=== PATIENT | female | born 1955 | race Caucasian/White ===

== ENCOUNTER 2020-05-21 13:50 | Emergency (ER) | payer MEDICAID, SELFPAY ==
--- NOTE | 2020-05-21 13:58 | ED.URI ---
HPI - URI/Sore Throat General Chief Complaint: Upper Respiratory Infection Stated Complaint: chest congestion/cough/sinus drainage Time Seen by Provider: 05/21/20 14:08 Source: patient and RN notes reviewed Mode of arrival: ambulatory Limitations: no limitations History of Present Illness HPI Narrative: 64-year-old female with history of COPD and right lower lobectomy presents with concern for cough, chest congestion, sinus drainage. She denies fever, chills, body aches. Reports having 2 negative Covid test in the past, none within the last week. Denies any known exposure to Covid. MD elicited complaint: cough Related Data Home Medications Medication Instructions Recorded Confirmed acyclovir 05/21/20 albuterol sulfate 05/21/20 albuterol sulfate INHALATION 05/21/20 amlodipine 05/21/20 citalopram mg 05/21/20 fluticasone propion-salmeterol INHALATION 05/21/20 [Wixela Inhub] metoprolol tartrate 05/21/20 montelukast mg 05/21/20 montelukast mg 05/21/20 pravastatin 05/21/20 Allergies Allergy/AdvReac Type Severity Reaction Status Date / Time codeine Allergy Unknown Other Verified 05/21/20 14:16 Penicillins Allergy Unknown Rash Verified 05/21/20 14:16 Review of Systems Review of Systems: Narrative: CONSTITUTIONAL: Denies malaise, chills, sweats, or fever. EYES: Denies visual changes, redness, or discharge. ENT: Reports rhinorrhea. Denies congestion, sinus pain, otalgia and sore throat. CARDIOVASCULAR: Denies chest pain, palpitations, or edema. RESPIRATORY: Reports cough, chest congestion. Denies dyspnea. GASTROINTESTINAL: Denies abdominal pain, nausea, vomiting, diarrhea SKIN: Denies rash or itching. MUSCULOSKELETAL: Denies myalgia. NEUROLOGIC: Denies headache. All systems reviewed & are unremarkable except as noted in HPI and below PMFSH Comments At time of signature, agree with nursing past medical, surgical, social and family history. There is no relevant family history pertinent to the presenting complaint Exam Narrative: Exam Narrative: GENERAL: Well-appearing, well-nourished, and in no acute distress. HEAD: Normocephalic EYES: PERRLA, conjunctivae clear ENT: Nares clear, turbinates and erythematous, clear discharge. Mucous membranes moist. TM pearly xie with sharp light reflex bilaterally; no tragal tenderness. Oropharynx not erythematous without lesions. Tonsils not enlarged and without exudate, no drooling, no hoarseness, no trismus, uvula midline. NECK: Supple. No lymphadenopathy CHEST: Inspiratory and expiratory wheeze throughout, breath sounds equal, right lower lobectomy. No rhonchi, rales, or stridor. No respiratory distress, speaks in full sentences. HEART: Regular rate and rhythm. No murmur heard. SKIN: Warm, dry, no rash. NEURO: Alert and oriented x3. PSYCH: Normal mood and affect Course Course Emergency Course: Patient is aware of diagnosis, understands and agrees to treatment plan. Anticipatory guidance given. Patient agrees to follow-up as directed and is aware of reasons to seek care at the emergency department. Portions of this record may have been created with voice recognition software Vital Signs Vital signs: Vital Signs Temperature 98.8 F 05/21/20 14:00 Pulse Rate 80 05/21/20 14:00 Respiratory Rate 18 05/21/20 14:00 Blood Pressure 126/80 05/21/20 14:00 Pulse Oximetry 98 05/21/20 14:00 Temperature 98.8 F 05/21/20 14:00 Pulse Rate 80 05/21/20 14:00 Respiratory Rate 18 05/21/20 14:00 Blood Pressure 126/80 05/21/20 14:00 Pulse Oximetry 98 05/21/20 14:00 Reviewed. MDM - URI/Sore Throat MDM Narrative Medical decision making narrative: Differential diagnosis considered: COPD exacerbation, <del>C</del>emile virus, strep pharyngitis, allergic rhinitis, upper respiratory tract infection, sinusitis, rhinosinusitis, nasopharyngitis. viral pharyngitis, otitis media, otitis externa, pneumonia, bronchitis, viral cough syndrome, viral syndrome, a
[2020-05-21 14:00] VITALS: BP 126/80; PULSE 80; RESP 18; TEMP 37.1; O2SAT 98
== END 2020-05-21 14:15 | disposition home or self-care (01) ==
PROVIDERS: Emergency Provider Nurse Practitioner; PCP Internal Medicine
DX: J44.1 Chronic obstructive pulmonary disease with (acute) exacerbation (principal); J34.89 Other specified disorders of nose and nasal sinuses; Z90.2 Acquired absence of lung [part of]; E78.00 Pure hypercholesterolemia, unspecified; I10 Essential (primary) hypertension; K21.9 Gastro-esophageal reflux disease without esophagitis; F32.9 Major depressive disorder, single episode, unspecified; Z85.118 Personal history of other malignant neoplasm of bronchus and lung; Z92.21 Personal history of antineoplastic chemotherapy
CPT/HCPCS: 99213; G0463

== ENCOUNTER 2020-08-17 16:49 | Emergency (ER) | payer MEDICAID, SELFPAY ==
--- NOTE | ~2020-08-17 | XR_ITS ---
EXAMINATION: XR chest 2V 08/17/2020 17:40 INDICATION: Wheezing and tachycardia PROCEDURE: 2 view chest COMPARISON: No prior studies for comparison. FINDINGS: No focal pneumonia or edema. There is right basilar atelectasis/scarring. The cardiomediast inal silhouette is within normal limits. There are no pleural effusions. There is no pneumothorax s uspected. IMPRESSION: 1: Right basilar atelectasis/scarring. Reviewed, dictated and finalized at location A. MANAGER
[2020-08-17 17:10] VITALS: BP 143/87; PULSE 108; RESP 20; TEMP 36.7; O2SAT 96
[2020-08-17 17:25] VITALS: BP 143/87; PULSE 108; RESP 20; TEMP 36.7; O2SAT 96
--- NOTE | 2020-08-17 17:51 | ED.GENADULT ---
HPI - General Adult General Chief complaint: Upper Respiratory Infection Stated complaint: poss respiratory infection Source: patient Mode of arrival: ambulatory Limitations: no limitations History of Present Illness HPI narrative: Patient presents for evaluation of respiratory symptoms. She indicates she has had shortness of breath for awhile . When asked to elaborate on this, she states she has been short of breath for about a month. She has had some phone conversations with Dr Collier indicates she has never been seen in person. She saw her ENT at [facility] a few weeks ago for sinus congestion was instructed to continue with Flonase and nasal rinses. She reports sinus congestion, productive cough of clear white sputum, shortness of breath, worse with exertion. She is also experienced some chest pain but none in the last 3 days. She denies any fever, chills, leg swelling. No recent known exposures to Covid. States that she has been tested several times for COVID and tests have been negative, although she has not been tested recently. She has a history of lung cancer and had a lobectomy several years ago. She continues to smoke about four cigarettes per day. She has taken prednisone in past but none in the last few months. Patient states she had a CAT scan of her chest approximately 1 month ago but her symptoms have worsened since the time of her imaging. She states it is difficult to get in to see her primary care provider and her labor specialist is Dr Vazquez at [facility]. Related Data Home Medications Medication Instructions Recorded Confirmed albuterol sulfate 2 puff INHALATION Q4H PRN 05/21/20 08/17/20 albuterol sulfate 2.5 mg INHALATION TID PRN 05/21/20 08/17/20 amlodipine 10 mg PO DAILY 05/21/20 08/17/20 citalopram 10 mg PO DAILY 05/21/20 08/17/20 famotidine 40 mg PO DAILY 05/21/20 08/17/20 metoprolol tartrate 12.5 mg PO BID 05/21/20 08/17/20 montelukast 10 mg PO DAILY 05/21/20 08/17/20 pravastatin 20 mg PO DAILY 05/21/20 08/17/20 Flonase 2 spray EACH NARE DAILY 08/17/20 08/17/20 ipratropium bromide [Atrovent HFA] 2 puff INHALATION Q6H 08/17/20 08/17/20 Allergies Allergy/AdvReac Type Severity Reaction Status Date / Time codeine Allergy Unknown Other Verified 08/17/20 17:22 Penicillins Allergy Unknown Rash Verified 08/17/20 17:22 Review of Systems Review of Systems: Narrative: CONSTITUTIONAL: Denies fever, chills, or sweats. EYES: Denies visual changes, redness, or discharge. ENT: Reports sinus congestion drainage.. CARDIOVASCULAR: Reports chest pain recently, although none in the last few days. Denies any leg swelling. RESPIRATORY: Reports shortness of breath and productive cough of white sputum. GASTROINTESTINAL: Denies abdominal pain, nausea, vomiting, or diarrhea. GENITOURINARY: Denies dysuria or hematuria. SKIN: Denies rash or itching. MUSCULOSKELETAL: Denies back pain, joint pain, or myalgia. NEUROLOGIC: Denies headache, numbness, dizziness, or weakness. PSYCHIATRIC: Denies anxiety or depression. PMFSH Past Medical History Medical History COPD (chronic obstructive pulmonary disease) Hyperlipidemia Hypertension Lung cancer Tobacco use Surgical History Surgical History S/P lobectomy of lung Family History Family History Mother Bladder cancer Father Gastric cancer Social History Social History (Updated 08/17/20 @ 17:57 by Fracisco Adler [facility], ) Smoking status: Current every day smoker Tobacco type: cigarettes Substance use: never Living arrangements: with family Spiritual care concerns: No Exam Narrative: Exam Narrative: GENERAL: Well-appearing, well-nourished, and in no acute distress. HEAD: Normocephalic, atraumatic. EYES: PERRLA and EOMI. ENT: Nares clear, no rhinorrhea or epistaxis. Mucous membranes moist. Oropharynx without ton
--- NOTE | 2020-08-17 17:53 | ECG_ITS ---
Measurements Intervals [place] Rate: 96 P: 66 [place]: 145 QRS: 74 QRSD: 90 T: 62 QT: 375 QTc: 474 Interpretive Statements SINUS RHYTHM BASELINE ARTIFACT- I, II, AVR, AVL, AVF BORDERLINE ECG Electronically Signed On 08-18-2020 7:08:02 CRANE CHASER by Reza Glasgow D.O.
[2020-08-17] MEDS: methylPREDNISolone SOD SUCC 125 MG VIAL IM (17:57)
[2020-08-17 18:23] VITALS: PULSE 95; RESP 18; O2SAT 96
== END 2020-08-17 18:56 | disposition short-term general hospital (02) ==
PROVIDERS: Emergency Provider Nurse Practitioner; PCP Internal Medicine
DX: J44.1 Chronic obstructive pulmonary disease with (acute) exacerbation (principal); Z20.822 Contact with and (suspected) exposure to COVID-19; F17.210 Nicotine dependence, cigarettes, uncomplicated; E78.5 Hyperlipidemia, unspecified; I10 Essential (primary) hypertension; Z85.118 Personal history of other malignant neoplasm of bronchus and lung; Z90.2 Acquired absence of lung [part of]
CPT/HCPCS: 71046; 87426; 93005; 96372; 99213; C9803; G0463; J2930

== ENCOUNTER 2020-11-19 14:10 | Emergency (ER) | payer MEDICAID, SELFPAY | END 2020-11-19 18:27 | disposition home or self-care (01) | LOC: EXPBETH 18:27 | PROVIDERS: Emergency Provider Nurse Practitioner Family; PCP Internal Medicine | DX: J30.9 Allergic rhinitis, unspecified (principal); R09.82 Postnasal drip; J44.9 Chronic obstructive pulmonary disease, unspecified | CPT/HCPCS: 99211; G0463 ==

== ENCOUNTER 2021-01-09 10:35 | Outpatient (RCR) | payer MEDICAID, SELFPAY | END 2021-04-09 23:59 | disposition home or self-care (01) | LOC: ANHBWCAUD 10:35 | PROVIDERS: PCP Internal Medicine; Visit Provider Internal Medicine | DX: Z46.1 Encounter for fitting and adjustment of hearing aid (principal) | CPT/HCPCS: 99199 ==

== ENCOUNTER 2021-03-09 13:56 | Emergency (ER) | payer MEDICAID, SELFPAY ==
--- NOTE | 2021-03-09 14:03 | ED.SOB ---
HPI - SOB/Dyspnea General Chief Complaint: Upper Respiratory Infection Stated Complaint: copd - issues breathing Time Seen by Provider: 03/09/21 14:42 Source: patient and RN notes reviewed Mode of arrival: ambulatory Limitations: no limitations History of Present Illness HPI Narrative: 65-year-old female with history of lung cancer, COPD, currently undergoing treatment for lung cancer presents with concern for worsening shortness of breath. Reports over the last several days she has been using her nebulizer frequently and continues to have wheezing and shortness of breath. She denies new fevers, body aches, sick contacts. Reports she has been having serial chest CTs and has had a lung infection that is difficult to treat that she has been being treated for by her oncologist. She denies rhinorrhea, nasal congestion, sore throat, ear pain. MD elicited complaint: shortness of breath Related Data Home Medications Medication Instructions Recorded Confirmed albuterol sulfate 2 puff INHALATION Q4H PRN 05/21/20 03/09/21 albuterol sulfate 2.5 mg INHALATION TID PRN 05/21/20 03/09/21 amlodipine 10 mg PO DAILY 05/21/20 03/09/21 citalopram 10 mg PO DAILY 05/21/20 03/09/21 famotidine 40 mg PO DAILY 05/21/20 03/09/21 metoprolol tartrate 12.5 mg PO BID 05/21/20 03/09/21 montelukast 10 mg PO DAILY 05/21/20 03/09/21 pravastatin 20 mg PO DAILY 05/21/20 03/09/21 ipratropium bromide [Atrovent HFA] 2 puff INHALATION Q6H 08/17/20 03/09/21 cholecalciferol (vitamin D3) 100 mcg PO DAILY 03/09/21 03/09/21 [Vitamin D3] fluticasone propion-salmeterol 1 inh INHALATION Q12H 03/09/21 03/09/21 [Wixela Inhub] Allergies Allergy/AdvReac Type Severity Reaction Status Date / Time codeine Allergy Unknown Other Verified 03/09/21 14:33 Penicillins Allergy Unknown Rash Verified 03/09/21 14:33 Review of Systems Review of Systems: CONSTITUTIONAL: Denies malaise, chills, sweats, or fever. EYES: Denies visual changes, redness, or discharge. ENT: Denies rhinorrhea, congestion, sinus pain, otalgia and sore throat. CARDIOVASCULAR: Denies chest pain, palpitations, or edema. RESPIRATORY: Reports cough, wheezing, dyspnea. GASTROINTESTINAL: Denies abdominal pain, nausea, vomiting, diarrhea SKIN: Denies rash or itching. MUSCULOSKELETAL: Denies myalgia. NEUROLOGIC: Denies headache. All systems reviewed & are unremarkable except as noted in HPI and below PMFSH Past Medical History Medical History COPD (chronic obstructive pulmonary disease) Hyperlipidemia Hypertension Lung cancer Tobacco use Surgical History Surgical History S/P lobectomy of lung Family History Family History Mother Bladder cancer Father Gastric cancer Social History Social History (Updated 08/17/20 @ 17:57 by Fracisco Adler [facility], ) Smoking status: Current every day smoker Tobacco type: cigarettes Substance use: never Spiritual care concerns: No Comments At time of signature, agree with nursing past medical, surgical, social and family history. There is no relevant family history pertinent to the presenting complaint Exam Narrative: GENERAL: Well-appearing, well-nourished, and in no acute distress. HEAD: Normocephalic EYES: PERRLA, conjunctivae clear ENT: Nares clear. Mucous membranes moist. NECK: Supple. No lymphadenopathy CHEST: Diffuse inspiratory and expiratory wheeze, breath sounds equal. No rhonchi, rales, or stridor. No respiratory distress, speaks in full sentences. HEART: Regular rate and rhythm. No murmur heard. SKIN: Warm, dry, no rash. NEURO: Alert and oriented x3. PSYCH: Normal mood and affect Course Course Emergency Course: Discussed with patient the importance of continuity of care with her oncologist and her primary care provider. Discussed following up with them tomorrow for further evaluation, will do a steroid course no
[2021-03-09 14:12] VITALS: BP 125/97; PULSE 106; RESP 14; TEMP 36.8; O2SAT 97
[2021-03-09 14:34] VITALS: BP 125/97; PULSE 106; RESP 14; TEMP 36.8; O2SAT 97
== END 2021-03-09 14:57 | disposition home or self-care (01) ==
PROVIDERS: Emergency Provider Nurse Practitioner; PCP Internal Medicine
DX: R06.2 Wheezing (principal); R06.02 Shortness of breath; J44.9 Chronic obstructive pulmonary disease, unspecified; E78.5 Hyperlipidemia, unspecified; I10 Essential (primary) hypertension; Z85.118 Personal history of other malignant neoplasm of bronchus and lung; F17.210 Nicotine dependence, cigarettes, uncomplicated; Z90.2 Acquired absence of lung [part of]
CPT/HCPCS: 99213; G0463

== ENCOUNTER 2021-03-11 08:59 | Outpatient (CLI) | payer MEDICAID, SELFPAY | END 2021-03-11 09:00 | disposition home or self-care (01) | LOC: ANHBWCAUD 09:00 | PROVIDERS: PCP Internal Medicine; Visit Provider Internal Medicine | DX: H90.3 Sensorineural hearing loss, bilateral (principal) | CPT/HCPCS: 92557; 92567 ==

== ENCOUNTER 2021-03-25 14:02 | Outpatient (CLI) | payer MEDICAID, SELFPAY ==
[2021-03-25 19:56] LABS: Hematocrit 44.5 % (37.0-47.0); Hemoglobin 14.4 g/dL (12.0-15.0); Mean Corpuscular HGB Conc 32.4 g/dl (32-36); Mean Corpuscular Hemoglobin 31.8 pg (26-34); Mean Corpuscular Volume 98.2 fl (80-100); Mean Platelet Volume 10.2 fl (7.4-10.4); Platelet Count Result 421 k/mm3 (150-375); Red Blood Count 4.53 M/mm3 (4.2-5.4); Red Cell Distribution Width 13.2 % (11.5-14.5); White Blood Count 14.2 K/mm3 (4.5-10.0)
[2021-03-25 20:20] LABS: Alanine Aminotransferase 19 U/L (4-35); Albumin Level 4.3 g/dL (3.5-5.1); Alkaline Phosphatase 121 U/L (38-126); Anion Gap 13 mmol/L (8-16); Aspartate Amino Transferase 22 U/L (14-36); Bilirubin,Total 0.3 mg/dL (0.2-1.3); Blood Urea Nitrogen 6 mg/dL (7-17); Calcium 9.8 mg/dL (8.4-10.2); Carbon Dioxide 25 mmol/L (22-30); Chloride 105 mmol/L (98-107); Cholesterol 216 mg/dL (0-200); Estimated Glomerular Filt Rate > 60; Glucose 106 mg/dL (65-110); HDL Direct 41 mg/dL; Potassium 3.9 mmol/L (3.4-5.0); Sodium 143 mmol/L (137-145); Triglycerides 134 mg/dL (<150)
[2021-03-25 20:30] LABS: LDL Cholesterol Direct 127 mg/dL
== END 2021-03-25 14:03 | disposition home or self-care (01) ==
PROVIDERS: PCP Family Medicine; Visit Provider Family Medicine
DX: E78.5 Hyperlipidemia, unspecified (principal); I10 Essential (primary) hypertension; C34.90 Malignant neoplasm of unspecified part of unspecified bronchus or lung; J44.9 Chronic obstructive pulmonary disease, unspecified; Z00.00 Encounter for general adult medical examination without abnormal findings
CPT/HCPCS: 36415; 80053; 80061; 85027

== ENCOUNTER 2021-04-15 12:30 | Outpatient (RCR) | payer MEDICAID, SELFPAY | END 2021-06-30 23:59 | disposition home or self-care (01) | LOC: ANHBWCAUD 12:30 | PROVIDERS: PCP Family Medicine; Visit Provider Internal Medicine | DX: Z46.1 Encounter for fitting and adjustment of hearing aid (principal) | CPT/HCPCS: 99199; V5160; V5261 ==

== ENCOUNTER 2021-06-18 10:05 | Emergency (ER) | payer MEDICAID, SELFPAY ==
--- NOTE | ~2021-06-18 | XR_ITS ---
EXAMINATION: XR chest 2V DATE: 06/18/2021 10:32 INDICATION: Coarse wheezing, history of COPD and pneumonia TECHNIQUE: PA and lateral views of the chest are obtained. COMPARISON: 08/17/2020 FINDINGS: The lungs are free of acute opacities. Surgical clips are present in the right perihilar an d right upper lung zone as well as left perihilar region. Changes may reflect prior right upper lobec darian. There is no pleural effusion or pneumothorax. The cardiomediastinal silhouette is normal. There is moderate thoracic spondylosis. IMPRESSION: 1. No acute cardiopulmonary abnormality. Reviewed, dictated and finalized at location A. WORKER
--- NOTE | 2021-06-18 10:11 | ED.URI ---
HPI - URI/Sore Throat General Chief Complaint: Upper Respiratory Infection Stated Complaint: Chest Congestion Time Seen by Provider: 06/18/21 10:11 Source: patient and RN notes reviewed History of Present Illness HPI Narrative: Patient is 65-year-old female who presents the urgent care with complaints of chest congestion and cough. 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 Patient states that just does not seem to get better. States that she had increased fatigue as of yesterday and missed work. Patient denies of any fevers, nausea, vomiting or chest pain. States that she does not have any changes in her shortness of breath. Patient states she is been using her inhaler and nebulizers. No other acute complaints. No acute distress noted. Patient aware of the plan of care. Some parts of this dictation were generated by voice recognition software and may contain typographical and/or grammatical inaccuracies. Related Data Home Medications Medication Instructions Recorded Confirmed albuterol sulfate 2 puff INHALATION Q4H PRN 05/21/20 06/18/21 albuterol sulfate 2.5 mg INHALATION TID PRN 05/21/20 06/18/21 famotidine 40 mg PO DAILY 05/21/20 06/18/21 metoprolol tartrate 12.5 mg PO BID 05/21/20 06/18/21 ipratropium bromide [Atrovent HFA] 2 puff INHALATION Q6H 08/17/20 06/18/21 cholecalciferol (vitamin D3) 100 mcg PO DAILY 03/09/21 06/18/21 [Vitamin D3] fluticasone propion-salmeterol 1 inh INHALATION Q12H 03/09/21 06/18/21 [Wixela Inhub] Allergies Allergy/AdvReac Type Severity Reaction Status Date / Time codeine Allergy Unknown Other Verified 06/18/21 10:29 Penicillins Allergy Unknown Rash Verified 06/18/21 10:29 Review of Systems Review of Systems: CONSTITUTIONAL: Denies fever, chills, or sweats. Reports of fatigue EYES: Denies visual changes, redness, or discharge. ENT: Denies rhinorrhea, congestion, sore throat, or otalgia. CARDIOVASCULAR: Denies chest pain, palpitations, or edema. RESPIRATORY: Reports of chronic cough with intermittent increase in dyspnea GASTROINTESTINAL: Denies abdominal pain, nausea, vomiting, or diarrhea. GENITOURINARY: Denies dysuria or hematuria. SKIN: Denies rash or itching. MUSCULOSKELETAL: Denies back pain, joint pain, or myalgia. NEUROLOGIC: Denies headache, numbness, or weakness. All other systems reviewed are negative, except as documented in HPI. [facility] Past Medical History Medical History Allergies Arthritis Asthma Cancer COPD (chronic obstructive pulmonary disease) Hyperlipidemia Hypertension Lung cancer Tobacco use Surgical History Surgical History S/P lobectomy of lung Family History Family History Mother Bladder cancer Diabetes mellitus Father Gastric cancer Hypertension Heart problem Sibling Diabetes mellitus Other Alcohol abuse Social History Social History Smoking packs per day: 0.5 Smoking cigarettes per day: 10.0 Smoking status: Current every day smoker Tobacco type: cigarettes Substance use: never Spiritual care concerns: No Comments At the time of my signature, I reviewed and agree with the nursing past medical, surgical, social, and family history. There is no relevant family history pertinent to the patient complaint. Exam Narrative: GENERAL: This is a well-nourished, well-developed patient, in no apparent distress. HEAD: normocephalic, atraumatic. EYES: PERRL. Sclera clear/white. Vision is grossly intact. EARS: External ears normal, auditory canals clear and without drainage, TMs normal without perforation. Hearing grossly intact. NOSE: External nose normal with no obvious nasal discharge, nares without redness, no rhinorrhea.
[2021-06-18 10:15] VITALS: BP 125/81; PULSE 86; RESP 18; TEMP 37; O2SAT 98
== END 2021-06-18 11:00 | disposition home or self-care (01) ==
PROVIDERS: Emergency Provider Nurse Practitioner Family; PCP Family Medicine
DX: J42 Unspecified chronic bronchitis (principal); F17.210 Nicotine dependence, cigarettes, uncomplicated; M19.90 Unspecified osteoarthritis, unspecified site; J44.9 Chronic obstructive pulmonary disease, unspecified; E78.5 Hyperlipidemia, unspecified; I10 Essential (primary) hypertension; Z85.118 Personal history of other malignant neoplasm of bronchus and lung; Z90.2 Acquired absence of lung [part of]
CPT/HCPCS: 71046; 99213; G0463

== ENCOUNTER 2021-08-07 15:56 | Emergency (ER) | payer MEDICAID, SELFPAY ==
--- NOTE | 2021-08-07 15:58 | ED.URI ---
HPI - URI/Sore Throat General Chief Complaint: Wound/Laceration Stated Complaint: upper respiratory /wound on right thumb Time Seen by Provider: 08/07/21 15:58 Source: patient and RN notes reviewed History of Present Illness HPI Narrative: Patient is 65-year-old female presents the urgent care with complaints of a wound to the right thumb. Patient states that it started out as a pimple and she popped it 2 days ago. Patient states that she is now getting green drainage from the area. States that the redness is increased and is slightly painful. Patient is right-hand dominant. Denies of any known injuries. Denies any fever, chills, nausea or vomiting. Patient states she has been putting Neosporin on the area. No other acute complaints. No acute distress noted. Patient aware of plan of care. Some parts of this dictation were generated by voice recognition software and may contain typographical and/or grammatical inaccuracies. Related Data Home Medications Medication Instructions Recorded Confirmed albuterol sulfate 2 puff INHALATION Q4H PRN 05/21/20 08/07/21 albuterol sulfate 2.5 mg INHALATION TID PRN 05/21/20 08/07/21 famotidine 40 mg PO DAILY 05/21/20 08/07/21 metoprolol tartrate 12.5 mg PO BID 05/21/20 08/07/21 ipratropium bromide [Atrovent HFA] 2 puff INHALATION Q6H 08/17/20 08/07/21 fluticasone propion-salmeterol 1 inh INHALATION Q12H 03/09/21 08/07/21 [Wixela Inhub] cholecalciferol (vitamin D3) 25 mcg PO DAILY 08/07/21 08/07/21 Allergies Allergy/AdvReac Type Severity Reaction Status Date / Time codeine Allergy Unknown Other Verified 08/07/21 16:14 Penicillins Allergy Unknown Rash Verified 08/07/21 16:14 Review of Systems Review of Systems: CONSTITUTIONAL: Denies fever, chills, or sweats. EYES: Denies visual changes, redness, or discharge. ENT: Denies rhinorrhea, congestion, sore throat, or otalgia. CARDIOVASCULAR: Denies chest pain, palpitations, or edema. RESPIRATORY: Denies cough or dyspnea. GASTROINTESTINAL: Denies abdominal pain, nausea, vomiting, or diarrhea. GENITOURINARY: Denies dysuria or hematuria. SKIN: Reports of a wound to the right thumb MUSCULOSKELETAL: Denies back pain, joint pain, or myalgia. NEUROLOGIC: Denies headache, numbness, or weakness. All other systems reviewed are negative, except as documented in HPI. COUNT INCLUDES THE [facility] Past Medical History Medical History Allergies Arthritis Asthma Cancer COPD (chronic obstructive pulmonary disease) Hyperlipidemia Hypertension Lung cancer Tobacco use Surgical History Surgical History S/P lobectomy of lung Family History Family History Mother Bladder cancer Diabetes mellitus Father Gastric cancer Hypertension Heart problem Sibling Diabetes mellitus Other Alcohol abuse Social History Social History (System 08/07/21 @ 08:44 by Felicia Coronel) Smoking packs per day: 0.5 Smoking cigarettes per day: 10.0 Smoking status: Current every day smoker Tobacco type: cigarettes Substance use: never Spiritual care concerns: No Comments At the time of my signature, I reviewed and agree with the nursing past medical, surgical, social, and family history. There is no relevant family history pertinent to the patient complaint. Exam Narrative: GENERAL: This is a well-nourished, well-developed patient, in no apparent distress. HEAD: normocephalic, atraumatic. EYES: PERRL. Sclera clear/white. Vision is grossly intact. EARS: External ears normal NOSE: External nose normal with no obvious nasal discharge, nares without redness, no rhinorrhea. THROAT: Mucous membranes moist, posterior pharynx clear. NECK: Neck supple CARDIOVASCULAR: Regular rate and rhythm without murmurs, gallops, or rubs. RESPIRATORY: Coarse wheezes throughout. SKIN: Draining 1 cm circular raised folliculitis, erythemic, to the dorsal aspect of the right thumb with
[2021-08-07 16:02] VITALS: BP 122/79; PULSE 91; RESP 20; TEMP 37.1; O2SAT 94
== END 2021-08-07 16:30 | disposition home or self-care (01) ==
PROVIDERS: Emergency Provider Nurse Practitioner Family; PCP Family Medicine
DX: L03.011 Cellulitis of right finger (principal); F17.210 Nicotine dependence, cigarettes, uncomplicated; M19.90 Unspecified osteoarthritis, unspecified site; J44.9 Chronic obstructive pulmonary disease, unspecified; E78.5 Hyperlipidemia, unspecified; I10 Essential (primary) hypertension; Z85.118 Personal history of other malignant neoplasm of bronchus and lung; Z90.2 Acquired absence of lung [part of]
CPT/HCPCS: 99213; G0463

== ENCOUNTER 2021-10-06 10:45 | Emergency (ER) | payer MEDICAID, SELFPAY ==
[2021-10-06 11:00] VITALS: BP 113/73; PULSE 92; RESP 20; TEMP 36.9; O2SAT 98
--- NOTE | 2021-10-06 12:14 | ED.URI ---
HPI - URI/Sore Throat General Chief Complaint: Upper Respiratory Infection Stated Complaint: sinus congestion Time Seen by Provider: 10/06/21 12:04 Source: patient and RN notes reviewed Mode of arrival: ambulatory Limitations: no limitations History of Present Illness HPI Narrative: Patient presents today complaining of a 2-week history of cough, congestion, rhinorrhea, sore throat, sneezing, postnasal drip. Symptoms have been worse over the past 2 days. She has been taking Zyrtec, Flonase, using her COPD inhalers. Patient was seen on 09/27/2021 in the ER at [facility] and given a prescription for prednisone which she finished yesterday. States it did help with her wheezing and cough, but not for her other sinus symptoms. MD elicited complaint: sore throat, rhinorrhea, nasal congestion and sinus pain Related Data Home Medications Medication Instructions Recorded Confirmed albuterol sulfate 2 puff INHALATION Q4H PRN 05/21/20 10/06/21 albuterol sulfate 2.5 mg INHALATION TID PRN 05/21/20 10/06/21 famotidine 40 mg PO DAILY 05/21/20 10/06/21 metoprolol tartrate 12.5 mg PO BID 05/21/20 10/06/21 ipratropium bromide [Atrovent HFA] 2 puff INHALATION Q6H 08/17/20 10/06/21 fluticasone propion-salmeterol 1 inh INHALATION Q12H 03/09/21 10/06/21 [Wixela Inhub] cholecalciferol (vitamin D3) 25 mcg PO DAILY 08/07/21 10/06/21 Allergies Allergy/AdvReac Type Severity Reaction Status Date / Time codeine Allergy Unknown Other Verified 10/06/21 11:24 Penicillins Allergy Unknown Rash Verified 10/06/21 11:24 Review of Systems Review of Systems: CONSTITUTIONAL: Denies body aches, fever, chills, or sweats. EYES: Denies visual changes, redness, or discharge. ENT: Denies otalgia.+ Postnasal drip, congestion, rhinorrhea, sore throat, sneezing CARDIOVASCULAR: Denies chest pain, palpitations, or edema. RESPIRATORY: Denies dyspnea.+ Cough GASTROINTESTINAL: Denies abdominal pain, nausea, vomiting, or diarrhea. GENITOURINARY: Denies dysuria or hematuria. SKIN: Denies rash, itching, or wounds. MUSCULOSKELETAL: Denies back pain, joint pain, or myalgia. NEUROLOGIC: Denies headache, numbness, tingling, or weakness. PSYCH: Denies depression or anxiety. [facility] Past Medical History Medical History Allergies Arthritis Asthma Cancer COPD (chronic obstructive pulmonary disease) Hyperlipidemia Hypertension Lung cancer Tobacco use Surgical History Surgical History S/P lobectomy of lung Family History Family History Mother Bladder cancer Diabetes mellitus Father Gastric cancer Hypertension Heart problem Sibling Diabetes mellitus Other Alcohol abuse Social History Social History Smoking packs per day: 0.5 Smoking cigarettes per day: 10.0 Smoking status: Former smoker Tobacco type: cigarettes Smoking end date: 07/12/21 Substance use: never Spiritual care concerns: No Comments At time of signature, I have reviewed and agree with nursing past medical, surgical, social and family history unless otherwise noted. Please see nursing chart for further information. There is no relevant family history pertinent to the presenting complaint Exam Narrative: GENERAL: Well-appearing, well-nourished, and in no acute distress. HEAD: Normocephalic, atraumatic. EYES: EOMI. No redness or drainage. Conjunctivae normal. ENT: Mucous membranes pink and moist. Nares congested. Bilateral frontal maxillary sinus tenderness. No rhinorrhea. TMs normal bilaterally. Throat normal. Uvula midline. NECK: Normal AROM. Supple. No lymphadenopathy. CHEST: No respiratory distress. Expiratory wheezing throughout. Inspiratory wheezing in the bilateral lower lobes.. HEART: Regular rate and rhythm. No murmur appreciated. Normal peripheral pulses. EXTREMITIES: No
== END 2021-10-06 12:20 | disposition home or self-care (01) ==
PROVIDERS: Emergency Provider Nurse Practitioner; PCP Family Medicine
DX: J01.90 Acute sinusitis, unspecified (principal); Z87.891 Personal history of nicotine dependence; M19.90 Unspecified osteoarthritis, unspecified site; J44.9 Chronic obstructive pulmonary disease, unspecified; E78.5 Hyperlipidemia, unspecified; I10 Essential (primary) hypertension; Z85.118 Personal history of other malignant neoplasm of bronchus and lung
CPT/HCPCS: 99213; G0463

== ENCOUNTER 2021-10-15 09:54 | Outpatient (CLI) | payer MEDICAID, SELFPAY ==
--- NOTE | ~2021-10-15 | XR_ITS ---
EXAMINATION: XR chest 2V DATE: 10/15/2021 10:03 INDICATION: COPD . Follow-up COVID. TECHNIQUE: PA and lateral views of the chest were obtained. COMPARISON: Chest radiograph dated 06/18/2021 FINDINGS: The lungs remain clear with no focal airspace opacities, pulmonary edema, pleural effusion or pneumot horax. The cardiomediastinal silhouette is normal. Surgical clips projecting over the right upper poncho g zone and at the bilateral kvng. Moderate thoracic spondylosis. IMPRESSION: 1. No acute cardiopulmonary disease. Reviewed, dictated and finalized at location B.
== END 2021-10-15 09:55 | disposition home or self-care (01) ==
LOC: ANHBWCIMG 09:57
PROVIDERS: PCP Family Medicine; Visit Provider Family Medicine
DX: J44.9 Chronic obstructive pulmonary disease, unspecified (principal); M47.814 Spondylosis without myelopathy or radiculopathy, thoracic region
CPT/HCPCS: 71046

== ENCOUNTER 2021-11-03 08:33 | Emergency (ER) | payer MEDICAID, SELFPAY ==
--- NOTE | ~2021-11-03 | XR_ITS ---
EXAMINATION: XR chest 2V DATE: 11/03/2021 09:09 INDICATION: Cough. COVID-19 positive. TECHNIQUE: Frontal and lateral views of the chest were obtained. COMPARISON: Chest 2 views 10/15/2021 FINDINGS: There are mild airspace opacities in right lower lung zone. There is mild atelectasis in le ft lower lung zone. No pleural effusion or pneumothorax. The heart size is normal. There are surgical clips in the chest bilaterally. IMPRESSION: 1. Mild airspace opacities in right lower lung zone, consistent with atelectasis versus pneumonia. Reviewed, dictated and finalized at location A. IMPRESSION: 1. Mild airspace opacities in right lower lung zone, consistent with atelectasi s versus pneumonia.
--- NOTE | 2021-11-03 08:35 | ED.URI ---
HPI - URI/Sore Throat General Chief Complaint: Upper Respiratory Infection Stated Complaint: respiratory issues Time Seen by Provider: 11/03/21 08:36 Source: patient and RN notes reviewed History of Present Illness HPI Narrative: Patient is 65-year-old female who presents the urgent care with complaints of increased shortness of breath, cough, sore throat and wheezing. Patient states that she was hospitalized for a few days with COVID on October 07. Patient states that since she has gotten out of the hospital she has been in contact with positive influenza and positive COVID in her household. Patient states she was unable to follow-up with her primary care doctor last considering her granddaughter was positive for COVID. Patient denies any recent fevers. States that she has been using her nebulizers and taking daily Zyrtec. Patient denies of any chest pain. Patient chest x-ray on October 15 was negative for pneumonia or abnormality. No other acute complaints. No acute distress noted. Patient aware of the plan of care. Some parts of this dictation were generated by voice recognition software and may contain typographical and/or grammatical inaccuracies. Related Data Home Medications Medication Instructions Recorded Confirmed albuterol sulfate 2 puff INHALATION Q4H PRN 05/21/20 11/03/21 albuterol sulfate 2.5 mg INHALATION TID PRN 05/21/20 11/03/21 famotidine 40 mg PO DAILY 05/21/20 11/03/21 metoprolol tartrate 12.5 mg PO BID 05/21/20 11/03/21 cholecalciferol (vitamin D3) 25 mcg PO DAILY 08/07/21 11/03/21 Allergies Allergy/AdvReac Type Severity Reaction Status Date / Time codeine Allergy Unknown Other Verified 11/03/21 08:50 Penicillins Allergy Unknown Rash Verified 11/03/21 08:50 Review of Systems Review of Systems: CONSTITUTIONAL: Denies fever, chills, or sweats. EYES: Denies visual changes, redness, or discharge. ENT: Denies rhinorrhea, congestion, or otalgia. Reports of postnasal drainage and sore throat CARDIOVASCULAR: Denies chest pain, palpitations, or edema. RESPIRATORY: Reports a productive cough with wheezing and dyspnea GASTROINTESTINAL: Denies abdominal pain, nausea, vomiting, or diarrhea. GENITOURINARY: Denies dysuria or hematuria. SKIN: Denies rash or itching. MUSCULOSKELETAL: Denies back pain, joint pain, or myalgia. NEUROLOGIC: Denies headache, numbness, or weakness. All other systems reviewed are negative, except as documented in HPI. [facility] Past Medical History Medical History Allergies Arthritis Asthma Cancer COPD (chronic obstructive pulmonary disease) Hyperlipidemia Hypertension Lung cancer Tobacco use Surgical History Surgical History S/P lobectomy of lung Family History Family History Mother Bladder cancer Diabetes mellitus Father Gastric cancer Hypertension Heart problem Sibling Diabetes mellitus Other Alcohol abuse Social History Social History Smoking packs per day: 0.5 Smoking cigarettes per day: 10.0 Smoking status: Former smoker Tobacco type: cigarettes Smoking end date: 07/12/21 Substance use: never Spiritual care concerns: No Comments At the time of my signature, I reviewed and agree with the nursing past medical, surgical, social, and family history. There is no relevant family history pertinent to the patient complaint. Exam Narrative: GENERAL: This is a well-nourished, well-developed patient, in no apparent distress. HEAD: normocephalic, atraumatic. EYES: PERRL. Sclera clear/white. Vision is grossly intact. EARS: External ears normal, auditory canals clear and without drainage, TMs normal without perforation. Hearing grossly intact. NOSE: External nose normal with no obvious nasal discharge, nares without redness, no rhinorrhea. THROAT: Mucous membranes m
[2021-11-03 08:38] VITALS: BP 115/81; PULSE 110; RESP 14; TEMP 36.5; O2SAT 98
== END 2021-11-03 09:40 | disposition home or self-care (01) ==
PROVIDERS: Emergency Provider Nurse Practitioner Family; PCP Family Medicine
DX: J18.1 Lobar pneumonia, unspecified organism (principal); Z20.822 Contact with and (suspected) exposure to COVID-19; Z87.891 Personal history of nicotine dependence; M19.90 Unspecified osteoarthritis, unspecified site; J44.9 Chronic obstructive pulmonary disease, unspecified; E78.5 Hyperlipidemia, unspecified; I10 Essential (primary) hypertension; Z85.118 Personal history of other malignant neoplasm of bronchus and lung; Z90.2 Acquired absence of lung [part of]; Z86.16 Personal history of COVID-19
CPT/HCPCS: 71046; 87081; 87426; 87804; 87880; 99213; C9803; G0463

== ENCOUNTER 2021-11-23 12:49 | Emergency (ER) | payer MEDICAID, SELFPAY ==
--- NOTE | ~2021-11-23 | XR_ITS ---
XR chest 2V DATE: 11/23/2021 13:16 INDICATION: Cough, congestion. TECHNIQUE: 2 views COMPARISON: 11/03/2021 2 view chest FINDINGS: Bilateral surgical clips are noted in the chest. Normal heart size. There is mild aortic ca lcification and tortuosity. No hilar or mediastinal enlargement. Bilateral hyperinflation with relative flattening the diaphragm and increased retrosternal airspace c onsistent with COPD. There is discoid atelectasis in the left lower lobe. No pulmonary infiltrate or consolidation, pleural effusion or pulmonary vascular congestion or pneumothorax is detected. IMPRESSION: Left lower lobe discoid atelectasis Bilateral hyperinflation suggesting COPD Reviewed, dictated and finalized at location A.
--- NOTE | 2021-11-23 12:52 | ED.URI ---
HPI - URI/Sore Throat General Chief Complaint: Upper Respiratory Infection Stated Complaint: Cough/Congestion Time Seen by Provider: 11/23/21 12:52 Source: patient and RN notes reviewed History of Present Illness HPI Narrative: Patient is a 65-year-old female who presents the urgent care with complaints of persistent cough and congestion after having COVID. Patient was seen at our facility on November 03 for post COVID-pneumonia and treated with antibiotics and steroids. Patient has been on steroids for several weeks since her COVID diagnosis from both the hospital admission, PCP, and our urgent care. Patient is also been placed on several antibiotics throughout her course. Patient states that as soon as she finishes the steroid regimen, her symptoms returned. Patient has been using her nebulizers and inhalers at home. Denies any recent fevers. Denies of chest pain. No other acute complaints. No acute distress noted. Patient aware of the plan of care. Some parts of this dictation were generated by voice recognition software and may contain typographical and/or grammatical inaccuracies. Related Data Home Medications Medication Instructions Recorded Confirmed albuterol sulfate 2.5 mg INHALATION TID PRN 05/21/20 11/23/21 famotidine 40 mg PO DAILY 05/21/20 11/23/21 metoprolol tartrate 12.5 mg PO BID 05/21/20 11/23/21 cholecalciferol (vitamin D3) 25 mcg PO DAILY 08/07/21 11/23/21 Allergies Allergy/AdvReac Type Severity Reaction Status Date / Time codeine Allergy Unknown Other Verified 11/23/21 13:09 Penicillins Allergy Unknown Rash Verified 11/23/21 13:09 Review of Systems Review of Systems: CONSTITUTIONAL: Denies fever, chills, or sweats. EYES: Denies visual changes, redness, or discharge. ENT: Denies rhinorrhea, sore throat, or otalgia. Reports of postnasal drainage CARDIOVASCULAR: Denies chest pain, palpitations, or edema. RESPIRATORY: Reports a productive clear cough with intermittent dyspnea and wheezes GASTROINTESTINAL: Denies abdominal pain, nausea, vomiting, or diarrhea. GENITOURINARY: Denies dysuria or hematuria. SKIN: Denies rash or itching. MUSCULOSKELETAL: Denies back pain, joint pain, or myalgia. NEUROLOGIC: Denies headache, numbness, or weakness. All other systems reviewed are negative, except as documented in HPI. [facility] Past Medical History Medical History Allergies Arthritis Asthma Cancer COPD (chronic obstructive pulmonary disease) Hyperlipidemia Hypertension Lung cancer Tobacco use Surgical History Surgical History S/P lobectomy of lung Family History Family History Mother Bladder cancer Diabetes mellitus Father Gastric cancer Hypertension Heart problem Sibling Diabetes mellitus Other Alcohol abuse Social History Social History Smoking packs per day: 0.5 Smoking cigarettes per day: 10.0 Smoking status: Former smoker Tobacco type: cigarettes Smoking end date: 07/12/21 Substance use: never Spiritual care concerns: No Comments At the time of my signature, I reviewed and agree with the nursing past medical, surgical, social, and family history. There is no relevant family history pertinent to the patient complaint. Exam Narrative: GENERAL: This is a well-nourished, well-developed patient, in no apparent distress. HEAD: normocephalic, atraumatic. EYES: PERRL. Sclera clear/white. Vision is grossly intact. EARS: External ears normal, auditory canals clear and without drainage, TMs normal without perforation. Hearing grossly intact. NOSE: External nose normal with no obvious nasal discharge, nares without redness, no rhinorrhea. THROAT: Mucous membranes moist, posterior pharynx clear. Moderate postnasal drainage NECK: Neck supple CARDIOVASCULAR: Regular rate and rhythm without murmurs
[2021-11-23 12:54] VITALS: BP 117/86; PULSE 92; RESP 16; TEMP 36.8; O2SAT 98
== END 2021-11-23 13:35 | disposition home or self-care (01) ==
PROVIDERS: Emergency Provider Nurse Practitioner Family; PCP Family Medicine
DX: R05.9 Cough, unspecified (principal); R09.89 Other specified symptoms and signs involving the circulatory and respiratory systems; U09.9 Post COVID-19 condition, unspecified; M19.90 Unspecified osteoarthritis, unspecified site; J44.9 Chronic obstructive pulmonary disease, unspecified; E78.5 Hyperlipidemia, unspecified; I10 Essential (primary) hypertension; Z85.118 Personal history of other malignant neoplasm of bronchus and lung; Z90.2 Acquired absence of lung [part of]; Z87.891 Personal history of nicotine dependence
CPT/HCPCS: 71046; 99213; G0463

== ENCOUNTER 2022-01-23 16:16 | Emergency (ER) | payer MEDICARE, MEDICAID, SELFPAY ==
--- NOTE | ~2022-01-23 | XR_ITS ---
EXAMINATION: XR chest 2V DATE: 01/23/2022 16:47 INDICATION: Wheezing. COPD. TECHNIQUE: frontal and lateral views of the chest were obtained. COMPARISON: Chest radiograph date FINDINGS: Minimal streaky atelectasis/scarring at the bilateral lung bases. No new airspace opacities, pulmonar y edema, pleural effusion or pneumothorax. The cardiomediastinal silhouette is normal. Surgical clips in the chest bilaterally. IMPRESSION: 1. Unchanged mild streaky bibasilar atelectasis/scarring. Reviewed, dictated and finalized at location B.
[2022-01-23 16:23] VITALS: BP 135/89; PULSE 86; RESP 16; TEMP 36.7; O2SAT 98
--- NOTE | 2022-01-23 16:48 | ED.SOB ---
HPI - SOB/Dyspnea General Chief Complaint: Shortness of Breath/Dyspnea Stated Complaint: COPD/respitory issues Time Seen by Provider: 01/23/22 16:54 Source: patient and RN notes reviewed Mode of arrival: ambulatory Limitations: no limitations History of Present Illness HPI Narrative: 66-year-old female with history of COPD, lobectomy presents with concern for shortness of breath. She reports she has a recent COVID exposure. She reports 2 to 3-day history of increasing shortness of breath, she has been using her nebulizer or her albuterol inhaler every 3 hours. Reports she used it just prior to arrival. She reports body aches, fatigue, nausea, nasal congestion. Reports she took an antinausea pill before arrival. MD elicited complaint: shortness of breath Related Data Home Medications Medication Instructions Recorded Confirmed albuterol sulfate 2.5 mg/3 mL 2.5 mg inhalation TID PRN 05/21/20 11/23/21 (0.083 %) solution for nebulization Shortness Of Breath famotidine 20 mg tablet 40 mg PO DAILY 05/21/20 11/23/21 cholecalciferol (vitamin D3) 25 25 mcg PO DAILY 08/07/21 11/23/21 mcg (1,000 unit) tablet Allergies Allergy/AdvReac Type Severity Reaction Status Date / Time codeine Allergy Unknown Other Verified 12/09/21 11:10 Penicillins Allergy Unknown Rash Verified 12/09/21 11:10 Review of Systems Review of Systems: CONSTITUTIONAL: Reports malaise, fatigue. Denies chills, sweats, or fever. EYES: Denies visual changes, redness, or discharge. ENT: Reports rhinorrhea, congestion. Denies sinus pain, otalgia and sore throat. CARDIOVASCULAR: Denies chest pain, palpitations, or edema. RESPIRATORY: Reports cough, dyspnea. GASTROINTESTINAL: Denies abdominal pain, vomiting, diarrhea. Reports nausea SKIN: Denies rash or itching. MUSCULOSKELETAL: Reports myalgia. NEUROLOGIC: Denies headache. All systems reviewed & are unremarkable except as noted in HPI and below PMFSH Past Medical History Medical History Allergies Arthritis Asthma Cancer COPD (chronic obstructive pulmonary disease) Hyperlipidemia Hypertension Lung cancer Tobacco use Surgical History Surgical History S/P lobectomy of lung Family History Family History Mother Bladder cancer Diabetes mellitus Father Gastric cancer Hypertension Heart problem Sibling Diabetes mellitus Other Alcohol abuse Social History Social History Smoking packs per day: 0.5 Smoking cigarettes per day: 10.0 Smoking status: Former smoker Tobacco type: cigarettes Smoking end date: 07/12/21 Substance use: never Spiritual care concerns: No Comments At time of signature, agree with nursing past medical, surgical, social and family history. There is no relevant family history pertinent to the presenting complaint Exam Narrative: GENERAL: Nontoxic appearing and in no acute distress. HEAD: Normocephalic EYES: PERRLA, conjunctivae clear ENT: Nares clear. Mucous membranes moist. TM pearly xie with dull light reflex bilaterally; no tragal tenderness. Oropharynx not erythematous without lesions. Tonsils not enlarged and without exudate, no drooling, no hoarseness, no trismus, uvula midline. NECK: Supple. No lymphadenopathy CHEST: Inspiratory and expiratory wheeze throughout with scattered rhonchi. Audible wheezing. No acute respiratory distress, speaks in full sentences. HEART: Regular rate and rhythm. No murmur heard. SKIN: Warm, dry, no rash. NEURO: Alert and oriented x3. PSYCH: Normal mood and affect Course Course Emergency Course: Patient is aware of diagnosis, understands and agrees to treatment plan. Anticipatory guidance given. Patient agrees to follow-up as directed and is aware of reasons to seek care at the emergency department. Portions of this record may hav
[2022-01-23] MEDS: methylPREDNISolone SOD SUCC 125 MG VIAL IM (17:12)
[2022-01-23] MEDS: ALBUTEROL SULFATE NEB 2.5 MG/3 ML INH INHALATION (17:16)
[2022-01-23] MEDS: IPRATROPIUM BR 0.02% INH SOLN 0.5 MG/2.5 ML VIAL INHALATION (17:17)
== END 2022-01-23 17:42 | disposition home or self-care (01) ==
PROVIDERS: Emergency Provider Nurse Practitioner; PCP Family Medicine
DX: J44.1 Chronic obstructive pulmonary disease with (acute) exacerbation (principal); Z20.822 Contact with and (suspected) exposure to COVID-19; Z87.891 Personal history of nicotine dependence; M19.90 Unspecified osteoarthritis, unspecified site; E78.5 Hyperlipidemia, unspecified; I10 Essential (primary) hypertension; Z85.118 Personal history of other malignant neoplasm of bronchus and lung; Z90.2 Acquired absence of lung [part of]
CPT/HCPCS: 71046; 87426; 96372; 99213; C9803; G0463; J2930

== ENCOUNTER 2022-04-15 11:59 | Emergency (ER) | payer MEDICARE, SELFPAY ==
[2022-04-15 12:09] VITALS: BP 111/72; PULSE 86; RESP 14; TEMP 36.6; O2SAT 98
--- NOTE | 2022-04-15 12:31 | ED.URI ---
HPI - URI/Sore Throat General Chief Complaint: Upper Respiratory Infection Stated Complaint: head and chest congestion Time Seen by Provider: 04/15/22 12:05 Source: patient Mode of arrival: ambulatory Limitations: no limitations History of Present Illness HPI Narrative: Ms. Heart is a 66-year-old female patient presenting to the clinic today with complaints of head and chest congestion x4 to 5 days. She denies any fever or chills. She reports that she does have a history of COPD. She is having a productive cough with white or greenish phlegm at times. She denies any chest pain or shortness of breath. She denies any known exposure to anyone with COVID, flu, or strep. MD elicited complaint: cough and other (Chest congestion, head congestion) Related Data Home Medications Medication Instructions Recorded Confirmed albuterol sulfate 2.5 mg/3 mL 2.5 mg inhalation TID PRN 05/21/20 04/15/22 (0.083 %) solution for nebulization Shortness Of Breath famotidine 20 mg tablet 40 mg PO DAILY 05/21/20 04/15/22 Allergies Allergy/AdvReac Type Severity Reaction Status Date / Time codeine Allergy Unknown Other Verified 04/15/22 12:20 Penicillins Allergy Unknown Rash Verified 04/15/22 12:20 Review of Systems Review of Systems: Pertinent positives per HPI. Patient denies any fever, chills, rash, headache, visual changes, dizziness, cough, shortness of breath, chest pain, palpitations, nausea, vomiting, diarrhea, constipation, abdominal pain, or any urinary issues. PMFSH Past Medical History Medical History Allergies Arthritis Asthma Cancer COPD (chronic obstructive pulmonary disease) Hyperlipidemia Hypertension Lung cancer Tobacco use Surgical History Surgical History S/P lobectomy of lung Family History Family History Mother Bladder cancer Diabetes mellitus Father Gastric cancer Hypertension Heart problem Sibling Diabetes mellitus Other Alcohol abuse Social History Social History Smoking packs per day: 0.5 Smoking cigarettes per day: 10.0 Smoking status: Former smoker Tobacco type: cigarettes Smoking end date: 07/12/21 Substance use: never Spiritual care concerns: No Comments At the time of my signature, I reviewed and agree with the nursing past medical, surgical, social, and family history. There is no relevant family history pertinent to the patient complaint. Exam Narrative: General: Well-developed, well nourished, in no apparent distress Head: Normocephalic, atraumatic Eyes: Pupils equally round and reactive to light bilaterally, EOM intact, sclera and conjunctive clear, no discharge, lids normal Ears: TMs intact and clear, ear canals clear, no drainage, grossly hearing normal. Nose: Nares patent, no discharge, no inflammation, no sinus tenderness. Mouth: Oral pharynx without lesions or masses, good dentition, MMM. Neck: Supple, trachea midline, no enlargement of anterior or posterior cervical nodes, no thyroid masses or goiter palpable. Cardio: Regular rate and rhythm, s1 and s2 normal, no murmur appreciated. Resp: Inspiratory and expiratory wheezing with mild rhonchi, no rales or rubs Course Course Emergency Course: Portions of this record may have been created with voice recognition software. Level of Care: Express Care Visit Vital Signs Vital signs: Vital Signs Temperature 36.6 C 04/15/22 12:09 Pulse Rate 86 04/15/22 12:09 Respiratory Rate 14 04/15/22 12:09 Blood Pressure 111/72 04/15/22 12:09 Pulse Oximetry 98 04/15/22 12:09 Oxygen Delivery Room Air 04/15/22 12:09 Temperature 36.6 C 04/15/22 12:09 Pulse Rate 86 04/15/22 12:09 Respiratory Rate 14 04/15/22 12:09 Blood Pressure 111/72 04/15/22 12:09 Pulse Oximetry 98 04/15/22 12:09 Oxy
== END 2022-04-15 12:40 | disposition home or self-care (01) ==
PROVIDERS: Emergency Provider Nurse Practitioner Family
DX: J40 Bronchitis, not specified as acute or chronic (principal); M19.90 Unspecified osteoarthritis, unspecified site; J44.9 Chronic obstructive pulmonary disease, unspecified; E78.5 Hyperlipidemia, unspecified; I10 Essential (primary) hypertension; Z85.118 Personal history of other malignant neoplasm of bronchus and lung; Z90.2 Acquired absence of lung [part of]; Z87.891 Personal history of nicotine dependence
CPT/HCPCS: 99213; G0463

== ENCOUNTER 2022-08-27 12:44 | Emergency (ER) | payer MEDICARE, SELFPAY ==
[2022-08-27 12:50] VITALS: BP 108/68; PULSE 95; RESP 20; TEMP 36.4; O2SAT 96
--- NOTE | 2022-08-27 12:54 | ED.URI ---
HPI - URI/Sore Throat General Chief Complaint: Upper Respiratory Infection Stated Complaint: head cold Source: patient and RN notes reviewed History of Present Illness HPI Narrative: 66 yo F presents to urgent care with complaints of coughing, sore throat with coughing, runny nose, and congestion. Pt states this started last night. Pt reports she has been using her inhaler and/or nebulizer machine at home with moderate relief. Pt denies any fevers, chills, ear pain, painful swallowing, N/V/D, chest pain, or SOB. Related Data Home Medications Medication Instructions Recorded Confirmed albuterol sulfate 2.5 mg/3 mL 2.5 mg inhalation TID PRN 05/21/20 08/27/22 (0.083 %) solution for nebulization Shortness Of Breath famotidine 20 mg tablet 40 mg PO DAILY 05/21/20 08/27/22 acyclovir 400 mg tablet 400 mg PO DIRECTED 08/27/22 08/27/22 lovastatin 40 mg tablet 40 mg PO DIRECTED 08/27/22 08/27/22 montelukast 10 mg tablet 10 mg PO DIRECTED 08/27/22 08/27/22 Allergies Allergy/AdvReac Type Severity Reaction Status Date / Time codeine Allergy Unknown Other Verified 08/27/22 12:59 Penicillins Allergy Unknown Rash Verified 08/27/22 12:59 Review of Systems Review of Systems: CONSTITUTIONAL: Denies fever, chills, or sweats. EYES: Denies visual changes, redness, or discharge. ENT: Reports sore throat and congestion CARDIOVASCULAR: Denies chest pain, palpitations, or edema. RESPIRATORY: Reports cough. Denies dyspnea. GASTROINTESTINAL: Denies abdominal pain, nausea, vomiting, or diarrhea. GENITOURINARY: Denies dysuria or hematuria. SKIN: Denies rash or itching. MUSCULOSKELETAL: Denies back pain, joint pain, or myalgia. NEUROLOGIC: Denies headache, numbness, or weakness. [facility] Past Medical History Medical History Allergies Arthritis Asthma Cancer COPD (chronic obstructive pulmonary disease) Hyperlipidemia Hypertension Lung cancer Tobacco use Surgical History Surgical History S/P lobectomy of lung Family History Family History Mother Bladder cancer Diabetes mellitus Father Gastric cancer Hypertension Heart problem Sibling Diabetes mellitus Other Alcohol abuse Social History Social History Smoking packs per day: 0.5 Smoking cigarettes per day: 10.0 Smoking status: Former smoker Tobacco type: cigarettes Smoking end date: 07/12/21 Substance use: never Living arrangements: with family Spiritual care concerns: No Comments At the time of my signature, I reviewed and agree with the nursing past medical, surgical, social, and family history. There is no relevant family history pertinent to the patient complaint. Exam Narrative: GENERAL: This is a well-nourished, well-developed patient, in no apparent distress. HEAD: normocephalic, atraumatic. EYES: PERRL. Sclera clear/white. Vision is grossly intact. EARS: External ears normal, auditory canals clear and without drainage, TMs normal without perforation. Hearing grossly intact. NOSE: External nose normal, nares without redness. Rhinorrhea noted. THROAT: Mucous membranes moist, posterior pharynx clear. NECK: Neck supple, non-tender without lymphadenopathy, masses or thyromegaly. CARDIOVASCULAR: Regular rate and rhythm without murmurs, gallops, or rubs. RESPIRATORY: Mild wheezing bilaterally on auscultation. GASTROINTESTINAL: Abdomen soft, non-tender, nondistended. Bowel sounds are active. No hepato-splenomegaly, or palpable masses. No guarding. SKIN: warm, intact with no suspicious lesions or rash, good texture and turgor. NEURO: awake, alert, and oriented to person, place and time. There were no obvious focal neurologic abnormalities. Course Course Level of Care: Express Care Visit Vital Signs Vital signs: Vital Signs Temperature 97.5 F L 0
[2022-08-27] MEDS: predniSONE 20 MG TABLET 60 MG PO (13:12)
== END 2022-08-27 13:15 | disposition home or self-care (01) ==
PROVIDERS: Emergency Provider Nurse Practitioner Family
DX: J40 Bronchitis, not specified as acute or chronic (principal); J06.9 Acute upper respiratory infection, unspecified; Z87.891 Personal history of nicotine dependence; M19.90 Unspecified osteoarthritis, unspecified site; J44.9 Chronic obstructive pulmonary disease, unspecified; E78.5 Hyperlipidemia, unspecified; I10 Essential (primary) hypertension; Z85.118 Personal history of other malignant neoplasm of bronchus and lung; Z90.2 Acquired absence of lung [part of]
CPT/HCPCS: 99213; G0463; J7512

== ENCOUNTER 2024-02-07 15:50 | Emergency (ER) | payer MEDICARE, SELFPAY ==
[2024-02-07 15:58] VITALS: BP 100/58; PULSE 80; RESP 20; TEMP 37.2; O2SAT 98
--- NOTE | 2024-02-07 16:31 | ED.GENADULT ---
HPI - General Adult General Chief complaint: Upper Respiratory Infection Stated complaint: Sore Throat/Ear Pain/Chills Time Seen by Provider: 02/07/24 16:31 Source: patient, RN notes reviewed and old records reviewed Mode of arrival: ambulatory Limitations: no limitations History of Present Illness HPI narrative: 68-year-old female to Express Care for complaint sore throat, bilateral ear pain (worse on right), chills, postnasal drainage, fatigue, nasal congestion dry cough for 3 days. Patient history COPD. patient denies fever, nausea, vomiting, diarrhea, shortness of breath, chest pain. Patient able to tolerate fluids by mouth. Respirations even and nonlabored. Patient able to speak in complete sentences without difficulty. Patient appears fatigued and acutely ill. No signs of acute distress. Related Data Home Medications Medication Instructions Recorded Confirmed albuterol sulfate 2.5 mg/3 mL 2.5 mg inhalation TID PRN 05/21/20 02/07/24 (0.083 %) solution for nebulization Shortness Of Breath famotidine 20 mg tablet 40 mg PO DAILY 05/21/20 02/07/24 lovastatin 40 mg tablet 40 mg PO DIRECTED 08/27/22 02/07/24 montelukast 10 mg tablet 10 mg PO DIRECTED 08/27/22 02/07/24 acyclovir 400 mg tablet 400 mg PO BID 02/07/24 02/07/24 aspirin 81 mg capsule 81 mg PO DAILY 02/07/24 02/07/24 cetirizine 10 mg tablet 10 mg PO DAILY 02/07/24 02/07/24 ipratropium 0.5 mg-albuterol 3 mg See Rx Instructions .Route 02/07/24 02/07/24 (2.5 mg base)/3 mL nebulization .COMPLEX PRN sob soln ondansetron 4 mg disintegrating See Rx Instructions .Route .COMPLEX 02/07/24 02/07/24 tablet triamcinolone acetonide 0.1 % topical 02/07/24 topical ointment Allergies Allergy/AdvReac Type Severity Reaction Status Date / Time codeine Allergy Unknown Other Verified 02/07/24 16:03 Penicillins Allergy Unknown Rash Verified 02/07/24 16:03 Review of Systems Review of Systems: All systems reviewed & are unremarkable except as noted in HPI and below Constitutional: Constitutional: Reports as per HPI, Reports chills and Reports fatigue Eyes: Eyes: Reports no additional eye complaints ENT: Reports as per HPI, Reports otalgia ( Bilateral; worse on right), Reports nasal congestion, Reports post nasal drip and Reports sore throat Cardiovascular: Cardiovascular: Reports no additional cardiovascular complaints, Denies chest pain and Denies dyspnea Respiratory: Respiratory: Reports no additional respiratory complaints, Reports cough and Denies dyspnea Musculoskeletal: Musculoskeletal: Reports no additional musculoskeletal complaints Neurologic: Reports system reviewed and no additional complaints, except as documented Psychiatric: Psychiatric: Reports no additional psychiatric complaints PMF Past Medical History Medical History Allergies Arthritis Asthma Cancer COPD (chronic obstructive pulmonary disease) Hyperlipidemia Hypertension Lung cancer Tobacco use Surgical History Surgical History S/P lobectomy of lung Family History Family History Mother Bladder cancer Diabetes mellitus Father Gastric cancer Hypertension Heart problem Sibling Diabetes mellitus Other Alcohol abuse Social History Social History Smoking packs per day: 0.5 Smoking cigarettes per day: 10.0 Smoking status: Former smoker Tobacco type: cigarettes Smoking end date: 07/12/21 Substance use: never Living arrangements: with family Spiritual care concerns: No Comments At the time of my signature, I reviewed and agree with the nursing past medical, surgical, social, and family history. There is no relevant family history pertinent to the patient complaint. Exam Const: General: cooperative, no acute distress, alert, ill appearing acutely, tired ap
== END 2024-02-07 16:50 | disposition home or self-care (01) ==
PROVIDERS: Emergency Provider Nurse Practitioner Family
DX: U07.1 COVID-19 (principal); H66.91 Otitis media, unspecified, right ear; Z87.891 Personal history of nicotine dependence; M19.90 Unspecified osteoarthritis, unspecified site; J44.9 Chronic obstructive pulmonary disease, unspecified; E78.5 Hyperlipidemia, unspecified; I10 Essential (primary) hypertension; Z85.118 Personal history of other malignant neoplasm of bronchus and lung; Z90.2 Acquired absence of lung [part of]; Z79.82 Long term (current) use of aspirin
CPT/HCPCS: 87426; 99213; G0463

== ENCOUNTER 2024-03-29 13:09 | Emergency (ER) | payer MEDICARE, SELFPAY ==
--- NOTE | ~2024-03-29 | XR_ITS ---
EXAMINATION: XR toe 2nd LT min 2V DATE: 03/29/2024 13:37 INDICATION: Stabbing injury with pain to the left second distal interphalangeal joint TECHNIQUE: Dorsal plantar, lateral and 2 oblique views of the left second were obtained. COMPARISON: None FINDINGS: Bone alignment is normal. No fracture. Minimal to mild osteoarthritis at the first metatarsophalangea l and multiple interphalangeal joints. Soft tissue swelling about the second toe. IMPRESSION: No acute osseous abnormality. Reviewed, dictated and finalized at location B.
[2024-03-29 13:16] VITALS: BP 134/80; PULSE 83; RESP 16; TEMP 36.2; O2SAT 98
[2024-03-29 13:40] LABS: EDCOVIDSCREEN Negative (Negative); EDSTREPNEGPOS1 Positive (Negative)
--- NOTE | 2024-03-29 20:51 | ED.URI ---
HPI - URI/Sore Throat General Chief Complaint: Upper Respiratory Infection Stated Complaint: throat/ears/toe on left foot Time Seen by Provider: 03/29/24 13:20 Source: patient, RN notes reviewed and old records reviewed Mode of arrival: ambulatory Limitations: no limitations History of Present Illness HPI Narrative: 68-year-old female to Express Care for complaint of sore throat for 2 days. Patient requesting COVID, influenza, strep test. Patient denies shortness of breath, difficulty swallowing, fever. Patient also requesting x-ray of 2nd toe on left foot. Patient states that she hit it on a chair on March 19 and wants to confirm whether not it is broken. Patient ambulates with steady gait. Patient denies numbness, tingling, pain radiating into foot. Patient does not disclose attempting to treat at home for either complaint. Patient able to tolerate fluids by mouth. Patient is sitting comfortably in exam room in no acute distress. Respirations even and nonlabored. Related Data Home Medications Medication Instructions Recorded Confirmed albuterol sulfate 2.5 mg/3 mL 2.5 mg inhalation TID PRN 05/21/20 02/07/24 (0.083 %) solution for nebulization Shortness Of Breath famotidine 20 mg tablet 40 mg PO DAILY 05/21/20 02/07/24 lovastatin 40 mg tablet 40 mg PO DIRECTED 08/27/22 02/07/24 montelukast 10 mg tablet 10 mg PO DIRECTED 08/27/22 02/07/24 acyclovir 400 mg tablet 400 mg PO BID 02/07/24 02/07/24 aspirin 81 mg capsule 81 mg PO DAILY 02/07/24 02/07/24 cetirizine 10 mg tablet 10 mg PO DAILY 02/07/24 02/07/24 ipratropium 0.5 mg-albuterol 3 mg See Rx Instructions .Route 02/07/24 02/07/24 (2.5 mg base)/3 mL nebulization .COMPLEX PRN sob soln ondansetron 4 mg disintegrating See Rx Instructions .Route .COMPLEX 02/07/24 02/07/24 tablet triamcinolone acetonide 0.1 % topical 02/07/24 topical ointment Allergies Allergy/AdvReac Type Severity Reaction Status Date / Time codeine Allergy Unknown Other Verified 02/07/24 16:03 Penicillins Allergy Unknown Rash Verified 02/07/24 16:03 Review of Systems Review of Systems: All systems reviewed & are unremarkable except as noted in HPI and below Constitutional: Constitutional: Reports no additional constitutional complaints Eyes: Eyes: Reports no additional eye complaints ENT: Reports as per HPI and Reports sore throat Cardiovascular: Cardiovascular: Reports no additional cardiovascular complaints, Denies chest pain and Denies dyspnea Respiratory: Respiratory: Reports no additional respiratory complaints, Denies cough and Denies dyspnea Musculoskeletal: Musculoskeletal: Reports as per HPI, Denies abnormal gait, Reports arthralgias, Reports joint swelling, Reports limited range of motion and Reports other ( Second toe left foot) Neurologic: Reports system reviewed and no additional complaints, except as documented Psychiatric: Psychiatric: Reports no additional psychiatric complaints [facility] Past Medical History Medical History Allergies Arthritis Asthma Cancer COPD (chronic obstructive pulmonary disease) Hyperlipidemia Hypertension Lung cancer Tobacco use Surgical History Surgical History S/P lobectomy of lung Family History Family History Mother Bladder cancer Diabetes mellitus Father Gastric cancer Hypertension Heart problem Sibling Diabetes mellitus Other Alcohol abuse Social History Social History Smoking packs per day: 0.5 Smoking cigarettes per day: 10.0 Smoking status: Former smoker Tobacco type: cigarettes Smoking end date: 07/12/21 Substance use: never Living arrangements: with family Spiritual care concerns: No Comments At the time of my signature, I reviewed and agree with the nursing past medical, surgical, social, and
== END 2024-03-29 14:11 | disposition home or self-care (01) ==
PROVIDERS: Emergency Provider Nurse Practitioner Family
DX: J02.0 Streptococcal pharyngitis (principal); S90.122A Contusion of left lesser toe(s) without damage to nail, initial encounter; W22.03XA Walked into furniture, initial encounter; Z20.822 Contact with and (suspected) exposure to COVID-19; Z87.891 Personal history of nicotine dependence; J44.9 Chronic obstructive pulmonary disease, unspecified; E78.5 Hyperlipidemia, unspecified; I10 Essential (primary) hypertension; M19.90 Unspecified osteoarthritis, unspecified site; Z85.118 Personal history of other malignant neoplasm of bronchus and lung; Z90.2 Acquired absence of lung [part of]
CPT/HCPCS: 73660; 87635; 87880; 99213; G0463

== ENCOUNTER 2024-05-15 09:08 | Emergency (ER) | payer MEDICARE, MEDICAID, SELFPAY ==
[2024-05-15 09:18] VITALS: BP 131/71; PULSE 92; RESP 20; TEMP 36.9; O2SAT 98
--- NOTE | 2024-05-15 09:38 | ED_ITS ---
HPI - URI/Sore Throat General Chief Complaint: Upper Respiratory Infection Stated Complaint: head cold/throat Time Seen by Provider: 05/15/24 09:39 Source: patient and RN notes reviewed Mode of arrival: ambulatory Limitations: no limitations History of Present Illness HPI Narrative: 68-year-old female with history of COPD presents with concern for sinus congestion, drainage, cough, sore throat. She reports she has not been taking her typical allergy medication. She denies fever body aches chills or sweats MD elicited complaint: cough Related Data Home Medications Medication Instructions Recorded Confirmed famotidine 20 mg tablet 40 mg PO DAILY 05/21/20 05/15/24 lovastatin 40 mg tablet 40 mg PO DIRECTED 08/27/22 05/15/24 montelukast 10 mg tablet 10 mg PO DIRECTED 08/27/22 05/15/24 aspirin 81 mg capsule 81 mg PO DAILY 02/07/24 05/15/24 cetirizine 10 mg tablet 10 mg PO DAILY 02/07/24 05/15/24 ipratropium 0.5 mg-albuterol 3 mg See Rx Instructions .Route 02/07/24 05/15/24 (2.5 mg base)/3 mL nebulization .COMPLEX PRN sob soln ipratropium bromide 17 2 puff inhalation QID 05/15/24 05/15/24 mcg/actuation HFA aerosol inhaler (Atrovent HFA) Allergies Allergy/AdvReac Type Severity Reaction Status Date / Time codeine Allergy Unknown Other Verified 02/07/24 16:03 Penicillins Allergy Unknown Rash Verified 02/07/24 16:03 Review of Systems Review of Systems: CONSTITUTIONAL: Denies malaise, chills, sweats, or fever. EYES: Denies visual changes, redness, or discharge. ENT: Reports rhinorrhea, congestion, and sore throat. CARDIOVASCULAR: Denies chest pain, palpitations, or edema. RESPIRATORY: Reports cough. Denies dyspnea. GASTROINTESTINAL: Denies abdominal pain, nausea, vomiting, diarrhea SKIN: Denies rash or itching. MUSCULOSKELETAL: Denies myalgia. NEUROLOGIC: Denies headache. All systems reviewed & are unremarkable except as noted in HPI and below PMFSH Past Medical History Medical History Allergies Arthritis Asthma Cancer COPD (chronic obstructive pulmonary disease) Hyperlipidemia Hypertension Lung cancer Tobacco use Surgical History Surgical History S/P lobectomy of lung Family History Family History Mother Bladder cancer Diabetes mellitus Father Gastric cancer Hypertension Heart problem Sibling Diabetes mellitus Other Alcohol abuse Social History Social History Smoking packs per day: 0.5 Smoking cigarettes per day: 10.0 Smoking status: Former smoker Tobacco type: cigarettes Smoking end date: 07/12/21 Substance use: never Living arrangements: with family Spiritual care concerns: No Comments At time of signature, agree with nursing past medical, surgical, social and family history. There is no relevant family history pertinent to the presenting complaint Exam Narrative: GENERAL: Well-appearing, well-nourished, and in no acute distress. HEAD: Normocephalic EYES: PERRLA, conjunctivae clear ENT: Nares clear, turbinates edematous and erythematous. Mucous membranes moist. TM pearly xie with dull light reflex bilaterally; no tragal tenderness. Orop harynx not erythematous without lesions. Tonsils not enlarged and without exudate, no drooling, no hoarseness, no trismus, uvula midline. NECK: Supple. No lymphadenopathy CHEST: Scattered inspiratory wheeze, otherwise Clear to auscultation, breath sounds equal. No rhonchi, rales, or stridor. No respiratory distress, speaks in full sentences. HEART: Regular rate and rhythm. No murmur heard. SKIN: Warm, dry, no rash. NEURO: Alert and oriented x3. PSYCH: Normal mood and affect Course Course Emergency Course: Patient is aware of diagnosis, understands and agrees to treatment plan. Anticipatory guidance given. Patient agrees to follow-up as directed and is aware of reasons to seek care at the emergency department. Portions of this record may have been created with voice recognition software Level of Care: Express Care Visit Vital Signs Vital signs: Vital Signs Temperature 98.5 F 05/15/24 09:18 Pulse Rate 92 05/15/24 09:18 Respiratory Rate 20 05/15/24 09:18 Blood Pressure 131/71 05/15/24 09:18 Pulse Oximetry 98 05/15/24 09:18 Oxygen Delivery Room Air 05/15/24 09:18 Temperature 98.5 F 05/15/24 09:18 Pulse Rate 92 05/15/24 09:18 Respiratory Rate 20 05/15/24 09:18 Blood Pressure 131/71 05/15/24 09:18 Pulse Oximetry 98 05/15/24 09:18 Oxygen Delivery Room Air 05/15/24 09:18 Reviewed. MDM - URI/Sore Throat MDM Narrative Medical decision making narrative: Differential diagnosis considered: Diaz virus, strep pharyngitis, allergic rhinitis, upper respiratory tract infection, sinusitis, rhinosinusitis, nasopharyngitis. viral pharyngitis, otitis media, otitis externa, pneumonia, bronchitis, viral cough syndrome, viral syndrome, and influenza. Exam findings show no acute concerns or changes; patient is non-toxic appearing and is in no distress. Patient is appropriate for outpatient treatment and follow-up. Lab Data Attestation: I reviewed the patient's lab results. Critical Care Time Critical Care Time Critical Care Time: No Discharge Plan Discharge Clinical Impression: Acute exacerbation of chronic obstructive pulmonary disease Patient Disposition: Home, Self-Care Condition: Stable Instructions: Antibiotic Form, COPD (Chronic Obstructive Pulmonary Disease) (ED) Additional Instructions: 1) Please follow-up with your primary care doctor in the next 1-2 days. 2) If you have any worsening of symptoms or any other urgent concerns please go to the ER. 3) Please take medications as prescribed and continue taking your home medications as usual. 4) Please read and follow information included in discharge instructions. Prescriptions: New prednisone 20 mg tablet 40 mg PO DAILY 5 Days Qty: 10 0RF doxycycline monohydrate 100 mg tablet 100 mg PO BID 7 Days Qty: 14 0RF No Action famotidine 20 mg tablet 40 mg PO DAILY lovastatin 40 mg tablet 40 mg PO DIRECTED montelukast 10 mg tablet 10 mg PO DIRECTED cetirizine 10 mg Tablet 10 mg PO DAILY aspirin 81 mg Capsule 81 mg PO DAILY ipratropium-albuterol 0.5 mg-3 mg(2.5 mg base)/3 mL solution for nebulization See Rx Instructions .ROUTE .COMPLEX PRN (Reason: sob) Rx Instructions: as prescribed Atrovent HFA 17 mcg/actuation HFA aerosol inhaler 2 puff INHALATION QID amlodipine 10 mg tablet 10 mg PO DAILY Qty: 90 1RF bupropion HCl [Wellbutrin XL] 150 mg tablet extended release 24 hr 150 mg PO QAM Qty: 90 1RF citalopram 10 mg tablet 10 mg PO DAILY Qty: 90 1RF albuterol sulfate 90 mcg/actuation HFA aerosol inhaler 2 puff INHALATION Q4H PRN (Reason: Shortness Of Breath) Qty: 8.5 3RF metoprolol tartrate 25 mg tablet 12.5 mg PO BID Qty: 180 1RF fluticasone propion-salmeterol [Wixela Inhub] 500-50 mcg/dose blister with device 1 inh inhalation Q12H Qty: 60 3RF Follow-up/Referrals: Arnaud Martini MD [Primary Care Provider] - Time of Disposition: 09:48
== END 2024-05-15 09:53 | disposition home or self-care (01) ==
PROVIDERS: Emergency Provider Nurse Practitioner; PCP Family Medicine
DX: J44.1 Chronic obstructive pulmonary disease with (acute) exacerbation (principal); Z87.891 Personal history of nicotine dependence; I10 Essential (primary) hypertension; E78.5 Hyperlipidemia, unspecified; M19.90 Unspecified osteoarthritis, unspecified site; Z85.118 Personal history of other malignant neoplasm of bronchus and lung; Z90.2 Acquired absence of lung [part of]; Z79.82 Long term (current) use of aspirin
CPT/HCPCS: 99213; G0463

== ENCOUNTER 2024-08-08 13:06 | Outpatient (CLI) | payer MEDICARE, MEDICAID, SELFPAY ==
--- OUTSIDE RECORDS SUMMARY | 2024-08-08 13:42 | XMS_ITS | Patient Health Summary ---
Author Organization [facility] Address [address] [place] [address] Care Team Providers Care Deputy Clerk Of [address] Name Role Phone Do Cristina MD Primary Care Provider [phone] Note from [facility],non-owned Affiliates and Associated Physician Practices is amultiple site organization consisting of ambulatory clinics and hospital sitesin [place], [place], [place] and [place]. This disclosure is being madepursuant to the Care Everywhere program and may not contain all information available regarding this patient. Last updated 18.[facility] Allergies * Codeine(Itching) -Low Criticality * Penicillins(Rash) -Medium Criticality Medications * Be aware that medications may not be up to date on this document. Alwaysverify current medications with the patient. * guaiFENesin ER 12hr (EQ MUCUS ER) 600 MG tablet(Started 07/16/2017) * amLODIPine (NORVASC) 10 MG tablet(Started 07/11/2017) * fluticasone propionate (FLONASE) 50 MCG/ACT nasal spray(Started 06/06/2017) * tiotropium (SPIRIVA HANDIHALER) 18 MCG inhalation capsule(Started 05/03/2017) * albuterol-ipratropium (DUO-NEB) 0.5-2.5 (3) MG/3ML nebulizer solution(Started 06/17/2017) * raNITIdine (ZANTAC) 150 MG tablet(Started 07/22/2017) * pravastatin (PRAVACHOL) 20 MG tablet(Started 07/22/2017) * levoFLOXacin (LEVAQUIN) 750 MG tablet(Started 06/17/2017) * metoprolol tartrate (LOPRESSOR) 25 MG tablet(Started 07/22/2017) * citalopram (CELEXA) 10 MG tablet(Started 07/22/2017) * nystatin (MYCOSTATIN) 927678 UNIT/ML suspension(Started 07/16/2017) * montelukast (SINGULAIR) 10 MG tablet(Started 06/11/2017) * albuterol HFA (PROAIR HFA) 108 (90 BASE) MCG/ACT inhaler(Started 06/06/2017) * mometasone-formoterol (DULERA) 100-5 MCG/ACT inhaler(Started 06/06/2017) Active Problems Problem Noted Date Diagnosed Date Other seborrheic keratosis 08/06/2017 Other skin changes 08/06/2017 Melanocytic nevi of lower extremity or hip 08/06 Melanocytic nevi of trunk 08/06/2017 Melanocytic nevi of unspecif ied upper limb, including shoulder 08/06/2017 Other melanin hyperpigmentation 08/06/2017 Social History Tobacco Use Types Packs/Day Years Used Date Smoking Tobacco: Every Day Smokeless Tobacco: Never Alcohol Use Standard Drinks/Week Comments Yes 0 (1 standard drink = 0.6 oz pur e alcohol) Sex and Gender Information Value Date Recorded Sex Assigned at Not on file Gender Identity Not on file Sexual Orientation Not on file Care Teams Deputy Clerk Of [address] Court Relationship Specialty Start Date End Date Do Cristina MD [address] [place] [address] PCP - General 05/15/19
--- OUTSIDE RECORDS SUMMARY | 2024-08-08 13:42 | XMS_ITS | Encounter Summary ---
Author Organization [facility] Address [address] [place] [address] Phone Care Team Providers Care Bread Slicer Machine Name Role Phone Logan Vazquez MD Unavailable Ave Collier MD Primary Care Provider [phone] Arnaud Martini MD Primary Care Provider Logan Vazquez MD Unavailable Ana Aguilar APRN, VEGA Unavailable Encounter Details Date Type Department Care Team (Late st Contact Info) Description 07/29/2020 [facility] Central Scheduling 1 [place] [id number] Mikal Espinosa MD [address] [place] [address] Social History Tobacco Use Types Packs/Day Years Used Date Smoking Tobacco: Every Day Cigarettes 0.5 45 Smokeless Tobacco: Never Comments:3-4 cigs a day Alcohol Use Standard Drinks/Week Comments Yes 4 (1 standard drink = 0.6 oz pur e alcohol) social Comments No Sex and Gender Information Value Date Recorded Sex Assigned at Female 07/26/2024 9:52 PM MAGNET VALVE ASSEMBLER Legal Sex Female 9:37 PM CDT Gender Identity Female 07/26/2024 9:52 PM MAGNET VALVE ASSEMBLER Sexual Orientation Straight 07/26/2024 9: 52 PM MAGNET VALVE ASSEMBLER Occupation Industry Job Start Date Job End Date [employer] Not on file Not on file Not on file COVID-19 Exposure Response Date Recorded In the last month, have you been in contact with someone who was confirmed or suspected to have Coronavirus / COVID-19? No / Unsure 07/22/2020 9:27 AM MAGNET VALVE ASSEMBLER documented as of this encounter Plan of Treatment Upcoming Encounters Date Type Department Care Team (Late st Contact Info) Description 09/05/2024 10:30 AM MAGNET VALVE ASSEMBLER Office Visit [facility] - Internal Medicine [facility] [address] [place] [address] Breezy Barros MD [address] [facility] [place] [address] documented as of this encounter Visit Diagnoses Not on filedocumented in this encounter Additional Health Concerns Infection Onset Date Last Indicated Resolved Time COVID - 19 04/19/2021 04/19/2021 04/21/2021 8:16 AM CDT Respiratory Rule Out - RPA 04/19/2021 04/19/2021 1 3:30 PM CDT COVID - 19 07/07/2021 07/07/2021 07/07/2021 6:29 PM MAGNET VALVE ASSEMBLER COVID - 19 Confirmed 07/07/2021 07/07/20212 022 12:16 AM MAGNET VALVE ASSEMBLER Respiratory Rule Out - RPA 10/07/2021 10/08/2021 0 10/08/2021 3:24 PM CDT COVID - 19 06/16/2024 06/16/2024 06/16/2024 10:2 3 PM MAGNET VALVE ASSEMBLER documented as of this encounter Care Teams Bread Slicer Machine Relationship Specialty Start Date End Date Ave Collier MD [address] [place] [address] [address] [place] [address] PCP - General Internal Medicine 03/23/20 04/18/21 Arnaud Martini MD [address] [place] [address] PCP - General Family Medicine 04/19/21 Logan Vazquez MD Consulting Physician Pulmonary Disease 02/10/17 Logan Vazquez MD [address] [place] [id number] Consulting Physician Pulmonary Disease 10/01/21 Ana Aguilar APRN, PRESSROOM FOREMAN [address] [place] [address] Nurse Practitioner Advanced Practice Nurse 06/23/24 documented as of this encounter
--- OUTSIDE RECORDS SUMMARY | 2024-08-08 13:42 | XMS_ITS | Encounter Summary ---
Author Organization [facility] Address [address] [place] [address] Phone Care Team Providers Care Planning Specialist Name Role Phone Logan Vazquez MD Unavailable Ave Collier MD Primary Care Provider [phone] Arnaud Martini MD Primary Care Provider [phone] Logan Vazquez MD Unavailable Ana Aguilar APRN, [employer]ER [employer] Unavailable Encounter Details Date Type Department Care Team (Late st Contact Info) Description 07/29/2020 [facility] 1 [place] [phone] Tomeka Blunt, ROBOTIC MAINTENANCE TECHNICIAN, [employer] [address] [place] [address] Social History Tobacco Use Types Packs/Day Years Used Date Smoking Tobacco: Every Day Cigarettes 0.5 45 Smokeless Tobacco: Never Comments:3-4 cigs a day Alcohol Use Standard Drinks/Week Comments Yes 4 (1 standard drink = 0.6 oz pur e alcohol) social Comments No Sex and Gender Information Value Date Recorded Sex Assigned at Female 07/26/2024 9:52 PM BARTENDER HELPER Legal Sex Female 9:37 PM CDT Gender Identity Female 07/26/2024 9:52 PM BARTENDER HELPER Sexual Orientation Straight 07/26/2024 9: 52 PM BARTENDER HELPER Occupation Industry Job Start Date Job End Date [employer] Not on file Not on file Not on file COVID-19 Exposure Response Date Recorded In the last month, have you been in contact with someone who was confirmed or suspected to have Coronavirus / COVID-19? No / Unsure 07/22/2020 9:27 AM BARTENDER HELPER documented as of this encounter Plan of Treatment Upcoming Encounters Date Type Department Care Team (Late st Contact Info) Description 09/05/2024 10:30 AM BARTENDER HELPER [facility] [address] [place] [address] Breezy Barros MD [address] [facility] [place] [address] documented as of this encounter Visit Diagnoses Not on filedocumented in this encounter Additional Health Concerns Infection Onset Date Last Indicated Resolved Time COVID - 19 04/19/2021 04/19/2021 04/21/2021 8:16 AM CDT Respiratory Rule Out - RPA 04/19/2021 04/19/2021 1 3:30 PM CDT COVID - 19 07/07/2021 07/07/2021 07/07/2021 6:29 PM BARTENDER HELPER COVID - 19 Confirmed 07/07/2021 07/07/20212 022 12:16 AM BARTENDER HELPER Respiratory Rule Out - RPA 10/07/2021 10/08/2021 0 10/08/2021 3:24 PM CDT COVID - 19 06/16/2024 06/16/2024 06/16/2024 10:2 3 PM BARTENDER HELPER documented as of this encounter Care Teams Planning Specialist Relationship Specialty Start Date End Date Ave Collier MD [address] [place] [address] [address] [place] [address] PCP - General Internal Medicine 03/23/20 04/18/21 Arnaud Martini MD [address] [place] [address] PCP - General Family Medicine 04/19/21 Logan Vazquez MD Consulting Physician Pulmonary Disease 02/10/17 Logan Vazquez MD [address] [place] [phone] Consulting Physician Pulmonary Disease 10/01/21 Ana Aguilar APRN, [employer] [address] [place] [address] Nurse Practitioner Advanced Practice Nurse 06/23/24 documented as of this encounter
--- OUTSIDE RECORDS SUMMARY | 2024-08-08 13:42 | XMS_ITS | Referral Summary ---
Author Organization [facility] Address [address] [place] [address] Care Team Providers Care Back Office Medical Assistant Name Role Phone Do Cristina MD Primary Care Provider [phone] Source Comments [facility],non-owned Affiliates and Associated Physician Practices is amultiple site organization consisting of ambulatory clinics and hospital sitesin [place], [place], [place] and [place]. This disclosure is being madepursuant to the Care Everywhere program and may not contain all information available regarding this patient. Last updated 18.[facility] Allergies Active Allergy Reactions Criticality Noted Date Comments Codeine Itching Low 08/13/2016 Penicillins Rash Medium 08/13/2016 Medications * Be aware that medications may not be up to date on this document. Alwaysverify current medications with the patient. Medication Sig Dispensed Refills Start Date End Date Status guaiFENesin ER 12hr (EQ MUCUS ER) 600 MG tablet 07/16/2017 Active amLODIPine (NORVASC) 10 MG tablet 07/11/2017 Active fluticasone propionate (FLONASE) 50 MCG/ACT nasal spray 06/06/2017 Activ e tiotropium (SPIRIVA HANDIHALER) 18 MCG inhalation capsule 05/03/2017 Ac tive albuterol-ipratropium (DUO-NEB) 0.5-2.5 (3) MG/3ML nebulizer solution 06/17/2017 Active raNITIdine (ZANTAC) 150 MG tablet 07/22/2017 Active pravastatin (PRAVACHOL) 20 MG tablet 07/22/2017 Active levoFLOXacin (LEVAQUIN) 750 MG tablet 06/17/2017 Active metoprolol tartrate (LOPRESSOR) 25 MG tablet 07/22/2017 Active citalopram (CELEXA) 10 MG tablet 07/22/2017 Active nystatin (MYCOSTATIN) 947822 UNIT/ML suspension 07/16/2017 Active montelukast (SINGULAIR) 10 MG tablet 06/11/2017 Active albuterol HFA (PROAIR HFA) 108 (90 BASE) MCG/ACT inhaler 06/06/2017 Act roland mometasone-formoterol (DULERA) 100-5 MCG/ACT inhaler 06/06/2017 Active Active Problems Problem Noted Date Diagnosed Date [...] on file Sexual Orientation Not on file Plan of Treatment Not on file Care Teams Back Office Medical Assistant Relationship Specialty Start Date End Date Do Cristina MD [address] [place] [address] PCP - General 05/15/19
--- OUTSIDE RECORDS SUMMARY | 2024-08-08 13:42 | XMS_ITS | Clinical Summary ---
Author Organization [facility] Address [address] [place] [address] Care Team Providers Care Appraiser Oil And Water Name Role Phone Arnaud Martini MD Primary Care Provider [phone] Allergies Active Allergy Reactions Criticality Noted Date Comments Codeine Hallucinations Medium 08/09/2017 Penicillins Rash Medium 08/09/2017 Medications albuterol HFA (PROVENTIL HFA,VENTOLIN HFA) 90 mcg/actuation inhaler 2 puffs every 4 (four) hours as needed for shortness of breath. Active amLODIPine (NORVASC) 10 mg tablet Take 10 mg by mouth daily. 7 Active aspirin-calcium carbonate 81 mg-300 mg calcium(777 mg) tablet Take 81 mg by mouth. Active citalopram (CeleXA) 10 mg tablet 8 Active metoprolol (LOPRESSOR) 25 mg tablet 8 Active montelukast (SINGULAIR) 10 mg tablet 7 Active albuterol (PROVENTIL,VENT MARCELLA) 1.25 mg/3 mL nebulizer solution Take 1.25 mg by nebulization every 6 (six) hours as needed for wheezing. Active loratadine (CLARITIN) 10 mg tablet Take 10 mg by mouth daily. Active fluticasone propionate (FLONASE) 50 mcg/actuation nasal sprayIndication s:Allergic rhinitis, unspecified seasonality, unspecified trigger Administer 2 sprays into each nostril daily 16 g 11 1 Active Wixela Inhub 250-50 mcg/dose diskus inhaler Inhale 1 puff 2 (two) times a day 1 Active Atrovent HFA 17 mcg/actuation inhaler INHALE 2 PUFFS BY MOUTH EVERY 6 [address] (PROTONIX) 40 mg EC tablet Take 1 tablet (40 mg total) by mouth daily 90 tablet 1 Active cholecalciferol (VITAMIN D-3) 25 mcg (1,000 unit) tablet Take 1,000 Units by mouth daily 2 Active lovastatin (MEVACOR) 40 mg tablet TAKE 1 TABLET BY MOUTH ONCE DAILY WITH SUPPER 1 Active nicotine (NICODERM CQ) [address] 1 patch on the skin daily as needed 1 Active traMADoL (ULTRAM) 50 mg tablet TAKE 1 TABLET BY MOUTH EVERY 6 HOURS NEEDED FOR MODERATE OR MORE SEVERE PAIN 2 Active Active Problems Problem Noted Date Diagnosed Date Pre-procedure lab exam 10/01/2021 Overview (10/01/2021): Added automatically from request for surgery [id number] Gastro-esophageal reflux disease without esophag itis 04/28/2021 History of duodenal ulcer 04/28/2021 History of Helicobacter pylori infection 021 Former smoker 04/28/2021 BMI 28.0-28.9,adult 04/28/2021 Tubular adenoma of colon 04/28/2021 Laryngeal spasm 08/05/2020 Assessment & Plan (08/05/2020 9:42 PM INDUSTRIAL SECURITY ANALYST): Nasal saline spray (Simply saline, Little Remedies, [place], [place]) 2 second sprays or 2 squeezes into each nostril while looking down over the sink, do not need to sniff in 2-3 times daily Pepcid (famotidine) 40 mg at bedtime Humidifier in bedroom Allergic rhinitis 08/05/2020 Assessment & Plan (08/05/2020 9:41 PM INDUSTRIAL SECURITY ANALYST): Nasal saline spray (Simply saline, Little Remedies, [place], [place]) 2 second sprays or 2 squeezes into each nostril while looking down over the sink, do not need to sniff in 2-3 times daily Flonase (fluticasone) 2 sprays into each nostril while looking down over the sink, do not sniff in or blow nose after use for at least 30 minutes daily Humidifier in bedroom Epistaxis 08/05/2020 Assessment & Plan (08/05/2020 9:41 PM INDUSTRIAL SECURITY ANALYST): Nasal saline spray (Simply saline, Little Remedies, [place], [place]) 2 second sprays or 2 squeezes into each nostril while looking down over the sink, do not need to sniff in 2-3 times daily Pepcid (famotidine) 40 mg at bedtime Flonase (fluticasone) 2 sprays into each nostril while looking down over the sink, do not sniff in or blow nose after use for at least 30 minutes daily Humidifier in bedroom Adrenal adenoma, left 07/30/2020 Assessment & Plan (08/28/2021 12:15 PM INDUSTRIAL SECURITY ANALYST): Left adrenal adenoma 1.[address] scan in 2017 Stable in size and looks benign based on repeat CT scan in 2018 No clinical sign of adrenal dysfunction Work up in 2020 was negative with normal Dexamethasone suppression test Normal Aldosterone/PRA She had normal electrolytes in July/2021 Plan: The diagnosis and abnormality on the Adrenal gland explained to patient. We will monitor adrenal functions Check test next year. Assessment & Plan (07/30/2020 9:52 AM INDUSTRIAL SECURITY ANALYST): Left adrenal adenoma 1.[address] scan in 2017 Stable in size and looks benign based on repeat CT scan in 2018 No clinical sign of adrenal dysfunction She has normal electrolytes and controlled hypertension Labs on 06/10/20 Na 141- K 3.5 and creatinine 0.8 Plan: The diagnosis and abnormality on the Adrenal gland explained to patient. We will do work up to exclude adrenal dysfunction like Aldosterone/ renin and will rule out Alma's with 1 mg dexamethasone suppression test Obtain copy of most recent CT scan If work up is negative , then will repeat evaluation in one year. Patient understands and agrees with above plan. Left upper lobe pneumonia 01/12/2018 Assessment & Plan (01/12/2018 5:50 AM CDT): Patient was started on azithromycin and Rocephin for community-acquired pneumonia. Continue with home inhalers. Duo nebs and albuterol per respiratory protocol Mucinex to induced sputum Supplemental oxygen as needed Trend CBC Patient had some issues with insurance company. Will get social work consult for further assessment of situation Lung cancer 01/12/2018 Assessment & Plan (01/12/2018 5:47 AM CDT): Patient with a history of non-small cell lung cancer status post lobectomy, completed course of chemotherapy. Patient states that did not have any follow-up PET scans because she is claustrophobic and was unable to complete the test. Discussed with the patient importance of the follow-up for surveillance. Suggested to get procedural sedation. Advised to discuss with personnel worker and primary care physician Smoker 01/12/2018 Assessment & Plan (01/12/2018 5:47 AM CDT): Patient states that quit smoking 5 days ago. Will start on Nicoderm patch Encouraged not to return back to the smoking Essential hypertension 01/12/2018 Assessment & Plan (08/28/2021 12:16 PM INDUSTRIAL SECURITY ANALYST): Controlled with medication Amlodipine and Metoprolol - low salt diet - continue medication per PCP Assessment & Plan (07/30/2020 9:54 AM INDUSTRIAL SECURITY ANALYST): Controlled with medication Amlodipine and Metoprolol - low salt diet - continue medication per PCP Assessment & Plan (01/12/2018 5:44 AM CDT): Blood pressures are stable will continue with home cardiac pertinent medications with metoprolol and amlodipine GERD (gastroesophageal reflux disease) 8 Assessment & Plan (01/12/2018 5:48 AM CDT): Patient with history of of GERD and PUD. Will continue with sucralfate and Pepcid for GI prophylaxis Surgical History Surgery Date Site/Laterality Comments COLONOSCOPY 02/09/2017 - 03/11/2017 LUNG REMOVAL, PARTIAL 07/12/2014 - 07/11/2015 Right TONSILLECTOMY Medical History Medical History Date Comments Hiatal hernia GERD (gastroesophageal reflux disease) Chronic constipation Lung cancer (HCC) COPD (chronic obstructive pulmonary disease) (HC C) Duodenal ulcer Hypercholesteremia Hypertension Family History Medical History Relation Name Comments Stomach cancer Father Bladder Cancer Mother Relation Name Status Comments Father Mother Social History Tobacco Use Types Packs/Day Years Used Date Smoking Tobacco: Former Cigarettes Smokeless Tobacco: Never Tobacco Cessation:Ready to Q uit: Yes Comments:Quit 5 days ago Alcohol Use Standard Drinks/Week Comments No 0 (1 standard drink = 0.6 oz pur e alcohol) Comments No Sex and Gender Information Value Date Recorded Sex Assigned at Not on file Legal Sex Female 2:19 PM INDUSTRIAL SECURITY ANALYST Gender Identity Female 07/21/2021 12:54 PM INDUSTRIAL SECURITY ANALYST Sexual Orientation Not on file Obstetrics History Last Filed Vital Signs Vital Sign Reading Time Taken Comments Blood Pressure 120/72 08/28/2021 12:01 PM INDUSTRIAL SECURITY ANALYST Pulse 88 04/28/2021 10:23 AM CDT Temperature 36.1 ??C (96.9 ??F) 04/28/2021 10:23 AM C DT Respiratory Rate 18 01/13/2018 7:51 AM CDT Oxygen Saturation 99% 04/28/2021 10:23 AM CDT Inhaled Oxygen Concentration - - Weight 62.4 kg (137 lb 9.6 oz) 08/28/2021 12:01 PM INDUSTRIAL SECURITY ANALYST Height 149.9 cm (4' 11 ) 08/28/2021 12:01 PM INDUSTRIAL SECURITY ANALYST Body Mass Index 27.79 08/28/2021 12:01 PM INDUSTRIAL SECURITY ANALYST Plan of Treatment Health Maintenance Due Date Last Done Comments Depression Screening 1955 Fall Risk Assessment 1955 Hepatitis C Screening 1955 Osteoporosis Screening-Bone Density Scan 1955 Hepatitis B Screening 1974 Zoster Vaccine (1 of 2) 2006 Pneumococcal vaccine 65+ (2 of 2 - PCV) 05/09/2020 05/09/2019 Breast Cancer Screening-Mammogram 07/20/2021 07/20/2020, 06/21/2018, 02/05/2017 Well Visit 65+ 2021 Influenza Vaccine (#1) 2024 03/29/2019, 2016 DTaP/Tdap/Td Vaccine (2 - Td or Tdap) 03/12/2027 03/12/2017 Colon Cancer Screening-Colonoscopy 03/23/20272016 Colon Cancer Screening-CT Colonography Discontinued 03/23/2017 Colon Cancer Screening-DNA Stool Discontinued 03/23/20 17 Colon Cancer Screening-FIT Discontinued 03/23/2017 Colon Cancer Screening-Sigmoidoscopy Discontinued 03/12 Procedures Procedure Name Priority Date/Time Associated Diagnosis Comments COLONOSCOPY REPORT 03/23/2017 MAMMOGRAPHY, TOMOGRAPHY, BILATERAL Routine 02/05/2017 4:56 PM CDT from Last 3 Months or Most Recently Relevant to Health Maintenance Results * COLONOSCOPY REPORT (03/23/2017) Anatomical Region Laterality Modality Other us Provider Scanning GI PROCEDURE ORDERABLES Final Result * MAMMOGRAPHY, TOMOGRAPHY, BILATERAL (02/05/2017 4:56 PM CDT) Anatomical Region Laterality Modality Breast Bilateral Mammography 02/05/2017 4:56 PM CDT Narrative 02/05/2017 4:56 PM CDT SCREENING MAMM W LAVERN BI ??Acc#: ??[id number] DATE OF EXAM: ??Feb 05 2017 ?? ADDENDUM #1 Comparison is now made to an outside study dated 02/08/2012 from [facility]. ??No interval suspicious mass or calcification has developed to suggest mammographic evidence of malignancy. ??Annual follow-up is recommended. ??BI-RADS 1. Electronically signed by: Hakeem Griffith M.D. ORIGINAL REPORT - ADDENDUM ABOVE SCREENING MAMM W LAVERN BI HISTORY: Screen TECHNIQUE: 2 views of each breast were obtained with bilateral breast tomosynthesis. COMPARISON: ??prior study approximately 4 years ago at an outside institution. ??Request form has been submitted to acquire prior exams for comparison . FINDINGS: The breasts are heterogeneously dense. No suspicious mass or calcification is seen to suggest mammographic evidence of malignancy. Digital technology was employed plus computer aided detection software (R2) was utilized in interpretation of these images. ??This facility utilizes a reminder system to notify patient's of yearly mammograms. IMPRESSION: 1. NO DEFINITIVE MAMMOGRAPHIC EVIDENCE OF MALIGNANCY 2. ??ANNUAL FOLLOW-UP RECOMMENDED BI-RADS 1 Electronically signed by: Hakeem Griffith M.D. Interpreting Physician: ??HAKEEM GRIFFITH M.D. ??Read on: ??Feb 05 2017 12:24P Transcribed by: ??PSC ??On: Feb 22 2017 10:22A Approved Electronically by: ??HAKEEM GRIFFITH M.D. ??on: ??Feb 22 2017 10:22A Ordering DR: DR COLLEEN OLSEN Attending DR: DR COLLEEN OLSEN Attending: ??DR COLLEEN OLSEN Requesting: ??DR COLLEEN OLSEN Requesting Fax: ??[phone] Attending Fax: ??[phone] Attending ID: ??[id number] Requesting ID: ??[id number] Report To 1 ID: ??[id number] Report To 1 Name: ??DR COLLEEN OLSEN Report To 1 FAX: ??[phone] NextGen Order #: ?? Procedure Note Miscellaneous, Not In File / Provider, MD Kassandra - 02/23/2017 SCREENING MAMM W LAVERN BI Acc#: [id number] DATE OF EXAM: Feb 05 2017 ADDENDUM #1 Comparison is now made to an outside study dated 02/08/2012 from [facility]. No interval suspicious mass or calcification has developed to suggest mammographic evidence of malignancy. Annual follow-up is recommended. BI-RADS 1. Electronically signed by: Hakeem Griffith M.D. ORIGINAL REPORT - ADDENDUM ABOVE SCREENING MAMM W LAVERN BI HISTORY: Screen TECHNIQUE: 2 views of each breast were obtained with bilateral breast tomosynthesis. COMPARISON: prior study approximately 4 years ago at an outside institution. Request form has been submitted to acquire prior exams for comparison . FINDINGS: The breasts are heterogeneously dense. No suspicious mass or calcification is seen to suggest mammographic evidence of malignancy. Digital technology was employed plus computer aided detection software (R2) was utilized in interpretation of these images. This facility utilizes a reminder system to notify patient's of yearly mammograms. IMPRESSION: 1. NO DEFINITIVE MAMMOGRAPHIC EVIDENCE OF MALIGNANCY 2. ANNUAL FOLLOW-UP RECOMMENDED BI-RADS 1 Electronically signed by: Hakeem Griffith M.D. Interpreting Physician: HAKEEM GRIFFITH M.D. Read on: Feb 05 2017 12:24P Transcribed by: PSC On: Feb 22 2017 10:22A Approved Electronically by: HAKEEM GRIFFITH M.D. on: Feb 22 2017 10:22A Ordering DR: DR COLLEEN OLSEN Attending DR: DR COLLEEN OLSEN Attending: DR COLLEEN OLSEN Requesting: DR COLLEEN OLSEN Requesting Attending Attending ID: [id number] Requesting ID: [id number] Report To 1 ID: [id number] Report To 1 Name: DR COLLEEN OLSEN Report To 1 FAX: [phone] NextGen Order #: Colleen Olsen MD IMG MAMMO PROCEDURES Fin al Result from Last 3 Months or Most Recently Relevant to Health Maintenance Insurance [facility] HMO REF [facility] MEDICARE [employer] [facility] [employer] HMO REF Advance Directives For more information, please contact: [phone] * Full Code (Latest Code Status on File) Date Activated Date Inactivated Comments 01/11/2018 9:46 AM 01/13/2018 2:07 PM * Full Code Date Activated Date Inactivated Comments 08/11/2017 10:49 AM 08/11/2017 2:56 PM Care Teams Appraiser [employer] Relationship Specialty Start Date End Date Arnaud Martini MD PCP - General Family Practice 08/28/21
--- OUTSIDE RECORDS SUMMARY | 2024-08-08 13:42 | XMS_ITS | Clinical Summary ---
Author Organization [facility] Address [address] [place] [address] Care Team Providers Care Animal Feeder Name Role Phone Do Cristina MD Primary Care Provider [phone] Source Comments [facility],non-owned Affiliates and Associated Physician Practices is amultiple site organization consisting of ambulatory clinics and hospital sitesin [place], [place], [place] and [place]. This disclosure is being madepursuant to the Care Everywhere program and may not contain all information available regarding this patient. Last updated 18.[facility] Allergies Active Allergy Reactions Criticality Noted Date [...] 10 MG tablet 07/22/2017 Active nystatin (MYCOSTATIN) 642447 UNIT/ML suspension 07/16/2017 Active montelukast (SINGULAIR) 10 [...] including shoulder 08/06/2017 Other melanin hyperpigmentation 08/06/2017 Family History Medical History Relation Name Comments CVA Neg Hx Cancer - Breast Neg Hx Cancer - Other Neg Hx Cancer - Skin, Melanoma Neg Hx Cancer - Skin, Non Melanoma Neg Hx Eczema Neg Hx Hemophilia Neg Hx Psoriasis Neg Hx Social History Tobacco Use Types Packs/Day Years Used Date Smoking Tobacco: Every Day Smokeless Tobacco: Never Alcohol Use Standard Drinks/Week Comments Yes 0 (1 standard drink = 0.6 oz pur e alcohol) Sex and Gender Information Value Date Recorded Sex Assigned at Not on file Gender Identity Not on file Sexual Orientation Not on file Plan of Treatment Health Maintenance Due Date Last Done Comments BONE DENSITY TESTING 1955 COLOGUARD (AGES 45-75) - COL ON CA SCREENING 1956 COLON MONITORING 1956 COLONOSCOPY - COLON CA SCREENING 1956 CT COLONOGRAPHY - COLON CA SCREENING 1956 Colorectal Cancer Screening 1956 FIT - COLON CA SCREENING 1956 FLEX SIG - COLON CA SCREENING 1956 MAMMOGRAM 1956 HEPATITIS C SCREENING 12/18/1974 DTAP/TDAP/TD VACCINES (1 - Tdap) 12/23/1975 PNEUMOCOCCAL VACCINE 50+ (1 of 2 - PCV) 12/23/1975 ZOSTER VACCINE (1 of 2) 2006 COVID-19 VACCINE ( - 2023-2 5 season) 2024 INFLUENZA VACCINE (#1) 2024 DEPRESSION SCREENING 07/12/2024 Respiratory Syncytial Virus (RSV) Vaccine Pt: or over 60 yrs (1 - 1-dose 75+ series) 12/23/2031 HEPATITIS B VACCINE Aged Out No longe r eligible based on patient's age to complete this topic HIB VACCINE Aged Out No longer eligi ble based on patient's age to complete this topic HPV VACCINE Aged Out No longer eligi ble based on patient's age to complete this topic MENINGOCOCCAL (Group B) VACCINE Aged Out No longer eligible based on patient's age to complete this topic MENINGOCOCCAL VACCINE Aged Out No alexandro el eligible based on patient's age to complete this topic Care Teams Animal Feeder Relationship Specialty Start Date End Date Do Cristina MD [address] [place] [address] [id number] PCP - General 05/15/19
--- OUTSIDE RECORDS SUMMARY | 2024-08-08 13:42 | XMS_ITS | Clinical Summary ---
Author Organization [facility] Address [address] [place] [address] Phone Care Team Providers Care Manager Revenue Name Role Phone Logan Vazquez MD Unavailable Arnaud Martini MD Primary Care Provider [phone] Logan Vazquez MD Unavailable Ana Aguilar APRN, [facility] Unavailable Allergies Active Allergy Reactions Criticality Noted Date Comments Codeine Itching 08/13/2016 Penicillins Rash 08/13/2016 Medications metoprolol tartrate (LOPRESSOR) 25 MG Tablet Take 12.5 mg by mouth 2 times daily. Active Aspirin 81 MG Tablet Take 81 mg by mouth every morning. Active albuterol 108 (90 Base) MCG/ACT Aerosol Solution take 2 Puffs by inhalation every 4 hours as needed for Wheezing. Active amLODIPine (NORVASC) 10 MG Tablet Take 10 mg by mouth every morning. Active montelukast (SINGULAIR) 2.5 MG Chewable Tablet Take 5 mg by mouth every evening. Active pravastatin (PRAVACHOL) 20 MG Tablet Take 20 mg by mouth every morning. Active citalopram (CELEXA) 10 MG Tablet Take 10 mg by mouth every morning. Active fluticasone (FLONASE) 50 MCG/ACT Suspension 2 Sprays by Nasal route daily. Use in each nostril as directed. 1 Bottle 2 9 Active Wixela Inhub 250-50 MCG/DOSE AEROSOL POWDER, BREATH ACTIVATED INHALE 1 PUFF BY MOUTH TWICE DAILY (REPLACES BREO) 1 Each 5 1 Active Respiratory Therapy Supplies (Nebulizer) DeviceIndicatio ns:Centrilobula r emphysema (HCC),Small cell carcinoma of right lung (HCC) Use as directed 1 Each 1 Active Cholecalciferol (VITAMIN D-3) 400 UNIT TabletIndicatio ns:Vitamin D Deficiency Take 10 mcg by mouth daily. Indications: Vitamin D Deficiency Active nicotine (NICODERM CQ) 21 MG/24HR PATCH 24 HR 1 Patch by Transdermal route daily as needed for Other (Nicotine dependency). 30 Patch 1 Active traMADol (ULTRAM) 50 MG TabletIndicatio ns:Hip strain, right, initial encounter Take 1 Tablet by mouth every 6 hours as needed for Moderate or more severe pain. 20 Tablet 2 Active albuterol 108 (90 Base) MCG/ACT Aerosol Solution take 2 Puffs by inhalation every 6 hours as needed for Wheezing. 8.5 g 2 Active Additional Information Patient not taking.Reported on 07/19/2024 albuterol (PROVENTIL, VENTOLIN) (2.5 MG/3ML) 0.083% Nebulizer Soln 3 mL by Nebulization route 4 times daily. 360 mL 1 2 Active ipratropium-alb uterol (DUO-NEB) 0.5-2.5 (3) MG/3ML SolutionIndicat ions:Centrilobu lar emphysema (HCC) USE 1 AMPULE IN NEBULIZER 4 TIMES DAILY 90 mL 2 Active Atrovent HFA 17 MCG/ACT Aerosol Solution INHALE 2 PUFFS BY MOUTH EVERY 6 HOURS 13 g 2 Active naproxen (NAPROSYN) 500 MG Tablet Take 1 Tablet by mouth 2 times daily as needed for Mild or more severe pain. 20 Tablet 4 Active famotidine (PEPCID) 20 MG Tablet Take 20 mg by mouth 2 times daily. Active buPROPion SR (WELLBUTRIN SR) 150 MG TABLET SR 12 HR daily. 4 Active lovastatin (MEVACOR) 40 MG Tablet take 1 tablet by mouth every day as directed Active loratadine (Claritin) 10 MG Tablet Take 10 mg by mouth daily. Active [place]-3 Fatty Acids (FISH OIL PO) Take by mouth daily. Active VITAMIN D PO Take by mouth daily. Active Ascorbic Acid (VITAMIN C PO) Take by mouth daily. Active Multiple Vitamins-Minera ls (ZINC PO) Take by mouth daily. Active Active Problems Problem Noted Date Diagnosed Date Leukocytosis 10/07/2021 Depression 04/19/2021 GERD (gastroesophageal reflux disease) HLD (hyperlipidemia) 04/19/2021 Multifocal pneumonia 04/19/2021 Septicemia 04/19/2021 Neck pain 04/04/2021 History of lung cancer 04/04/2021 Sensorineural hearing loss of both ears 03/08/20 18 Tinnitus, bilateral 03/08/2018 Chemotherapy adverse reaction, sequela 8 BERNARDA (obstructive sleep apnea) 03/31/2017 Centrilobular emphysema 03/31/2017 SOB (shortness of breath) 03/31/2017 Small cell carcinoma of right lung 03/31/2017 Tobacco dependence syndrome 03/31/2017 Essential (primary) hypertension 03/31/2017 Resolved Problems Problem Noted Date Diagnosed Date Resolved Date Chest pain 10/07/2021 10/09/2021 Tachycardia 10/07/2021 10/09/2021 Elevated lactic acid level 10/07/2021 0 10/09/2021 COPD exacerbation 04/19/2021 10/09/2021 Encounters Date Type Department Care Team Description 08/02/2024 Telephone [facility] - [place] [address] [place] [address] Hunter Lei MD Results; Procedure 07/25/2024 8:15 AM REFRIGERATION UNIT REPAIRER Anesthesia [facility] Periop [address] [place] [id number] Jessica Cuello, [employer], AFTER SCHOOL DRIVER 07/25/2024 8:00 AM REFRIGERATION UNIT REPAIRER - 07/25/2024 9:00 AM REFRIGERATION UNIT REPAIRER Surgery [facility] [address] [facility] [place] [address] Hunter Lei MD EGD - 3CM HIATAL HERNIA, GE JUNCTION BIOPSY (BIOPSY FORCEPS) 07/25/2024 7:10 AM REFRIGERATION UNIT REPAIRER Ancillary Procedure [facility] Main [address] [facility] [place] [address] Hunter Lei MD 07/25/2024 7:05 AM REFRIGERATION UNIT REPAIRER Ancillary Procedure [facility] Main [address] [facility] [place] [address] Hunter Lei MD 07/25/2024 6:49 AM REFRIGERATION UNIT REPAIRER - 07/25/2024 9:50 AM REFRIGERATION UNIT REPAIRER Hospital Encounter [facility] Preop/Pacu II [address] [place] [address] Hunter Lei MD Discharge Disposition: Discharged to home or Selfcare 07/25/2024 Travel 07/19/2024 Travel 06/23/2024 9:30 AM REFRIGERATION UNIT REPAIRER Office [facility] - Gastroenterology [facility] [address] [place] [address] Ana Aguilar APRN, MEDICAL AFFAIRS SPECIALIST Gastroesophageal reflux disease, unspecified whether esophagitis present (Primary Dx); History of duodenal ulcer; Esophageal dysphagia; Blood in stool; History of colon polyps Discharge Disposition: Discharged to home or Selfcare 06/22/2024 2:10 PM REFRIGERATION UNIT REPAIRER - 06/22/2024 11:59 PM REFRIGERATION UNIT REPAIRER Hospital [facility] [address] [place] [address] Anne Lei APRN, MEDICAL AFFAIRS SPECIALIST Amol Vazquez APRN, MEDICAL AFFAIRS SPECIALIST Magalys Barros MD Discharge Disposition: Discharged to home or Selfcare 06/22/2024 Travel 06/16/2024 9:13 PM REFRIGERATION UNIT REPAIRER - 06/16/2024 11:57 PM REFRIGERATION UNIT REPAIRER Emergency [facility] [address] [place] [address] Arvin Andino MD Strep throat Discharge Disposition: Discharged to home or Selfcare 06/16/2024 Travel 06/07/2024 Transcribe Orders [facility] Central Scheduling [address] [place] [address] Anne Lei, URIEL, MEDICAL AFFAIRS SPECIALIST Personal history of malignant neoplasm of bronchus and lung (Primary Dx) from Last 3 Months Family History Medical History Relation Name Comments Cancer Brother 1 one brother has throat cancer Depression Brother 1 Hypertension Brother 1 Cancer Brother 2 one brother has lung cancer Cancer Father stomach ca High Cholesterol Father Hypertension Father Diabetes Maternal Uncle Cancer Mother bladder ca Hypertension Mother Diabetes Paternal Uncle Asthma Sister 1 Diabetes Sister 1 Hypertension Sister 1 Liver Disease Sister 1 Alzheimer's Disease Sister 2 Relation Name Status Comments Brother 1 Brother 2 Father Maternal Uncle Mother Paternal Uncle Sister 1 Sister 2 Social History Tobacco Use Types Packs/Day Years Used Date Smoking Tobacco: Former Cigarettes 0.5 45 0 09/10/1975 - 09/09/2020 Smokeless Tobacco: Never Tobacco Cessation:Counseling Given: Not Answered Alcohol Use Standard Drinks/Week Comments Not Currently 4 (1 standard drink = 0.6 oz pur e alcohol) social Sexually Active Control Partners Comments Not Currently Comments No Sex and Gender Information Value Date Recorded Sex Assigned at Female 07/26/2024 9:52 PM REFRIGERATION UNIT REPAIRER Legal Sex Female 9:37 PM CDT Gender Identity Female 07/26/2024 9:52 PM REFRIGERATION UNIT REPAIRER Sexual Orientation Straight 07/26/2024 9: 52 PM REFRIGERATION UNIT REPAIRER Occupation Industry Job Start Date Job End Date [employer] Not on file Not on file Not on file Last Filed Vital Signs Vital Sign Reading Time Taken Comments Blood Pressure 101/60 07/25/2024 9:25 AM REFRIGERATION UNIT REPAIRER Pulse 81 07/25/2024 9:25 AM REFRIGERATION UNIT REPAIRER Temperature 36 ??C (96.8 ??F) 07/25/2024 9:25 AM REFRIGERATION UNIT REPAIRER Respiratory Rate 20 07/25/2024 9:25 AM REFRIGERATION UNIT REPAIRER Oxygen Saturation 98% 07/25/2024 9:25 AM REFRIGERATION UNIT REPAIRER Inhaled Oxygen Concentration - - Weight 69.9 kg (154 lb) 07/19/2024 10:59 AM REFRIGERATION UNIT REPAIRER Height 152.4 cm (5') 07/19/2024 10:59 AM REFRIGERATION UNIT REPAIRER Body Mass Index 30.08 07/19/2024 10:59 AM REFRIGERATION UNIT REPAIRER Plan of Treatment Upcoming Encounters Date Type Department Care Team (Late st Contact Info) Description 09/05/2024 10:30 AM REFRIGERATION UNIT REPAIRER Office Visit [facility] - [place] [address] [place] [phone] Breezy Barros MD [address] [place] [address] Health Maintenance Due Date Last Done Comments DEXA Bone Density 1955 Hepatitis C Virus (HCV) Screening 1955 Cologuard 2006 Immunochemical Fecal Occult Blood 05/15/2020 05/15/2019 Mammogram 08/27/2023 08/27/2021, 0103/2021, 06/21/2018 SARS-COV-2 Immunization ( season) 2024 02/06/2022, 06/09/2021, 11/28/2020 Colonoscopy 07/25/2029 07/25/2024, 03/0 11/2020, 03/23/2017 Colorectal Cancer Screening 07/25/2029 07/25/2024, 03/0 11/2020, 03/23/2017 DTaP/Tdap/Td Immunization Discontinued 03/12/2017 TdaP Immunization Completed 03/12/2017 Pneumococcal Immunization (50+ years) Completed 01/07/2023, 05/09/2019 Pneumococcal Immunization Combined Discontinued 01/07/2023, 05/09/2019 Influenza Immunization Completed , 04/11/2022, 03/29/2019, Additional history exists Respiratory Syncytial Virus (RSV) Immunization (Adult) Completed 04/12/2024 Zoster Immunization Completed 04/12/2024, Hepatitis B Immunization Aged Out No longer eligible based on patient's age to complete this topic Meningococcal Immunization (ACWY) Aged Out No longer eligible based on patient's age to complete this topic Rotavirus Immunization Aged Out No lo nger eligible based on patient's age to complete this topic Procedures Procedure Name Priority Date/Time Associated Diagnosis Comments PATHOLOGY SURGICAL Routine 07/25/2024 8: 25 AM REFRIGERATION UNIT REPAIRER COLONOSCOPY 07/25/2024 8:13 AM REFRIGERATION UNIT REPAIRER EGD - 3CM HIATAL HERNIA, GE JUNCTION BIOPSY (BIOPSY FORCEPS)COLONOSCOP Y - NORMAL COLONOSCOPY Special Needs Dx GERD/BIS EGD 07/25/2024 8:13 AM REFRIGERATION UNIT REPAIRER EGD - 3CM HIATAL HERNIA, GE JUNCTION BIOPSY (BIOPSY FORCEPS)COLONOSCOP Y - NORMAL COLONOSCOPY Special Needs Dx GERD/BIS GI LAB IMAGING - EGD Routine 07/25/2024 7:04 AM REFRIGERATION UNIT REPAIRER GI IMAGING - COLONOSCOPY Routine 07/25/2024 7:04 AM REFRIGERATION UNIT REPAIRER CT CHEST W CONTRAST Routine 06/22/2024 2 :56 PM REFRIGERATION UNIT REPAIRER Personal history of malignant neoplasm of bronchus and lung GROUP A STREP BY PCR STAT 06/16/2024 9:17 PM REFRIGERATION UNIT REPAIRER RSV,SARS-COV-2,INFL UENZA A&B BY PCR STAT 06/16/2024 9:17 PM REFRIGERATION UNIT REPAIRER CBC WITH AUTO DIFFERENTIAL STAT 06/16/2024 9:16 PM REFRIGERATION UNIT REPAIRER CMP (COMPREHENSIVE METABOLIC PANEL) STAT 06/16/2024 9:16 PM REFRIGERATION UNIT REPAIRER COMPLETE BLOOD COUNT (CBC) WITH DIFF STAT 06/16/2024 9:16 PM REFRIGERATION UNIT REPAIRER STEPHANIE SCREENING BILATERAL DIGITAL W CAD W LAVERN Routine 08/27/2021 10:15 AM REFRIGERATION UNIT REPAIRER Encounter for screening mammogram for malignant neoplasm of breast [facility] COLONOSCOPY Routine 03/23/2017 from Last 3 Months or Most Recently Relevant to Health Maintenance Results * Pathology Surgical (07/25/2024 8:25 AM REFRIGERATION UNIT REPAIRER) Case Report Surgical Pathology Report ? Case: [id number] ? Authorizing Provider: ??Hunter Lei MD ?? Collected: ? 07/25/2024 08:25 AM ? Ordering Location: ? [facility] ? Received: ?07/25/2024 09:37 AM ? [facility] ? Lab Main ? Pathologist: ? Boy Estrella MD PhD ? Specimen: ?Esophagus, GE JUNCTION BIOPSY ? 07/26/2024 9:56 AM REFRIGERATION UNIT REPAIRER [facility] FINAL DIAGNOSIS GE Junction Biopsy: - Gastroesophageal junctional mucosa with chronic inflammation and intestinal metaplasia, suggesting Valdivia esophagus - Negative for dysplasia or malignancy 07/26/2024 9:56 AM REFRIGERATION UNIT REPAIRER [facility] at 0956 REFRIGERATION UNIT REPAIRER Pre-Operative Diagnosis GERD, BLOOD IN STOOL 07/26/2024 9:56 AM REFRIGERATION UNIT REPAIRER [facility] Gross Description A. GE JUNCTION BIOPSY The specimen presents in a single formalin container for gross and microscopic exam. The container is labeled with the patient's name, Maeve Smith, and designated GE junction biopsy . The specimen consists of two pieces of light sánchez tissue measuring 0.1 cm in greatest dimension each. All submitted in cassette A1. KS/dv Total Time of Fixation: 13 hours, 21 minutes. 07/26/2024 9:56 AM REFRIGERATION UNIT REPAIRER [facility] Microscopic Description Microscopic examination was performed which supports the final diagnosis. All control tissues stained appropriately. 07/26/2024 9:56 AM REFRIGERATION UNIT REPAIRER [facility] Tissue ESOPHAGEAL STRUCTURE / Unknown 07/25/2024 8:25 AM REFRIGERATION UNIT REPAIRER 07/25/2024 9:37 AM REFRIGERATION UNIT REPAIRER Hunter Lei MD PATHOLOGY/CYTOLOGY ORDERA BLES Final Result [facility] [address] [place] [address] * GI LAB IMAGING - EGD (07/25/2024 7:04 AM REFRIGERATION UNIT REPAIRER) Hunter Lei MD IMG DIAGNOSTIC ORDERABLES Final Result * GI IMAGING - COLONOSCOPY (07/25/2024 7:04 AM REFRIGERATION UNIT REPAIRER) Hunter LEVY DIAGNOSTIC ORDERABLES Final Result * CT CHEST W CONTRAST (06/22/2024 2:56 PM REFRIGERATION UNIT REPAIRER) Anatomical Region Laterality Modality Chest N/A Computed Tomogra phy 06/29/2024 1:04 AM REFRIGERATION UNIT REPAIRER Impressions 06/29/2024 1:06 AM REFRIGERATION UNIT REPAIRER IMPRESSION: No evidence of recurrent or metastatic disease. Stable left lower lobe pulmonary nodule. Stable left adrenal nodule previously suspected to represent adenoma. Small left thyroid nodule. Based on size criteria alone, no specific follow-up imaging is indicated. If there is specific concerning laboratory or patient history, dedicated thyroid ultrasound could be considered for further evaluation. Chronic lung changes as described. Narrative 06/29/2024 1:06 AM REFRIGERATION UNIT REPAIRER EXAM DESCRIPTION: CT CHEST W CONTRAST REASON FOR STUDY: F/U RUL lung cancer with right upper lobectomy x 9 years ago. Hx of chemotherapy. Former smoker. Hx of HTN, COPD, and asthma. ?? TECHNIQUE: CT scan of the chest performed with intravenous contrast using helical scanning technique with dynamic intravenous contrast injection. ??Reconstructed coronal and sagittal MPR images reviewed. All images stored on PACS. ??Automated exposure control was used as a dose optimization technique for this examination. CONTRAST TYPE/DOSE: 100mL of IOPAMIDOL 76 % IV SOLN ??injected via ?? Intravenous COMPARISON: 10/08/2021 FINDINGS: LUNGS: ??Small peripheral nodule in the left lower lobe appears similar to previous. ??Minor chronic lung changes are seen. ?? Evidence of prior right upper lobectomy is noted. ??All of this is similar to previous. ??No new nodules are seen. PLEURA: ??No effusion. No pneumothorax. MEDIASTINUM/SHAYAN: ?? No identified masses or abnormal nodes. HEART: ??Heart size is normal with no pericardial effusion. VASCULATURE: ??No thoracic aortic aneurysm. AXILLA: ??No adenopathy. CHEST WALL: ??No masses. ??No subcutaneous air. HARDWARE/LINES/TUBES: ?? None. UPPER ABDOMEN: ??Left adrenal nodule appears similar to previous. ?? This was previously suspected as adenoma on the prior noncontrast CT. MUSCULOSKELETAL: ??No significant abnormality. OTHER: ??7 mm left thyroid nodule is noted. THIS IS AN ELECTRONICALLY VERIFIED FINAL REPORT 06/29/2024 1:04 AM - Electronically signed by ??Hipolito Chávez M.D. KH: ERICK D: ??06/29/2024 1:04 AM T: ??06/29/2024 1:04 AM Report ID: [id number] Reading Location: ??[id number] Procedure Note Hipolito Chávez MD - 06/29/2024 EXAM DESCRIPTION: CT CHEST W CONTRAST REASON FOR STUDY: F/U RUL lung cancer with right upper lobectomy x 9 years ago. Hx of chemotherapy. Former smoker. Hx of HTN, COPD, and asthma. TECHNIQUE: CT scan of the chest performed with intravenous contrast using helical scanning technique with dynamic intravenous contrast injection. Reconstructed coronal and sagittal MPR images reviewed. All images stored on PACS. Automated exposure control was used as a dose optimization technique for this examination. CONTRAST TYPE/DOSE: 100mL of IOPAMIDOL 76 % IV SOLN injected via Intravenous COMPARISON: 10/08/2021 FINDINGS: LUNGS: Small peripheral nodule in the left lower lobe appears similar to previous. Minor chronic lung changes are seen. Evidence of prior right upper lobectomy is noted. All of this is similar to previous. No new nodules are seen. PLEURA: No effusion. No pneumothorax. MEDIASTINUM/SHAYAN: No identified masses or abnormal nodes. HEART: Heart size is normal with no pericardial effusion. VASCULATURE: No thoracic aortic aneurysm. AXILLA: No adenopathy. CHEST WALL: No masses. No subcutaneous air. HARDWARE/LINES/TUBES: None. UPPER ABDOMEN: Left adrenal nodule appears similar to previous. This was previously suspected as adenoma on the prior noncontrast CT. MUSCULOSKELETAL: No significant abnormality. OTHER: 7 mm left thyroid nodule is noted. THIS IS AN ELECTRONICALLY VERIFIED FINAL REPORT 06/29/2024 1:04 AM - Electronically signed by Hipolito Chávez M.D. KH: ERICK Report ID: [id number] Reading Location: [place] [address] IMPRESSION: No evidence of recurrent or metastatic disease. Stable left lower lobe pulmonary nodule. Stable left adrenal nodule previously suspected to represent adenoma. Small left thyroid nodule. Based on size criteria alone, no specific follow-up imaging is indicated. If there is specific concerning laboratory or patient history, dedicated thyroid ultrasound could be considered for further evaluation. Chronic lung changes as described. Anne Lei APRN, [facility] IMG CT ORDERABLES Final Result * (ABNORMAL) GROUP A STREP BY PCR (06/16/2024 9:17 PM REFRIGERATION UNIT REPAIRER) Pathologist [facility] GROUP A STREP BY PCR DETECTED( A) NOT DETECTED 06/16/2024 10:12 PM REFRIGERATION UNIT REPAIRER [facility] Swab SPECIMEN FROM THROAT / Unknown Non-Phlebotomy Collection / Unknown 06/16/2024 9:17 PM REFRIGERATION UNIT REPAIRER 06/16/2024 9:43 PM REFRIGERATION UNIT REPAIRER Arvin Andino MD MICROBIOLOGY - GENERAL ORD ERABLES Final Result [facility] [address] [place] [address] * RSV,SARS-COV-2,INFLUENZA A&B BY PCR (06/16/2024 9:17 PM REFRIGERATION UNIT REPAIRER) [facility] FLU A Negative Negative, Error 06/16/2024 10:23 PM REFRIGERATION UNIT REPAIRER [facility] FLU B Negative Negative 06/16/2024 10:23 PM REFRIGERATION UNIT REPAIRER [facility] RESP SYNC VIRUS Negative Negative 10:23 PM REFRIGERATION UNIT REPAIRER [facility] SARSCOV2 NOT DETECTED (Reference Range for this test is Not Detected) 06/16/2024 10:23 PM REFRIGERATION UNIT REPAIRER [facility] Comment:This test was perfor med by a Reverse Radio Operator Ground PCR Method. Swab NASOPHARYNGEAL WASHINGS / Unknown Non-Phlebotomy Collection / Unknown 06/16/2024 9:17 PM REFRIGERATION UNIT REPAIRER 06/16/2024 9:43 PM REFRIGERATION UNIT REPAIRER Narrative [facility] - 06/16/2024 10:23 PM REFRIGERATION UNIT REPAIRER This test has not been FDA cleared or approved; the test has been authorized by FDA under an Emergency Use Authorization (EUA) for use by laboratories certified under the CLIA that meet the requirements to perform moderate, high or waived complexity tests. Authorized Fact Sheets about this test for providers and patients are available at: https://www.fda.gov/medical-devices/labfossmx-duxnsiialz-uakxfkd-devices/emergen -us e-authorizations Result [facility] Arvin Andino MD MICROBIOLOGY - GENERAL ORD ERABLES Final Result [facility] [address] [place] [address] * (ABNORMAL) CBC with Auto Differential (06/16/2024 9:16 PM REFRIGERATION UNIT REPAIRER) WBC 17.94(H) 4.00 - 12.00 10(3)/mcL 06/16/2024 9:45 PM REFRIGERATION UNIT REPAIRER [facility] RBC 4.11 3.80 - 5.30 10(6)/mcL 06/16/2024 9:45 PM REFRIGERATION UNIT REPAIRER [facility] HEMOGLOBIN (HGB) 13.1 12.0 - 15.8 g/dL 06/16/2024 9:45 PM REFRIGERATION UNIT REPAIRER [facility] HEMATOCRIT (HCT) 40.1 36.0 - 47.0 % 06/16/2024 9:45 PM REFRIGERATION UNIT REPAIRER [facility] MCV 97.6(H) 82.0 - 96.0 fL 06/16/2024 9:45 PM REFRIGERATION UNIT REPAIRER [facility] MCH 31.9 26.0 - 34.0 pg 06/16/2024 9:45 PM REFRIGERATION UNIT REPAIRER [facility] MCHC 32.7 31.0 - 36.0 g/dL 06/16/2024 9:45 PM REFRIGERATION UNIT REPAIRER [facility] PLATELET COUNT 389 140 - 440 10(3)/mcL 06/16/2024 9:45 PM REFRIGERATION UNIT REPAIRER [facility] RDW 13.2 11.8 - 15.5 % 06/16/2024 9:45 PM REFRIGERATION UNIT REPAIRER [facility] MPV 9.9 9.7 - 12.4 fL 06/16/2024 9:45 PM REFRIGERATION UNIT REPAIRER [facility] NEUTROPHILS 61.4 47.0 - 73.0 % 06/16/2024 9:45 PM REFRIGERATION UNIT REPAIRER [facility] LYMPHOCYTES 26.4 18.0 - 42.0 % 06/16/2024 9:45 PM REFRIGERATION UNIT REPAIRER [facility] MONOCYTES 9.4 4.0 - 12.0 % 06/16/2024 9:45 PM REFRIGERATION UNIT REPAIRER [facility] EOSINOPHILS 2.0 0.0 - 5.0 % 06/16/2024 9:45 PM REFRIGERATION UNIT REPAIRER [facility] BASOPHILS 0.8 0.0 - 1.0 % 06/16/2024 9:45 PM REFRIGERATION UNIT REPAIRER [facility] ABSOLUTE NEUTROPHILS 11.03(H) 1.60 - 7.70 10(3)/[facility] 06/16/2024 9:45 PM REFRIGERATION UNIT REPAIRER [facility] ABSOLUTE LYMPHOCYTES 4.74(H) 1.30 - 3.20 10(3)/[facility] 06/16/2024 9:45 PM REFRIGERATION UNIT REPAIRER [facility] ABSOLUTE MONOCYTES 1.68(H) 0.20 - 1.00 10(3)/[facility] 06/16/2024 9:45 PM REFRIGERATION UNIT REPAIRER [facility] ABSOLUTE EOSINOPHIL 0.35 0.00 - 0.40 10(3)/[facility] 06/16/2024 9:[address] [facility] ABSOLUTE BASOPHILS 0.14(H) 0.00 - 0.10 10(3)/[facility] 06/16/2024 9:[address] [facility] NRBC PER 100 WBC 0 06/16/20 24 9:[address] [facility] Blood Venipuncture / Unknown 06/16/2024 9:16 PM REFRIGERATION UNIT REPAIRER 06/16/2024 9:43 PM REFRIGERATION UNIT REPAIRER us Arvin Andino MD HEMATOLOGY ORDERABLES Aide l Result [facility] [address] [place] [address] * (ABNORMAL) Comprehensive Metabolic Panel (Cmp) [id number] (06/16/2024 9:16 PM REFRIGERATION UNIT REPAIRER) SODIUM 141 136 - 145 mmol/L 06/16/2024 10:06 PM REFRIGERATION UNIT REPAIRER [facility] POTASSIUM 3.4(L) 3.5 - 5.1 mmol/L 06/16/2024 10:[address] [facility] CHLORIDE 105 98 - 107 mmol/L 06/16/2024 10:[address] [facility] CO2, VENOUS 23 22 - 30 mmol/L 06/16/2024 10:[address] [facility] ANION GAP 16.4 <18.0 mmol/L 06/16/2024 10:[address] [facility] GLUCOSE 106(H) 70 - 99 mg/dL 06/16/2024 10:[address] [facility] BUN 13 10 - 20 mg/dL 06/16/2024 10:[address] [facility] CREATININE, BLOOD 0.91 0.60 - 1.00 mg/dL 06/16/2024 10:[address] [facility] BUN/CREATININE RATIO 14 12 - 20 ratio 06/16/2024 10:06 PM [facility] TOTAL PROTEIN 6.7 6.3 - 8.2 g/dL 06/16/2024 10:[address] [facility] ALBUMIN 3.9 3.5 - 5.0 g/dL 06/16/2024 10:[address] [facility] A/G RATIO 1.4 1.0 - 2.2 06/16/2024 10:[address] [facility] CALCIUM 9.2 8.7 - 10.5 mg/dL 06/16/2024 10:[address] [facility] T BILI 0.2 0.2 - 1.2 mg/dL 06/16/2024 10:[address] [facility] SGOT (AST) 15 5 - 34 U/L 06/16/2024 10:[address] [facility] SGPT (ALT) 18 0 - 55 U/L 06/16/2024 10:[address] [facility] ALKALINE PHOSPHATASE 86 40 - 150 U/L 06/16/2024 10:[address] [facility] GFR, ESTIMATED >60 >=60 06/16/2024 10:[address] [facility] Comment: Creatinine Clearance is the preferred criteria for selecting drug dose adjustments in renally impaired patients. ??The GFR is provided as additional pertinent clinical information. GFR is reported in mL/min/1.73 sq m. Calculation based on the Chronic Kidney Disease Epidemiology Collaboration (CKD- EPI) equation refit without adjustment for race. GFR, EST. >60 >=60 024 10:06 PM REFRIGERATION UNIT REPAIRER [facility] GFR, EST. NONAFRICAN >60 >=60 06/16/2024 10:06 PM REFRIGERATION UNIT REPAIRER [facility] Blood Venipuncture / Unknown 06/16/2024 9:16 PM REFRIGERATION UNIT REPAIRER 06/16/2024 9:43 PM REFRIGERATION UNIT REPAIRER Arvin Andino MD CHEMISTRY ORDERABLES Final Result [facility] [address] [place] [address] * STEPHANIE SCREENING BILATERAL DIGITAL W CAD W LAVERN (08/27/2021 10:15 AM REFRIGERATION UNIT REPAIRER) Anatomical Region Laterality Modality breast Bilateral Mammography 08/27/2021 9:55 AM REFRIGERATION UNIT REPAIRER Narrative 08/29/2021 8:26 AM REFRIGERATION UNIT REPAIRER - STEPHANIE SCREENING BILATERAL DIGITAL W CAD W LAVERN BILATERAL DIGITAL SCREENING MAMMOGRAM 3D/2D WITH CAD WITH MEDIOLATERAL OBLIQUE CRANIOCAUDAL: 08/27/2021 The study was acquired using digital technology and interpreted from soft copy. Current study was also evaluated with ICAD version 7.2. 2D digital mammographic views, as well as 3D digital tomosynthesis were performed in the CC and MLO projections. ?? CLINICAL: Routine screening. Patient has no complaints. Personal history of right lung cancer. No family history of breast cancer. ?? COMPARISONS: Comparison is made to exams dated: ??07/20/2020, 06/21/2018 [facility], and 02/05/2017 [facility]. ?? BREAST TISSUE:There are scattered fibroglandular densities in both breasts. ?? FINDINGS: No significant masses, calcifications, or other findings are seen in either breast. ?? There has been no significant interval change. IMPRESSION: BI-RAD 1 NEGATIVE There is no mammographic evidence of malignancy. A 1 year screening mammogram is recommended. ?? A letter will be sent to the patient with these results. The patient will be entered into a reminder system with a target due date of 1 year for her next screening exam. Electronically signed by: Dee Echevarria M.D. ? ll/penrad:08/28/2021 15:34:03 ?? Hydrography Teacher(s): Alexia ?? LAURENCE Martinez)(Raheem), [facility] letter sent: Normal Exam ?? Reading location: [facility] BI-RADS: 1 Negative Procedure Note Dee Echevarria MD - 08/29/2021 - STEPHANIE SCREENING BILATERAL DIGITAL W CAD W LAVERN BILATERAL DIGITAL SCREENING MAMMOGRAM 3D/2D WITH CAD WITH MEDIOLATERAL OBLIQUE CRANIOCAUDAL: 08/27/2021 The study was acquired using digital technology and interpreted from soft copy. Current study was also evaluated with ICAD version 7.2. 2D digital mammographic views, as well as 3D digital tomosynthesis were performed in the CC and MLO projections. CLINICAL: Routine screening. Patient has no complaints. Personal history of right lung cancer. No family history of breast cancer. COMPARISONS: Comparison is made to exams dated: 07/20/2020, 06/21/2018 [facility], and 02/05/2017 [facility]. BREAST TISSUE:There are scattered fibroglandular densities in both breasts. FINDINGS: No significant masses, calcifications, or other findings are seen in either breast. There has been no significant interval change. IMPRESSION: BI-RAD 1 NEGATIVE There is no mammographic evidence of malignancy. A 1 year screening mammogram is recommended. A letter will be sent to the patient with these results. The patient will be entered into a reminder system with a target due date of 1 year for her next screening exam. Electronically signed by: Dee Echevarria M.D. ll/penrad:08/28/2021 15:34:03 Hydrography Teacher(s): LAURENCE Wu)(Raheem), [facility] letter sent: Normal Exam Reading location: [facility] BI-RADS: 1 Negative us Aniya Pang COOK [employer]IP, MEDICAL AFFAIRS SPECIALIST IMG MAMMO ORDERABLES Fin al Result * COLONOSCOPY (03/23/2017) us Ajay Cortez MD PROCEDURE/MINOR SURGICAL OR DERABLES Final Result from Last 3 Months or Most Recently Relevant to Health Maintenance Insurance MEDICAID [place] MEDICARE C DEVOTED [id number] GENERIC Advance Directives * Full Code (Latest Code Status on File) Date Activated Date Inactivated Comments 10/07/2021 2:52 PM 10/09/2021 3:53 PM CPR-Full Douglas atment: FULL ARREST: Attempt Resuscitation/CPR wit intubation and mechanical ventilation. PRE-ARREST: Use entire range of life support measures to stabilize the patient. * Full Code Date Activated Date Inactivated Comments 04/20/2021 12:25 AM 04/22/2021 8:41 PM CPR-Full Treatment: FULL ARREST: Attempt Resuscitation/CPR wit intubation and mechanical ventilation. PRE-ARREST: Use entire range of life support measures to stabilize the patient. Care Teams Manager Revenue Relationship Specialty Start Date End Date Arnaud Martini MD [address] [place] [address] PCP - General Family Medicine 04/19/21 Logan Vazquez MD Consulting Physician Pulmonary Disease 02/10/17 Logan Vazquez MD [address] [place] [address] Consulting Physician Pulmonary Disease 10/01/21 Ana Aguilar APRN, MEDICAL AFFAIRS SPECIALIST [address] [place] [address] Nurse Practitioner Advanced Practice Nurse 06/23/24
--- OUTSIDE RECORDS SUMMARY | 2024-08-08 13:42 | XMS_ITS ---
Author Organization [facility]oe[facility] MD [facility] Address [address] [place] [address] Care Team Providers Care Informatics Developer Name Role Phone Vikash GALVAN, JR Hopkins Primary Care Provider Michel Steel Unavailable [phone] REASON FOR VISIT 6 MO FU LL CR *WEB* Encounters Encounter Location Date Provider Diagnosis Brian Koehler MD PA [address] [place] [address] 07/21/2024 Michel Covington Plan Of Treatment No Information Progress Notes * YOLANDA BURNETTEDOB: (68 yo F)Acc No.[id number]:07/21/2024 Progress Notes Patient:?VASILE YOLANDA Segun Provider:Jeffry Covington MD :1955???Age:68 Y???Sex:Female D ate:07/21/2024 Address:[address], [place] [place] Pcp:JR Sandeep Suh MD Subjective: * Chief Complaints: * ???1. 6 MO FU LL CR *WEB*. * Medical History:? Objective: * Vitals:? Assessment: Plan: * Treatment: * Billing Information: * Visit Code:? * Procedure Codes:? * Electronic signature of Lala Covington MD on 08/08/2024 at 02:42 PM EST Sign off status: Pending * Provider:?Michel Covington MD Date:?2024 Generated for Printi ng/Darline/Corin on:?08/08/2024 02:42 PM EST
--- OUTSIDE RECORDS SUMMARY | 2024-08-08 13:42 | XMS_ITS | Encounter Summary ---
Author Organization [facility] Address [address] [place] [address] Phone Care Team Providers Care Vault Person Name Role Phone Logan Vazquez MD Unavailable Arnaud Martini MD Primary Care Provider [phone] Logan Vazquez MD Unavailable Ana Aguilar APRN, [facility] Unavailable Reason for Visit * Reason Comments Medication Refill Encounter Details Date Type Department Care Team (Late st Contact Info) Description 02/03/2022 Refill [facility] - Pulmonology & Sleep Medicine [facility] [address] [place] [address] Logan Vazquez MD [address] [place] [address] Medication Refill Social History Tobacco Use Types Packs/Day Years Used Date Smoking Tobacco: Every Day Cigarettes 0.5 45 Started: 09/10/1975; Last attempted to quit: 09/09/2020 Smokeless Tobacco: Never Alcohol Use Standard Drinks/Week Comments Not Currently 4 (1 standard drink = 0.6 oz pur e alcohol) social Sexually Active Control Partners Comments Not Currently Comments No Sex and Gender Information Value Date Recorded Sex Assigned at Female 07/26/2024 9:52 PM LOG FEEDER Legal Sex Female 9:37 PM CDT Gender Identity Female 07/26/2024 9:52 PM LOG FEEDER Sexual Orientation Straight 07/26/2024 9: 52 PM LOG FEEDER Occupation Industry Job Start Date Job End Date [employer] Not on file Not on file Not on file documented as of this encounter Miscellaneous Notes * Telephone Encounter - Lea Castellanos RN - 02/03/2022 1:30 PM CDT Medication failed the protocol, provider to review and approve the medication order if appropriate. Requested Prescriptions Pending Prescriptions Disp Refills ipratropium-albuterol (DUO-NEB) 0.5-2.5 (3) MG/3ML Solution [Pharmacy Med Name: Ipratropium-Albuterol 0.5-2.5 (3) MG/3ML Inhalation Solution] 90 mL 0 Sig: USE 1 AMPULE IN NEBULIZER 4 TIMES DAILY Inhaled Combinations Protocol Failed - 02/03/2022 1:09 PM Failed - Active on medication list Passed - Visit with relevant provider in past 12 months or upcoming 90 days Recent Visits Date Type Provider Dept 10/01/21 Office Visit Logan Vazquez MD [facility] 05/28/21 Office Visit Logan Vazquez MD [facility] 03/13/21 Office Visit Logan Vazquez MD [facility] Showing recent visits within past 365 days and meeting all other requirements Future Appointments Date Type Provider Dept 04/01/22 Appointment Logan Vazquez MD [facility] Showing future appointments within next 90 days and meeting all other requirements Passed - Active short-acting beta agonist prescription documented in this encounter Plan of Treatment Upcoming Encounters Date Type Department Care Team (Late st Contact Info) Description 09/05/2024 10:30 AM LOG FEEDER Office Visit [facility] - Internal Medicine - [place] [address] [place] [address] Breezy Barros MD [address] [facility] [address] documented as of this encounter Visit Diagnoses Diagnosis Centrilobular emphysema (HCC) Other emphysema documented in this encounter Additional Health Concerns Infection Onset Date Last Indicated Resolved Time COVID - 19 06/16/2024 06/16/2024 06/16/2024 10:2 3 PM LOG FEEDER documented as of this encounter Care Teams Vault Person Relationship Specialty Start Date End Date Arnaud Martini MD [address] [place] [address] PCP - General Family Medicine 04/19/21 Logan Vazquez MD Consulting Physician Pulmonary Disease 02/10/17 Logan Vazquez MD [address] [place] [address] Consulting Physician Pulmonary Disease 10/01/21 Ana Aguilar APRN, BUNDLES HANGER [address] [place] [address] Nurse Practitioner Advanced Practice Nurse 06/23/24 documented as of this encounter
--- OUTSIDE RECORDS SUMMARY | 2024-08-08 13:42 | XMS_ITS | Referral Summary ---
Author Organization [facility] Address [address] [place] [address] Care Team Providers Care Utilization Management Manager Name Role Phone Arnaud Martini MD Primary Care Provider [phone] Allergies Active Allergy Reactions Criticality Noted Date [...] (10/01/2021): Added automatically from request for surgery [id number] Gastro-esophageal reflux disease without esophag itis 04/28/2021 History of duodenal ulcer 04/28/2021 History of Helicobacter pylori infection 021 Former smoker 04/28/2021 BMI 28.0-28.9,adult 04/28/2021 Tubular adenoma of colon 04/28/2021 Laryngeal spasm 08/05/2020 Assessment & Plan (08/05/2020 9:42 PM WASTEWATER MANAGER): Nasal saline spray (Simply saline, Little Remedies, [place], [place]) 2 second sprays or 2 squeezes into each nostril while looking down over the sink, do not need to sniff in 2-3 times daily Pepcid (famotidine) 40 mg at bedtime Humidifier in bedroom Allergic rhinitis 08/05/2020 Assessment & Plan (08/05/2020 9:41 PM WASTEWATER MANAGER): Nasal saline spray (Simply saline, Little Remedies, [place], [place]) 2 second sprays or 2 squeezes into each nostril while looking down over the sink, do not need to sniff in 2-3 times daily Flonase (fluticasone) 2 sprays into each nostril while looking down over the sink, do not sniff in or blow nose after use for at least 30 minutes daily Humidifier in bedroom Epistaxis 08/05/2020 Assessment & Plan (08/05/2020 9:41 PM WASTEWATER MANAGER): Nasal saline spray (Simply saline, Little Remedies, [place], [place]) 2 second sprays or 2 squeezes into [...] 07/30/2020 Assessment & Plan (08/28/2021 12:15 PM WASTEWATER MANAGER): Left adrenal adenoma 1.9 cm detected on [...] year. Assessment & Plan (07/30/2020 9:52 AM WASTEWATER MANAGER): Left adrenal adenoma 1.9 cm detected on [...] like Aldosterone/ renin and will rule out Hickman's with 1 mg dexamethasone suppression test Obtain [...] get procedural sedation. Advised to discuss with temper mill operator and primary care physician Smoker 01/12/2018 Assessment & Plan (01/12/2018 5:47 AM CDT): Patient states that quit smoking 5 days ago. Will start on Nicoderm patch Encouraged not to return back to the smoking Essential hypertension 01/12/2018 Assessment & Plan (08/28/2021 12:16 PM WASTEWATER MANAGER): Controlled with medication Amlodipine and Metoprolol - low salt diet - continue medication per PCP Assessment & Plan (07/30/2020 9:54 AM WASTEWATER MANAGER): Controlled with medication Amlodipine and Metoprolol - [...] with sucralfate and Pepcid for GI prophylaxis Social History Tobacco Use Types Packs/Day Years Used Date Smoking Tobacco: Former Cigarettes Smokeless Tobacco: Never Tobacco Cessation:Ready to Q uit: Yes Comments:Quit 5 days ago Alcohol Use Standard Drinks/Week Comments No 0 (1 standard drink = 0.6 oz pur e alcohol) Comments No Sex and Gender Information Value Date Recorded Sex Assigned at Not on file Legal Sex Female 2:19 PM WASTEWATER MANAGER Gender Identity Female 07/21/2021 12:54 PM WASTEWATER MANAGER Sexual Orientation Not on file Last Filed Vital Signs Vital Sign Reading Time Taken Comments Blood Pressure 120/72 08/28/2021 12:01 PM WASTEWATER MANAGER Pulse 88 04/28/2021 10:23 AM CDT Temperature 36.1 ??C (96.9 ??F) 04/28/2021 10:23 AM C DT Respiratory Rate 18 01/13/2018 7:51 AM CDT Oxygen Saturation 99% 04/28/2021 10:23 AM CDT Inhaled Oxygen Concentration - - Weight 62.4 kg (137 lb 9.6 oz) 08/28/2021 12:01 PM WASTEWATER MANAGER Height 149.9 cm (4' 11 ) 08/28/2021 12:01 PM WASTEWATER MANAGER Body Mass Index 27.79 08/28/2021 12:01 PM WASTEWATER MANAGER Plan of Treatment Not on file Procedures Procedure Name Priority Date/Time Associated Diagnosis Comments COLONOSCOPY REPORT 03/23/2017 MAMMOGRAPHY, TOMOGRAPHY, BILATERAL Routine 02/05/2017 4:56 PM CDT from Last 3 Months or Most Recently Relevant to Health Maintenance Results * COLONOSCOPY REPORT (03/23/2017) Anatomical Region Laterality Modality Other Provider Scanning GI PROCEDURE ORDERABLES Final Result * MAMMOGRAPHY, TOMOGRAPHY, BILATERAL (02/05/2017 4:56 PM CDT) Anatomical Region Laterality Modality Breast Bilateral Mammography 02/05/2017 4:56 PM CDT Narrative 02/05/2017 4:56 PM CDT SCREENING MAMM W LAVERN BI ??Acc#: ??[id number] DATE OF EXAM: ??Feb 05 2017 ?? ADDENDUM #1 Comparison is now made to an outside study dated 02/08/2012 from [facility] in [place]. ??No interval suspicious mass or calcification has [...] OLSEN Requesting: ??DR COLLEEN OLSEN Requesting Fax: ??[phone] Attending Fax: ??[phone] Attending ID: ??[id number] Requesting ID: ??[id number] Report To 1 ID: ??[id number] Report To 1 Name: ??DR COLLEEN OLSEN Report To 1 FAX: ??[phone] NextGen Order #: ?? Procedure Note Miscellaneous, Not In File / Provider, MD Kassandra - 02/23/2017 SCREENING MAMM W LAVERN BI Acc#: [id number] DATE OF EXAM: Feb 05 2017 ADDENDUM #1 Comparison is now made to an outside study dated 02/08/2012 from [facility] in [facility]. No interval suspicious mass or calcification has [...] DR COLLEEN OLSEN Requesting Attending Attending ID: [id number] Requesting ID: [id number] Report To 1 ID: [id number] Report To 1 Name: DR COLLEEN OLSEN Report To 1 FAX: [phone] NextGen Order #: Colleen Olsen MD IMG MAMMO PROCEDURES Fin al Result from Last 3 Months or Most Recently Relevant to Health Maintenance Insurance IDPA [facility] MDCR HMO REF [facility] Address: [address] [address] [place] [address] [facility] IDPA MEDICARE [facility] Address: [address] [address] [place] [address] IDPA [facility] MDCR HMO REF Advance Directives For more information, please contact: [phone] * Full Code (Latest Code Status on File) Date Activated Date Inactivated Comments 01/11/2018 9:46 AM 01/13/2018 2:07 PM * Full Code Date Activated Date Inactivated Comments 08/11/2017 10:49 AM 08/11/2017 2:56 PM Care Teams Utilization Management Manager Relationship Specialty Start Date End Date Arnaud Martini MD PCP - General Family Practice 08/28/21
--- OUTSIDE RECORDS SUMMARY | 2024-08-08 13:42 | XMS_ITS | Encounter Summary ---
Author Organization [facility] Address [address] [place] [address] Phone Care Team Providers Care Outside Rigger Name Role Phone Logan Vazquez MD Unavailable Ave Collier MD Primary Care Provider [phone] Arnaud Martini MD Primary Care Provider [phone] Logan Vazquez MD Unavailable Ana Aguilar APRN, [employer] TOP TRIMMER Unavailable Reason for Visit * Reason Comments Medication Refill Encounter Details Date Type Department Care Team (Late st Contact Info) Description 08/18/2020 Refill [facility] [address] [facility] [place] [address] Logan Vazquez MD [address] [place] [address] Medication Refill Social History Tobacco Use Types Packs/Day Years Used Date Smoking Tobacco: Every Day Cigarettes 0.5 45 Smokeless Tobacco: Never Comments:3-4 cigs a day Alcohol Use Standard Drinks/Week Comments Yes 4 (1 standard drink = 0.6 oz pur e alcohol) social Comments No Sex and Gender Information Value Date Recorded Sex Assigned at Female 07/26/2024 9:52 PM EARTH BORING MACHINE OPERATOR Legal Sex Female 9:37 PM CDT Gender Identity Female 07/26/2024 9:52 PM EARTH BORING MACHINE OPERATOR Sexual Orientation Straight 07/26/2024 9: 52 PM EARTH BORING MACHINE OPERATOR Occupation Industry Job Start Date Job End Date [employer] Not on file Not on file Not on file COVID-19 Exposure Response Date Recorded In the last month, have you been in contact with someone who was confirmed or suspected to have Coronavirus / COVID-19? No / Unsure 08/13/2020 12:49 PM EARTH BORING MACHINE OPERATOR documented as of this encounter Plan of Treatment Upcoming Encounters Date Type Department Care Team (Late st Contact Info) Description 09/05/2024 10:30 AM EARTH BORING MACHINE OPERATOR [facility] [address] [place] [address] Breezy Barros MD [address] [place] [address] documented as of this encounter Visit Diagnoses Not on filedocumented in this encounter Additional Health Concerns Infection Onset Date Last Indicated Resolved Time COVID - 19 04/19/2021 04/19/2021 04/21/2021 8:16 AM CDT Respiratory Rule Out - RPA 04/19/2021 04/19/2021 1 3:30 PM CDT COVID - 19 07/07/2021 07/07/2021 07/07/2021 6:29 PM EARTH BORING MACHINE OPERATOR COVID - 19 Confirmed 07/07/2021 07/07/202107/27/2 022 12:16 AM EARTH BORING MACHINE OPERATOR Respiratory Rule Out - RPA 10/07/2021 10/08/2021 0 10/08/2021 3:24 PM CDT COVID - 19 06/16/2024 06/16/2024 06/16/2024 10:2 3 PM EARTH BORING MACHINE OPERATOR documented as of this encounter Care Teams Outside Rigger Relationship Specialty Start Date End Date Ave Collier MD [address] [place] [address] PCP - General Internal Medicine 03/23/20 04/18/21 Arnaud Martini MD [address] [place] [address] PCP - General Family Medicine 04/19/21 Logan Vazquez MD Consulting Physician Pulmonary Disease 02/10/17 Logan Vazquez MD [address] [place] [id number] Consulting Physician Pulmonary Disease 10/01/21 Ana Aguilar APRN, SKI TOP TRIMMER [address] [place] [address] Nurse Practitioner Advanced Practice Nurse 06/23/24 documented as of this encounter
--- OUTSIDE RECORDS SUMMARY | 2024-08-08 13:42 | XMS_ITS | Patient Health Record ---
Author Organization Brian Koehler MD [facility] Address [address] [place] [address] Care Team Providers Care Horticulture Superintendent Name Role Phone JR Sandeep Suh MD Primary Care Provider Michel Steel Unavailable [phone] Allergies Allergen (clinical drug ingredient) Drug/Non Drug Allergy documented on EMR Reaction Allergy Type Onset Date Status codeine Codeine Unknown Drug Allergy Active Penicillin Unknown Drug Allergy Active Reason For Referral Reason PLEASE SET PATIENT U P WITH NEW CPAP, ALL SUPPLIES, AND MASK OF CHOICE. [facility] Diagnosis 1 OBSTRUCTIVE SLEEP AP ISABEL (G47.33) Referral Organization Brian LEONG Referring Provider First Name [facility] Referring Provider Last Name [facility] Referring Provider Speciality Pulmonolog y Referred Organization Brian LEONG Referred Address [address] [place],[address], Referred Provider Specialty DME Referral Priority Routine Reason 01/21/2024 OV AUTH R EQUEST W/ NOTE 59803 X 3, 00751 X 1, 22519 X 1, 46012 X 1, 63657 X 1, 66782 X 1, 60435 X 1, 89330 X 1, 59588 X 1, 33182 X 1, G0447 X 1 Diagnosis 1 LUNG CA (C34.81) Diagnosis 2 ASTHMA (J45.909) Diagnosis 3 Dyspnea, unspecified (R06.00) Referral Organization Brian LEONG Referring Provider First Name [facility] Referring Provider Last Name [facility] Referring Provider Speciality Pulmonolog y Referred Provider Sandeep Suh Referred Provider Specialty Family Medic ine Referral Priority Routine Medications Medication SIG (Take, Route, Frequency, Duration) Notes Start Date End Date Status Montelukast Sodium 10 MG 1 tablet Orally Once a day Active Metoprolol Tartrate 25 MG 1 tablet with food Orally Twice a day Active Pravastatin Sodium 20 MG 1 tablet Orally Once a day Active Ondansetron HCl 4 MG 1 tablet Orally Onc e a day Active Aspirin Adult Low Dose 81 MG 1 tablet Orally Once a day Active amLODIPine Besylate 10 MG 1 tablet Orall y Once a day Active Fluticasone Propionate 50 MCG/ACT 1 spray in each nostril Nasally Once a day Active Citalopram Hydrobromide 10 MG 1 tablet Orally Once a day Active Albuterol Sulfate (2.5 MG/3ML) 0.083% 3 mL as needed Inhalation every 6 hrs Active Atrovent HFA 17 MCG/ACT TAKE 2 PUFFS 4 T IMES A DAY for 90 Active predniSONE 20 MG 1 tablet Orally Once a day Not-Taking Zithromax Z-Rod 250 MG two tablets first day and one tablet for 4 days Orally as directed for 5 days 07/13/2023 Active Immunizations Vaccine Route Administration Date Status Comme nts Influenza, quadrivalent, spl it virus Unknown 04/11/2022 Administered Influenza, quadrivalent, spl it virus Unknown 04/11/2022 Administered Social History Tobacco Use: Social History Observation Description Date Details (start date - stop date) Former Smoker NA - NA Tobacco Use/Smoking Question Answer Notes Tobacco use: unknown if ever smoked Tobacco Control (Standard) Question Answer Notes Tobacco use: Former smoker AUDIT-C (Standard) Question Answer Notes Did you have a drink contain ing alcohol in the past year? Yes How often did you have six o r more drinks on one occasion in the past year? Less than monthly (1 point) How many drinks did you have on a typical day when you were drinking in the past year? 1 or 2 drinks (0 point) How often did you have a dri nk containing alcohol in the past year? Monthly or less (1 point) Points 2 Interpretation Negative Section Notes: . She has 3 children, all in their 40s. She smoked 1 pack of cigarettes for 50 years. She quit smoking in 02/2022. Social drinker. 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 . She has 3 children, all in their 40s. She smoked 1 pack of cigarettes for 50 years. She quit smoking in 02/2022. Social drinker. 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 . She has 3 children, all in their 40s. She smoked 1 pack of cigarettes for 50 years. She quit smoking in 02/2022. Social drinker. 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 . She has 3 children, all in their 40s. She smoked 1 pack of cigarettes for 50 years. She quit smoking in 02/2022. Social drinker. 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 . She has 3 children, all in their 40s. She smoked 1 pack of cigarettes for 50 years. She quit smoking in 02/2022. Social drinker. 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 . She has 3 children, all in their 40s. She smoked 1 pack of cigarettes for 50 years. She quit smoking in 02/2022. Social drinker. 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 . She has 3 children, all in their 40s. She smoked 1 pack of cigarettes for 50 years. She quit smoking in 02/2022. Social drinker. 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 . She has 3 children, all in their 40s. She smoked 1 pack of cigarettes for 50 years. She quit smoking in 02/2022. Social drinker. 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 . She has 3 children, all in their 40s. She smoked 1 pack of cigarettes for 50 years. She quit smoking in 02/2022. Social drinker. 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 . She has 3 children, all in their 40s. She smoked 1 pack of cigarettes for 50 years. She quit smoking in 02/2022. Social drinker. 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 Problems Problem Type SNOMED Code ICD Code Onset Dates Problem Status W/U Status Risk Notes Problem Arthritis (6940634) ARTHRITIS (M06.9) Active confirmed Problem LUNG CA (C34.81) Active confirmed Problem Obstructive sleep apnea (92080801) OBSTRUCTIVE SLEEP APNEA (G47.33) Active confirmed Problem Renal failure (74805610) RENAL FAILURE (N19) Active confirmed Problem Hyperlipidaemia (80595030) HYPERLIPEMIA (E78.5) Active confirmed Problem Asthma (705455864) ASTHMA (J45.909) Active confirmed Problem 11866769 Chronic obstructive pulmonary disease, unspecified COPD type (J44.9) Active confirmed Problem Essential hypertension (42983361) HTN (hypertension), benign (I10) Active confirmed Problem Chronic obstructive pulmonary disease (63368789) Advanced COPD (J44.9) Active confirmed Vital Signs Heart Rate 102 /min 01/21/2024 Blood pressure diastolic 72 mm Hg 01/21/2024 Oximetry 94 % 01/21/2024 Weight-kg 73.48 kg 01/21/2024 Height 59 in 01/21/2024 Blood pressure systolic 136 mm Hg 01/21/2024 Weight 162 lbs 01/21/2024 BMI 32.72 kg/m2 01/21/2024 Encounters Encounter Location Date Provider Diagnosis Brian LEONG [address] [place] [address] 09/08/2023 Michel LEONG [address] [place] [address] 09/20/2023 Formerly [facility], [facility] Obstructive sleep apnea (adult) (pediatric) G47.33 Brian LEONG [address] [place] [address] 10/22/2023 [facility]ly [facility], [facility] HTN (hypertension), benign I10 ; OBSTRUCTIVE SLEEP APNEA G47.33 ; HYPERLIPEMIA E78.5 ; ASTHMA J45.909 ; LUNG CA C34.81 ; ARTHRITIS M06.9 ; Chronic obstructive pulmonary disease, unspecified COPD type J44.9 ; RENAL FAILURE N19 ; Advanced COPD J44.9 and Obstructive sleep apnea (adult) (pediatric) G47.33 Brian LEONG [address] [place] [address] 01/21/2024 Formerly [facility], [facility] Advanced COPD J44.9 ; HTN (hypertension), benign I10 ; HYPERLIPEMIA E78.5 ; ASTHMA J45.909 ; LUNG CA C34.81 ; ARTHRITIS M06.9 ; Chronic obstructive pulmonary disease, unspecified COPD type J44.9 ; RENAL FAILURE N19 and OBSTRUCTIVE SLEEP APNEA G47.33 Brian LEONG [address] [place] [address] 09/17/2023 Formerly [facility], [facility] Brian LEONG [address] [place] [address] 10/20/2023 [facility]ly [facility], [facility] Brian LEONG [address] [place] [address] 02/22/2024 Formerly [facility], [facility] Assessments Encounter Date Diagnosis (ICD Code) Assessment Notes Treatment Notes Treatment Clinical Notes Section Notes 09/20/2023 Obstructive sleep apnea (adult) (pediatric) (ICD-10 - G47.33) 10/22/2023 OBSTRUCTIVE SLEEP APNEA (ICD-10 - G47.33) DIAGNOSTIC POLYSOMNOGRAM STUDY A overnight polysomnography was performed recording the standard physiologic parameters including EEG, EOG, EMG, EKG, . Respiratory parameters of chest and abdominal movements are recorded with inductive plethysmography effort belts. Oxygen saturation was recorded by pulse oximetry. SLEEP ARCHITECTURE: Total recording time was 396.5 minutes. Total sleep time was 337.5 minutes.Prolonged sleep onset latency of 42 minutes Prolonged REM onset latency of 177 minutes. Excellent sleep efficiency of 85 %.Total wake time after sleep onset was 17 minutes. The patient spent 3 % of total sleep time in Stage N1, 83 % in Stage N2, 0 % in Stages N3, and 15 % in REM sleep. Disturbed sleep architecture with absent deep sleep stage and reduced amount of REM sleep stage. RESPIRATORY EVENTS: The polysomnogram revealed a presence of 5 obstructive, 0 central, 0 mixed apneas and 162 hypopneas during the total sleep time. AHI was 29.7 during the total sleep time and 44.1 in REM sleep and 29.5 in supine position. Oxygen saturation was 79 % at the armani. CARDIAC SUMMARY: Sinus rhythm, no wide complex tachycardia noted. LIMB ACTIVITY: There were no significant PLMs with arousals noted. Recommendation 1. Recommend a CPAP titration study since the patient has moderate sleep apnea syndrome with severe reduction in oxygen saturation.2. Weight reduction with diet and exercise is recommended. BMI was 32.31.3. Advise the patient not to drive if tired and sleepy.4. Avoid alcohol and sedative drugs towards bed time. 5. Proper sleep hygeine is recommended. 10/22/2023 HTN (hypertension), benign (ICD-10 - I10) 01/21/2024 Advanced COPD (ICD-10 - J44.9) 01/21/2024 HTN (hypertension), benign (ICD-10 - I10) 10/22/2023 HYPERLIPEMIA (ICD-10 - E78.5) 10/22/2023 ASTHMA (ICD-10 - J45.909) 01/21/2024 HYPERLIPEMIA (ICD-10 - E78.5) 01/21/2024 ASTHMA (ICD-10 - J45.909) 10/22/2023 LUNG CA (ICD-10 - C34.81) 10/22/2023 ARTHRITIS (ICD-10 - M06.9) 01/21/2024 LUNG CA (ICD-10 - C34.81) 01/21/2024 ARTHRITIS (ICD-10 - M06.9) 10/22/2023 Chronic obstructive pulmonary disease, unspecified COPD type (ICD-10 - J44.9) 10/22/2023 RENAL FAILURE (ICD-10 - N19) 01/21/2024 Chronic obstructive pulmonary disease, unspecified COPD type (ICD-10 - J44.9) 10/22/2023 Advanced COPD (ICD-10 - J44.9) 01/21/2024 RENAL FAILURE (ICD-10 - N19) 01/21/2024 OBSTRUCTIVE SLEEP APNEA (ICD-10 - G47.33) 10/22/2023 Obstructive sleep apnea (adult) (pediatric) (ICD-10 - G47.33) 09/20/2023 Other DIAGNOSTIC POLYSOMNOGRAM STUDY A overnight polysomnography was performed recording the standard physiologic parameters including EEG, EOG, EMG, EKG, . Respiratory parameters of chest and abdominal movements are recorded with inductive plethysmography effort belts. Oxygen saturation was recorded by pulse oximetry. SLEEP ARCHITECTURE: Total recording time was 396.5 minutes. Total sleep time was 337.5 minutes.Prolonged sleep onset latency of 42 minutes Prolonged REM onset latency of 177 minutes. Excellent sleep efficiency of 85 %.Total wake time after sleep onset was 17 minutes. The patient spent 3 % of total sleep time in Stage N1, 83 % in Stage N2, 0 % in Stages N3, and 15 % in REM sleep. Disturbed sleep architecture with absent deep sleep stage and reduced amount of REM sleep stage. RESPIRATORY EVENTS: The polysomnogram revealed a presence of 5 obstructive, 0 central, 0 mixed apneas and 162 hypopneas during the total sleep time. AHI was 29.7 during the total sleep time and 44.1 in REM sleep and 29.5 in supine position. Oxygen saturation was 79 % at the armani. CARDIAC SUMMARY: Sinus rhythm, no wide complex tachycardia noted. LIMB ACTIVITY: There were no significant PLMs with arousals noted. Recommendation 1. Recommend a CPAP titration study since the patient has moderate sleep apnea syndrome with severe reduction in oxygen saturation.2. Weight reduction with diet and exercise is recommended. BMI was 32.31.3. Advise the patient not to drive if tired and sleepy.4. Avoid alcohol and sedative drugs towards bed time. 5. Proper sleep hygeine is recommended. cc: Ghazala Akhtar, JAYJAY Covington M.D, FCCP, FACP, FAASM, DABSM, RPSGTDiplomate of [place] board of Sleep Medicine.Diplomate -ABIM- Sleep Medicine.Fellow of [place] [employer].Diplomate , Behavioral Sleep Medicine.Otilio askew Polysomnogram Technologist. 10/22/2023 Other I explained to the patient the importance of losing weight with a diet and exercise. Advised the patient not to drive if tired and sleepy. I explained that to the patient the pathophysiology of sleep apnea and the consequences of untreated sleep apnea. Even mentioned to patient that untreated BERNARDA can cause sudden cardiac . Explained how the CPAP therapy works. I gave patient articles to read on BERNARDA. I also explained to the patient the different modalities of treatment for sleep apnea. She will continue her treatment as recommended.She is not eligible for handicap parking.I encouraged her to be active and walk as much as she can.We will see her back in 4 months. ATTESTATION:This note has been created using LinkCloud and was completed in the EHR by Mariaelena Jacobs 01/21/2024 Other I explained to the patient the importance of losing weight with a diet and exercise. Advised the patient not to drive if tired and sleepy. I explained that to the patient the pathophysiology of sleep apnea and the consequences of untreated sleep apnea. Even mentioned to patient that untreated BERNARDA can cause sudden cardiac . Explained how the CPAP therapy works. I gave patient articles to read on BERNARDA. I also explained to the patient the different modalities of treatment for sleep apnea. She will continue with cefuroxime 250 mg and methylprednisolone .She will continue with her current treatment plan as she is having now.She will follow up in 6 months. ATTESTATION:This note has been created using LinkCloud and was completed in the EHR by Mariaelena Jacobs Plan Of Treatment Pending Test Test Name Order Date BUN, Creatinine 06/19/2022 CT Scan : Chest with contrast 06/19/2022 CT Scan : Chest without contrast 024 Split Night Sleep Study 07/30/2023 PULMONARY FUNCTION TEST 07/30/2023 PULMONARY FUNCTION TEST 07/13/2023 Insurance Providers Payer Name Payer Address Payer Phone Subscriber Number Group Number Insured Name Patient Relationship to Insured Coverage Start Date Coverage End Date [employer] [address] [address] [place] [address] [id number] YOLANDA BURNETTE Self - patient is the insured 3 MEDICAID [facility] [address] [place] [address] [phone] [id number] YOLANDA BURNETTE Self - patient is the insured Medical (General) History Medical History History ICD Code HTN (hypertension), benign I10 HYPERLIPEMIA E78.5 ASTHMA J45.909 LUNG CA C34.81 ARTHRITIS M06.9 borderline diabetes sleep apnea restless legs syndrome stomach ulcers acid reflux COPD, COVID-19 infection with pneumonia and sepsis choldhood asthma bronchitis Surgical History Surgery Date(Month/Year) Right upper lobectomy tonsillectomy hysterectomy
--- OUTSIDE RECORDS SUMMARY | 2024-08-08 13:42 | XMS_ITS | Patient Health Record ---
Author Organization [facility] Address [address] [facility] [address] [place] [address] Care Team Providers Care Legal Practice Manager Name Role Phone -Do Not use, PCP Primary Care Provider Unavailab le Allergies Allergen (clinical drug ingredient) Drug/Non Drug Allergy documented on EMR Reaction Allergy Type Onset Date Status codeine Codeine Unknown Drug Allergy Active Penicillin Unknown Drug Allergy Active Reason For Referral No Information Medications Medication SIG (Take, Route, Frequency, Duration) Notes Start Date End Date Status Metoprolol Tartrate 25 MG 1 tablet with food Orally Twice a day Active Albuterol Sulfate HFA 108 (90 Base) MCG/ACT Inhalation for 17 Days Active Ipratropium-Albuterol 0.5-2.5 (3) MG/3ML USE 1 AMPULE IN NEBULIZER 4 TIMES DAILY Inhalation for 7 Days Active buPROPion HCl ER (XL) 150 MG 1 tablet in the morning Orally Once a day Active amLODIPine Besylate 10 MG 1 tablet Orally Once a day Active Acyclovir 400 MG Oral for 30 Days Active predniSONE 20 MG 2 tablet Orally Once a day for 5 days Active Advair Diskus 500-50 MCG/ACT Inhalation for 30 Days Activ e Problems Problem Type SNOMED Code ICD Code Onset Dates Problem Status W/U Status Risk Notes Problem Chronic obstructive pulmonary disease with acute lower respiratory infection (137886545) COPD (chronic obstructive pulmonary disease) with acute bronchitis (J44.0) Active confirmed Plan Of Treatment No Information Insurance Providers Payer Name Payer Address Payer Phone Subscriber Number Group Number Insured Name Patient Relationship to Insured Coverage Start Date Coverage End Date Medicare of [place] [employer] [address] [place] [phone] [id number] Maeve Smith Self - patient is the insured 2 [employer] [address] [place] [address] [id number] Maeve Smith Self - patient is the insured 7 Medications Administered Medication Instructions Date of Administration Dosage Notes Solumedrol (125 mg =1 unit) 02/23/2022 125 mg Medical (General) History Medical History History ICD Code COPD (chronic obstructive pulmonary dise ase) J44.9 Hypertension I10 Depression F32.9 Anxiety F41.9 History of lung cancer Z85.118 Surgical History Surgery Date(Month/Year) Lobectomy--right upper lung lobe removed due to cancer 2014
--- OUTSIDE RECORDS SUMMARY | 2024-08-08 13:42 | XMS_ITS | Encounter Summary ---
Author Organization [facility] Address [address] [place] [address] Phone Care Team Providers Care Technical Fellow Name Role Phone Do Cristina MD Primary Care Provider [phone] Ave Collier MD Primary Care Provider [phone] Arnaud Martini MD Primary Care Provider [phone] Encounter Details Date Type Department Care Team (Late st Contact Info) Description 08/17/2017 Orders Only [facility] ProviderKassandra MD [address] [place] [address] Social History Tobacco Use Types Packs/Day Years Used Date Smoking Tobacco: Some Days Cigarettes Smokeless Tobacco: Never Alcohol Use Standard Drinks/Week Comments Yes 0 (1 standard drink = 0.6 oz pur e alcohol) Comments Unknown Sex and Gender Information Value Date Recorded Sex Assigned at Not on file Legal Sex Female 2:19 PM HOME HEALTH CLINICAL SUPERVISOR Gender Identity Female 07/21/2021 12:54 PM HOME HEALTH CLINICAL SUPERVISOR Sexual Orientation Not on file documented as of this encounter Plan of Treatment Not on file documented as of this encounter Procedures Procedure Name Priority Date/Time Associated Diagnosis Comments DISCHARGE LABORATORY CUMULATIVE REPORT 08/17/2017 12:00 AM HOME HEALTH CLINICAL SUPERVISOR documented in this encounter Results * DISCHARGE LABORATORY CUMULATIVE REPORT (08/17/2017 12:00 AM HOME HEALTH CLINICAL SUPERVISOR) Narrative 08/17/2017 12:00 AM HOME HEALTH CLINICAL SUPERVISOR Ordered by an unspecified provider. Historical Provider MD LAB BLOOD ORDERABLES Aide l Result documented in this encounter Visit Diagnoses Not on filedocumented in this encounter Care Teams Technical Fellow Relationship Specialty Start Date End Date Do Cristina MD [address] [facility] [address] BRET Pack [facility] [address] [place] [address] PCP - General 08/11/17 07/18/20 Ave Collier MD [address] [facility] [address] BRET Pack [address] [address] PCP - General Internal Medicine 07/19/20 08/27/21 Arnaud Martini MD [address] [facility] [address] BRET Pack [address] [address] PCP - General Family Practice 08/28/21 documented as of this encounter
--- OUTSIDE RECORDS SUMMARY | 2024-08-08 13:43 | XMS_ITS | Encounter Summary ---
Author Organization [facility] Address [address] [place] [address] Phone Care Team Providers Care Economics Teacher Name Role Phone Logan Vazquez MD Unavailable Ave Collier MD Primary Care Provider [phone] Arnaud Martini MD Primary Care Provider [phone] Logan Vazquez MD Unavailable Ana Aguilar APRN, NURSING SERVICE ADMINISTRATOR Unavailable Reason for Visit * Reason Comments Medication Refill Encounter Details Date Type Department Care Team (Late st Contact Info) Description 01/25/2021 [facility] - [place] [address] [place] [id number] Susan Green APRN, NURSING SERVICE ADMINISTRATOR [address] [address] Medication Refill Social History Tobacco Use Types Packs/Day Years Used Date Smoking Tobacco: Every Day Cigarettes 0.5 45 Started: 09/10/1975; Last attempted to quit: 09/09/2020 Smokeless Tobacco: Never Alcohol Use Standard Drinks/Week Comments Yes 4 (1 standard drink = 0.6 oz pur e alcohol) social Comments No Sex and Gender Information Value Date Recorded Sex Assigned at Female 07/26/2024 9:52 PM MEDICAL ASSISTANT DERMATOLOGY Legal Sex Female 9:37 PM CDT Gender Identity Female 07/26/2024 9:52 PM MEDICAL ASSISTANT DERMATOLOGY Sexual Orientation Straight 07/26/2024 9: 52 PM MEDICAL ASSISTANT DERMATOLOGY Occupation Industry Job Start Date Job End Date [employer] Not on file Not on file Not on file COVID-19 Exposure Response Date Recorded In the last month, have you been in contact with someone who was confirmed or suspected to have Coronavirus / COVID-19? No / Unsure 01/14/2021 4:24 PM CDT documented as of this encounter Plan of Treatment Upcoming Encounters Date Type Department Care Team (Late st Contact Info) Description 09/05/2024 10:30 AM MEDICAL ASSISTANT DERMATOLOGY Office Visit [facility] - Internal Medicine - [place] [address] [place] [address] Breezy Barros MD [address] [place] [address] documented as of this encounter Visit Diagnoses Not on filedocumented in this encounter Additional Health Concerns Infection Onset Date Last Indicated Resolved Time COVID - 19 04/19/2021 04/19/2021 04/21/2021 8:16 AM CDT Respiratory Rule Out - RPA 04/19/2021 04/19/2021 1 3:30 PM CDT COVID - 19 07/07/2021 07/07/2021 07/07/2021 6:29 PM MEDICAL ASSISTANT DERMATOLOGY COVID - 19 Confirmed 07/07/2021 07/07/2021 022 12:16 AM MEDICAL ASSISTANT DERMATOLOGY Respiratory Rule Out - RPA 10/07/2021 10/08/2021 0 10/08/2021 3:24 PM CDT COVID - 19 06/16/2024 06/16/2024 06/16/2024 10:2 3 PM MEDICAL ASSISTANT DERMATOLOGY documented as of this encounter Care Teams Economics Teacher Relationship Specialty Start Date End Date Ave Collier MD [address] [place] [address] [address] PCP - General Internal Medicine 03/23/20 04/18/21 Arnaud Martini MD [address] [place] [address] PCP - General Family Medicine 04/19/21 Logan Vazquez MD Consulting Physician Pulmonary Disease 02/10/17 Logan Vazquez MD [address] [place] [address] Consulting Physician Pulmonary Disease 10/01/21 Ana Aguilar APRN, NURSING SERVICE ADMINISTRATOR [address] [place] [address] Nurse Practitioner Advanced Practice Nurse 06/23/24 documented as of this encounter
--- OUTSIDE RECORDS SUMMARY | 2024-08-08 13:43 | XMS_ITS ---
Author Organization Brian [facility]oe[facility] Address [address] [place] [address] Care Team Providers Care Engineering Professor Name Role Phone Vikash GALVAN, JR BlumSandeep Primary Care Provider Unav ailMichel Blount Unavailable [phone] Encounters Encounter Location Date Provider Diagnosis Brian Koehler MD PA [address] [place] [address] 02/22/2024 Michel Covington Plan Of Treatment No Information Progress Notes * YOLANDA BUNRETTEDOB: 7 (68 yo F)Acc No.[id number]:02/22/2024 Patient:?YOLANDA BURNETTE :1955???Age:68 Y???Sex:Female Address:[address], [address], [place] [address] * true * Date:? Generated for Printi ng/Faglynng/eTransmitting on:?08/08/2024 02:42 PM EST
--- OUTSIDE RECORDS SUMMARY | 2024-08-08 13:43 | XMS_ITS ---
Author Organization Brian Koehler MD PA Address [address] [place] [address] Care Team Providers Care Heel Top Lift Splitter Name Role Phone Vikash GALVAN, [facility] Primary Care Provider Ale austin AbrahMichel schilling Unavailable [phone] Allergies Allergen (clinical drug ingredient) Drug/Non Drug Allergy documented on EMR Reaction Allergy Type Onset Date Status codeine Codeine Unknown Drug Allergy Active Penicillin Unknown Drug Allergy Active REASON FOR VISIT Patient is here for a follow up Medications Medication SIG (Take, Route, Frequency, Duration) Notes Start Date End Date Status Pravastatin Sodium 20 MG 1 tablet Orally Once a day Active Ondansetron HCl 4 MG 1 tablet Orally Onc e a day Active Albuterol Sulfate (2.5 MG/3ML) 0.083% 3 mL as needed Inhalation every 6 hrs Active Atrovent HFA 17 MCG/ACT TAKE 2 PUFFS 4 T IMES A DAY for 90 Active predniSONE 20 MG 1 tablet Orally Once a day Not-Taking Aspirin Adult Low Dose 81 MG 1 tablet Orally Once a day Active amLODIPine Besylate 10 MG 1 tablet Orall y Once a day Active Fluticasone Propionate 50 MCG/ACT 1 spray in each nostril Nasally Once a day Active Citalopram Hydrobromide 10 MG 1 tablet Orally Once a day Active Zithromax Z-Rod 250 MG two tablets first day and one tablet for 4 days Orally as directed for 5 days 07/13/2023 Active Montelukast Sodium 10 MG 1 tablet Orally Once a day Active Metoprolol Tartrate 25 MG 1 tablet with food Orally Twice a day Active Social History Tobacco Use: Social History Observation Description Date Details (start date - stop date) Former Smoker NA - NA Tobacco Control (Standard) Question Answer Notes Tobacco [...] Social drinker. 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 Vital Signs Blood pressure systolic 136 mm Hg 01/21/20 24 Blood pressure diastolic 72 mm Hg 024 Heart Rate 102 /min 01/21/2024 Height 59 in 01/21/2024 Weight 162 lbs 01/21/2024 BMI 32.72 kg/m2 01/21/2024 Oximetry 94 % 01/21/2024 Weight-kg 73.48 kg 01/21/2024 Encounters Encounter Location Date Provider Diagnosis Brian Koehler MD PA [address] [place] [address] 01/21/2024 Michel Covington Advanced COPD J44.9 ; HTN (hypertension), benign I10 ; HYPERLIPEMIA E78.5 ; ASTHMA J45.909 ; LUNG CA C34.81 ; ARTHRITIS M06.9 ; Chronic obstructive pulmonary disease, unspecified COPD type J44.9 ; RENAL FAILURE N19 and OBSTRUCTIVE SLEEP APNEA G47.33 Assessments Encounter Date Diagnosis (ICD Code) Assessment Notes Treatment Notes Treatment Clinical Notes Section Notes 01/21/2024 Advanced COPD (ICD-10 - J44.9) 01/21/2024 HTN (hypertension), benign (ICD-10 - I10) 01/21/2024 HYPERLIPEMIA (ICD-10 - E78.5) 01/21/2024 ASTHMA (ICD-10 - J45.909) 01/21/2024 LUNG CA (ICD-10 - C34.81) 01/21/2024 ARTHRITIS (ICD-10 - M06.9) 01/21/2024 Chronic obstructive pulmonary disease, unspecified COPD type (ICD-10 - J44.9) 01/21/2024 RENAL FAILURE (ICD-10 - N19) 01/21/2024 OBSTRUCTIVE SLEEP APNEA (ICD-10 - G47.33) 01/21/2024 Other I explained to the patient [...] will continue with cefuroxime 250 mg and methylprednisolone. She will continue with her current treatment plan as she is having now.She will follow up in 6 months. ATTESTATION:This note has been created using [employer] and was completed in the EHR by Mariaelena Jacobs Plan Of Treatment Next Appt Details Follow Up: 6 Months, Reason: Procedure Notes * Category Sub-Category Detail Notes Pulmonary Function Test Results PFT done on 08/2023 showed mild obstructive ventilatory defect with FEV1 of 1.58, 82 percent of the predicted and significant bronchodilator response (FEV1 increased to 96 percent) CT Chest results CAT scan done on 09/2023 was normal Progress Notes * YOLANDA BURNETTEDOB: (68 yo F)Acc No.[id number]:01/21/2024 Progress Notes Patient:?LUCINDAYOLANDA SUH Provider:?Michel Covington MD :1955???Age:68 Y???Sex:Female D ate:01/21/2024 Address:[address] [place] [address], [address] Pcp:JR Sandeep Suh MD Subjective: * Chief Complaints: * ???Patient is here for a fol low up * HPI: ???Sleep Study:?Sleep Study?Apnea hypopnea index (AHI)?29.7,?Positive Airway pressure therapy prescribed?No,?Objective measurement of adherence to positive airway pressure therapy documented?No, Other Reason.?Chronic obstructive pulmonary disease:?Last Spirometry?COPD Symptoms:?Cough/sputum,?Date of Last Spirometry:?09/08/2023,?FEV1=?82,?FEV1/FVC=?79.?Pulmonology:? Ms. Yolanda Burnette is a 68-year-old female who is here for a 3-month follow-up visit for COPD and lung nodules. She reports a general sense of well-being. COPD: She experienced chest tightness and a cough yesterday, prompting a COVID-19 test by her primary care physician, Dr. Lesvia Bustos, The results of Covid 19?are currently pending. She is currently on antibiotic cephalexin and prednisone. Sleep apnea: She has not received a CPAP machine yet. She called the office here as insurance informed her that they did not receive the order. She had a PFT done in 08/2023. She had a CAT scan done in 09/2023. Lung nodule: She has a history of right upper lobectomy performed by Dr. Jackson in [place], [place] in 02/04/2015. She also had a port in place at that time. Additional information: She is leaving next weekend to go to [place] for a couple of weeks. * ROS:?General / Constitutional:?Patient denies?no fever, chills, fatigue,?rigors, night sweats, weight changes, or loss of appetite.?Allergy / Immunology:?Patient denies?sneezing , seasonal allergies , watery eyes , recurrent serious infections , rash , itching , hives.?Ophthalmologic:?Patient denies?blurry vision, double vision, glaucoma or catarracts.?ENT:?Patient denies?having any discharge from ear, nose or throat, no swollen glands, sore throat, or hearing issues.?Respiratory:?Patient denies?cough, shortness of breath at rest or on exertion, wheezing, productive phlegm, hemoptysis, pleuritic chest pain.?Cardiovascular:?Patient denies?chest pain at rest, chest pain with exertion, palpitations, syncope or presyncopal episodes.?Gastrointestinal:?Patient denies?nausea, vomiting, diarrhea or abdominal pain , heartburn , blood in stool , rectal bleeding ,?constipation.?Hematology:?Patient denies?easy bruising ,easy bleeding , anemia , prolonged bleeding , recent transfusion.?Genitourinary:?Patient denies?blood in the urine , difficulty urinating , frequent urination , painful urination , poor urine output , loss of urine with cough or laughter.?Musculoskeletal:?Patient denies?having any joint pain, swelling or arthritis or weakness.?Skin:?Patient denies?dry skin, itching, rash.?Neurologic:?Patient denies?confusion , balance difficulty , dizziness , fainting , gait abnormality , headache , irritability , loss of strength , loss of use of extremity , low back pain , memory loss , paralysis ,?seizures.?Psychiatric:?Patient denies?anxiety , auditory / visual hallucinations , delusions , depressed mood , mental or physical abuse.? * Medical History:? * Surgical History:?Right uppe r lobectomy tonsillectomy hysterectomy * Hospitalization/Major Diagno stic Procedure:?No Hospitalization History. * Family History:?Father: dece ased.?Mother: .?3 brother(s) , 3 sister(s) . .? Her father had stomach cancer and throat, . Her mother had urinary cancer, . She has 3 brothers and 3 sisters. Her older sister had liver cancer. One sister of Alzheimer's. The other sister of emphysema, asthma, diabetes, and obesity. Her youngest brother has throat cancer. Her 75-year-old brother had a heart attack in 04/2022. Her older brother of heart attack in 04/2022. * Social History:?Tobacco Use:?Tobacco Control (Standard)?Tobacco use:?Former smoker.?Drugs/Alcohol:?Drugs?Have you used drugs other than those for medical reasons in the past 12 months??No.?Drug/Alcohol:?AUDIT-C (Standard)?Did you have a drink containing alcohol in the past year??Yes,?How often did you have six or more drinks on one occasion in the past year??Less than monthly (1 point),?How many drinks did you have on a typical day when you were drinking in the past year??1 or 2 drinks (0 point),?How often did you have a drink containing alcohol in the past year??Monthly or less (1 point),?Points?2,?Interpretation?Negative.?. She has 3 children, all in their 40s. She smoked 1 pack of cigarettes for 50 years. She quit smoking in 02/2022. Social drinker. 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 * Medications:?TakingAlbuterol Sulfate (2.5 MG/3ML) 0.083% Nebulization Solution 3 mL as needed Inhalation every 6 hrs Pravastatin Sodium 20 MG Tablet 1 tablet Orally Once a day Ondansetron HCl 4 MG Tablet 1 tablet Orally Once a day Montelukast Sodium 10 MG Tablet 1 tablet Orally Once a day Metoprolol Tartrate 25 MG Tablet 1 tablet with food Orally Twice a day Fluticasone Propionate 50 MCG/ACT Suspension 1 spray in each nostril Nasally Once a day Citalopram Hydrobromide 10 MG Tablet 1 tablet Orally Once a day Aspirin Adult Low Dose 81 MG Tablet Delayed Release 1 tablet Orally Once a day amLODIPine Besylate 10 MG Tablet 1 tablet Orally Once a day Zithromax Z-Rod 250 MG Tablet two tablets first day and one tablet for 4 days Orally as directed Atrovent HFA 17 MCG/ACT Aerosol Solution TAKE 2 PUFFS 4 TIMES A DAY Taking Albuterol Sulfate (2.5 MG/3ML) 0.083% Nebulization Solution 3 mL as needed Inhalation every 6 hrs Taking Pravastatin Sodium 20 MG Tablet 1 tablet Orally Once a day Taking Ondansetron HCl 4 MG Tablet 1 tablet Orally Once a day Taking Montelukast Sodium 10 MG Tablet 1 tablet Orally Once a day Taking Metoprolol Tartrate 25 MG Tablet 1 tablet with food Orally Twice a day Taking Fluticasone Propionate 50 MCG/ACT Suspension 1 spray in each nostril Nasally Once a day Taking Citalopram Hydrobromide 10 MG Tablet 1 tablet Orally Once a day Taking Aspirin Adult Low Dose 81 MG Tablet Delayed Release 1 tablet Orally Once a day Taking amLODIPine Besylate 10 MG Tablet 1 tablet Orally Once a day Taking Zithromax Z-Rod 250 MG Tablet two tablets first day and one tablet for 4 days Orally as directed Taking Atrovent HFA 17 MCG/ACT Aerosol Solution TAKE 2 PUFFS 4 TIMES A DAY Not-TakingpredniSONE 20 MG Tablet 1 tablet Orally Once a day Medication List reviewed and reconciled with the patientNot-Taking predniSONE 20 MG Tablet 1 tablet Orally Once a day Medication List reviewed and reconciled with the patient * Allergies:?PenicillinCodeine no[Allergies Verified] Objective: * Vitals:?Ht: 59 in, Wt:162lbs , BMI:32.72Index, Oxygen sat %:94%, BP:136/72mm Hg, HR:102/min, Wt-k.48 kg, Body Surface Area: 1.75. * Examination: ???General Examination: ?General appearance:?alert, oriented, not in acute distress.?Head:?Normocephalic, atraumatic.?Eyes:?pupils equal, round, reactive to light and accommodation, sclera anicteric.?Ears:?normal.?Nose:?sinuses nontender bilaterally.?Oral cavity:?normal , with good dentition , with good gag reflex , gums are normal , mucosa moist , no lesions.?Throat:?clear , no erythema , no exudate , pharynx normal , tonsils normal , uvula midline.?Neck / thyroid:?neck is supple, with full range of motion and no cervical lymphadenopathy , no jugular venous distention , trachea midline , normal thyroid size and shape without nodules, or tenderness.?Lymph nodes:?no cervical lymphadenopathy , no axillary, supraclavicular or inguinal lymphadenopathy.?Skin:?skin is warm and dry, with no rashes, good skin turgor and normal hair distribution , with no suspicious skin lesions.?Heart:?regular rate and rhythm without murmurs, gallops, clicks or rubs.?Lungs:?clear to auscultation bilaterally, with good air movement and no rales, rhonchi or wheezes.?Chest:?chest wall with no costochondral junction tenderness, no rib deformity and normal shape and expansion.?Abdomen:?soft with good bowel sounds, nontender, and no masses, hepatosplenomegaly.?Back:?normal, without kyphoscoliosis or tenderness.?Musculoskeletal:?no swelling, redness, warmth or tenderness of the shoulder(s) with full range of motion.?Extremities:?normal extremity with no clubbing, cyanosis or edema , full range of motion.?Neurologic:?alert and oriented , cognitive exam grossly normal , cooperative with exam, no focal neurological deficits noted.? Assessment: * Assessment: 1.?Advanced COPD - J44.9 (Pr imary)???2.?HTN (hypertension), benign - I10???3.?HYPERLIPEMIA - E78.5???4.?ASTHMA - J45.909???5.?LUNG CA - C34.81???6.?ARTHRITIS - M06.9???7.?Chronic obstructive pulmonary disease, unspecified COPD type - J44.9???8.?RENAL FAILURE - N19???9.?OBSTRUCTIVE SLEEP APNEA - G47.33??? Plan: * Treatment: * Procedures:?Pulmonary Function Test:?Results?PFT done on 08/2023 showed mild obstructive ventilatory defect with FEV1 of 1.58, 82 percent of the predicted and significant bronchodilator response (FEV1 increased to 96 percent).?CT Chest:?results?CAT scan done on 09/2023 was normal.? * ??Immunizations:? ??Immunization record has be en reviewed and updated. * Procedure Codes:? * Preventive Medicine:? ??Your Annual Wellness Plan:?BMI, height, and weight:?The recommended frequency is:?annually.?Alcohol misuse screening:?The recommended frequency is:?as necessary for those with risk factors.?Pneumococcal (Pneumonia) vaccine:?The recommended frequency is:?1-2 doses up to age 64, 1 dose age 65+.?Influenza (Flu) vaccine:?The recommended frequency is:?annually.? ??Counseling:?BP Management:?LIFESTYLE RECOMMENDATION:?Lifestyle education,?REFERRAL TO ALTERNATIVE / PRIMARY CARE PROVIDER:?Referral to general practitioner,?PHYSICAL ACTIVITY RECOMMENDATION:?Giving encouragement to exercise,?WEIGHT REDUCTION RECOMMENDATION:?Target weight discussed,?DIETARY RECOMMENDATIONS:?Diet education,?MODERATION OF ETOH CONSUMPTION RECOMMENDATION:?Counseling about alcohol consumption.?BMI Care goal follow-up plan:?Exercise Counseling Provided-?No,?Nutrition/Dietary Counseling provided?Yes,?BMI management provided?Yes,?BMI counseling provided to patient?Lifestyle education.?Patient Education:?Patient education materials given:?Yes. Smoking:?Patient counselled on the dangers of tobacco use and urged to quit.?12/01/2023.? ??Immunizations:?Influenza?Have you had a flu shot since the most recent March 12??Yes.?Flu Vaccination:?The patient was counselled and advised to stay up to date with vaccinations; including flu, pneumonia and mejia virus vaccination. The patient was advised to continue on precautions given the on going coronavirus pandemic..?Pneumonia?Have you had you pneumonia vaccine??Yes.?Discussed healthy sleep hygeine habits: -No television in bedroom -Avoid daytime sleeping. -Regular exercise, but not near bedtime. -No heavy meals within a few hours of bedtime. -Do not drink alcohol within a few hours of bedtime and limit use. -Avoid caffeine in the evening. -If patient unable to fall asleep within 20 minutes, get out of bed and do something else until sleepy; repeat cycle until sleep occurs. * Follow Up:?6 Months * Billing Information: * Visit Code:? 41515 Office Visit, Est Pt., Level 4. * Procedure Codes:? * Sign off status: Completed true * Provider:?Michel Covington MD Date:?2023 Generated for Zakia cesar/Darline/Corin on:?08/08/2024 02:43 PM EST History and Physical Notes * HPI (History of Present Illness) Category Sub-Category Detail Notes Category Not es Chronic obstructive pulmonary disease Last Spirometry COPD Symptoms:: Cough/sputum Date of Last Spirometry:: 09/08/2023 FEV1=: 82 FEV1/FVC=: 79 Bronchitis Ms. Yolanda Burnette is a 68-year-old female who is here for a 3-month follow-up visit for COPD and lung nodules. She reports a general sense of well-being. COPD: She experienced chest tightness and a cough yesterday, prompting a COVID-19 test by her primary care physician, Dr. Lesvia Bustos, The results of Covid 19 are currently pending. She is currently on antibiotic cephalexin and prednisone. Sleep apnea: She has not received a CPAP machine yet. She called the office here as insurance informed her that they did not receive the order. She had a PFT done in 08/2023. She had a CAT scan done in 09/2023. Lung nodule: She has a history of right upper lobectomy performed by Dr. Jackson in [place], [place] in 02/04/2015. She also had a port in place at that time. Additional information: She is leaving next weekend to go to [place] for a couple of weeks. Sleep Study Sleep Study Apnea hypopnea i ndex (AHI): 29.7 Positive Airway pressure therapy prescri bed: No Objective measurement of adh erence to positive airway pressure therapy documented: No, Other Reason Examination Category Sub-Category Detail Notes Category Not es General Examination General appearance: alert, o riented, not in acute distress Head: Normocephalic, atrau matic Eyes: pupils equal, round, reactive to light and accommodation, sclera anicteric Ears: normal Nose: sinuses nontender bi laterally Throat: clear , no erythema , no exudate , pharynx normal , tonsils normal , uvula midline Neck / thyroid: neck is supple, with full range of motion and no cervical lymphadenopathy , no jugular venous distention , trachea midline , normal thyroid size and shape without nodules, or tenderness Heart: regular rate and rhy thm without murmurs, gallops, clicks or rubs Chest: chest wall with no c ostochondral junction tenderness, no rib deformity and normal shape and expansion Lungs: clear to auscultatio n bilaterally, with good air movement and no rales, rhonchi or wheezes Abdomen: soft with good bowel sounds, nontender, and no masses, hepatosplenomegaly Neurologic: alert and oriented , cognitive exam grossly normal , cooperative with exam, no focal neurological deficits noted Skin: skin is warm and dry , with no rashes, good skin turgor and normal hair distribution , with no suspicious skin lesions Extremities: normal extremity wit h no clubbing, cyanosis or edema , full range of motion Back: normal, without kyph oscoliosis or tenderness Musculoskeletal: no swelling, redness , warmth or tenderness of the shoulder(s) with full range of motion Lymph nodes: no cervical lymphade nopathy , no axillary, supraclavicular or inguinal lymphadenopathy Oral cavity: normal , with good d entition , with good gag reflex , gums are normal , mucosa moist , no lesions Mallampati Neck collar size
--- OUTSIDE RECORDS SUMMARY | 2024-08-08 13:43 | XMS_ITS | Encounter Summary ---
Author Organization [facility] Address [address] [place] [address] Phone Care Team Providers Care Pharmacovigilance Specialist Name Role Phone Logan Vazquez MD Unavailable Ave Collier MD Primary Care Provider [phone] Arnaud Martini MD Primary Care Provider [phone] Logan Vazquez MD Unavailable Ana Aguilar APRN, BRAND ADVISOR Unavailable Reason for Visit * Reason Comments Medication Refill Encounter Details Date Type Department Care Team (Late st Contact Info) Description 02/25/2021 Refill [facility] [address] [place] [phone] Quan Ross MD [address] [place] [address] Medication Refill Social History Tobacco Use Types Packs/Day Years Used Date Smoking Tobacco: Every Day Cigarettes 0.5 45 Started: 09/10/1975; Last attempted to quit: 09/09/2020 Smokeless Tobacco: Never Alcohol Use Standard Drinks/Week Comments Yes 4 (1 standard drink = 0.6 oz pur e alcohol) social Comments No Sex and Gender Information Value Date Recorded Sex Assigned at Female 07/26/2024 9:52 PM WARP STARTER Legal Sex Female 9:37 PM CDT Gender Identity Female 07/26/2024 9:52 PM WARP STARTER Sexual Orientation Straight 07/26/2024 9: 52 PM WARP STARTER Occupation Industry Job Start Date Job End Date [employer] Not on file Not on file Not on file COVID-19 Exposure Response Date Recorded In the last month, have you been in contact with someone who was confirmed or suspected to have Coronavirus / COVID-19? No / Unsure 02/06/2021 3:26 PM CDT documented as of this encounter Miscellaneous Notes * Telephone Encounter - Jacqueline Groves RN - 03/04/2021 12:18 PM CDT Refused refill of Levaquin one time dosing 7 days completed documented in this encounter Plan of Treatment Upcoming Encounters Date Type Department Care Team (Late st Contact Info) Description 09/05/2024 10:30 AM WARP STARTER Office Visit [facility] - [place] [address] [place] [id number] Breezy Barros MD [address] [place] [address] documented as of this encounter Visit Diagnoses Not on filedocumented in this encounter Additional Health Concerns Infection Onset Date Last Indicated Resolved Time COVID - 19 04/19/2021 04/19/2021 04/21/2021 8:16 AM CDT Respiratory Rule Out - RPA 04/19/2021 04/19/2021 1 3:30 PM CDT COVID - 19 07/07/2021 07/07/2021 07/07/2021 6:29 PM WARP STARTER COVID - 19 Confirmed 07/07/2021 07/07/2021 022 12:16 AM WARP STARTER Respiratory Rule Out - RPA 10/07/2021 10/08/2021 0 10/08/2021 3:24 PM CDT COVID - 19 06/16/2024 06/16/2024 06/16/2024 10:2 3 PM WARP STARTER documented as of this encounter Care Teams Pharmacovigilance Specialist Relationship Specialty Start Date End Date Ave Collier MD [address] [place] [address] [facility] [address] [place] [address] PCP - General Internal Medicine 03/23/20 04/18/21 Arnaud Martini MD [address] [place] [id number] PCP - General Family Medicine 04/19/21 Logan Vazquez MD Consulting Physician Pulmonary Disease 02/10/17 Logan Vazquez MD [address] [place] [id number] Consulting Physician Pulmonary Disease 10/01/21 Ana Aguilar APRN, BRAND ADVISOR [address] [place] [address] Nurse Practitioner Advanced Practice Nurse 06/23/24 documented as of this encounter
--- OUTSIDE RECORDS SUMMARY | 2024-08-08 13:43 | XMS_ITS | Encounter Summary ---
Author Organization [facility] Address [address] [place] [address] Phone Care Team Providers Care Ratoprinter Name Role Phone Logan Vazquez MD Unavailable Ave Collier MD Primary Care Provider [phone] Arnaud Martini MD Primary Care Provider [phone] Logan Vazquez MD Unavailable Ana Aguilar APRN, GINNER Unavailable Reason for Visit * Reason Comments Medication Refill Encounter Details Date Type Department Care Team (Late st Contact Info) Description 11/05/2020 Refill [facility] PULMONOLOGY #1 [facility] [place] [address] Logan Vazquez MD #2 [place] [address] Medication Refill Social History Tobacco Use Types Packs/Day Years Used Date Smoking Tobacco: Former Cigarettes 1 45 0 09/10/1975 - 09/09/2020 Smokeless Tobacco: Never Alcohol Use Standard Drinks/Week Comments Yes 4 (1 standard drink = 0.6 oz pur e alcohol) social Comments No Sex and Gender Information Value Date Recorded Sex Assigned at Female 07/26/2024 9:52 PM SUPERVISOR INSPECTION DEPARTMENT Legal Sex Female 9:37 PM CDT Gender Identity Female 07/26/2024 9:52 PM SUPERVISOR INSPECTION DEPARTMENT Sexual Orientation Straight 07/26/2024 9: 52 PM SUPERVISOR INSPECTION DEPARTMENT Occupation Industry Job Start Date Job End Date [employer] Not on file Not on file Not on file COVID-19 Exposure Response Date Recorded In the last month, have you been in contact with someone who was confirmed or suspected to have Coronavirus / COVID-19? No / Unsure 11/04/2020 2:27 PM CDT documented as of this encounter Plan of Treatment Upcoming Encounters Date Type Department Care Team (Late st Contact Info) Description 09/05/2024 10:30 AM SUPERVISOR INSPECTION DEPARTMENT Office Visit [facility] - Internal Medicine - [place] [address] [place] [address] Breezy Barros MD [address] [facility] [place] [address] documented as of this encounter Visit Diagnoses Not on filedocumented in this encounter Additional Health Concerns Infection Onset Date Last Indicated Resolved Time COVID - 19 04/19/2021 04/19/2021 04/21/2021 8:16 AM CDT Respiratory Rule Out - RPA 04/19/2021 04/19/2021 1 3:30 PM CDT COVID - 19 07/07/2021 07/07/2021 07/07/2021 6:29 PM SUPERVISOR INSPECTION DEPARTMENT COVID - 19 Confirmed 07/07/2021 07/07/202107/27/ 022 12:16 AM SUPERVISOR INSPECTION DEPARTMENT Respiratory Rule Out - RPA 10/07/2021 10/08/2021 0 10/08/2021 3:24 PM CDT COVID - 19 06/16/2024 06/16/2024 06/16/2024 10:2 3 PM SUPERVISOR INSPECTION DEPARTMENT documented as of this encounter Care Teams Ratoprinter Relationship Specialty Start Date End Date Ave Collier MD [address] [place] [address] [address] [place] [address] PCP - General Internal Medicine 03/23/20 04/18/21 Arnaud Martini MD [address] [place] [address] PCP - General Family Medicine 04/19/21 Logan Vazquez MD Consulting Physician Pulmonary Disease 02/10/17 Logan Vazquez MD #2 [place] [address] Consulting Physician Pulmonary Disease 10/01/21 Ana Aguilar APRN, GINNER #2 [place] [address] Nurse Practitioner Advanced Practice Nurse 06/23/24 documented as of this encounter
--- OUTSIDE RECORDS SUMMARY | 2024-08-08 13:43 | XMS_ITS | Encounter Summary ---
Author Organization [facility] Address [address] [place] [address] Phone Care Team Providers Care Diagnostics Tech Name Role Phone Logan Vazquez MD Unavailable Ave Collier MD Primary Care Provider [phone] Arnaud Martini MD Primary Care Provider [phone] Logan Vazquez MD Unavailable Ana Aguilar APRN, CONTACT CENTER ASSOCIATE Unavailable Reason for Visit * Reason Comments Medication Refill Encounter Details Date Type Department Care Team (Late st Contact Info) Description 12/13/2020 Refill [facility] PULMONOLOGY #1 [facility] [place] [address] Logan Vazquez MD #2 [place] [address] Medication Refill Social History Tobacco Use Types Packs/Day Years Used Date Smoking Tobacco: Former Cigarettes 1 45 0 09/10/1975 - 09/09/2020 Smokeless Tobacco: Never Alcohol Use Standard Drinks/Week Comments Yes 4 (1 standard drink = 0.6 oz pur e alcohol) social Comments No Sex and Gender Information Value Date Recorded Sex Assigned at Female 07/26/2024 9:52 PM PARTS PICKER Legal Sex Female 9:37 PM CDT Gender Identity Female 07/26/2024 9:52 PM PARTS PICKER Sexual Orientation Straight 07/26/2024 9: 52 PM PARTS PICKER Occupation Industry Job Start Date Job End Date [employer] Not on file Not on file Not on file documented as of this encounter Miscellaneous Notes * Telephone Encounter - Lea Castellanos RN - 12/13/2020 1:21 PM CDT Medication failed the protocol, provider to review and approve the medication order if appropriate. Requested Prescriptions Pending Prescriptions Disp Refills Atrovent HFA 17 MCG/ACT Aerosol Solution [Pharmacy Med Name: Atrovent HFA 17 MCG/ACT Inhalation Aerosol Solution] 13 g 0 Sig: INHALE 2 PUFFS BY MOUTH EVERY 6 HOURS There is no refill protocol information for this order documented in this encounter Plan of Treatment Upcoming Encounters Date Type Department Care Team (Late st Contact Info) Description 09/05/2024 10:30 AM PARTS PICKER Office Visit [facility] - Internal Medicine - [place] [address] [place] [address] Breezy Barros MD [address] [place] [address] documented as of this encounter Visit Diagnoses Not on filedocumented in this encounter Additional Health Concerns Infection Onset Date Last Indicated Resolved Time COVID - 19 04/19/2021 04/19/2021 04/21/2021 8:16 AM CDT Respiratory Rule Out - RPA 04/19/2021 04/19/2021 1 3:30 PM CDT COVID - 19 07/07/2021 07/07/2021 07/07/2021 6:29 PM PARTS PICKER COVID - 19 Confirmed 07/07/2021 07/07/20212 022 12:16 AM PARTS PICKER Respiratory Rule Out - RPA 10/07/2021 10/08/2021 0 10/08/2021 3:24 PM CDT COVID - 19 06/16/2024 06/16/2024 06/16/2024 10:2 3 PM PARTS PICKER documented as of this encounter Care Teams Diagnostics Tech Relationship Specialty Start Date End Date Ave Collier MD [address] [place] [address] [address] PCP - General Internal Medicine 03/23/20 04/18/21 Arnaud Martini MD [address] [place] [address] PCP - General Family Medicine 04/19/21 Logan Vazquez MD Consulting Physician Pulmonary Disease 02/10/17 Logan Vazquez MD #2 [place] [address] Consulting Physician Pulmonary Disease 10/01/21 Ana Aguilar APRN, CONTACT CENTER ASSOCIATE #2 [place] [address] Nurse Practitioner Advanced Practice Nurse 06/23/24 documented as of this encounter
== END 2024-08-08 13:07 | disposition home or self-care (01) ==
LOC: ANHBWCAUD 13:07
PROVIDERS: PCP Family Medicine; Visit Provider Family Medicine
DX: H90.3 Sensorineural hearing loss, bilateral (principal); Z97.4 Presence of external hearing-aid
CPT/HCPCS: 92557; 92567

== ENCOUNTER 2024-10-19 17:30 | Emergency (ER) | payer MEDICARE, MEDICAID, SELFPAY ==
--- OUTSIDE RECORDS SUMMARY | 2024-10-19 17:35 | XMS_ITS | Patient Health Record ---
Author Organization [facility] Address [address] [facility] [address] [place] [address] Care Team Providers Care Nursing Center Tutor Name Role Phone -Do Not use, PCP [...] pulmonary disease with acute lower respiratory infection ([id number]) COPD (chronic obstructive pulmonary disease) with acute bronchitis (J44.0) Active confirmed Plan Of Treatment No Information Insurance Providers Payer Name Payer Address Payer Phone Subscriber Number Group Number Insured Name Patient Relationship to Insured Coverage Start Date Coverage End Date Medicare of [place] [employer] [address] [place] [phone] [id number] Maeve Smith Self - patient is the insured 2 [employer] [address] [place] [address] [id number] Maeve Smith Self - patient is the [...]
--- OUTSIDE RECORDS SUMMARY | 2024-10-19 17:35 | XMS_ITS | Encounter Summary ---
Author Organization [facility] Address [address] [place] [address] Phone Care Team Providers Care Surveyor Geodetic Name Role Phone Do Cristina MD Primary Care Provider [phone] Ave Collier MD Primary Care Provider [phone] Arnaud Martini MD Primary Care Provider [phone] Encounter Details Date Type Department Care Team (Late st Contact Info) Description 08/17/2017 Orders Only [facility] ProviderKassandra MD [address] [place] [address] Social History Tobacco Use Types Packs/Day Years Used Date Smoking Tobacco: Some Days Cigarettes Smokeless Tobacco: Never Alcohol Use Standard Drinks/Week Comments Yes 0 (1 standard drink = 0.6 oz pur e alcohol) Comments Unknown Sex and Gender Information Value Date Recorded Sex Assigned at Not on file Legal Sex Female 2:19 PM CHAPTER RELATIONS ADMINISTRATOR Gender Identity Female 07/21/2021 12:54 PM CHAPTER RELATIONS ADMINISTRATOR Sexual Orientation Not on file documented as of this encounter Plan of Treatment Not on file documented as of this encounter Procedures Procedure Name Priority Date/Time Associated Diagnosis Comments DISCHARGE LABORATORY CUMULATIVE REPORT 08/17/2017 12:00 AM CHAPTER RELATIONS ADMINISTRATOR documented in this encounter Results * DISCHARGE LABORATORY CUMULATIVE REPORT (08/17/2017 12:00 AM CHAPTER RELATIONS ADMINISTRATOR) Narrative 08/17/2017 12:00 AM CHAPTER RELATIONS ADMINISTRATOR Ordered by an unspecified provider. Historical Provider MD LAB BLOOD ORDERABLES Aide l Result documented in this encounter Visit Diagnoses Not on filedocumented in this encounter Care Teams Surveyor Geodetic Relationship Specialty Start Date End Date Do Cristina MD [address] [facility] BRET Pack [facility] [address] [place] [address] PCP - General 08/11/17 07/18/20 Ave Collier MD [address] [facility] [address] [place] [address] [address] PCP - General Internal Medicine 07/19/20 08/27/21 Arnaud Martini MD [address] [facility] [address] [place] [address] [address] PCP - General Family Practice 08/28/21 documented as of this encounter
--- OUTSIDE RECORDS SUMMARY | 2024-10-19 17:35 | XMS_ITS | Clinical Summary ---
Author Organization [facility] [employer] Address [address] [place] [address] Care Team Providers Care Validation Manager Name Role Phone Do Cristina MD Primary Care Provider [phone] Source Comments [facility] [employer],non-owned Affiliates and Associated Physician Practices is amultiple site organization consisting of ambulatory clinics and hospital sitesin [place], [place] and [place]. This disclosure is being madepursuant to the Care Everywhere program and may not contain all information available regarding this patient. Last updated 18.[facility] [employer] Allergies Active Allergy Reactions Criticality Noted Date [...] 10 MG tablet 07/22/2017 Active nystatin (MYCOSTATIN) 936914 UNIT/ML suspension 07/16/2017 Active montelukast (SINGULAIR) 10 [...] - COLON CA SCREENING 1955 MAMMOGRAM 1955 MEDICARE AWV 12 MONTHS 1955 HEPATITIS C SCREENING 12/18/1974 DTAP/TDAP/TD VACCINES (1 - Tdap) 12/23/1975 PNEUMOCOCCAL VACCINE 50+ (1 of 2 - PCV) 12/23/1975 ZOSTER VACCINE (1 of 2) 2006 COVID-19 VACCINE (1 - 2023-2 5 season) 2024 DEPRESSION SCREENING 07/12/2024 INFLUENZA VACCINE (Season Ended) 2025 Respiratory Syncytial Virus (RSV) Vaccine Pt: or [...] to complete this topic MENINGOCOCCAL (Group B) VACC INE SHARED DECISION-MAKING Aged Out No longer eligibl e based on patient's age to complete this topic MENINGOCOCCAL GROUPS A/C/Y/W VACCINE Aged Out No longer eligible b ased on patient's age to complete this topic Care Teams Validation Manager Relationship Specialty Start Date End Date Do Cristina MD [address] [place] [phone] PCP - General 05/15/19
--- OUTSIDE RECORDS SUMMARY | 2024-10-19 17:35 | XMS_ITS | Encounter Summary ---
Author Organization [facility] Address [address] [place] [address] Phone Care Team Providers Care Lubricator Granulator Name Role Phone Logan Vaqzuez MD Unavailable Ave Collier MD Primary Care Provider [phone] Arnaud Martini MD Primary Care Provider [phone] Logan Vazquez MD Unavailable Ana Aguilar APRN, [facility] Unavailable Breezy Barros MD Primary Care Provider [phone] Reason for Visit * Reason Comments Medication Refill Encounter Details Date Type Department Care Team (Late st Contact Info) Description 08/18/2020 Refill [facility] PULMONOLOGY #1 [place] [address] Logan Vazquez MD #2 [place] [address] Medication Refill Social History Tobacco Use Types Packs/Day Years Used Date Smoking Tobacco: Every Day Cigarettes 0.5 45 Smokeless Tobacco: Never Comments:3-4 cigs a day Alcohol Use Standard Drinks/Week Comments Yes 4 (1 standard drink = 0.6 oz pur e alcohol) social Comments No Sex and Gender Information Value Date Recorded Sex Assigned at Female 07/26/2024 9:52 PM CODE ENFORCEMENT OFFICER Legal Sex Female 9:37 PM CDT Gender Identity Female 07/26/2024 9:52 PM CODE ENFORCEMENT OFFICER Sexual Orientation Straight 07/26/2024 9: 52 PM CODE ENFORCEMENT OFFICER Occupation Industry Job Start Date Job End Date [employer] Not on file Not on file Not on file COVID-19 Exposure Response Date Recorded In the last month, have you been in contact with someone who was confirmed or suspected to have Coronavirus / COVID-19? No / Unsure 08/13/2020 12:49 PM CODE ENFORCEMENT OFFICER documented as of this encounter Plan of Treatment Upcoming Encounters Date Type Department Care Team (Late st Contact Info) Description 11/01/2024 8:45 AM CDT Office Visit [facility] Medical [facility] Internal Medicine [facility] [address] [place] [address] Breezy Barros MD [address] [place] [address] 12/05/2024 1:00 PM CDT Office Visit [facility] - Pulmonology & Sleep Medicine [facility] #2 [place] [address] Logan Vazquez MD #2 [place] [address] 12/12/2024 2:15 PM CDT Office Visit [facility] Medical [facility] Internal Medicine [facility] [address] [place] [address] Breezy Barros MD [address] [place] [address] documented as of this encounter Visit Diagnoses Not on filedocumented in this encounter Additional Health Concerns Infection Onset Date Last Indicated Resolved Time COVID - 19 04/19/2021 04/19/2021 04/21/2021 8:16 AM CDT Respiratory Rule Out - RPA 04/19/2021 04/19/2021 1 3:30 PM CDT COVID - 19 07/07/2021 07/07/2021 07/07/2021 6:29 PM CODE ENFORCEMENT OFFICER COVID - 19 Confirmed 07/07/2021 07/07/2021 022 12:16 AM CODE ENFORCEMENT OFFICER Respiratory Rule Out - RPA 10/07/2021 10/08/2021 0 10/08/2021 3:24 PM CDT COVID - 19 06/16/2024 06/16/2024 06/16/2024 10:2 3 PM CODE ENFORCEMENT OFFICER COVID - 19 09/18/2024 09/18/2024 09/18/2024 10:1 3 PM CDT COVID - 19 09/20/2024 09/20/2024 09/20/2024 11:4 5 PM CDT Influenza 09/20/2024 09/20/2024 09/27/2024 12:1 6 AM CDT documented as of this encounter Care Teams Lubricator Granulator Relationship Specialty Start Date End Date Ave Collier MD [address] [place] [address] [address] PCP - General Internal Medicine 03/23/20 04/18/21 Arnaud Martini MD [address] [place] [address] [place] [address] PCP - General Family Medicine 04/19/21 09/04/24 Breezy Barros MD [address] [place] [address] [place] [address] PCP - General Internal Medicine 09/05/24 Logan Vazquez MD Consulting Physician Pulmonary Disease 02/10/17 Logan Vazquez MD #2 [place] [address] Consulting Physician Pulmonary Disease 10/01/21 Ana Aguilar APRN, VEGA #2 [place] [address] Nurse Practitioner Advanced Practice Nurse 06/23/24 documented as of this encounter
--- OUTSIDE RECORDS SUMMARY | 2024-10-19 17:35 | XMS_ITS | Encounter Summary ---
Author Organization [facility] Address [address] [place] [address] Phone Care Team Providers Care Software Tester Name Role Phone Logan Vazquez MD Unavailable vAe Collier MD Primary Care Provider [phone] Arnaud Martini MD Primary Care Provider [phone] Logan Vazquez MD Unavailable Ana Aguilar APRN, BREWING TECHNICIAN Unavailable Breezy Barros MD Primary Care Provider [phone] Encounter Details Date Type Department Care Team (Late st Contact Info) Description 07/29/2020 Transcribe Orders [facility] Central Scheduling 1 [place] [address] Tomeka Blunt, DYE BOX OPERATOR, BREWING TECHNICIAN [address] [place] [address] Social History Tobacco Use Types Packs/Day Years Used Date Smoking Tobacco: Every Day Cigarettes 0.5 45 Smokeless Tobacco: Never Comments:3-4 cigs a day Alcohol Use Standard Drinks/Week Comments Yes 4 (1 standard drink = 0.6 oz pur e alcohol) social Comments No Sex and Gender Information Value Date Recorded Sex Assigned at Female 07/26/2024 9:52 PM RECIPROCATING DRILL OPERATOR Legal Sex Female 9:37 PM CDT Gender Identity Female 07/26/2024 9:52 PM RECIPROCATING DRILL OPERATOR Sexual Orientation Straight 07/26/2024 9: 52 PM RECIPROCATING DRILL OPERATOR Occupation Industry Job Start Date Job End Date [employer] Not on file Not on file Not on file COVID-19 Exposure Response Date Recorded In the last month, have you been in contact with someone who was confirmed or suspected to have Coronavirus / COVID-19? No / Unsure 07/22/2020 9:27 AM RECIPROCATING DRILL OPERATOR documented as of this encounter Plan of Treatment Upcoming Encounters Date Type Department Care Team (Late st Contact Info) Description 11/01/2024 8:45 AM CDT Office Visit [facility] Medical [facility] Internal Medicine [facility] [address] [place] [address] Breezy Barros MD [address] [place] [address] 12/05/2024 1:00 PM CDT [facility] - Pulmonology & Sleep Medicine [facility] #2 [place] [address] Logan Vazquez MD #2 [place] [address] 12/12/2024 2:15 PM CDT Office Visit [facility] Medical [facility] Internal Medicine [facility] [address] [place] [address] Breezy Barros MD [address] [place] [address] documented as of this encounter Visit Diagnoses Not on filedocumented in this encounter Additional Health Concerns Infection Onset Date Last Indicated Resolved Time COVID - 19 04/19/2021 04/19/202104/2104/21/2021 8:16 AM CDT Respiratory Rule Out - RPA 04/19/2021 04/19/2021 1 3:30 PM CDT COVID - 19 07/07/2021 07/07/2021 07/07/2021 6:29 PM RECIPROCATING DRILL OPERATOR COVID - 19 Confirmed 07/07/2021 07/07/2021 022 12:16 AM RECIPROCATING DRILL OPERATOR Respiratory Rule Out - RPA 10/07/2021 10/08/2021 0 10/08/2021 3:24 PM CDT COVID - 19 06/16/2024 06/16/2024 06/16/2024 10:2 3 PM RECIPROCATING DRILL OPERATOR COVID - 19 09/18/2024 09/18/2024 09/18/2024 10:1 3 PM CDT COVID - 19 09/20/2024 09/20/2024 09/20/2024 11:4 5 PM CDT Influenza 09/20/2024 09/20/2024 09/27/2024 12:1 6 AM CDT documented as of this encounter Care Teams Software Tester Relationship Specialty Start Date End Date Ave Collier MD [address] [place] [address] [address] PCP - General Internal Medicine 03/23/20 04/18/21 Arnaud Martini MD [address] [place], [place] [address] [address] PCP - General Family Medicine 04/19/21 09/04/24 Breezy Barros MD [address] [place] [address] [place] [address] PCP - General Internal Medicine 09/05/24 Logan Vazquez MD Consulting Physician Pulmonary Disease 02/10/17 Logan Vazquez MD #2 [place] [address] Consulting Physician Pulmonary Disease 10/01/21 Ana Aguilar APRN, BREWING TECHNICIAN #[address] [place] [address] Nurse Practitioner Advanced Practice Nurse 06/23/24 documented as of this encounter
--- OUTSIDE RECORDS SUMMARY | 2024-10-19 17:35 | XMS_ITS | Encounter Summary ---
Author Organization [facility] Address [address] [place] [address] Phone Care Team Providers Care Scuba Dive Training Instructor Name Role Phone Logan Vazquez MD Unavailable Ave Collier MD Primary Care Provider [phone] Arnaud Martini MD Primary Care Provider [phone] Logan Vazquez MD Unavailable Ana Aguilar APRN, [facility] Unavailable Breezy Barros MD Primary Care Provider [phone] Encounter Details Date Type Department Care Team (Late st Contact Info) Description 07/29/2020 [facility] 1 [place] [address] Mikal Espinosa MD [address] [place] [address] Social History Tobacco Use Types Packs/Day Years Used Date Smoking Tobacco: Every Day Cigarettes 0.5 45 Smokeless Tobacco: Never Comments:3-4 cigs a day Alcohol Use Standard Drinks/Week Comments Yes 4 (1 standard drink = 0.6 oz pur e alcohol) social Comments No Sex and Gender Information Value Date Recorded Sex Assigned at Female 07/26/2024 9:52 PM OCEAN FISHING GUIDE Legal Sex Female 9:37 PM CDT Gender Identity Female 07/26/2024 9:52 PM OCEAN FISHING GUIDE Sexual Orientation Straight 07/26/2024 9: 52 PM OCEAN FISHING GUIDE Occupation Industry Job Start Date Job End Date [employer] Not on file Not on file Not on file COVID-19 Exposure Response Date Recorded In the last month, have you been in contact with someone who was confirmed or suspected to have Coronavirus / COVID-19? No / Unsure 07/22/2020 9:27 AM OCEAN FISHING GUIDE documented as of this encounter Plan of Treatment Upcoming Encounters Date Type Department Care Team (Late st Contact Info) Description 11/01/2024 8:45 AM CDT Office Visit [facility] Internal Medicine [facility] [address] [place] [address] Breezy Barros MD [address] [place] [address] 12/05/2024 1:00 PM CDT Office Visit [facility] - Pulmonology & Sleep Medicine [facility] #2 [place] [address] Logan Vazquez MD #2 [place] [address] 12/12/2024 2:15 PM CDT Office Visit [facility] Internal Medicine [facility] [address] [place] [address] Breezy Barros MD [address] [place] [address] documented as of this encounter Visit Diagnoses Not on filedocumented in this encounter Additional Health Concerns Infection Onset Date Last Indicated Resolved Time COVID - 19 04/19/2021 04/19/2021 04/21/2021 8:16 AM CDT Respiratory Rule Out - RPA 04/19/2021 04/19/2021 1 3:30 PM CDT COVID - 19 07/07/2021 07/07/2021 07/07/2021 6:29 PM OCEAN FISHING GUIDE COVID - 19 Confirmed 07/07/2021 07/07/2021 022 12:16 AM OCEAN FISHING GUIDE Respiratory Rule Out - RPA 10/07/2021 10/08/2021 0 10/08/2021 3:24 PM CDT COVID - 19 06/16/2024 06/16/2024 06/16/2024 10:2 3 PM OCEAN FISHING GUIDE COVID - 19 09/18/2024 09/18/2024 09/18/2024 10:1 3 PM CDT COVID - 19 09/20/2024 09/20/2024 09/20/2024 11:4 5 PM CDT Influenza 09/20/2024 09/20/2024 09/27/2024 12:1 6 AM CDT documented as of this encounter Care Teams Scuba Dive Training Instructor Relationship Specialty Start Date End Date Ave Collier MD [address] [place] [address] [address] PCP - General Internal Medicine 03/23/20 04/18/21 Arnaud Martini MD [address] [place], [place] [address] [address] PCP - General Family Medicine 04/19/21 09/04/24 Breezy Barros MD [address] [place] [address] [place] [address] PCP - General Internal Medicine 09/05/24 Logan Vazquez MD Consulting Physician Pulmonary Disease 02/10/17 Logan Vazquez MD #2 [place] [address] Consulting Physician Pulmonary Disease 10/01/21 Ana Aguilar APRN, TECHNICAL AGRONOMIST #2 [facility] [place] [address] Nurse Practitioner Advanced Practice Nurse 06/23/24 documented as of this encounter
--- OUTSIDE RECORDS SUMMARY | 2024-10-19 17:35 | XMS_ITS | Clinical Summary ---
Author Organization [facility] Address [address] [place] [address] Phone Care Team Providers Care Cloth Finishing Range Tender Name Role Phone Logan Vazquez MD Unavailable Logan Vazquez MD Unavailable Ana Aguilar APRN, [facility] Unavailable Breezy Barros MD Primary Care Provider [phone] Allergies Active Allergy Reactions Criticality Noted Date [...] 5 mg by mouth every evening. Active citalopram (CELEXA) 10 MG Tablet Take 10 mg by mouth every morning. Active fluticasone (FLONASE) 50 MCG/ACT Suspension 2 Sprays by Nasal route daily. Use in each nostril as directed. 1 Bottle 2 9 Active Wixela Inhub 250-50 MCG/DOSE AEROSOL POWDER, BREATH ACTIVATED INHALE 1 PUFF BY MOUTH TWICE DAILY (REPLACES BREO) 1 Each 5 1 Active Respiratory Therapy Supplies (Nebulizer) DeviceIndicati ons:Centrilobu lar emphysema (HCC),Small cell carcinoma of right lung (HCC) Use as directed 1 Each 1 Active albuterol (PROVENTIL, VENTOLIN) (2.5 MG/3ML) 0.083% Nebulizer Soln 3 mL by Nebulization route 4 times daily. 360 mL 1 2 Active Atrovent HFA 17 MCG/ACT Aerosol [...] Take 10 mg by mouth daily. Active methylPREDNISo lone (MEDROL DOSPACK) 4 MG Tablet Therapy Pack See product package insert for dosing schedule 21 Tablet 5 Active azithromycin (Zithromax Z-Rod) 250 MG Tablet 2 tab(s) daily for 1 day, then 1 tab(s) daily for days 2-5. 6 Tablet 5 09/26/19 25 Active Problems Problem Noted Date Diagnosed Date Allergic rhinitis 09/05/2024 Overview (09/05/2024): Continue current medication. Dysthymic disorder 04/19/2021 GERD without esophagitis 04/19/2021 HLD (hyperlipidemia) 04/19/2021 Sensorineural hearing loss of both ears 03/08/20 18 Tinnitus, bilateral 03/08/2018 Chemotherapy adverse reaction, sequela 8 BERNARDA (obstructive sleep apnea) 03/31/2017 Centrilobular emphysema 03/31/2017 SOB (shortness of breath) 03/31/2017 Small cell carcinoma of right lung 03/31/2017 Overview (09/05/2024): H/O Rt Upper Lobectomy- Non small ca lung- 2012 Tobacco dependence syndrome 03/31/2017 Essential (primary) hypertension 03/31/2017 Resolved Problems Problem Noted Date Diagnosed Date Resolved Date Chest pain 10/07/2021 10/09/2021 Tachycardia 10/07/2021 10/09/2021 Elevated lactic acid level 10/07/2021 0 10/09/2021 Leukocytosis 10/07/2021 09/05/2024 COPD exacerbation 04/19/2021 10/09/2021 Multifocal pneumonia 04/19/2021 025 Septicemia 04/19/2021 09/05/2024 Neck pain 04/04/2021 09/05/2024 History of lung cancer 04/04/202109/04 Encounters Date Type Department Care Team Description 10/17/2024 [facility] [place] [address] [place] [phone] Breezy Barros MD 10/13/2024 3:45 PM CDT - 10/13/2024 11:59 PM CDT Hospital Encounter [facility] Mammography [address] [place] [address] Breezy Barros MD Discharge Disposition: Discharged to home or Selfcare 10/13/2024 Travel 10/05/2024 [facility] - [place] [address] [place] [address] Logan Vazquez MD Centrilobular emphysema (HCC) (Primary Dx) 10/03/2024 Telephone [facility] - [place] [address] [place] [address] Logan Vazquez MD Results 09/29/2024 7:30 PM CDT Sleep Lab [facility] Sleep Lab 1 [place] [address] Logan Vazquez MD BERNARDA (obstructive sleep apnea); Obstructive sleep apnea Discharge Disposition: Discharged to home or Selfcare 09/27/2024 3:00 PM CDT - 09/27/2024 11:59 PM CDT [facility] [address] [place] [address] Logan Vazquez MD Discharge Disposition: Discharged to home or Selfcare 09/27/2024 Travel 09/20/2024 11:33 PM CDT - 09/21/2024 2:16 AM CDT Emergency [facility] Emergency 1 [place] [address] Raul Kent MD Influenza A Discharge Disposition: Discharged to home or Selfcare 09/20/2024 Travel 09/18/2024 11:17 PM CDT - 09/19/2024 2:04 AM CDT Emergency [facility] Emergency 1 [place] [address] Raul Kent MD COPD exacerbation (HCC) Discharge Disposition: Discharged to home or Selfcare 09/18/2024 Travel 09/07/2024 Results Follow-Up [facility] Internal Medicine [facility] [address] [place] [address] Breezy Barros MD Abnormal CBC (Primary Dx) 09/06/2024 8:30 AM LEAN MANAGER Lab [facility] [address] [place] [address] [facility] Essential (primary) hypertension; Other hyperlipidemia; Leukocytosis, unspecified type Discharge Disposition: Discharged to home or Selfcare 09/05/2024 10:30 AM LEAN MANAGER [facility] [place] [address] Breezy Barros MD Essential (primary) hypertension (Primary Dx); Breast cancer screening by mammogram; Other hyperlipidemia; Centrilobular emphysema (HCC); Leukocytosis, unspecified type; GERD without esophagitis; Dysthymic disorder; Allergic rhinitis due to other allergic trigger, unspecified seasonality Discharge Disposition: Discharged to home or Selfcare 09/05/2024 Transcribe Orders [facility] Sleep Lab 1 [place] [address] Logan Vazquez MD Obstructive sleep apnea (Primary Dx) 09/04/2024 2:15 PM LEAN MANAGER Office Visit [facility] - Pulmonology & Sleep Medicine [facility] [address] [place] [address] Logan Vazquez MD Centrilobular emphysema (HCC) (Primary Dx); Small cell carcinoma of hilum of right lung (HCC); Essential (primary) hypertension; Tobacco dependence syndrome; BERNARDA (obstructive sleep apnea) Discharge Disposition: Discharged to home or Selfcare 09/04/2024 Travel 08/02/2024 Telephone [facility] - Gastroenterology [facility] [address] [place] [address] Hunter Lei MD Results; Procedure 07/25/2024 8:15 AM LEAN MANAGER Anesthesia Event [facility] Gi Lab Periop 1 [place] [address] Jessica Cuello, TECHNICAL SERVICES LIBRARIAN, ACLS SPECIALIST 07/25/2024 8:00 AM LEAN MANAGER - 07/25/2024 9:00 AM LEAN MANAGER Surgery [facility] Periop 1 [place] [address] Hunter Lei MD EGD - 3CM HIATAL HERNIA, GE JUNCTION BIOPSY (BIOPSY FORCEPS) 07/25/2024 7:10 AM LEAN MANAGER Ancillary Procedure [facility] Gi Lab Main 1 [facility] [place] [address] Hunter Lei MD Discharge Disposition: Discharged to home or Selfcare 07/25/2024 7:05 AM LEAN MANAGER Ancillary [facility] [address] [place] [address] Hunter Lei MD 07/25/2024 6:49 AM LEAN MANAGER - 07/25/2024 9:50 AM LEAN MANAGER [facility]Pacu [facility] [address] [place] [address] Hunter Lei MD Discharge Disposition: Discharged to home or Selfcare 07/25/2024 Travel from Last 3 Months Family History Medical [...] Cigarettes 0.5 45 0 09/10/1975 - 09/09/2020 Passive Smoke Exposure: Past Smokeless Tobacco: Never Tobacco Cessation:Counseling Given: No Alcohol Use Standard Drinks/Week Comments Not Currently 4 (1 standard drink = 0.6 oz pur e alcohol) social [employer] Utilities Answer Date Recorded In the past 12 months has [employer], oil, or water [employer] threatened to shut off services in your home? No 09/04/2024 Social Connection and Isolat ion Panel [NHANES] Answer Date Recorded In a typical week, how many times do you talk on the phone with family, friends, or neighbors? More than three times a week 09/04/2024 How often do you get togethe r with friends or relatives? More than three times a week 09/04/2024 How often do you attend [facility] or judaism services? More than 4 times per year 09/04/2024 Do you belong to any clubs o r organizations such as orthodox groups, unions, fraternal or athletic groups, or school groups? No 09/04/2024 How often do you attend meet ings of the clubs or organizations you belong to? Never 09/04/2024 Are you , , di vorced, , never , or living with a partner? 09/04/2024 AUDIT-C Answer Date Recorded Q1: How often do you have a drink containing alc ohol? Monthly or less 09/04/2024 Q2: How many drinks containi ng alcohol do you have on a typical day when you are drinking? 1 or 2 09/04/2024 Q3: How often do you have si x or more drinks on one occasion? Never 09/04/2024 Overall Financial Resource Strain (CARDIA) Answe r Date Recorded How hard is it for you to pa y for the very basics like food, housing, medical care, and heating? Somewhat hard 09/04/2024 PHQ-2 Answer Date Recorded Total Score - Questions 1-9 0 08/13 [facility] - Occupational Stress Questionnaire Answer Date Recorded Do you feel stress - tense, restless, nervous, or anxious, or unable to sleep at night because your mind is troubled all the time - these days? Only a little 09/04/2024 Exercise Vital Sign Answer Date Recorde d On average, how many days pe r week do you engage in moderate to strenuous exercise (like a brisk walk)? 1 day 09/04/2024 On average, how many minutes do you engage in exercise at this level? 30 min 09/04/2024 Hunger Vital Sign Answer Date Recorded Within the past 12 months, y ou worried that your food would run out before you got the money to buy more. Sometimes true Within the past 12 months, t he food you bought just didn't last and you didn't have money to get more. Sometimes true PRAPARE - Transportation Answer Date Re corded In the past 12 months, has l ack of transportation kept you from medical appointments or from getting medications? No 08/13 In the past 12 months, has l ack of transportation kept you from meetings, work, or from getting things needed for daily living? No 09/04/2024 Housing Stability Vital Sign Answer Ron e Recorded In the last 12 months, was t here a time when you were not able to pay the mortgage or rent on time? No 09/04/2024 In the past 12 months, how m any times have you moved where you were living? 6 09/04/2024 At any time in the past 12 m [facility], were you homeless or living in a prison (including now)? No 09/04/2024 Sexually Active Control Partners Comments Not Currently Comments No Sex and Gender Information Value Date Recorded Sex Assigned at Female 07/26/2024 9:52 PM LEAN MANAGER Legal Sex Female 9:37 PM CDT Gender Identity Female 07/26/2024 9:52 PM LEAN MANAGER Sexual Orientation Straight 07/26/2024 9: 52 PM LEAN MANAGER Occupation Industry Job Start Date Job End Date [employer] Not on file Not on file Not on file Last Filed Vital Signs Vital Sign Reading Time Taken Comments Blood Pressure 138/77 09/21/2024 2:00 AM CDT Pulse 97 09/21/2024 2:00 AM CDT Temperature 38.3 C (101 F) 09/20/2024 10:41 PM CDT Respiratory Rate 18 09/20/2024 11:54 PM CDT Oxygen Saturation 95% 09/21/2024 2:00 AM CDT Inhaled Oxygen Concentration - - Weight 68.9 kg (152 lb) 09/20/2024 10:41 PM CDT Height 152.4 cm (5') 09/20/2024 10:41 PM CDT Body Mass Index 29.69 09/20/2024 10:41 PM CDT Plan of Treatment Upcoming Encounters Date Type Department Care Team (Late st Contact Info) Description 11/01/2024 8:45 AM CDT Office Visit [facility] - Internal Medicine - [place] [address] [place] [phone] Breezy Barros MD [address] [place] [address] 12/05/2024 1:00 PM CDT [facility] [address] [place] [address] Logan Vazquez MD [address] [place] [address] 12/12/2024 2:15 PM CDT Office Visit [facility] - Internal Medicine - [place] [address] [address] Breezy Barros MD [address] [place] [address] Health Maintenance Due Date Last Done Comments DEXA Bone Density 1955 Hepatitis C Virus (HCV) Screening 1955 Cologuard 2006 Immunochemical Fecal Occult Blood 05/15/2020 05/15/2019 SARS-COV-2 Immunization ( season) 2024 02/06/2022, 06/09/2021, 11/28/2020 Mammogram 10/13/2025 10/13/2024, 08/12, 07/20/2020, Additional history exists Colonoscopy 07/25/2029 07/25/2024, 03/0 11/2020, 03/23/2017 Colorectal Cancer Screening 07/25/2029 07/25/2024, 030 11/2020, 03/23/2017 DTaP/Tdap/Td Immunization Discontinued 03/12/2017 TdaP [...] Procedure Name Priority Date/Time Associated Diagnosis Comments STEPHANIE SCREENING BILATERAL DIGITAL W CAD W LAVERN Routine 10/13/2024 4:13 PM CDT Breast cancer screening by mammogram SPLIT NIGHT POLYSOMNOGRAPHY - INCLUDES DIAGNOSTIC AND CPAP TITRATION Routine 09/30/2024 Obstructive sleep apnea COMPLETE PFT W + W/O BRONCHODILATOR Routine 09/27/2024 Centrilobular emphysema (HCC) AEROSOL NEBULIZER-INITIAL STAT 09/20/2024 11:57 PM CDT XR CHEST 2 VIEWS STAT 09/20/2024 11:08 PM CDT GROUP A STREP BY PCR STAT 09/20/2024 10:47 PM CDT RSV,SARS-COV-2,INFLUE NZA A&B BY PCR STAT 09/20/2024 10:47 PM CDT XR CHEST 2 VIEWS STAT 09/18/2024 11:29 PM CDT GOLD TOP TUBE STAT 09/18/2024 9:20 PM CDT BLUE TOP TUBE STAT 09/18/2024 9:20 PM CDT CBC WITH AUTO DIFFERENTIAL STAT 09/18/2024 9:20 PM CDT EXTRA TUBES STAT 09/18/2024 9:20 PM CDT TROPONIN I, HIGH SENSITIVITY (HSTRP) STAT 09/18/2024 9:20 PM CDT CMP (COMPREHENSIVE METABOLIC PANEL) STAT 09/18/2024 9:20 PM CDT COMPLETE BLOOD COUNT (CBC) WITH DIFF STAT 09/18/2024 9:20 PM CDT RSV,SARS-COV-2,INFLUE NZA A&B BY PCR STAT 09/18/2024 9:20 PM CDT EKG 12 LEAD STAT 09/18/2024 9:12 PM CDT EKG SCAN 09/18/2024 12:00 AM CDT CBC WITH AUTO DIFFERENTIAL Routine 09/06/2024 8:29 AM LEAN MANAGER Leukocytosis, unspecified type COMPLETE BLOOD COUNT (CBC) WITH DIFF Routine 09/06/2024 8:29 AM LEAN MANAGER Leukocytosis, unspecified type LIPID PANEL Routine 09/06/2024 8:29 AM LEAN MANAGER Essential (primary) hypertension Other hyperlipidemia CMP (COMPREHENSIVE METABOLIC PANEL) Routine 09/06/2024 8:29 AM LEAN MANAGER Essential (primary) hypertension Other hyperlipidemia PATHOLOGY SURGICAL Routine 07/25/2024 8: 25 AM LEAN MANAGER COLONOSCOPY 07/25/2024 8:13 AM LEAN MANAGER EGD - 3CM HIATAL HERNIA, GE JUNCTION BIOPSY (BIOPSY FORCEPS)COLONOSCOPY - NORMAL COLONOSCOPY Special Needs Dx GERD/BIS EGD 07/25/2024 8:13 AM LEAN MANAGER EGD - 3CM HIATAL HERNIA, GE JUNCTION BIOPSY (BIOPSY FORCEPS)COLONOSCOPY - NORMAL COLONOSCOPY Special Needs Dx GERD/BIS GI LAB IMAGING - EGD Routine 07/25/2024 7:04 AM LEAN MANAGER GI IMAGING - COLONOSCOPY Routine 07/25/2024 7:04 AM LEAN MANAGER HM COLONOSCOPY Routine 03/23/2017 from Last 3 Months or Most Recently Relevant to Health Maintenance Results * STEPHANIE SCREENING BILATERAL DIGITAL W CAD W LAVERN (10/13/2024 4:13 PM CDT) Anatomical Region Laterality Modality breast Bilateral Mammography 10/13/2024 4:08 PM CDT Narrative 10/16/2024 5:12 PM CDT - STEPHANIE SCREENING BILATERAL DIGITAL W CAD W LAVERN BILATERAL DIGITAL SCREENING MAMMOGRAM 3D/2D WITH CAD WITH MEDIOLATERAL OBLIQUE CRANIOCAUDAL: 10/13/2024 The study was acquired using digital technology and interpreted from soft copy. Current study was also evaluated with ICAD version 7.2. 2D digital mammographic views, as well as 3D digital tomosynthesis were performed in the CC and MLO projections. CLINICAL: Routine screening. Patient has no complaints. She reports a 19 pound weight increase. Personal history of right lung cancer. Sister with postmenopausal breast cancer. COMPARISONS: Comparison is made to exams dated: 08/27/2021, 08/13/2020, and 07/20/2020 [facility]. BREAST TISSUE:There are scattered areas of fibroglandular density. FINDINGS: No significant masses, calcifications, or other findings are seen in either breast. There has been no significant interval change. IMPRESSION: NEGATIVE There is no mammographic evidence of malignancy. A 1 year screening mammogram is recommended. A letter will be sent to the patient with these results. The patient will be entered into a reminder system with a target due date of 1 year for her next screening exam. Electronically signed by: Dee andrew/viktoria:10/16/2024 15:21:16 Director Bioinformatics(s): RT Pepito(R)(M), [facility] letter sent: Normal Exam Reading location: [facility] Mammogram BI-RADS: Category 1: Negative Procedure Note Dee Echevarria MD - 10/16/2024 - STEPHANIE SCREENING BILATERAL DIGITAL W CAD W LAVERN BILATERAL DIGITAL SCREENING MAMMOGRAM 3D/2D WITH CAD WITH MEDIOLATERAL OBLIQUE CRANIOCAUDAL: 10/13/2024 The study was acquired using digital technology and interpreted from soft copy. Current study was also evaluated with ICAD version 7.2. 2D digital mammographic views, as well as 3D digital tomosynthesis were performed in the CC and MLO projections. CLINICAL: Routine screening. Patient has no complaints. She reports a 19 pound weight increase. Personal history of right lung cancer. Sister with postmenopausal breast cancer. COMPARISONS: Comparison is made to exams dated: 08/27/2021, 08/13/2020, and 07/20/2020 [facility]. BREAST TISSUE:There are scattered areas of fibroglandular density. FINDINGS: No significant masses, calcifications, or other findings are seen in either breast. There has been no significant interval change. IMPRESSION: NEGATIVE There is no mammographic evidence of malignancy. A 1 year screening mammogram is recommended. A letter will be sent to the patient with these results. The patient will be entered into a reminder system with a target due date of 1 year for her next screening exam. Electronically signed by: Dee andrew/viktoria:10/16/2024 15:21:16 Director Bioinformatics(s): Christi Ramírez, RT(R)(M), [facility] letter sent: Normal Exam Reading location: [facility] Mammogram BI-RADS: Category 1: Negative Breezy Barros MD IMG MAMMO ORDERABLES Final Result * SPLIT NIGHT PSG (09/30/2024) Logan Vazquez MD SLEEP CENTER ORDERABLES Final Re sult * Complete PFT W + W/O Bronchodilator (09/27/2024) FVC 2.62 L FVC %Predicted 112 % FVC Post-Bronchodila tor 2.79 (L) FEV1 1.76 L FEV1 %Predicted 94 % FEV1 Post-Bronchodila tor 1.83 (L) FEV1/FVC 67 % FEF 25-75% 55 L/sec TLC 4.60 L TLC %Predicted 109 (Pleth) (L) RV 1.98 L RV %Predicted 105 (Pleth) (L) Airway Resistance 6.91 cmH2O/L/s DLCO 16.40 ml/min/mmH g DLCO %Predicted 88 (ml/min/mm Hg) Logan Vazquez MD PFT ORDERABLES Final Result * XR CHEST 2 VIEWS (09/20/2024 11:08 PM CDT) Only the most recent of2 resultswithin the time period is included. Anatomical Region Laterality Modality Chest N/A Digital Radiogra phy 09/20/2024 11:3 9 PM CDT Impressions 09/20/2024 11:41 PM CDT IMPRESSION: No acute cardiopulmonary abnormality. Narrative 09/20/2024 11:41 PM CDT EXAM DESCRIPTION: XR CHEST 2 VIEWS REASON FOR STUDY: cough TECHNIQUE: 2 radiographic view(s) of the chest. COMPARISON: 06/22/2024 FINDINGS: LUNGS: Scattered regions of mild bilateral pulmonary parenchymal scarring and mild bibasilar atelectasis. Surgical clips project over the right upper lung. No focal confluence pulmonary parenchymal consolidation, pleural effusion, or pneumothorax. HEART/MEDIASTINUM: Cardiac silhouette normal in size. Mediastinal and hilar contours appear normal. LINES/TUBES: None. BONES: No acute osseous abnormality. THIS IS AN ELECTRONICALLY VERIFIED FINAL REPORT 09/20/2024 11:39 PM - Electronically signed by Jaime Williamson M.D. AT: AT Report ID: [id number] Reading Location: [id number] Procedure Note Jaime Williamson MD - 09/20/2024 EXAM DESCRIPTION: XR CHEST 2 VIEWS REASON FOR STUDY: cough TECHNIQUE: 2 radiographic view(s) of the chest. COMPARISON: 06/22/2024 FINDINGS: LUNGS: Scattered regions of mild bilateral pulmonary parenchymal scarring and mild bibasilar atelectasis. Surgical clips project over the right upper lung. No focal confluence pulmonary parenchymal consolidation, pleural effusion, or pneumothorax. HEART/MEDIASTINUM: Cardiac silhouette normal in size. Mediastinal and hilar contours appear normal. LINES/TUBES: None. BONES: No acute osseous abnormality. THIS IS AN ELECTRONICALLY VERIFIED FINAL REPORT 09/20/2024 11:39 PM - Electronically signed by Jaime Williamson M.D. AT: AT Report ID: [id number] Reading Location: [id number] IMPRESSION: No acute cardiopulmonary abnormality. Raul Kent MD [facility] ORDERABLES Final Result * (ABNORMAL) GROUP A STREP BY PCR (09/20/2024 10:47 PM CDT) GROUP A STREP BY PCR DETECTED( A) NOT DETECTED 09/20/2024 11:31 PM CDT [facility] Swab STRUCTURE OF ANTERIOR PORTION OF NECK / Unknown Non-Phlebotomy Collection / Unknown 09/20/2024 10:47 PM CDT 09/20/2024 11:05 PM CDT Raul Kent MD MICROBIOLOGY - GENERAL OR DERABLES Final Result Performing Organization Address City/[facility]/ZIP Co de Phone Number [facility] [address] [place] [address] * (ABNORMAL) RSV,SARS-COV-2,INFLUENZA A&B BY PCR (09/20/2024 10:47 PM CDT) Only the most recent of2 resultswithin the time period is included. Pathologist [facility] FLU A Positive(A) Negative, Error 09/20/2024 11:45 PM CDT [facility] FLU B Negative Negative 09/20/2024 11:45 PM CDT [facility] RESP SYNC VIRUS Negative Negative 11:45 PM CDT [facility] SARSCOV2 NOT DETECTED (Reference Range for this test is Not Detected) 09/20/2024 11:45 PM CDT [facility] Comment:This test was perfor med by a Reverse Producer PCR Method. Swab NASOPHARYNGEAL STRUCTURE / Unknown Non-Phlebotomy Collection / Unknown 09/20/2024 10:47 PM CDT 09/20/2024 11:05 PM CDT Raul Kent MD MICROBIOLOGY - GENERAL OR DERABLES Final Result [facility] [address] [place] [address] * TROPONIN I, HIGH SENSITIVITY (HSTRP) (09/18/2024 9:20 PM CDT) [facility] TROPONIN I, HIGH SENSITIVITY- DÍAZ <3 <=14 ng/L 09/18/2024 10:14 PM CDT [facility] Comment: High-sensitivity troponin I results are reported in ng/L making the result appear to be 1,000 times higher than the contemporary troponin I value which is reported in ng/ml. Results from [place]. Blood Venipuncture / Unknown 09/18/2024 9:20 PM CDT 09/18/2024 9:34 PM CDT Raul Kent MD CHEMISTRY ORDERABLES Aide l Result Performing Organization Address City/[facility] Co de Phone Number [facility] [address] [place] [address] * Gold Top Tube (09/18/2024 9:20 PM CDT) Blood No Phlebotomy Charged / Unknown 09/18/2024 9:20 PM CDT 09/18/2024 9:32 PM CDT Raul Kent MD CHEMISTRY ORDERABLES Aide l Result Performing Organization Address [facility] Co de Phone Number [facility] [address] [place] [address] * Blue Top Tube (09/18/2024 9:20 PM CDT) Blood No Phlebotomy Charged / Unknown 09/18/2024 9:20 PM CDT 09/18/2024 9:32 PM CDT Raul Kent MD HEMATOLOGY ORDERABLES Fin al Result Performing Organization Address City/[facility] Co de Phone Number [facility] [address] [place] [address] * (ABNORMAL) CBC with Auto Differential (09/18/2024 9:20 PM CDT) Only the most recent of2 resultswithin the time period is included. WBC 16.35(H) 4.00 - 12.00 10(3)/mcL 09/18/2024 9:37 PM CDT [facility] RBC 4.01 3.80 - 5.30 10(6)/mcL 09/18/2024 9:37 PM CDT [facility] HEMOGLOBIN (HGB) 12.9 12.0 - 15.8 g/dL 09/18/2024 9:37 PM CDT [facility] HEMATOCRIT (HCT) 37.8 36.0 - 47.0 % 09/18/2024 9:37 PM CDT [facility] MCV 94.3 82.0 - 96.0 fL 09/18/2024 9:37 PM CDT [facility] MCH 32.2 26.0 - 34.0 pg 09/18/2024 9:37 PM CDT [facility] MCHC 34.1 31.0 - 36.0 g/dL 09/18/2024 9:37 PM CDT [facility] PLATELET COUNT 402 140 - 440 10(3)/mcL 09/18/2024 9:37 PM CDT [facility] RDW 13.6 11.8 - 15.5 % 09/18/2024 9:37 PM CDT [facility] MPV 9.9 9.7 - 12.4 fL 09/18/2024 9:37 PM CDT [facility] NEUTROPHILS 56.8 47.0 - 73.0 % 09/18/2024 9:37 PM CDT [facility] LYMPHOCYTES 29.2 18.0 - 42.0 % 09/18/2024 9:37 PM CDT [facility] MONOCYTES 8.8 4.0 - 12.0 % 09/18/2024 9:37 PM CDT [facility] EOSINOPHILS 4.3 0.0 - 5.0 % 09/18/2024 9:37 PM CDT [facility] BASOPHILS 0.9 0.0 - 1.0 % 09/18/2024 9:37 PM CDT [facility] ABSOLUTE NEUTROPHILS 9.30(H) 1.60 - 7.70 10(3)/mcL 09/18/2024 9:37 PM CDT [facility] ABSOLUTE LYMPHOCYTES 4.77(H) 1.30 - 3.20 10(3)/mcL 09/18/2024 9:37 PM CDT [facility] ABSOLUTE MONOCYTES 1.44(H) 0.20 - 1.00 10(3)/mcL 09/18/2024 9:37 PM CDT [facility] ABSOLUTE EOSINOPHIL 0.70(H) 0.00 - 0.40 10(3)/mcL 09/18/2024 9:37 PM CDT [facility] ABSOLUTE BASOPHILS 0.14(H) 0.00 - 0.10 10(3)/[facility] 09/18/2024 9:37 PM CDT [facility] NRBC PER 100 WBC 0 09/19/19 9:37 PM CDT [facility] Blood Venipuncture / Unknown 09/18/2024 9:20 PM CDT 09/18/2024 9:34 PM CDT us Raul Kent MD HEMATOLOGY ORDERABLES Fin al Result [facility] [address] [place] [address] * (ABNORMAL) CMP (Comprehensive Metabolic Panel) (09/18/2024 9:20 PM CDT) Only the most recent of2 resultswithin the time period is included. SODIUM 142 136 - 145 mmol/L 09/18/2024 10:11 PM CDT [facility] POTASSIUM 3.6 3.5 - 5.1 mmol/L 09/18/2024 10:11 PM CDT [facility] CHLORIDE 109(H) 98 - 107 mmol/L 09/18/2024 10:11 PM CDT [facility] CO2, VENOUS 22 22 - 30 mmol/L 09/18/2024 10:11 PM CDT [facility] ANION GAP 14.6 <18.0 mmol/L 09/18/2024 10:11 PM CDT [facility] GLUCOSE 123(H) 70 - 99 mg/dL 09/18/2024 10:11 PM T [facility] BUN 11 10 - 20 mg/dL 09/18/2024 10:11 PM [facility] CREATININE, BLOOD 0.88 0.60 - 1.00 mg/dL 09/18/2024 10:11 PM T [facility] BUN/CREATININE RATIO 13 12 - 20 ratio 09/18/2024 10:11 PM T [facility] TOTAL PROTEIN 6.9 6.0 - 8.0 g/dL 09/18/2024 10:11 PM [facility] ALBUMIN 3.9 3.5 - 5.0 g/dL 09/18/2024 10:11 PM [facility] A/G RATIO 1.3 1.0 - 2.2 09/18/2024 10:11 PM [facility] CALCIUM 9.1 8.7 - 10.5 mg/dL 09/18/2024 10:11 PM [facility] T BILI 0.1(L) 0.2 - 1.2 mg/dL 09/18/2024 10:11 PM [facility] SGOT (AST) 20 <43 U/L 09/18/2024 10:11 PM [facility] SGPT (ALT) 23 <56 U/L 09/18/2024 10:11 PM [facility] ALKALINE PHOSPHATASE 83 40 - 150 U/L 09/18/2024 10:11 PM [facility] GFR, ESTIMATED >60 >=60 09/18/2024 10:11 PM [facility] Comment: Creatinine Clearance is the preferred criteria for selecting drug dose adjustments in renally impaired patients. The GFR is provided as additional pertinent clinical information. GFR is reported in mL/min/1.73 sq m. Calculation based on the Chronic Kidney Disease Epidemiology Collaboration (CKD- EPI) equation refit without adjustment for race. GFR, EST. >60 >=60 025 10:11 PM CDT [facility] GFR, EST. NONAFRICAN >60 >=60 09/18/2024 10:11 PM CDT [facility] Blood Venipuncture / Unknown 09/18/2024 9:20 PM CDT 09/18/2024 9:34 PM CDT Raul Kent MD CHEMISTRY ORDERABLES Aide l Result [facility] [address] [place] [address] * EKG 12 LEAD (09/18/2024 9:12 PM CDT) Ventricular Rate 90 BPM EXTERNAL EKG Atrial Rate 90 BPM EXTERNAL EKG P-R Interval 156 ms EXTERNAL EKG QRS Duration 74 ms EXTERNAL EKG Q-T Duration 368 ms EXTERNAL EKG QTC CALCULATION 450 ms EXTERNAL EKG P Mcgee 71 degrees EXTERNAL EKG R Mcgee 74 degrees EXTERNAL EKG T Mcgee 79 degrees EXTERNAL EKG 09/18/2024 9:12 PM CDT Impressions EXTERNAL EKG - 09/19/2024 9:36 AM CDT Normal sinus rhythm Nonspecific ST abnormality Abnormal ECG When compared with ECG of 07-OCT-2021 09:51, No significant change was found ~ Confirmed by RACHELLE FORTE ([id number]) on 09/19/2024 9:36:20 AM Narrative Procedure Note Rachelle Forte MD - 09/19/2024 IMPRESSION: Normal sinus rhythm Nonspecific ST abnormality Abnormal ECG When compared with ECG of 07-OCT-2021 09:51, No significant change was found ~ Confirmed by RACHELLE FORTE ([id number]) on 09/19/2024 9:36:20 AM Raul Kent MD IMG ECG ORDERABLES Final Result EXTERNAL EKG * EKG SCAN (09/18/2024 12:00 AM CDT) 09/18/2024 us Provider Scan IMG ECG ORDERABLES Final Result Performing Organization Address City/[facility]/ZIP Co de Phone Number RESULTING AGENCY * (ABNORMAL) LIPID PANEL (09/06/2024 8:29 AM LEAN MANAGER) CHOLESTEROL 157 <200 mg/dL 09/06/2024 9:08 PM LEAN MANAGER [facility] TRIGLYCERIDES 129 <150 mg/dL 09/06/2024 9:08 PM LEAN MANAGER [facility] HDL CHOLESTEROL 35(L) >40 mg/dL 9:08 PM LEAN MANAGER [facility] LDL 96 <130 mg/dL 09/06/2024 9:08 PM LEAN MANAGER [facility] VLDL 26 10 - 50 mg/dL 09/06/2024 9:08 PM LEAN MANAGER [facility] CHOL/HDL RATIO 4.5(H) 0.0 - 4.4 09/06/2024 9:08 PM LEAN MANAGER [facility] NON-HDL CHOLESTEROL 122 <130 mg/dL 09/06/2024 9:08 PM LEAN MANAGER [facility] Blood Venipuncture / Unknown 09/06/2024 8:29 AM LEAN MANAGER 09/06/2024 8:29 AM LEAN MANAGER us Breezy Barros MD CHEMISTRY ORDERABLES Final Result Performing Organization Address City/[facility]/ZIP Co de Phone Number [facility] [address] [place] [address], * Pathology Surgical (07/25/2024 8:25 AM LEAN MANAGER) Case Report Surgical Pathology Report Case: [id number] Authorizing Provider: Hunter Lei MD Collected: 07/25/2024 08:25 AM Ordering Location: [facility] Received: 07/25/2024 09:37 AM [facility] Main Pathologist: Boy Estrella MD PhD Specimen: Esophagus, GE JUNCTION BIOPSY 07/26/2024 9:56 AM LEAN MANAGER [facility] FINAL DIAGNOSIS GE Junction Biopsy: - 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 GE JUNCTION BIOPSY [...] 13 hours, 21 minutes. 07/26/2024 9:56 AM LEAN MANAGER [facility] Microscopic Description Microscopic examination was performed which supports the final diagnosis. All control tissues stained appropriately. 07/26/2024 9:56 AM LEAN MANAGER [facility] Tissue ESOPHAGEAL STRUCTURE / Unknown 07/25/2024 8:25 AM LEAN MANAGER 07/25/2024 9:37 AM LEAN MANAGER Hunter Lei MD PATHOLOGY/CYTOLOGY ORDERA BLES Final Result [facility] [address] [place] [address] * GI LAB IMAGING - EGD (07/25/2024 7:04 AM LEAN MANAGER) Hunter Lei MD IMG DIAGNOSTIC ORDERABLES Final Result * GI IMAGING - COLONOSCOPY (07/25/2024 7:04 AM LEAN MANAGER) Hunter LEVY DIAGNOSTIC ORDERABLES Final Result * HM COLONOSCOPY (03/23/2017) Ajay Cortez MD PROCEDURE/MINOR SURGICAL OR DERABLES Final Result from Last 3 Months or Most Recently Relevant to Health Maintenance Insurance MEDICAID [place] MEDICARE C [facility] Advance Directives * Full Code (Latest [...] measures to stabilize the patient. Care Teams Cloth Finishing Range Tender Relationship Specialty Start Date End Date Breezy Barros MD [address] [place] [address] PCP - General Internal Medicine 09/05/24 Logan Vazquez MD Consulting Physician Pulmonary Disease 02/10/17 Logan Vazquez MD [address] [place] [address] Consulting Physician Pulmonary Disease 10/01/21 Ana Aguilar APRN, [employer] [facility] [address] [place] [address] Nurse Practitioner Advanced Practice Nurse 06/23/24
--- OUTSIDE RECORDS SUMMARY | 2024-10-19 17:35 | XMS_ITS | Patient Health Record ---
Author Organization [facility] Address [address] [place] [address] Care Team Providers Care Tail Worker Name Role Phone JR Sandeep Suh MD Primary Care Provider Michel Steel Unavailable [phone] Allergies Allergen (clinical drug ingredient) Drug/Non Drug Allergy documented on EMR Reaction Allergy Type Onset Date Status codeine Codeine Unknown Drug Allergy Active Penicillin Unknown Drug Allergy Active Reason For Referral Reason PLEASE SET PATIENT U P WITH NEW CPAP, ALL SUPPLIES, AND MASK OF CHOICE. [facility] Diagnosis 1 OBSTRUCTIVE SLEEP AP ISABEL (G47.33) Referral Organization Brian LEONG Referring Provider First Name [facility] Referring Provider Last Name [facility] Referring Provider Speciality Pulmonolog y Referred Organization Brian LEONG Referred Address [address] [address] [place],[address], Referred Provider Specialty DME Referral Priority Routine Reason 01/21/2024 OV AUTH R EQUEST W/ NOTE 93308 X 3, 52641 X 1, 28024 X 1, 27431 X 1, 11385 X 1, 70743 X 1, 50827 X 1, 49374 X 1, 10562 X 1, 65803 X 1, G0447 X 1 Diagnosis 1 LUNG CA (C34.81) Diagnosis 2 ASTHMA (J45.909) Diagnosis 3 Dyspnea, unspecified (R06.00) Referral Organization Brian LEONG Referring Provider First Name [facility] Referring Provider Last Name [facility] Referring Provider Speciality Pulmonolog y Referred Provider [...] Social drinker. 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 . She has 3 children, all in their 40s. She smoked 1 pack of cigarettes for 50 years. She quit smoking in 02/2022. Social drinker. 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 . She has 3 children, all in their 40s. She smoked 1 pack of cigarettes for 50 years. She quit smoking in 02/2022. Social drinker. 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 . She has 3 children, all in their 40s. She smoked 1 pack of cigarettes for 50 years. She quit smoking in 02/2022. Social drinker. 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 . She has 3 children, all in their 40s. She smoked 1 pack of cigarettes for 50 years. She quit smoking in 02/2022. Social drinker. 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 . She has 3 children, all in their 40s. She smoked 1 pack of cigarettes for 50 years. She quit smoking in 02/2022. Social drinker. 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 . She has 3 children, all in their 40s. She smoked 1 pack of cigarettes for 50 years. She quit smoking in 02/2022. Social drinker. 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 . She has 3 children, all in their 40s. She smoked 1 pack of cigarettes for 50 years. She quit smoking in 02/2022. Social drinker. 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 . She has 3 children, all in their 40s. She smoked 1 pack of cigarettes for 50 years. She quit smoking in 02/2022. Social drinker. 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 . She has 3 children, all in their 40s. She smoked 1 pack of cigarettes for 50 years. She quit smoking in 02/2022. Social drinker. 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 Problems Problem Type SNOMED Code ICD Code Onset Dates Problem Status W/U Status Risk Notes Problem Arthritis (3939116) ARTHRITIS (M06.9) Active confirmed Problem LUNG CA (C34.81) Active confirmed Problem Obstructive sleep apnea (69319883) OBSTRUCTIVE SLEEP APNEA (G47.33) Active confirmed Problem Renal failure (61007326) RENAL FAILURE (N19) Active confirmed Problem Hyperlipidaemia (88827567) HYPERLIPEMIA (E78.5) Active confirmed Problem Asthma (119478132) ASTHMA (J45.909) Active confirmed Problem 75821956 Chronic obstructive pulmonary disease, unspecified COPD type (J44.9) Active confirmed Problem Essential hypertension (98053634) HTN (hypertension), benign (I10) Active confirmed Problem Chronic obstructive pulmonary disease (90518630) Advanced COPD (J44.9) Active confirmed Vital Signs Heart Rate 102 /min 01/21/2024 Oximetry 94 % 01/21/2024 Blood pressure diastolic 72 mm Hg 01/21/2024 Weight-kg 73.48 kg 01/21/2024 Height 59 in 01/21/2024 Blood pressure systolic 136 mm Hg 01/21/2024 Weight 162 lbs 01/21/2024 BMI 32.72 kg/m2 01/21/2024 Encounters Encounter Location Date Provider Diagnosis [facility] [address] [place] [address] 10/22/2023 Michel Covington HTN (hypertension), benign I10 ; OBSTRUCTIVE SLEEP APNEA G47.33 ; HYPERLIPEMIA E78.5 ; ASTHMA J45.909 ; LUNG CA C34.81 ; ARTHRITIS M06.9 ; Chronic obstructive pulmonary disease, unspecified COPD type J44.9 ; RENAL FAILURE N19 ; Advanced COPD J44.9 and Obstructive sleep apnea (adult) (pediatric) G47.33 Brian LEONG [address] [place] [address] 01/21/2024 [facility] Advanced COPD J44.9 ; HTN (hypertension), benign I10 ; HYPERLIPEMIA E78.5 ; ASTHMA J45.909 ; LUNG CA C34.81 ; ARTHRITIS M06.9 ; Chronic obstructive pulmonary disease, unspecified COPD type J44.9 ; RENAL FAILURE N19 and OBSTRUCTIVE SLEEP APNEA G47.33 Brian LEONG [address] [place] [address] 10/20/2023 [facility] Brian LEONG [address] [place] [address] 02/22/2024 [facility] Assessments Encounter Date Diagnosis (ICD Code) Assessment Notes Treatment Notes Treatment Clinical Notes Section Notes 10/22/2023 OBSTRUCTIVE SLEEP APNEA (ICD-10 - G47.33) [...] apnea (adult) (pediatric) (ICD-10 - G47.33) 10/22/2023 Other I explained to the patient [...] months. ATTESTATION:This note has been created using Coshared and was completed in the EHR by [...] months. ATTESTATION:This note has been created using Coshared and was completed in the EHR by [...] Date Coverage End Date [employer] [address] [address] [place] [address] [phone] [id number] VASILE YOLANDA Self - patient is the insured 3 MEDICAID [id number] [address] [place] [address] [id number] SHADE BURNETTEA Self - patient is the insured Medical [...]
--- OUTSIDE RECORDS SUMMARY | 2024-10-19 17:36 | XMS_ITS | Clinical Summary ---
Author Organization [facility] Address [address] [place] [address] Care Team Providers Care In Flight Technician Name Role Phone Arnaud Martini MD Primary Care Provider [phone] Allergies Active Allergy Reactions Criticality Noted Date [...] (10/01/2021): Added automatically from request for surgery [id number] Gastro-esophageal reflux disease without esophag itis 04/28/2021 History of duodenal ulcer 04/28/2021 History of Helicobacter pylori infection 021 Former smoker 04/28/2021 BMI 28.0-28.9,adult 04/28/2021 Tubular adenoma of colon 04/28/2021 Laryngeal spasm 08/05/2020 Assessment & Plan (08/05/2020 9:42 PM VP SCIENTIFIC): Nasal saline spray (Simply saline, Little Remedies, [place], [place]) 2 second sprays or 2 squeezes into each nostril while looking down over the sink, do not need to sniff in 2-3 times daily Pepcid (famotidine) 40 mg at bedtime Humidifier in bedroom Allergic rhinitis 08/05/2020 Assessment & Plan (08/05/2020 9:41 PM VP SCIENTIFIC): Nasal saline spray (Simply saline, Little Remedies, [place], [place]) 2 second sprays or 2 squeezes into each nostril while looking down over the sink, do not need to sniff in 2-3 times daily Flonase (fluticasone) 2 sprays into each nostril while looking down over the sink, do not sniff in or blow nose after use for at least 30 minutes daily Humidifier in bedroom Epistaxis 08/05/2020 Assessment & Plan (08/05/2020 9:41 PM VP SCIENTIFIC): Nasal saline spray (Simply saline, Little Remedies, [place], [place]) 2 second sprays or 2 squeezes into [...] 07/30/2020 Assessment & Plan (08/28/2021 12:15 PM VP SCIENTIFIC): Left adrenal adenoma 1.9 cm detected on [...] year. Assessment & Plan (07/30/2020 9:52 AM VP SCIENTIFIC): Left adrenal adenoma 1.9 cm detected on [...] like Aldosterone/ renin and will rule out [place]'s with 1 mg dexamethasone suppression test Obtain [...] get procedural sedation. Advised to discuss with payroll coordinator and primary care physician Smoker 01/12/2018 Assessment & Plan (01/12/2018 5:47 AM CDT): Patient states that quit smoking 5 days ago. Will start on Nicoderm patch Encouraged not to return back to the smoking Essential hypertension 01/12/2018 Assessment & Plan (08/28/2021 12:16 PM VP SCIENTIFIC): Controlled with medication Amlodipine and Metoprolol - low salt diet - continue medication per PCP Assessment & Plan (07/30/2020 9:54 AM VP SCIENTIFIC): Controlled with medication Amlodipine and Metoprolol - [...] on file Legal Sex Female 2:19 PM VP SCIENTIFIC Gender Identity Female 07/21/2021 12:54 PM VP SCIENTIFIC Sexual Orientation Not on file Obstetrics History Last Filed Vital Signs Vital Sign Reading Time Taken Comments Blood Pressure 120/72 08/28/2021 12:01 PM VP SCIENTIFIC Pulse 88 04/28/2021 10:23 AM CDT Temperature 36.1 C (96.9 F) 04/28/2021 10:23 AM CDT Respiratory Rate 18 01/13/2018 7:51 AM CDT Oxygen Saturation 99% 04/28/2021 10:23 AM CDT Inhaled Oxygen Concentration - - Weight 62.4 kg (137 lb 9.6 oz) 08/28/2021 12:01 PM VP SCIENTIFIC Height 149.9 cm (4' 11 ) 08/28/2021 12:01 PM VP SCIENTIFIC Body Mass Index 27.79 08/28/2021 12:01 PM VP SCIENTIFIC Plan of Treatment Not on file Insurance IDPA [facility] MDCR HMO REF [facility] Address: [address] [address] [place] [address] [facility] [address] IDPA MEDICARE IDPA [facility] MDCR HMO REF [facility]IC[facility] Address: [address] [address] [place] [address] Advance Directives For more information, please contact: [phone] * Full Code (Latest Code Status on File) Date Activated Date Inactivated Comments 01/11/2018 9:46 AM 01/13/2018 2:07 PM * Full Code Date Activated Date Inactivated Comments 08/11/2017 10:49 AM 08/11/2017 2:56 PM Care Teams In Flight Technician Relationship Specialty Start Date End Date Arnaud Martini MD PCP - General Family Practice 08/28/21
--- OUTSIDE RECORDS SUMMARY | 2024-10-19 17:36 | XMS_ITS | Encounter Summary ---
Author Organization [facility] Address [address] [place] [address] Phone Care Team Providers Care Legal Recovery Specialist Name Role Phone Logan Vazquez MD Unavailable Ave Collier MD Primary Care Provider Arnaud Martini MD Primary Care Provider [phone] Logan Vazquez MD Unavailable Ana Aguilar APRN, [facility] Unavailable Breezy Barros MD Primary Care Provider [phone] Reason for Visit * Reason Comments Medication Refill Encounter Details Date Type Department Care Team (Late st Contact Info) Description 12/13/2020 Refill [facility] [address] [place] [address] Logan Vazquez MD [address] [place] [address] Medication Refill Social History Tobacco Use Types Packs/Day Years Used Date Smoking Tobacco: Former Cigarettes 1 45 0 09/10/1975 - 09/09/2020 Smokeless Tobacco: Never Alcohol Use Standard Drinks/Week Comments Yes 4 (1 standard drink = 0.6 oz pur e alcohol) social Comments No Sex and Gender Information Value Date Recorded Sex Assigned at Female 07/26/2024 9:52 PM OFFICE RUNNER Legal Sex Female 9:37 PM CDT Gender Identity Female 07/26/2024 9:52 PM OFFICE RUNNER Sexual Orientation Straight 07/26/2024 9: 52 PM OFFICE RUNNER Occupation Industry Job Start Date Job End [...] Description 11/01/2024 8:45 AM CDT Office Visit [facility] - Internal Medicine [facility] [address] [place] [address] Breezy Barros MD [address] [place] [address] 12/05/2024 1:00 PM CDT Office Visit [facility] - Pulmonology & Sleep Medicine [facility] [address] [place] [address] Logan Vazquez MD [address] [place] [address] 12/12/2024 2:15 PM CDT Office Visit [facility] - Internal Medicine [facility] [address] [place] [address] Breezy Barros MD [address] [place] [address] documented as of this encounter Visit Diagnoses Not on filedocumented in this encounter Additional Health Concerns Infection Onset Date Last Indicated Resolved Time COVID - 19 04/19/2021 04/19/2021 04/21/2021 8:16 AM CDT Respiratory Rule Out - RPA 04/19/2021 04/19/2021 1 3:30 PM CDT COVID - 19 07/07/2021 07/07/2021 07/07/2021 6:29 PM OFFICE RUNNER COVID - 19 Confirmed 07/07/2021 07/07/2021 022 12:16 AM OFFICE RUNNER Respiratory Rule Out - RPA 10/07/2021 10/08/2021 0 10/08/2021 3:24 PM CDT COVID - 19 06/16/2024 06/16/2024 06/16/2024 10:2 3 PM OFFICE RUNNER COVID - 19 09/18/2024 09/18/2024 09/18/2024 10:1 3 PM CDT COVID - 19 09/20/2024 09/20/2024 09/20/2024 11:4 5 PM CDT Influenza 09/20/2024 09/20/2024 09/27/2024 12:1 6 AM CDT documented as of this encounter Care Teams Legal Recovery Specialist Relationship Specialty Start Date End Date Ave Collier MD [address] [place] [address] [address] PCP - General Internal Medicine 03/23/20 04/18/21 Arnaud Martini MD [address] [place] [address] PCP - General Family Medicine 04/19/21 09/04/24 Breezy Barros MD [address] [place] [address] PCP - General Internal Medicine 09/05/24 Logan Vazquez MD Consulting Physician Pulmonary Disease 02/10/17 Logan Vazquez MD [address] [place] [address] Consulting Physician Pulmonary Disease 10/01/21 Ana Aguilar APRN, [employer] INVESTIGATOR [address] [place] [address] Nurse Practitioner Advanced Practice Nurse 06/23/24 documented as of this encounter
--- OUTSIDE RECORDS SUMMARY | 2024-10-19 17:36 | XMS_ITS | Encounter Summary ---
Author Organization [facility] Address [address] [facility] [place] [address] Phone Care Team Providers Care Systems Technologist Name Role Phone Logan Vazquez MD Unavailable Ave Collier MD Primary Care Provider [phone] Arnaud Martini MD Primary Care Provider [phone] Logan Vazquez MD Unavailable Ana Agiular APRN, [facility] Unavailable Breezy Barros MD Primary Care Provider [phone] Reason for Visit * Reason Comments Medication Refill Encounter Details Date Type Department Care Team (Late st Contact Info) Description 02/25/2021 [facility] [address] [place] [address] Quan Ross MD [address] [place] [address] Medication Refill Social History Tobacco Use Types Packs/Day Years Used Date Smoking Tobacco: Every Day Cigarettes 0.5 45 Started: 09/10/1975; Last attempted to quit: 09/09/2020 Smokeless Tobacco: Never Alcohol Use Standard Drinks/Week Comments Yes 4 (1 standard drink = 0.6 oz pur e alcohol) social Comments No Sex and Gender Information Value Date Recorded Sex Assigned at Female 07/26/2024 9:52 PM MAINTENANCE TECHNICIAN Legal Sex Female 9:37 PM CDT Gender Identity Female 07/26/2024 9:52 PM MAINTENANCE TECHNICIAN Sexual Orientation Straight 07/26/2024 9: 52 PM MAINTENANCE TECHNICIAN Occupation Industry Job Start Date Job End [...] Description 11/01/2024 8:45 AM CDT Office Visit [facility] Medical Group - Internal Medicine [facility] [address] [place] [address] Breezy Barros MD [address] [place] [address] 12/05/2024 1:00 PM CDT Office Visit [facility] Medical [facility] - Pulmonology & Sleep Medicine [facility] [address] [place] [address] Logan Vazquez MD [address] [place] [address] 12/12/2024 2:15 PM CDT Office Visit [facility] Medical [facility] - Internal Medicine [facility] [address] [place] [id number] Breezy Barros MD [address] [place] [id number] documented as of this encounter Visit Diagnoses Not on filedocumented in this encounter Additional Health Concerns Infection Onset Date Last Indicated Resolved Time COVID - 19 04/19/2021 04/19/2021 04/21/2021 8:16 AM CDT Respiratory Rule Out - RPA 04/19/2021 04/19/2021 1 3:30 PM CDT COVID - 19 07/07/2021 07/07/2021 07/07/2021 6:29 PM MAINTENANCE TECHNICIAN COVID - 19 Confirmed 07/07/2021 07/07/2021 022 12:16 AM MAINTENANCE TECHNICIAN Respiratory Rule Out - RPA 10/07/2021 10/08/2021 0 10/08/2021 3:24 PM CDT COVID - 19 06/16/2024 06/16/2024 06/16/2024 10:2 3 PM MAINTENANCE TECHNICIAN COVID - 19 09/18/2024 09/18/2024 09/18/2024 10:1 3 PM CDT COVID - 19 09/20/2024 09/20/2024 09/20/2024 11:4 5 PM CDT Influenza 09/20/2024 09/20/2024 09/27/2024 12:1 6 AM CDT documented as of this encounter Care Teams Systems Technologist Relationship Specialty Start Date End Date Ave Collier MD [address] [place] [address] [facility] [place] [address] PCP - General Internal Medicine 03/23/20 04/18/21 Arnaud Martini MD [address] [place] [address] [place] [id number] PCP - General Family Medicine 04/19/21 09/04/24 Breezy Barros MD [address] [facility] [address] [place] [address] PCP - General Internal Medicine 09/05/24 Logan Vazquez MD Consulting Physician Pulmonary Disease 02/10/17 Logan Vazquez MD [address] [place] [phone] Consulting Physician Pulmonary Disease 10/01/21 Ana Aguilar APRN, PROTOCOL OFFICER [address] [place] [address] Nurse Practitioner Advanced Practice Nurse 06/23/24 documented as of this encounter
--- OUTSIDE RECORDS SUMMARY | 2024-10-19 17:36 | XMS_ITS ---
Author Organization [facility] Address [address] [place] [address] Care Team Providers Care Personnel Adviser Name Role Phone Vikash GALVAN, JR Hopkins Primary Care Provider Michel Steel Unavailable [phone] REASON FOR VISIT 6 MO FU LL CR *WEB* Encounters Encounter Location Date Provider Diagnosis Brian Koehler MD PA [address] [place] [address] 07/21/2024 Michel Covington Plan Of Treatment No Information Progress Notes * VASILEYOLANDADOB: (68 yo F)Acc No.[id number]:07/21/2024 Progress Notes Patient: YOLANDA ROSE Provider: Jeanie Covington MD :1955 A ge:68 Y S ex:Female Date:07/21/2024 Address:[address] [facility] [address] [facility] Pcp:JR Sandeep Suh MD Subjective: * Chief Complaints: * 1 . 6 MO FU LL CR *WEB*. * Medical History: Objective: * Vitals: Assessment: Plan: * Treatment: * Billing Information: * Visit Code: * Procedure Codes: * Electronic signature of Lala Covington MD on 10/19/2024 at 06:35 PM EDT Sign off status: Pending * Provider: Jeanie Covington MD Date: 0 07/21/2024 Generated for Printi ng/Faxing/eTransmitting on: 0 10/19/2024 06:35 PM EDT
--- OUTSIDE RECORDS SUMMARY | 2024-10-19 17:36 | XMS_ITS | Encounter Summary ---
Author Organization [facility] Address [address] [place] [address] Phone Care Team Providers Care Linseed Oil Refiner Name Role Phone Logan Vazquez MD Unavailable Ave Collier MD Primary Care Provider [phone] Arnaud Martini MD Primary Care Provider [phone] Logan Vazquez MD Unavailable Ana Aguilar APRN, TOOL GRINDER OPERATOR Unavailable Breezy Barros MD Primary Care Provider [phone] Reason for Visit * Reason Comments Medication Refill Encounter Details Date Type Department Care Team (Late st Contact Info) Description [facility] - [place] [address] [place] [phone] Susan Green APRN, TOOL GRINDER OPERATOR [address] [address] Medication Refill Social History Tobacco Use Types Packs/Day Years Used Date Smoking Tobacco: Every Day Cigarettes 0.5 45 Started: 09/10/1975; Last attempted to quit: 09/09/2020 Smokeless Tobacco: Never Alcohol Use Standard Drinks/Week Comments Yes 4 (1 standard drink = 0.6 oz pur e alcohol) social Comments No Sex and Gender Information Value Date Recorded Sex Assigned at Female 07/26/2024 9:52 PM CLAY PREPARATION SUPERVISOR Legal Sex Female 9:37 PM CDT Gender Identity Female 07/26/2024 9:52 PM CLAY PREPARATION SUPERVISOR Sexual Orientation Straight 07/26/2024 9: 52 PM CLAY PREPARATION SUPERVISOR Occupation Industry Job Start Date Job End [...] Description 11/01/2024 8:45 AM CDT Office Visit [facility] Medical [facility] Internal Medicine [facility] [address] [place] [address] Breezy Barros MD [address] [place] [address] 12/05/2024 1:00 PM CDT Office Visit [facility] - Pulmonology & Sleep Medicine [facility] [place] [address] [place] [address] Logan Vazquez MD [address] [place] [address] 12/12/2024 2:15 PM CDT Office Visit [facility] Internal Medicine [facility] [address] [place] [address] Breezy Barros MD [address] [place] [address] documented as of this encounter Visit Diagnoses Not on filedocumented in this encounter Additional Health Concerns Infection Onset Date Last Indicated Resolved Time COVID - 19 04/19/2021 04/19/2021 04/21/2021 8:16 AM CDT Respiratory Rule Out - RPA 04/19/2021 04/19/2021 1 3:30 PM CDT COVID - 19 07/07/2021 07/07/2021 07/07/2021 6:29 PM CLAY PREPARATION SUPERVISOR COVID - 19 Confirmed 07/07/2021 07/07/2021 022 12:16 AM CLAY PREPARATION SUPERVISOR Respiratory Rule Out - RPA 10/07/2021 10/08/2021 0 10/08/2021 3:24 PM CDT COVID - 19 06/16/2024 06/16/2024 06/16/2024 10:2 3 PM CLAY PREPARATION SUPERVISOR COVID - 19 09/18/2024 09/18/2024 09/18/2024 10:1 3 PM CDT COVID - 19 09/20/2024 09/20/2024 09/20/2024 11:4 5 PM CDT Influenza 09/20/2024 09/20/2024 09/27/2024 12:1 6 AM CDT documented as of this encounter Care Teams Linseed Oil Refiner Relationship Specialty Start Date End Date Ave Collier MD [address] [place] [address] [address] PCP - General Internal Medicine 03/23/20 04/18/21 Arnaud Martini MD [address] [place] [address] PCP - General Family Medicine 04/19/21 09/04/24 Breezy Barros MD [address] [place] [address] [place] [address] PCP - General Internal Medicine 09/05/24 Logan Vazquez MD Consulting Physician Pulmonary Disease 02/10/17 Logan Vazquez MD [address] [place] [address] Consulting Physician Pulmonary Disease 10/01/21 Ana Aguilar APRN, TOOL GRINDER OPERATOR [address] [place] [address] Nurse Practitioner Advanced Practice Nurse 06/23/24 documented as of this encounter
--- OUTSIDE RECORDS SUMMARY | 2024-10-19 17:36 | XMS_ITS | Encounter Summary ---
Author Organization [facility] Address [address] [place] [address] Phone Care Team Providers Care Material Engineer Name Role Phone Logan Vazquez MD Unavailable Logan Vazquez MD Unavailable Ana Aguilar APRN, [facility] Unavailable Breezy Barros MD Primary Care Provider [phone] Reason for Referral * Other (Routine) - Authorized Specialty Diagnoses / Procedures Referred By Contac t Referred To Contact Pulmonology Diagnoses Centrilobular emphysema (HCC) Procedures COMPLETE PFT W + W/O BRONCHODILATOR Logan Vazquez MD [address] [place] [address] Phone: tel: fax: Referral ID Status Reason Start Date Expiration Date V isits Requested Visits Authorized [id number] Authorized 10/09/2024 1 1 Encounter Details Date Type Department Care Team (Late st Contact Info) Description 10/05/2024 Results Follow-Up [facility] - Pulmonology & Sleep Medicine [facility] [address] [facility] [place] [address] Logan Vazquez MD [address] [place] [address] Centrilobular emphysema (HCC) (Primary Dx) Social History Tobacco Use Types Packs/Day Years Used Date Smoking Tobacco: Former Cigarettes 0.5 45 0 09/10/1975 - 09/09/2020 Passive Smoke Exposure: Past Smokeless Tobacco: Never Alcohol Use Standard Drinks/Week Comments Not Currently 4 (1 standard drink = 0.6 oz pur e alcohol) social [facility] Utilities Answer Date Recorded In the past 12 months has e CRE[employer], gas, oil, or water [employer] threatened to shut off services in your [...] week 09/04/2024 How often do you attend [facility] or jew services? More than 4 times per year 09/04/2024 Do you belong to any clubs o r organizations such as methodist groups, unions, fraternal or athletic groups, or [...] Total Score - Questions 1-9 0 08/13 [facility] of Occupat ional Health - Occupational Stress Questionnaire Answer Date [...] any time in the past 12 m [facility], were you homeless or living in a alf (including now)? No 09/04/2024 Sexually Active Control Partners Comments Not Currently Comments No Sex and Gender Information Value Date Recorded Sex Assigned at Female 07/26/2024 9:52 PM ENTERPRISE DATA ARCHITECT Legal Sex Female 9:37 PM CDT Gender Identity Female 07/26/2024 9:52 PM ENTERPRISE DATA ARCHITECT Sexual Orientation Straight 07/26/2024 9: 52 PM ENTERPRISE DATA ARCHITECT Occupation Industry Job Start Date Job End Date [employer] Not on file Not on file Not on file documented as of this encounter Plan of Treatment Upcoming Encounters Date Type Department Care Team (Late st Contact Info) Description 11/01/2024 8:45 AM CDT Office Visit [facility] Internal Medicine [facility] [address] [place] [address] Breezy Barros MD [address] [place] [address] 12/05/2024 1:00 PM CDT Office Visit [facility] Pulmonology & Sleep Medicine [facility] [address] [place] [address] Logan Vazquez MD [address] [place] [address] 12/12/2024 2:15 PM CDT Office Visit [facility] Internal Medicine [place] [address] [place] [address] Breezy Barros MD [address] [place] [address] Scheduled Orders Name Type Priority Associated Diagnoses Orde r Schedule COMPLETE PFT W + W/O BRONCHODILATOR PFT Routine Centrilobular emphysema (HCC) Expected: 10/10/2025, Expires: 04/10/2026 documented as of this encounter Visit Diagnoses Diagnosis Centrilobular emphysema (HCC)- Primary Other emphysema documented in this encounter Additional Health Concerns Assessment Noted Time PHQ-9 Depression Total Score: 0 09/05/19 25 10:31 AM ENTERPRISE DATA ARCHITECT documented as of this encounter Care Teams Material Engineer Relationship Specialty Start Date End Date Breezy Barros MD [address] [place] [address] PCP - General Internal Medicine 09/05/24 Logan Vazquez MD Consulting Physician Pulmonary Disease 02/10/17 Logan Vazquez MD [address] [place] [address] Consulting Physician Pulmonary Disease 10/01/21 Ana Aguilar APRN, WEIGHTS AND MEASURES INSPECTOR [address] [place] [address] Nurse Practitioner Advanced Practice Nurse 06/23/24 documented as of this encounter
--- OUTSIDE RECORDS SUMMARY | 2024-10-19 17:36 | XMS_ITS | Encounter Summary ---
Author Organization [facility] Address [address] [place] [place] [address] Phone Care Team Providers Care Jailer Chief Name Role Phone Logan Vazquze MD Unavailable Arnaud Martini MD Primary Care Provider [phone] Logan Vazquez MD Unavailable Ana Aguilar APRN, DIRECTOR OF FIELD SALES Unavailable Breezy Barros MD Primary Care Provider [phone] Reason for Visit * Reason Comments Medication Refill Encounter Details Date Type Department Care Team (Late st Contact Info) Description 02/03/2022 Refill [facility] Group - Pulmonology & Sleep Medicine [facility] [address] [place] [address] Logan Vazquez MD [address] [place] [address] Medication Refill Social History Tobacco [...] Sex Assigned at Female 07/26/2024 9:52 PM CASINO CAGE MANAGER Legal Sex Female 9:37 PM CDT Gender Identity Female 07/26/2024 9:52 PM CASINO CAGE MANAGER Sexual Orientation Straight 07/26/2024 9: 52 PM CASINO CAGE MANAGER Occupation Industry Job Start Date Job [...] MD [facility] 05/28/21 Office Visit Logan Vazquez MD [facility] 03/13/21 Office Visit Logan Vazquez MD [facility] Showing recent visits within past 365 [...] Description 11/01/2024 8:45 AM CDT Office Visit [facility] Internal Medicine [facility] [address] [place] [address] Breezy Barros MD [address] [facility] [place] [address] 12/05/2024 1:00 PM CDT Office Visit [facility] - Pulmonology & Sleep Medicine [facility] [address] [place] [address] Logan Vazquez MD [address] [place] [address] 12/12/2024 2:15 PM CDT Office Visit [facility] Internal Medicine [facility] [address] [place] [address] Breezy Barros MD [address] [facility] [place] [address] documented as of this encounter Visit Diagnoses Diagnosis Centrilobular emphysema (HCC) Other emphysema documented in this encounter Additional Health Concerns Infection Onset Date Last Indicated Resolved Time COVID - 19 06/16/2024 06/16/2024 06/16/2024 10:2 3 PM CASINO CAGE MANAGER COVID - 19 09/18/2024 09/18/2024 09/18/2024 10:1 3 PM CDT COVID - 19 09/20/2024 09/20/2024 09/20/2024 11:4 5 PM CDT Influenza 09/20/2024 09/20/2024 09/27/2024 12:1 6 AM CDT documented as of this encounter Care Teams Jailer Chief Relationship Specialty Start Date End Date Arnaud Martini MD [address] [place] [address] [place] [address] PCP - General Family Medicine 04/19/21 09/04/24 Breezy Barros MD [address] [place] [address] PCP - General Internal Medicine 09/05/24 Logan Vazquez MD Consulting Physician Pulmonary Disease 02/10/17 Logan Vazquez MD [address] [place] [address] Consulting Physician Pulmonary Disease 10/01/21 Ana Aguilar APRN, DIRECTOR OF FIELD SALES [address] [place] [address] Nurse Practitioner Advanced Practice Nurse 06/23/24 documented as of this encounter
--- OUTSIDE RECORDS SUMMARY | 2024-10-19 17:36 | XMS_ITS | Encounter Summary ---
Author Organization [facility] Address [address] [place] [address] Phone Care Team Providers Care Public Health Social Worker Name Role Phone Logan Vazquez MD Unavailable Ave Collier MD Primary Care Provider Arnaud Martini MD Primary Care Provider [phone] Logan Vazquez MD Unavailable Ana Aguilar APRN, [facility] Unavailable Breezy Barros MD Primary Care Provider [phone] Reason for Visit * Reason Comments Medication Refill Encounter Details Date Type Department Care Team (Late st Contact Info) Description 11/05/2020 Refill [facility] #[address] [place] [address] Logan Vazquez MD [address] [place] [address] Medication Refill Social History Tobacco Use Types Packs/Day Years Used Date Smoking Tobacco: Former Cigarettes 1 45 0 09/10/1975 - 09/09/2020 Smokeless Tobacco: Never Alcohol Use Standard Drinks/Week Comments Yes 4 (1 standard drink = 0.6 oz pur e alcohol) social Comments No Sex and Gender Information Value Date Recorded Sex Assigned at Female 07/26/2024 9:52 PM LINE UP EXAMINER Legal Sex Female 9:37 PM CDT Gender Identity Female 07/26/2024 9:52 PM LINE UP EXAMINER Sexual Orientation Straight 07/26/2024 9: 52 PM LINE UP EXAMINER Occupation Industry Job Start Date Job End [...] 11/01/2024 8:45 AM CDT Office Visit [facility] Medical [facility] Internal Medicine [facility] [address] [place] [address] Breezy Barros MD [address] [place] [address] 12/05/2024 1:00 PM CDT Office Visit [facility] Medical [facility] - Pulmonology & Sleep Medicine [facility] [address] [place] [address] Logan Vazquez MD [address] [place] [address] 12/12/2024 2:15 PM CDT Office Visit [facility] Medical [facility] Internal Medicine [facility] [address] [place] [address] Breezy Barros MD [address] [place] [address] documented as of this encounter Visit Diagnoses Not on filedocumented in this encounter Additional Health Concerns Infection Onset Date Last Indicated Resolved Time COVID - 19 04/19/2021 04/19/2021 04/21/2021 8:16 AM CDT Respiratory Rule Out - RPA 04/19/2021 04/19/2021 1 3:30 PM CDT COVID - 19 07/07/2021 07/07/2021 07/07/2021 6:29 PM LINE UP EXAMINER COVID - 19 Confirmed 07/07/2021 07/07/2021 022 12:16 AM LINE UP EXAMINER Respiratory Rule Out - RPA 10/07/2021 10/08/2021 0 10/08/2021 3:24 PM CDT COVID - 19 06/16/2024 06/16/2024 06/16/2024 10:2 3 PM LINE UP EXAMINER COVID - 19 09/18/2024 09/18/2024 09/18/2024 10:1 3 PM CDT COVID - 19 09/20/2024 09/20/2024 09/20/2024 11:4 5 PM CDT Influenza 09/20/2024 09/20/2024 09/27/2024 12:1 6 AM CDT documented as of this encounter Care Teams Public Health Social Worker Relationship Specialty Start Date End Date Ave Collier MD [address] [place] [address] [address] PCP - General Internal Medicine 03/23/20 04/18/21 Arnaud Martini MD [address] [place] [address] [place] [address] PCP - General Family Medicine 04/19/21 09/04/24 Breezy Barros MD [address] [place] [address] [address] [facility] [place] [address] PCP - General Internal Medicine 09/05/24 Logan Vazquez MD Consulting Physician Pulmonary Disease 02/10/17 Logan Vazquez MD [address] [place] [address] Consulting Physician Pulmonary Disease 10/01/21 Ana Aguilar APRN, [facility] [address] [place] [address] Nurse Practitioner Advanced Practice Nurse 06/23/24 documented as of this encounter
--- OUTSIDE RECORDS SUMMARY | 2024-10-19 17:36 | XMS_ITS | Referral Summary ---
Author Organization [facility] Address [address] [place] [address] Care Team Providers Care Bow Repairer Custom Name Role Phone Arnaud Martini MD Primary Care Provider [phone] Allergies Active Allergy Reactions Criticality Noted Date [...] (10/01/2021): Added automatically from request for surgery [id number] Gastro-esophageal reflux disease without esophag itis 04/28/2021 History of duodenal ulcer 04/28/2021 History of Helicobacter pylori infection 021 Former smoker 04/28/2021 BMI 28.0-28.9,adult 04/28/2021 Tubular adenoma of colon 04/28/2021 Laryngeal spasm 08/05/2020 Assessment & Plan (08/05/2020 9:42 PM CLOCK REPAIRER): Nasal saline spray (Simply saline, Little Remedies, [place], [place]) 2 second sprays or 2 squeezes into each nostril while looking down over the sink, do not need to sniff in 2-3 times daily Pepcid (famotidine) 40 mg at bedtime Humidifier in bedroom Allergic rhinitis 08/05/2020 Assessment & Plan (08/05/2020 9:41 PM CLOCK REPAIRER): Nasal saline spray (Simply saline, Little Remedies, [place], [place]) 2 second sprays or 2 squeezes into each nostril while looking down over the sink, do not need to sniff in 2-3 times daily Flonase (fluticasone) 2 sprays into each nostril while looking down over the sink, do not sniff in or blow nose after use for at least 30 minutes daily Humidifier in bedroom Epistaxis 08/05/2020 Assessment & Plan (08/05/2020 9:41 PM CLOCK REPAIRER): Nasal saline spray (Simply saline, Little Remedies, [place], [place]) 2 second sprays or 2 squeezes into [...] 07/30/2020 Assessment & Plan (08/28/2021 12:15 PM CLOCK REPAIRER): Left adrenal adenoma 1.9 cm detected on [...] year. Assessment & Plan (07/30/2020 9:52 AM CLOCK REPAIRER): Left adrenal adenoma 1.9 cm detected on [...] like Aldosterone/ renin and will rule out Snover's with 1 mg dexamethasone suppression test Obtain [...] get procedural sedation. Advised to discuss with green coffee blender and primary care physician Smoker 01/12/2018 Assessment & Plan (01/12/2018 5:47 AM CDT): Patient states that quit smoking 5 days ago. Will start on Nicoderm patch Encouraged not to return back to the smoking Essential hypertension 01/12/2018 Assessment & Plan (08/28/2021 12:16 PM CLOCK REPAIRER): Controlled with medication Amlodipine and Metoprolol - low salt diet - continue medication per PCP Assessment & Plan (07/30/2020 9:54 AM CLOCK REPAIRER): Controlled with medication Amlodipine and Metoprolol - [...] on file Legal Sex Female 2:19 PM CLOCK REPAIRER Gender Identity Female 07/21/2021 12:54 PM CLOCK REPAIRER Sexual Orientation Not on file Last Filed Vital Signs Vital Sign Reading Time Taken Comments Blood Pressure 120/72 08/28/2021 12:01 PM CLOCK REPAIRER Pulse 88 04/28/2021 10:23 AM CDT Temperature 36.1 C (96.9 F) 04/28/2021 10:23 AM CDT Respiratory Rate 18 01/13/2018 7:51 AM CDT Oxygen Saturation 99% 04/28/2021 10:23 AM CDT Inhaled Oxygen Concentration - - Weight 62.4 kg (137 lb 9.6 oz) 08/28/2021 12:01 PM CLOCK REPAIRER Height 149.9 cm (4' 11 ) 08/28/2021 12:01 PM CLOCK REPAIRER Body Mass Index 27.79 08/28/2021 12:01 PM CLOCK REPAIRER Plan of Treatment Not on file Insurance IDPA [facility] MDCR HMO REF [facility] IDPA MEDICARE IDPA [facility] MDCR HMO REF Advance Directives For more information, please contact: [phone] * Full Code (Latest Code Status on File) Date Activated Date Inactivated Comments 01/11/2018 9:46 AM 01/13/2018 2:07 PM * Full Code Date Activated Date Inactivated Comments 08/11/2017 10:49 AM 08/11/2017 2:56 PM Care Teams Bow Repairer Custom Relationship Specialty Start Date End Date Arnaud Martini MD PCP - General Family Practice 08/28/21
[2024-10-19 17:47] VITALS: BP 121/108; PULSE 93; RESP 16; TEMP 36.9; O2SAT 97
--- NOTE | 2024-10-19 17:59 | ED_ITS ---
HPI - URI/Sore Throat General Chief Complaint: Upper Respiratory Infection Stated Complaint: Congested Time Seen by Provider: 10/19/24 17:59 Source: patient Mode of arrival: ambulatory Limitations: no limitations History of Present Illness HPI Narrative: 68 year old female who presents to [facility] care with complaints of being congested for the past week with low grade fevers and has had increased dyspnea with activity. Patient reports that she has been using her inhalers and also nebulizers and has been coughing up some mucous.Patient reports history of COPD and has has lobectomy for lung cancer. She reports that she no longer uses tobacco.Patient reports that she has had low grade temperature of 100.9F with no body aches, chills or sweats. Patient has taken Ibuprofen for her fevers. MD elicited complaint: fever, cough, rhinorrhea and nasal congestion Pertinent past history: pneumonia, COPD and other (right lobectomy for lung cancer 2014) Onset (ago): week(s) (1) Severity: moderate Description of mucous: other (thick white) Able to tolerate fluids by mouth: Yes Exacerbating factors: exertion Treatments prior to arrival: ibuprofen and other (inhalers and nebulizer treatments) Related Data Home Medications ?Medication ?Instructions ?Recorded ?Confirmed ?Last Taken ?Type famotidine 20 mg tablet 40 mg PO DAILY 05/21/20 10/19/24 Unknown History aspirin 81 mg capsule 81 mg PO DAILY 02/07/24 05/31/24 Unknown History cetirizine 10 mg tablet 10 mg PO DAILY 02/07/24 05/31/24 Unknown History ipratropium 0.5 mg-albuterol 3 mg See Rx Instructions .Route 02/07/24 10/19/24 Unknown History (2.5 mg base)/3 mL nebulization .COMPLEX PRN sob soln ipratropium bromide 17 2 puff inhalation QID 05/15/24 05/31/24 Unknown History mcg/actuation HFA aerosol inhaler (Atrovent HFA) Allergies Allergy/AdvReac Type Severity Reaction Status Date / Time Penicillins Allergy Unknown Rash Verified 10/19/24 17:45 codeine AdvReac Severe Hallucinati Verified 10/19/24 17:45 ng Review of Systems Review of Systems: CONSTITUTIONAL: Reports malaise, chills, sweats, or fever. EYES: Denies visual changes, redness, or discharge. ENT: Reports rhinorrhea, congestion,no sinus pain,no otalgia and no sore thro at. CARDIOVASCULAR: Denies chest pain, palpitations, or edema. RESPIRATORY: Reports cough.? Reports dyspnea. GASTROINTESTINAL: Denies abdominal pain, nausea, vomiting, diarrhea SKIN: Denies rash or itching. MUSCULOSKELETAL: Denies myalgia. NEUROLOGIC: Denies headache. All systems reviewed & are unremarkable except as noted in HPI and below PMFSH Past Medical History Medical History (Updated 10/20/24 @ 00:01 by Pravin Llanes) Sinusitis Trochanteric bursitis of right hip Hip pain COVID-19 Chronic congestion of paranasal sinus Septicemia URI (upper respiratory infection) Cancer Arthritis Asthma Allergies Hyperlipidemia Hypertension Tobacco use COPD (chronic obstructive pulmonary disease) Surgical History Surgical History (Updated 10/20/24 @ 15:16 by Ute Razo NP) History of tonsillectomy S/P lobectomy of lung Family History Family History Mother Bladder cancer Diabetes mellitus Father Gastric cancer Hypertension Heart problem Sibling Diabetes mellitus Other Alcohol abuse Social History Social History Smoking packs per day: 0.5 Smoking cigarettes per day: 10.0 Smoking status: Former smoker Tobacco type: cigarettes Smoking end date: 07/12/21 Substance use: never Living arrangements: with family Spiritual care concerns: No Comments At time of signature, agree with nursing past medical, surgical, social and family history. There is no relevant family history pertinent to the presenting complaint Exam Narrative: GENERAL: Well-appearing, well-nourished, and in no acute distress. HEAD: Normocephalic EYES: PERRLA, conjunctivae clear ENT: Nares clear, turbinates edematous and erythematous, clear discharge. Mucous membranes moist. TM pearly xie with dull light reflex bilaterally; no tragal tenderness. Oropharynx erythematous without lesions. Tonsils not present and throat without exudate, no drooling, no hoarseness, no trismus, uvula midline.post nasal drainage noted NECK: Supple. No lymphadenopathy CHEST: Scattered wheezing on auscultation, breath sounds equal. + wheezing,no rhonchi, rales, or stridor. No respiratory distress, speaks in full sentences.cough present SAO2 97% on room air HEART: Regular rate and rhythm. No murmur heard. SKIN: Warm, dry, no rash. NEURO: Alert and oriented x3. PSYCH: Normal mood and affect Course Course Emergency Course: Patient is aware of diagnosis, understands and agrees to treatment plan.? Anticipatory guidance given.? Patient agrees to follow-up as directed and is aware of reasons to seek care at the emergency department. Portions of this record may have been created with voice recognition software Level of Care: Express Care Visit Vital Signs Vital signs: Vital Signs Temperature 36.9 C 10/19/24 17:47 Pulse Rate 93 10/19/24 17:47 Respiratory Rate 16 10/19/24 17:47 Blood Pressure 121/108 H 10/19/24 17:47 Pulse Oximetry 97 10/19/24 17:47 Temperature 36.9 C 10/19/24 17:47 Pulse Rate 93 10/19/24 17:47 Respiratory Rate 16 10/19/24 17:47 Blood Pressure 126/84 10/19/24 18:18 Pulse Oximetry 97 10/19/24 17:47 Reviewed MDM - URI/Sore Throat MDM Narrative Medical decision making narrative: Differential diagnosis considered: Diaz virus, strep pharyngitis, allergic rhinitis, upper respiratory tract infection, sinusitis, rhinosinusitis, nasopharyngitis. viral pharyngitis, otitis media, otitis externa, pneumonia, bronchitis, viral cough syndrome, viral syndrome, and influenza.? Exam findings show no acute concerns or changes; patient is non-toxic appearing and is in no distress.? Patient is appropriate for outpatient treatment and follow-up. Differential Diagnosis Differential diagnosis: Likely upper respiratory infection, viral infection, bronchitis and other (Exacerbation of COPD acute cough) Medical Records Attestation: I reviewed the patient's medical records. Lab Data Attestation: I reviewed the patient's lab results. Critical Care Time Critical Care Time Critical Care Time: No Discharge Plan Discharge Clinical Impression: COPD without exacerbation Patient Disposition: Home Condition: Stable Instructions: Antibiotic Form, COPD (Chronic Obstructive Pulmonary Disease) (ED) Additional Instructions: Increase fluids especially juices and water Eenu-xlh-usrcnas cough and cold medicine of your choice for your symptoms Zyrtec Claritin or Kenyatta daily include Coricidin brand decongestant Continue your inhaler/nebulizer as directed Steroids as directed--take with food heat to the face 20-30 minutes 4-6 times a day for pain Salt water gargles, throat lozenges or throat sprays as desired Antibiotic as directed--finished the medication If your symptoms persist, change or worsen significantly before you can contact your personal physician then please, without delay, go to the emergency department for further evaluation. Follow-up with PCP in 7-10 days or sooner if needed Follow up with PCP soon in regards to your blood pressure which is elevated above threshold for referral. Blood pressure above 120/80 may indicate pre- hypertension. 121/ 108, recheck manual 126/84 Patient Language: Yemeni Prescriptions: New prednisone 20 mg tablet 20 mg PO BID Qty: 10 0RF Rx Instructions: take with food azithromycin 250 mg tablet See Rx Instructions .ROUTE .COMPLEX Qty: 6 0RF Rx Instructions: For 250 mg dose pack: take 500 mg today (day 1), then 250 mg for 4 days (days 2-5) No Action famotidine 20 mg tablet 40 mg PO DAILY cetirizine 10 mg Tablet 10 mg PO DAILY aspirin 81 mg Capsule 81 mg PO DAILY ipratropium-albuterol 0.5 mg-3 mg(2.5 mg base)/3 mL solution for nebulization See Rx Instructions .ROUTE .COMPLEX PRN (Reason: sob) Rx Instructions: as prescribed Atrovent HFA 17 mcg/actuation HFA aerosol inhaler 2 puff INHALATION QID methylprednisolone [Medrol (Rod)] 4 mg tablets,dose pack See Rx Instructions .ROUTE .COMPLEX Qty: 21 0RF Rx Instructions: orally per package directions fluticasone propionate [Flonase Allergy Relief] 50 mcg/actuation spray,suspension 1 spray intranasal Q12H Qty: 16 3RF Rx Instructions: administer into each nostril fluticasone propion-salmeterol [Wixela Inhub] 500-50 mcg/dose blister with device 1 inh inhalation Q12H Qty: 60 3RF amlodipine 10 mg tablet 10 mg PO DAILY Qty: 90 1RF albuterol sulfate 90 mcg/actuation HFA aerosol inhaler 2 puff INHALATION Q4H PRN (Reason: Shortness Of Breath) Qty: 8.5 3RF bupropion HCl [Wellbutrin XL] 150 mg tablet extended release 24 hr 150 mg PO QAM Qty: 90 1RF citalopram 10 mg tablet 10 mg PO DAILY Qty: 90 1RF lovastatin 40 mg tablet 40 mg PO DIRECTED Qty: 90 1RF metoprolol tartrate 25 mg tablet 12.5 mg PO BID Qty: 180 1RF montelukast 10 mg tablet 10 mg PO DIRECTED Qty: 90 1RF acyclovir 400 mg tablet 400 mg PO BID Qty: 180 1RF Follow-up/Referrals: Papo,Breezy Baird MD [Primary Care Provider] - Time of Disposition: 18:13 Quality [place] Coma Scale Eyes: Open Verbal: Oriented and Alert Motor: Follows Commands [place] Coma Total Score: 15
[2024-10-19 18:18] VITALS: BP 126/84
== END 2024-10-19 18:18 | disposition home or self-care (01) ==
PROVIDERS: Emergency Provider Registered Nurse; PCP Internal Medicine
DX: J44.1 Chronic obstructive pulmonary disease with (acute) exacerbation (principal); Z87.891 Personal history of nicotine dependence; I10 Essential (primary) hypertension; E78.5 Hyperlipidemia, unspecified; M19.90 Unspecified osteoarthritis, unspecified site; Z86.16 Personal history of COVID-19; Z85.118 Personal history of other malignant neoplasm of bronchus and lung; Z90.2 Acquired absence of lung [part of]
CPT/HCPCS: 99213; G0463

== ENCOUNTER 2025-02-11 13:52 | Emergency (ER) | payer MEDICARE, MEDICAID, SELFPAY ==
--- NOTE | ~2025-02-11 | XR_ITS ---
EXAMINATION: XR chest 2V Exam Date/Time: 02/11/2025 14:49 CDT HISTORY: cough, HX lung cancer,nodules,lobectomy Comparison: 01/23/2022. RESULT: Lines, tubes, and devices: Surgical clips over the right upper thorax and mediastinum. Lungs and pleura: Clear. Cardiomediastinal silhouette: Stable. Other: No acute osseous or upper abdominal finding. IMPRESSION: No acute cardiopulmonary process. Reviewed, dictated and finalized at location K.
--- OUTSIDE RECORDS SUMMARY | 2025-02-11 13:55 | XMS_ITS | Encounter Summary ---
Author Organization [facility] Address [address] [place] [address] Phone Care Team Providers Care Content Creation Manager Name Role Phone Logan Vazquez MD Unavailable Ave Collier MD Primary Care Provider [phone] Arnaud Martini MD Primary Care Provider [phone] Logan Vazquez MD Unavailable Ana Aguilar APRN, [facility] Unavailable Breezy Barros MD Primary Care Provider [phone] Reason for Visit * Reason Comments Medication Refill Encounter Details Date Type Department Care Team (Late st Contact Info) Description 11/05/2020 Refill [facility] [address] [place] [address] Logan Vazquez MD [address] [place] [address] Medication Refill Social History Tobacco Use Types Packs/Day Years Used Date Smoking Tobacco: Former Cigarettes 1 45 0 09/10/1975 - 09/09/2020 Smokeless Tobacco: Never Alcohol Use Standard Drinks/Week Comments Yes 4 (1 standard drink = 0.6 oz pur e alcohol) social Comments No Sex and Gender Information Value Date Recorded Sex Assigned at Female 07/26/2024 9:52 PM INFANT LEAD TEACHER Legal Sex Female 9:37 PM CDT Gender Identity Female 07/26/2024 9:52 PM INFANT LEAD TEACHER Sexual Orientation Straight 07/26/2024 9: 52 PM INFANT LEAD TEACHER Occupation Industry Job Start Date Job End [...] Care Team (Late st Contact Info) Description 02/13/2025 3:00 PM CDT Office Visit [facility] - Primary Care [address] [phone] Breezy Barros MD [address] [place] [address] 03/26/2025 2:30 PM CDT Office Visit [facility] - Pulmonology & Sleep Medicine [facility] [address] [place] [phone] Logan Vazquez MD [address] [place] [address] documented as of this encounter Visit Diagnoses Not on filedocumented in this encounter Additional Health Concerns Infection Onset Date Last Indicated Resolved Time COVID - 19 04/19/2021 04/19/2021 04/21/2021 8:16 AM CDT Respiratory Rule Out - RPA 04/19/2021 04/19/2021 1 3:30 PM CDT COVID - 19 07/07/2021 07/07/2021 07/07/2021 6:29 PM INFANT LEAD TEACHER COVID - 19 Confirmed 07/07/2021 07/07/2021 022 12:16 AM INFANT LEAD TEACHER Respiratory Rule Out - RPA 10/07/2021 10/08/2021 0 10/08/2021 3:24 PM CDT COVID - 19 06/16/2024 06/16/2024 06/16/2024 10:2 3 PM INFANT LEAD TEACHER COVID - 19 09/18/2024 09/18/2024 09/18/2024 10:1 3 PM CDT COVID - 19 09/20/2024 09/20/2024 09/20/2024 11:4 5 PM CDT Influenza 09/20/2024 09/20/2024 09/27/2024 12:1 6 AM CDT documented as of this encounter Care Teams Content Creation Manager Relationship Specialty Start Date End Date Ave Collier MD PCP - General Internal Medicine 03/23/20 04/18/21 Arnaud Martini MD [address] [place] [address] PCP - General Family Medicine 04/19/21 09/04/24 Breezy Barros MD [address] [place] [address] PCP - General Internal Medicine 09/05/24 Logan Vazquez MD Consulting Physician Pulmonary Disease 02/10/17 Logan Vazquez MD [address] [place] [address] Consulting Physician Pulmonary Disease 10/01/21 Ana Aguilar APRN, PERSONNEL SUPERVISOR [address] [place] [address] Nurse Practitioner Advanced Practice Nurse 06/23/24 documented as of this encounter
--- OUTSIDE RECORDS SUMMARY | 2025-02-11 13:55 | XMS_ITS | Encounter Summary ---
Author Organization [facility] Address [address] [place] [address] Phone Care Team Providers Care Agriscience Technology Instructor Name Role Phone Logan Vazquez MD Unavailable Arnaud Martini MD Primary Care Provider [phone] Logan Vazquez MD Unavailable Ana Aguilar APRN, GRAVITY MANAGER Unavailable Breezy Barros MD Primary Care Provider [phone] Reason for Visit * Reason Comments Medication Refill Encounter Details Date Type Department Care Team (Late st Contact Info) Description 02/03/2022 Refill [facility] - Pulmonology & Sleep Medicine [facility] [address] [place] [address] Logan Vazquez MD [address] [place] [address] Medication Refill Social History Tobacco [...] Sex Assigned at Female 07/26/2024 9:52 PM FOOT PIECE ASSEMBLER Legal Sex Female 9:37 PM CDT Gender Identity Female 07/26/2024 9:52 PM FOOT PIECE ASSEMBLER Sexual Orientation Straight 07/26/2024 9: 52 PM FOOT PIECE ASSEMBLER Occupation Industry Job Start Date Job [...] Appointment Logan Vazquez MD [facility] Showing future appointments within next 90 days and meeting all other requirements Passed - Active short-acting beta agonist prescription documented in this encounter Plan of Treatment Upcoming Encounters Date Type Department Care Team (Late st Contact Info) Description 02/13/2025 3:00 PM CDT Office Visit [facility] - Primary Care - [address] [place] [address] Breezy Barros MD [address] [place] [address] 03/26/2025 2:30 PM CDT Office Visit [facility] - Pulmonology & Sleep Medicine [facility] [address] [place] [phone] Logan Vazquez MD [address] [place] [address] documented as of this encounter Visit Diagnoses Diagnosis Centrilobular emphysema (HCC) Other emphysema documented in this encounter Additional Health Concerns Infection Onset Date Last Indicated Resolved Time COVID - 19 06/16/2024 06/16/2024 06/16/2024 10:2 3 PM FOOT PIECE ASSEMBLER COVID - 19 09/18/2024 09/18/2024 09/18/2024 10:1 3 PM CDT COVID - 19 09/20/2024 09/20/2024 09/20/2024 11:4 5 PM CDT Influenza 09/20/2024 09/20/2024 09/27/2024 12:1 6 AM CDT documented as of this encounter Care Teams Agriscience Technology Instructor Relationship Specialty Start Date End Date Arnaud Martini MD [address] [place] [address] PCP - General Family Medicine 04/19/21 09/04/24 Breezy Barros MD [address] [place] [address] PCP - General Internal Medicine 09/05/24 Logan Vazquez MD Consulting Physician Pulmonary Disease 02/10/17 Logan Vazquez MD [address] [place] [address] Consulting Physician Pulmonary Disease 10/01/21 Ana Aguilar APRN, GRAVITY MANAGER [address] [place] [address] Nurse Practitioner Advanced Practice Nurse 06/23/24 documented as of this encounter
--- OUTSIDE RECORDS SUMMARY | 2025-02-11 13:55 | XMS_ITS | Patient Health Record ---
Author Organization [facility] Address [address] [facility] [address] [place] [address] Care Team Providers Care Golf Course Designer Name Role Phone -Do Not use, PCP [...] Albuterol Sulfate HFA 108 (90 Base) MCG/ACT Inhalation; Duration: 17 Days Active Ipratropium-Albuterol 0.5-2.5 (3) MG/3ML USE 1 AMPULE IN NEBULIZER 4 TIMES DAILY Inhalation; Duration: 7 Days Active buPROPion HCl ER (XL) 150 MG 1 tablet in the morning Orally Once a day Active amLODIPine Besylate 10 MG 1 tablet Orally Once a day Active Acyclovir 400 MG Oral; Duration: 30 Days Active predniSONE 20 MG 2 tablet Orally Once a day; Duration: 5 days Active Advair Diskus 500-50 MCG/ACT Inhalation; Duration: 30 Days Active Problems Problem Type SNOMED Code ICD Code Onset Dates Problem Status W/U Status Risk Notes Problem COPD (chronic obstructive pulmonary disease) with acute bronchitis (J44.0) Active confirmed Plan Of Treatment No Information Insurance Providers Payer Name Payer Address Payer Phone Subscriber Number Group Number Insured Name Patient Relationship to Insured Coverage Start Date Coverage End Date Medicare of [place] [employer] [address] [place] [phone] [id number] Maeve Smith Self - patient is the insured 2 [employer] [address] [place] [address] [id number] Maeve Smith Self - patient is the [...]
--- OUTSIDE RECORDS SUMMARY | 2025-02-11 13:55 | XMS_ITS | Encounter Summary ---
Author Organization [facility] Address [address] [place] [address] Phone Care Team Providers Care Lacing Operator Name Role Phone Logan Vazquez MD Unavailable Ave Collier MD Primary Care Provider [phone] Arnaud Martini MD Primary Care Provider [phone] Logan Vazquez MD Unavailable Ana Aguilar APRN, [facility] Unavailable Breezy Barros MD Primary Care Provider [phone] Reason for Visit * Reason Comments Medication Refill Encounter Details Date Type Department Care Team (Late st Contact Info) Description 08/18/2020 Refill [facility] [address] [place] [address] Logan Vazquez MD [address] [place] [address] Medication Refill Social History Tobacco Use Types Packs/Day Years Used Date Smoking Tobacco: Every Day Cigarettes 0.5 45 Smokeless Tobacco: Never Comments:3-4 cigs a day Alcohol Use Standard Drinks/Week Comments Yes 4 (1 standard drink = 0.6 oz pur e alcohol) social Comments No Sex and Gender Information Value Date Recorded Sex Assigned at Female 07/26/2024 9:52 PM DIRECTOR OF TEACHING AND LEARNING Legal Sex Female 9:37 PM CDT Gender Identity Female 07/26/2024 9:52 PM DIRECTOR OF TEACHING AND LEARNING Sexual Orientation Straight 07/26/2024 9: 52 PM DIRECTOR OF TEACHING AND LEARNING Occupation Industry Job Start Date Job End Date [employer] Not on file Not on file Not on file COVID-19 Exposure Response Date Recorded In the last month, have you been in contact with someone who was confirmed or suspected to have Coronavirus / COVID-19? No / Unsure 08/13/2020 12:49 PM DIRECTOR OF TEACHING AND LEARNING documented as of this encounter Plan of Treatment Upcoming Encounters Date Type Department Care Team (Late st Contact Info) Description 02/13/2025 3:00 PM CDT Office Visit [facility] - Primary Care [facility] [address] [place] [phone] Breezy Barros MD [address] [place] [place] [address] 03/26/2025 2:30 PM CDT Office Visit [facility] - Pulmonology & Sleep Medicine [facility] [address] [place] [phone] Logan Vazquez MD [address] [place] [address] documented as of this encounter Visit Diagnoses Not on filedocumented in this encounter Additional Health Concerns Infection Onset Date Last Indicated Resolved Time COVID - 19 04/19/2021 04/19/2021 04/21/2021 8:16 AM CDT Respiratory Rule Out - RPA 04/19/2021 04/19/2021 1 3:30 PM CDT COVID - 19 07/07/2021 07/07/2021 07/07/2021 6:29 PM DIRECTOR OF TEACHING AND LEARNING COVID - 19 Confirmed 07/07/2021 07/07/2021 022 12:16 AM DIRECTOR OF TEACHING AND LEARNING Respiratory Rule Out - RPA 10/07/2021 10/08/2021 0 10/08/2021 3:24 PM CDT COVID - 19 06/16/2024 06/16/2024 06/16/2024 10:2 3 PM DIRECTOR OF TEACHING AND LEARNING COVID - 19 09/18/2024 09/18/2024 09/18/2024 10:1 3 PM CDT COVID - 19 09/20/2024 09/20/2024 09/20/2024 11:4 5 PM CDT Influenza 09/20/2024 09/20/2024 09/27/2024 12:1 6 AM CDT documented as of this encounter Care Teams Lacing Operator Relationship Specialty Start Date End Date Ave Collier MD PCP - General Internal Medicine 03/23/20 04/18/21 Arnaud Martini MD [address] [place] [address] PCP - General Family Medicine 04/19/21 09/04/24 Breezy Barros MD [address] [place] [address] PCP - General Internal Medicine 09/05/24 Logan Vazquez MD Consulting Physician Pulmonary Disease 02/10/17 Logan Vazquez MD [address] [facility] [place] [phone] Consulting Physician Pulmonary Disease 10/01/21 Ana Aguilar APRN, [employer] [address] [facility] [place] [address] Nurse Practitioner Advanced Practice Nurse 06/23/24 documented as of this encounter
--- OUTSIDE RECORDS SUMMARY | 2025-02-11 13:55 | XMS_ITS ---
Author Organization [facility] Address [address] [place] [address] Care Team Providers Care Retail Greeting Card Merchandiser Name Role Phone Vikash GALVAN, JR Hopkins Primary Care Provider Michel Steel Unavailable [phone] REASON FOR VISIT 6 MO FU LL CR *WEB* Encounters Encounter Location Date Provider Diagnosis [facility] [address] [place] [address] 07/21/2024 Michel Covington Plan Of Treatment No Information Progress Notes * VASILE YOLANDA CastDOB: (69 yo F)Acc No.[id number]:07/21/2024 Progress Notes Patient: YOLANDA ROSE Provider: Jeanie Covington MD :1955 A ge:68 Y S ex:Female Date:07/21/2024 Address:[address] , [address] Pcp:JR Sandeep Suh MD Subjective: * Chief Complaints: * 1 . 6 MO FU LL CR *WEB*. * Medical History: Objective: * Vitals: Assessment: Plan: * Treatment: * Billing Information: * Visit Code: * Procedure Codes: * Electronic signature of Lala Covington MD on 02/11/2025 at 02:55 PM EDT Sign off status: Pending * Provider: Jeanie Covington MD Date: 0 07/21/2024 Generated for Printi ng/Faxing/eTransmitting on: 0 02/11/2025 02:55 PM EDT
--- OUTSIDE RECORDS SUMMARY | 2025-02-11 13:55 | XMS_ITS | Patient Health Record ---
Author Organization [facility] Address [address] [place] [address] Care Team Providers Care Spud Sorter Name Role Phone Vikash GALVAN, JR BlumSandeep Primary Care Provider Ale Gabriela Stoddardramonita Unavailable [phone] Allergies Allergen (clinical drug ingredient) Drug/Non Drug [...] TAKE 2 PUFFS 4 T IMES A DAY; Duration: 90 Active predniSONE 20 MG 1 tablet Orally Once a day Not-Taking Zithromax Z-Rod 250 MG two tablets first day and one tablet for 4 days Orally as directed; Duration: 5 days 07/13/2023 Active Immunizations Vaccine Route [...] drinker. 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 . She has 3 children, all in their 40s. She smoked 1 pack of cigarettes for 50 years. She quit smoking in 02/2022. Social drinker. 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 . She has 3 children, all in their 40s. She smoked 1 pack of cigarettes for 50 years. She quit smoking in 02/2022. Social drinker. 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 . She has 3 children, all in their 40s. She smoked 1 pack of cigarettes for 50 years. She quit smoking in 02/2022. Social drinker. 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 . She has 3 children, all in their 40s. She smoked 1 pack of cigarettes for 50 years. She quit smoking in 02/2022. Social drinker. 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 . She has 3 children, all in their 40s. She smoked 1 pack of cigarettes for 50 years. She quit smoking in 02/2022. Social drinker. 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 . She has 3 children, all in their 40s. She smoked 1 pack of cigarettes for 50 years. She quit smoking in 02/2022. Social drinker. 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 . She has 3 children, all in their 40s. She smoked 1 pack of cigarettes for 50 years. She quit smoking in 02/2022. Social drinker. 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 . She has 3 children, all in their 40s. She smoked 1 pack of cigarettes for 50 years. She quit smoking in 02/2022. Social drinker. 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 . She has 3 children, all in their 40s. She smoked 1 pack of cigarettes for 50 years. She quit smoking in 02/2022. Social drinker. 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 Problems Problem Type SNOMED Code ICD Code Onset Dates Problem Status W/U Status Risk Notes Problem Arthritis (0108391) ARTHRITIS (M06.9) Active confirmed Problem LUNG CA (C34.81) Active confirmed Problem Obstructive sleep apnea (39490042) OBSTRUCTIVE SLEEP APNEA (G47.33) Active confirmed Problem Renal failure (28542846) RENAL FAILURE (N19) Active confirmed Problem Hyperlipidaemia (06561626) HYPERLIPEMIA (E78.5) Active confirmed Problem Asthma (415438954) ASTHMA (J45.909) Active confirmed Problem COPD - Chronic obstructive pulmonary disease (84817467) Chronic obstructive pulmonary disease, unspecified COPD type (J44.9) Active confirmed Problem Essential hypertension (37138985) HTN (hypertension), benign (I10) Active confirmed Problem Chronic obstructive pulmonary disease (21213334) Advanced COPD (J44.9) Active confirmed Encounters Encounter Location Date Provider Diagnosis Brian LEONG [address] [place] [address] 02/22/2024 Michel Covington Plan Of Treatment Pending Test Test Name Order Date CT Scan : Chest with contrast 06/19/2022 CT Scan : Chest without contrast 024 Insurance Providers Payer Name Payer Address Payer Phone Subscriber Number Group Number Insured Name Patient Relationship to Insured Coverage Start Date Coverage End Date [employer] [address] [address] [place] [address] [id number] YOLANDA BURNETTE Self - patient is the insured 3 MEDICAID [id number] [address] [place] [address] [id number] YOLANDA BURNETTE Self - patient is the [...]
--- OUTSIDE RECORDS SUMMARY | 2025-02-11 13:55 | XMS_ITS | Encounter Summary ---
Author Organization [facility] Address [address] [place] [address] Phone Care Team Providers Care Front Services Agent Name Role Phone Logan Vazquez MD Unavailable Ave Collier MD Primary Care Provider Arnaud Martini MD Primary Care Provider [phone] Logan Vazquez MD Unavailable Ana Aguilar APRN, [facility] Unavailable Breezy Barros MD Primary Care Provider [phone] Reason for Visit * Reason Comments Medication Refill Encounter Details Date Type Department Care Team (Late st Contact Info) Description 12/13/2020 Refill [facility] [address] [place] [address] Logan Vazquez MD [address] [place] [address] Medication Refill Social History Tobacco Use Types Packs/Day Years Used Date Smoking Tobacco: Former Cigarettes 1 45 0 09/10/1975 - 09/09/2020 Smokeless Tobacco: Never Alcohol Use Standard Drinks/Week Comments Yes 4 (1 standard drink = 0.6 oz pur e alcohol) social Comments No Sex and Gender Information Value Date Recorded Sex Assigned at Female 07/26/2024 9:52 PM [employer]EL[employer] SUPERVISOR Legal Sex Female 9:37 PM CDT Gender Identity Female 07/26/2024 9:52 PM [employer] SUPERVISOR Sexual Orientation Straight 07/26/2024 9: 52 PM [employer] SUPERVISOR Occupation Industry Job Start Date Job [...] Description 02/13/2025 3:00 PM CDT Office Visit [facility] - [place] [address] [place] [address] Breezy Barros MD [address] [place] [address] 03/26/2025 2:30 PM CDT Office Visit [facility] - Pulmonology & Sleep Medicine [facility] [address] [place] [address] Logan Vazquez MD [address] [place] [address] documented as of this encounter Visit Diagnoses Not on filedocumented in this encounter Additional Health Concerns Infection Onset Date Last Indicated Resolved Time COVID - 19 04/19/2021 04/19/2021 04/21/2021 8:16 AM CDT Respiratory Rule Out - RPA 04/19/2021 04/19/2021 1 3:30 PM CDT COVID - 19 07/07/2021 07/07/2021 07/07/2021 6:29 PM [employer] MEL[employer] SUPERVISOR COVID - 19 Confirmed 07/07/2021 07/07/2021 022 12:16 AM [employer] M[employer] SUPERVISOR Respiratory Rule Out - RPA 10/07/2021 10/08/2021 0 10/08/2021 3:24 PM CDT COVID - 19 06/16/2024 06/16/2024 06/16/2024 10:2 3 PM [employer] SUPERVISOR COVID - 19 09/18/2024 09/18/2024 09/18/2024 10:1 3 PM CDT COVID - 19 09/20/2024 09/20/2024 09/20/2024 11:4 5 PM CDT Influenza 09/20/2024 09/20/2024 09/27/2024 12:1 6 AM CDT documented as of this encounter Care Teams Front Services Agent Relationship Specialty Start Date End Date Ave Collier MD PCP - General Internal Medicine 03/23/20 04/18/21 Arnaud Martini MD [address] [place] [address] PCP - General Family Medicine 04/19/21 09/04/24 Breezy Barros MD [address] [place] [address] [place] [address] PCP - General Internal Medicine 09/05/24 Logan Vazquez MD Consulting Physician Pulmonary Disease 02/10/17 Logan Vazquez MD [address] [place] [address] Consulting Physician Pulmonary Disease 10/01/21 Ana Aguilar APRN, [facility] [address] [place] [address] Nurse Practitioner Advanced Practice Nurse 06/23/24 documented as of this encounter
--- OUTSIDE RECORDS SUMMARY | 2025-02-11 13:55 | XMS_ITS | Encounter Summary ---
Author Organization [facility] Address [address] [place] [place] [address] Phone Care Team Providers Care Faculty Physician Name Role Phone Logan Vazquez MD Unavailable Ave Collier MD Primary Care Provider [phone] Arnaud Martini MD Primary Care Provider [phone] Logan Vazquez MD Unavailable Ana Aguilar APRN, [facility] Unavailable Breezy Barros MD Primary Care Provider [phone] Encounter Details Date Type Department Care Team (Late st Contact Info) Description 07/29/2020 Transcribe Orders [facility] Central Scheduling [address] [place] [address] Mikal Espinosa MD [address] [place] [address] Social History Tobacco Use Types Packs/Day Years Used Date Smoking Tobacco: Every Day Cigarettes 0.5 45 Smokeless Tobacco: Never Comments:3-4 cigs a day Alcohol Use Standard Drinks/Week Comments Yes 4 (1 standard drink = 0.6 oz pur e alcohol) social Comments No Sex and Gender Information Value Date Recorded Sex Assigned at Female 07/26/2024 9:52 PM SAS ANALYST Legal Sex Female 9:37 PM CDT Gender Identity Female 07/26/2024 9:52 PM SAS ANALYST Sexual Orientation Straight 07/26/2024 9: 52 PM SAS ANALYST Occupation Industry Job Start Date Job End Date [employer] Not on file Not on file Not on file COVID-19 Exposure Response Date Recorded In the last month, have you been in contact with someone who was confirmed or suspected to have Coronavirus / COVID-19? No / Unsure 07/22/2020 9:27 AM SAS ANALYST documented as of this encounter Plan of Treatment Upcoming Encounters Date Type Department Care Team (Late st Contact Info) Description 02/13/2025 3:00 PM CDT Office Visit [facility] - Primary Care [facility] [address] [place] [address] Breezy Barros MD [address] [place] [address] 03/26/2025 2:30 PM CDT Office Visit [facility] - Pulmonology & Sleep Medicine [facility] [address] [place] [phone] Logan Vazquez MD [address] [place] [address] documented as of this encounter Visit Diagnoses Not on filedocumented in this encounter Additional Health Concerns Infection Onset Date Last Indicated Resolved Time COVID - 19 04/19/2021 04/19/2021 04/21/2021 8:16 AM CDT Respiratory Rule Out - RPA 04/19/2021 04/19/2021 1 3:30 PM CDT COVID - 19 07/07/2021 07/07/2021 07/07/2021 6:29 PM SAS ANALYST COVID - 19 Confirmed 07/07/2021 07/07/20212 022 12:16 AM SAS ANALYST Respiratory Rule Out - RPA 10/07/2021 10/08/2021 0 10/08/2021 3:24 PM CDT COVID - 19 06/16/2024 06/16/2024 06/16/2024 10:2 3 PM SAS ANALYST COVID - 19 09/18/2024 09/18/2024 09/18/2024 10:1 3 PM CDT COVID - 19 09/20/2024 09/20/2024 09/20/2024 11:4 5 PM CDT Influenza 09/20/2024 09/20/2024 09/27/2024 12:1 6 AM CDT documented as of this encounter Care Teams Faculty Physician Relationship Specialty Start Date End Date Ave Collier MD PCP - General Internal Medicine 03/23/20 04/18/21 Arnaud Martini MD [address] [place] [address] PCP - General Family Medicine 04/19/21 09/04/24 Breezy Barros MD [address] [place] [address] PCP - General Internal Medicine 09/05/24 Logan Vazquez MD Consulting Physician Pulmonary Disease 02/10/17 Logan Vazquez MD [address] [place] [id number] Consulting Physician Pulmonary Disease 10/01/21 Ana Aguilar APRN, [employer] [address] [place] [address] Nurse Practitioner Advanced Practice Nurse 06/23/24 documented as of this encounter
--- OUTSIDE RECORDS SUMMARY | 2025-02-11 13:55 | XMS_ITS | Clinical Summary ---
Author Organization [facility] Address [address] [place] [address] Phone Care Team Providers Care Wire Brush Maker Name Role Phone Logan Vazquez MD Unavailable Logan Vazquez MD Unavailable Ana Aguilar APRN, [facility] Unavailable Breezy Barros MD Primary Care Provider [phone] Allergies Active Allergy Reactions Criticality Noted Date [...] Take 10 mg by mouth daily. Active methylPREDNISol one (MEDROL DOSPACK) 4 MG Tablet Therapy Pack See product package insert for dosing schedule 21 Tablet 5 Active Active Problems Problem Noted Date Diagnosed [...] Encounters Date Type Department Care Team Description 12/29/2024 6:19 PM CDT - 12/29/2024 11:59 PM CDT Hospital Encounter [facility] [address] [place] [address] Logan Vazquez MD Discharge Disposition: Discharged to home or Selfcare 12/29/2024 Travel 12/19/2024 2:00 PM CDT Office Visit [facility] - Pulmonology & Sleep Medicine [facility] [address] [place] [address] Logan Vazquez MD Centrilobular emphysema (HCC) (Primary Dx); Essential (primary) hypertension; 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 No 09/04/2024 Social Connection and Isolation Panel Answer Date Recorded In a typical week, how many times do you talk on the phone with family, friends, or neighbors? More than three times a week 09/04/2024 How often do you get togethe r with friends or relatives? More than three times a week 09/04/2024 How often do you attend chur ch or yazidism services? More than 4 times per year 09/04/2024 Do you belong to any clubs o r organizations such as quaker groups, unions, fraternal or athletic groups, or [...] Recorded Total Score - Questions 1-9 0 05/0 07/2024 [facility] Occupat ional Health - Occupational Stress [...] any time in the past 12 m [facility], were you homeless or living in a chcf (including now)? No 09/04/2024 Sexually Active Control Partners Comments Not Currently Comments No Sex and Gender Information Value Date Recorded Sex Assigned at Female 07/26/2024 9:52 PM WHEEL ALIGNER Legal Sex Female 9:37 PM CDT Gender Identity Female 07/26/2024 9:52 PM WHEEL ALIGNER Sexual Orientation Straight 07/26/2024 9: 52 PM WHEEL ALIGNER Occupation Industry Job Start Date Job End Date [employer] Not on file Not on file Not on file Last Filed Vital Signs Vital Sign Reading Time Taken Comments Blood Pressure 110/70 12/19/2024 2:23 PM CDT Pulse 74 12/19/2024 2:23 PM CDT Temperature 36.2 C (97.2 F) 12/19/2024 2:23 PM CDT Respiratory Rate 14 12/19/2024 2:23 PM CDT Oxygen Saturation 96% 12/19/2024 2:23 PM CDT Inhaled Oxygen Concentration - - Weight 72.2 kg (159 lb 3.2 oz) 12/19/2024 2:23 P M CDT Height 152.4 cm (5') 12/19/2024 2:23 PM CDT Body Mass Index 31.09 12/19/2024 2:23 PM CDT Plan of Treatment Upcoming Encounters Date Type Department Care Team (Late st Contact Info) Description 02/13/2025 3:00 PM CDT Office Visit [facility] - Primary Care - [place] [address] [place] [address] Breezy Barros MD [address] [place] [address] 03/26/2025 2:30 PM CDT Office Visit [facility] - Pulmonology & Sleep Medicine [facility] [address] [place] [address] Logan Vazquez MD [address] [place] [address] Health Maintenance Due Date Last Done Comments DEXA Bone Density 1955 Hepatitis C Virus (HCV) Screening 1955 Cologuard 2001 Immunochemical Fecal Occult Blood 05/15/2020 05/15/2019 SARS-COV-2 Immunization ( season) 2024 02/06/2022, 06/09/2021, 11/28/2020 Influenza Immunization (#1) 03/12/202508/2023, 04/11/2022, 03/29/2019, Additional history exists Mammogram 10/13/2025 10/13/2024, 08/12, 07/20/2020, Additional history exists Colonoscopy 07/25/2029 07/25/2024, 03/0 11/2020, 03/23/2017 Colorectal Cancer Screening 07/25/2029 DTaP/Tdap/Td Immunization Discontinued 03/12/2017 TdaP Immunization Completed 03/12/2017 Pneumococcal Immunization (50+ years) Completed 01/07/2023, 05/09/2019 Pneumococcal Immunization Combined Discontinued 01/07/2023, 05/09/2019 Respiratory Syncytial Virus (RSV) Immunization (Adult) Completed 04/12/2024 Zoster Immunization Completed 04/12/2024, Hepatitis B Immunization Aged Out No longer eligible based on patient's age to complete this topic Human Papillomavirus (HPV) Immunization Aged Out No longer eligible based on patient's age to complete this topic Meningococcal Immunization (ACWY) Aged Out No longer eligible based on patient's age to complete this topic Rotavirus Immunization Aged Out No lo nger eligible based on patient's age to complete this topic Procedures Procedure Name Priority Date/Time Associated Diagnosis Comments CT CHEST W/O CONTRAST Routine 12/29/2024 6:29 PM CDT Lung nodules IN-HOME CONSULT 12/25/2024 12:00 AM CDT STEPHANIE SCREENING BILATERAL DIGITAL W CAD W LAVERN Routine 10/13/2024 4:13 PM CDT Breast cancer screening by mammogram HM COLONOSCOPY Routine 03/23/2017 from Last 3 Months or Most Recently Relevant to Health Maintenance Results * CT CHEST W/O CONTRAST (12/29/2024 6:29 PM CDT) Anatomical Region Laterality Modality Chest N/A Computed Tomogra phy 01/15/2025 9:20 PM CDT Impressions 01/15/2025 9:23 PM CDT IMPRESSION: 1. Stable postoperative changes of the right upper lobe. 2. Stable small pulmonary nodules. No enlarging pulmonary nodule. Per Fleischner Society Guidelines, no follow-up needed if patient is low-risk (and has no known or suspected primary neoplasm). Non-contrast chest CT can be considered in 12 months if patient is high-risk. 3. Stable left adrenal nodule. 4. Severe coronary artery calcification. 5. Mild centrilobular pulmonary emphysema. 6. Previously noted ground-glass focus in the anteromedial right upper lobe anterior to the postoperative changes is no longer identified. Narrative 01/15/2025 9:23 PM CDT EXAM DESCRIPTION: CT CHEST W/O CONTRAST REASON FOR STUDY: Fu lung + year. Hx RUL lung ca since 01/2015, hx copd, htn,lung surgery rul and former smoker. TECHNIQUE: CT scan of the chest performed without intravenous contrast using helical scanning technique. Reconstructed coronal and sagittal MPR images reviewed. All images stored on PACS. Automated exposure control was used as a dose optimization technique for this examination. COMPARISON: Comparison 06/22/2024. FINDINGS: The sensitivity for detection of solid visceral lesions is diminished without the use of intravenous contrast. LUNGS: Mild centrilobular pulmonary emphysema again evident. Stable postoperative changes of the right upper lobe lobectomy. Stable linear scarring in the medial lingula. Reticular opacities in the periphery of the lateral right middle lobe are also stable. Stable 5 mm subpleural nodule in the lateral left lower lobe (4:184). Additional 5 mm nodule in the lateral left lower lobe, (4:166) is stable. Small 2-3 mm nodule in the posteromedial right lower lobe (4: 129) additional 3 mm nodule in the lateral subpleural left lower lobe 4:112) small 2-3 mm scattered subpleural nodules in the periphery of the upper lobes also stable. No enlarging pulmonary nodule. Previously noted ground-glass focus in the anteromedial right upper lobe anterior to the postoperative changes is no longer identified. PLEURA: No effusion. No pneumothorax. MEDIASTINUM/SHAYAN: No identified masses or abnormal nodes. HEART: Heart size is normal with no pericardial effusion. CORONARY ARTERY CALCIFICATION: Severe VASCULATURE: No thoracic aortic aneurysm. AXILLA: No adenopathy. CHEST WALL: No masses. No subcutaneous air. HARDWARE/LINES/TUBES: None. UPPER ABDOMEN: Stable left adrenal nodule measuring 2.4 cm diameter. The nodule is relatively low in density and is unchanged. MUSCULOSKELETAL: No significant abnormality. OTHER: No other significant abnormality. THIS IS AN ELECTRONICALLY VERIFIED FINAL REPORT 01/15/2025 9:20 PM - Electronically signed by Nancy Hernadez M.D. LC: DIEGO Report ID: [id number] Reading Location: [id number] Procedure Note Katalina Hernadez MD - 01/15/2025 EXAM DESCRIPTION: CT CHEST W/O CONTRAST REASON FOR STUDY: Fu lung [id number]+ year. Hx RUL lung ca since 01/2015, hx copd, htn,lung surgery rul and former smoker. TECHNIQUE: CT scan of the chest performed without intravenous contrast using helical scanning technique. Reconstructed coronal and sagittal MPR images reviewed. All images stored on PACS. Automated exposure control was used as a dose optimization technique for this examination. COMPARISON: Comparison 06/22/2024. FINDINGS: The sensitivity for detection of solid visceral lesions is diminished without the use of intravenous contrast. LUNGS: Mild centrilobular pulmonary emphysema again evident. Stable postoperative changes of the right upper lobe lobectomy. Stable linear scarring in the medial lingula. Reticular opacities in the periphery of the lateral right middle lobe are also stable. Stable 5 mm subpleural nodule in the lateral left lower lobe (4:184). Additional 5 mm nodule in the lateral left lower lobe, (4:166) is stable. Small 2-3 mm nodule in the posteromedial right lower lobe (4: 129) additional 3 mm nodule in the lateral subpleural left lower lobe 4:112) small 2-3 mm scattered subpleural nodules in the periphery of the upper lobes also stable. No enlarging pulmonary nodule. Previously noted ground-glass focus in the anteromedial right upper lobe anterior to the postoperative changes is no longer identified. PLEURA: No effusion. No pneumothorax. MEDIASTINUM/SHAYAN: No identified masses or abnormal nodes. HEART: Heart size is normal with no pericardial effusion. CORONARY ARTERY CALCIFICATION: Severe VASCULATURE: No thoracic aortic aneurysm. AXILLA: No adenopathy. CHEST WALL: No masses. No subcutaneous air. HARDWARE/LINES/TUBES: None. UPPER ABDOMEN: Stable left adrenal nodule measuring 2.4 cm diameter. The nodule is relatively low in density and is unchanged. MUSCULOSKELETAL: No significant abnormality. OTHER: No other significant abnormality. THIS IS AN ELECTRONICALLY VERIFIED FINAL REPORT 01/15/2025 9:20 PM - Electronically signed by Nancy Hernadez M.D. LC: DIEGO Report ID: [id number] Reading Location: [id number] IMPRESSION: 1. Stable postoperative changes of the right upper lobe. 2. Stable small pulmonary nodules. No enlarging pulmonary nodule. Per Fleischner Society Guidelines, no follow-up needed if patient is low-risk (and has no known or suspected primary neoplasm). Non-contrast chest CT can be considered in 12 months if patient is high-risk. 3. Stable left adrenal nodule. 4. Severe coronary artery calcification. 5. Mild centrilobular pulmonary emphysema. 6. Previously noted ground-glass focus in the anteromedial right upper lobe anterior to the postoperative changes is no longer identified. Logan Vazquez MD IMG CT ORDERABLES Final Result * IN-HOME CONSULT (12/25/2024 12:00 AM CDT) 12/25/2024 us Provider Scan GENERIC SCAN ORDERS CONSULT Aide l Result SCAN * STEPHANIE SCREENING BILATERAL DIGITAL W CAD [...] to exams dated: 08/27/2021, 08/13/2020, and 07/20/2020 [facility]. BREAST TISSUE:There are scattered areas of fibroglandular [...] exam. Electronically signed by: Dee Echevarria M.D. /penrad:10/16/2024 15:21:16 Supervisor Acoustical Tile Carpenters(s): RT Pepito(R)(M), [facility] letter sent: Normal Exam Reading location: [...] exams dated: 08/27/2021, 08/13/2020, and 07/20/2020 [facility]. BREAST TISSUE:There are scattered areas of [...] next screening exam. Electronically signed by: Dee andrew/penrad:10/16/2024 15:21:16 Supervisor Acoustical Tile Carpenters(s): RT Pepito(R)(M), [facility] letter sent: Normal Exam Reading location: [facility] Mammogram BI-RADS: Category 1: Negative us Breezy Barros MD IMG MAMMO ORDERABLES Final Result * HM COLONOSCOPY (03/23/2017) Ajay Cortez MD PROCEDURE/MINOR SURGICAL OR DERABLES Final Result from Last 3 Months or Most Recently Relevant to Health Maintenance Insurance MEDICAID [place] MEDICARE C [facility] Advance Directives * Full Code (Latest Code [...] measures to stabilize the patient. Care Teams Wire Brush Maker Relationship Specialty Start Date End Date Breezy Barros MD [address] [place] [address] PCP - General Internal Medicine 09/05/24 Logan Vazquez MD Consulting Physician Pulmonary Disease 02/10/17 Logan Vazquez MD [address] [place] [address] Consulting Physician Pulmonary Disease 10/01/21 Ana Aguilar APRN, RN PRODUCTION [address] [place] [address] Nurse Practitioner Advanced Practice Nurse 06/23/24
--- OUTSIDE RECORDS SUMMARY | 2025-02-11 13:55 | XMS_ITS | Patient Health Record ---
Author Organization [facility] Address [address] [place] [address] Care Team Providers Care Dumper Mold Cleaner Name Role Phone zzzPCP, OUTSIDE Primary Care Provider Unavailabl e Allergies Allergen (clinical drug ingredient) Drug/Non Drug Allergy documented on EMR Reaction Allergy Type Onset Date Status penicillin V Penicillin V Potassium Unknown Drug Allergy Active Reason For Referral No Information Medications Medication SIG (Take, Route, Frequency, Duration) Notes Start Date End Date Status Albuterol Sulfate 2.5 mg /3 mL (0.083 %) 3 ml as needed 4 times a day [facility] 03/19/2014 Active Azithromycin 250 mg 2 Tablet by Oral route on day 1 then take 1 daily for 4 days [facility] 03/27/2014 Not-Taking Advair Diskus 250-50 MCG/DOSE 1 puff Twice a day [facility] 04/15/2012 Active ProAir HFA 90 mcg/actuation 2 puffs as needed 4 times a day [facility] 02/10/2013 Active predniSONE 20 mg 2 tablet by Oral route 1 time per day for 5 day(s) [facility] 08/12/2012 Not-Taking Zithromax Z-Rod 250 mg take 2 tablets by Oral route 1 time per day then 1 tablet (250 mg) by oral route once daily for 4 days for 1 day Quantity Amount, Route, and Frequency [facility] 08/24/2011 Not-Taking Mobic 7.5 mg take 1 Tablet by Oral route 2 times per day [facility] 2013 Not-Taking Famotidine 20 MG 1 tablet at bedtime Orally Once a day Active Metoprolol Tartrate 25 mg 0.5 tablet by Oral route 2 times per day (do not crush or chew) [facility] 06/09/2013 Active Allergy 10 MG 1 tablet Orally Once a day Active Doxycycline Hyclate 100 mg 1 tablet by Oral route 2 times per day for 10 days [facility] 10/10/2012 Not-Taking predniSONE 10 mg 1 Tablet 2 times per day for 7 days Take at 8 am and noon. Do not take after 3 pm [facility] 03/27/2014 Not-Taking Kenyatta Allergy 180 mg take 1 tablet (18 0 mg) by oral route once daily [facility] 05/04/2013 Not-Taking Aspir-81 81 MG 1 tablet Orally Once a day Active amitriptyline 25 mg 1-2 tablet by Oral route 1 time per day [facility] 08/31/2013 Not-Taking Lipitor 80 mg 1 tablet by Oral route 1 time per day [facility] 12/15/2013 Not-Taking Keflex 500 mg take 2 capsule by Oral route every 12 hours for 10 days [facility] 08/10/2013 Not-Taking Ujdyejlm-Kvfepefnw-JI 3.5-10,000-1 mg-unit/mL-% 2 drop by Otic route 4 times per day for 7 day(s) [facility] 08/10/2013 Not-Taking Immunizations Vaccine Route Administration Date Status Comme nts Influenza (split), preservat roland free, 6-35 months Unknown 03/28/2009 Pending Deltoid, left; influenza IIV3 (history) Unknown 05/04/2013 Pending Deltoid, left; PRIVATE PPSV23 (PNEUMOVAX) Unknown 03/28/2009 Pending Deltoid, left; Problems Problem Type SNOMED Code ICD Code Onset Dates Problem Status W/U Status Risk Notes Problem Verruca vulgaris (56819861) Viral warts, unspecified (078.10) Active confirmed VIRAL WARTS UNSPECIFIED Problem Episodic mood disorder (disorder) (91251541898895 ) Unspecified episodic mood disorder (296.90) Active confirmed UNSPECIFIED EPISODIC MOOD DISORDER Problem 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, 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 CIRCADIAN RHYTHM SLEEP DISORDER SHIFT WORK TYPE Problem Allergic rhinitis (42778286) Allergic rhinitis, cause unspecified (477.9) Active confirmed RHINITIS Problem Acute non-suppurative otitis media - serous (910592840) Acute serous otitis media (381.01) Active confirmed ACUTE SEROUS OTITIS MEDIA Problem Pain of ear (finding) (581886533) Unspecified otalgia (388.70) Active confirmed OTALGIA UNSPECIFIED Problem Acute sinusitis (disorder) (09370201) Other acute sinusitis (461.8) Active confirmed OTHER ACUTE SINUSITIS Problem Acute sinusitis (56637493) Acute sinusitis, unspecified (461.9) Active confirmed Sinusitis Acute Problem Acute upper respiratory infection (69341150) Acute upper respiratory infections of unspecified site (465.9) Active confirmed UPPER RESPIRATORY INFECTION Problem Acute exacerbation of chronic obstructive airways disease (405768290) Obstructive chronic bronchitis, with (acute) exacerbation (491.21) Active confirmed CHRONIC BRONCHITIS - WITH ACUTE EXACERBATION Problem Esophageal reflux (748244248) Esophageal reflux (530.81) Active confirmed GERD Problem Acquired trigger finger (8819204) Trigger finger (acquired) (727.03) Active confirmed TRIGGER FINGER (ACQUIRED) Problem Rheumatoid arthritis (27069749) Rheumatoid arthritis (714.0) Active confirmed ARTHRITIS, RHEUMATOID Problem Hand joint pain (006957522) Pain in joint, hand (719.44) Active confirmed PAIN IN JOINT INVOLVING HAND Problem Muscle pain (65968417) Unspecified myalgia and myositis (729.1) Active confirmed MYALGIA AND MYOSITIS UNSPECIFIED Problem Acquired deformity of toe (95712596) Other hammer toe (acquired) (735.4) Active confirmed HAMMER TOE (ACQUIRED) Problem Insomnia (567182645) Insomnia, unspecified (780.52) Active confirmed INSOMNIA UNSPECIFIED Problem Malaise and fatigue (392439966) Other malaise and fatigue (780.79) Active confirmed OTHER MALAISE AND FATIGUE Problem Eruption of skin (282244872) Rash and other nonspecific skin eruption (782.1) Active confirmed RASH Problem Headache (29634616) Headache (784.0) Active confirmed HEADACHE Problem Postnasal drip (96973549) Postnasal drip (784.91) Active confirmed POSTNASAL DRIP Problem Cough (20824527) Cough (786.2) Active confirmed Cough Problem History of non-drug allergy (929397715) Personal history of other allergy, other than to medicinal agents (V15.09) Active confirmed PERSONAL HISTORY OF OTHER ALLERGY OTHER THAN TO MEDICINAL AGENTS Problem Needs influenza immunization (506326881) Need for prophylactic vaccination and inoculation, Influenza (V04.81) Active confirmed FLU SHOT Problem Exacerbation of asthma (276418950) Asthma exacerbation (J45.901) Active confirmed Plan Of Treatment No Information Medical (General) History Surgical History Surgery Date(Month/Year) chemotherapy of the lung 02/2015 right upper lobe of lung removed 015 Hospitalization History Reason Date(Month/Year) lung surgery 02/04/2015
--- OUTSIDE RECORDS SUMMARY | 2025-02-11 13:55 | XMS_ITS | Encounter Summary ---
Author Organization [facility] Address [address] [place] [address] Phone Care Team Providers Care Senior Stack Engineer Name Role Phone Logan Vazquez MD Unavailable Ave Collier MD Primary Care Provider [phone] Arnaud Martini MD Primary Care Provider [phone] Logan Vazquez MD Unavailable Ana Aguilar APRN, MANIFOLD BUILDER Unavailable Breezy Barros MD Primary Care Provider [phone] Encounter Details Date Type Department Care Team (Late st Contact Info) Description 07/29/2020 Transcribe Orders [facility] Central Scheduling [address] [place] [address] Tomeka Blunt, HOB GRINDER, MANIFOLD BUILDER [address] [place] [address] Social History Tobacco Use Types Packs/Day Years Used Date Smoking Tobacco: Every Day Cigarettes 0.5 45 Smokeless Tobacco: Never Comments:3-4 cigs a day Alcohol Use Standard Drinks/Week Comments Yes 4 (1 standard drink = 0.6 oz pur e alcohol) social Comments No Sex and Gender Information Value Date Recorded Sex Assigned at Female 07/26/2024 9:52 PM CLAM DREDGE BOAT CAPTAIN Legal Sex Female 9:37 PM CDT Gender Identity Female 07/26/2024 9:52 PM CLAM DREDGE BOAT CAPTAIN Sexual Orientation Straight 07/26/2024 9: 52 PM CLAM DREDGE BOAT CAPTAIN Occupation Industry Job Start Date Job End Date [employer] Not on file Not on file Not on file COVID-19 Exposure Response Date Recorded In the last month, have you been in contact with someone who was confirmed or suspected to have Coronavirus / COVID-19? No / Unsure 07/22/2020 9:27 AM CLAM DREDGE BOAT CAPTAIN documented as of this encounter Plan of Treatment Upcoming Encounters Date Type Department Care Team (Late st Contact Info) Description 02/13/2025 3:00 PM CDT Office Visit [facility] - Primary Care [facility] [address] [place] [address] Breezy Barros MD [address] [place] [address] 03/26/2025 2:30 PM CDT Office Visit [facility] - Pulmonology & Sleep Medicine [facility] [address] [place] [address] Logan Vazquez MD [address] [place] [address] documented as of this encounter Visit Diagnoses Not on filedocumented in this encounter Additional Health Concerns Infection Onset Date Last Indicated Resolved Time COVID - 19 04/19/2021 04/19/2021 04/21/2021 8:16 AM CDT Respiratory Rule Out - RPA 04/19/2021 04/19/2021 1 3:30 PM CDT COVID - 19 07/07/2021 07/07/2021 07/07/2021 6:29 PM CLAM DREDGE BOAT CAPTAIN COVID - 19 Confirmed 07/07/2021 07/07/2021 022 12:16 AM CLAM DREDGE BOAT CAPTAIN Respiratory Rule Out - RPA 10/07/2021 10/08/2021 0 10/08/2021 3:24 PM CDT COVID - 19 06/16/2024 06/16/2024 06/16/2024 10:2 3 PM CLAM DREDGE BOAT CAPTAIN COVID - 19 09/18/2024 09/18/2024 09/18/2024 10:1 3 PM CDT COVID - 19 09/20/2024 09/20/2024 09/20/2024 11:4 5 PM CDT Influenza 09/20/2024 09/20/2024 09/27/2024 12:1 6 AM CDT documented as of this encounter Care Teams Senior Stack Engineer Relationship Specialty Start Date End Date Ave Collier MD PCP - General Internal Medicine 03/23/20 04/18/21 Arnaud Martini MD [address] [place] [address] PCP - General Family Medicine 04/19/21 09/04/24 Breezy Barros MD [address] [place] [address] [place] [address] PCP - General Internal Medicine 09/05/24 Logan Vazquez MD Consulting Physician Pulmonary Disease 02/10/17 Logan Vazquez MD [address] [place] [address] Consulting Physician Pulmonary Disease 10/01/21 Ana Aguilar APRN, MANIFOLD BUILDER [address] [place], [place] [id number] Nurse Practitioner Advanced Practice Nurse 06/23/24 documented as of this encounter
--- OUTSIDE RECORDS SUMMARY | 2025-02-11 13:55 | XMS_ITS | Encounter Summary ---
Author Organization [facility] Address [address] [place] [address] Phone Care Team Providers Care Beaming Inspector Name Role Phone Logan Vazquez MD Unavailable Ave Collier MD Primary Care Provider [phone] Arnaud Martini MD Primary Care Provider [phone] Logan Vazquez MD Unavailable Ana Aguilar APRN, [employer] [facility] Unavailable Breezy Barros MD Primary Care Provider [phone] Reason for Visit * Reason Comments Medication Refill Encounter Details Date Type Department Care Team (Late st Contact Info) Description 01/25/20[facility] - [place] [address] [place] [id number] Susan Green APRN, [employer] [facility] [address] [address] Medication Refill Social History Tobacco Use Types Packs/Day Years Used Date Smoking Tobacco: Every Day Cigarettes 0.5 45 Started: 09/10/1975; Last attempted to quit: 09/09/2020 Smokeless Tobacco: Never Alcohol Use Standard Drinks/Week Comments Yes 4 (1 standard drink = 0.6 oz pur e alcohol) social Comments No Sex and Gender Information Value Date Recorded Sex Assigned at Female 07/26/2024 9:52 PM UNIVERSITY CONTROLLER Legal Sex Female 9:37 PM CDT Gender Identity Female 07/26/2024 9:52 PM UNIVERSITY CONTROLLER Sexual Orientation Straight 07/26/2024 9: 52 PM UNIVERSITY CONTROLLER Occupation Industry Job Start Date Job End [...] Description 02/13/2025 3:00 PM CDT Office Visit [facility] - Primary Care - [place] [place] [place] [address] Breezy Barros MD [address] [place] [address] 03/26/2025 2:30 PM CDT Office Visit [facility] - Pulmonology & Sleep Medicine [facility] [address] [place] [id number] Logan Vazquez MD [address] [place] [address] documented as of this encounter Visit Diagnoses Not on filedocumented in this encounter Additional Health Concerns Infection Onset Date Last Indicated Resolved Time COVID - 19 04/19/2021 04/19/2021 04/21/2021 8:16 AM CDT Respiratory Rule Out - RPA 04/19/2021 04/19/2021 1 3:30 PM CDT COVID - 19 07/07/2021 07/07/202107/07/2021 6:29 PM UNIVERSITY CONTROLLER COVID - 19 Confirmed 07/07/2021 07/07/2021 022 12:16 AM UNIVERSITY CONTROLLER Respiratory Rule Out - RPA 10/07/2021 10/08/2021 0 10/08/2021 3:24 PM CDT COVID - 19 06/16/2024 06/16/2024 06/16/2024 10:2 3 PM UNIVERSITY CONTROLLER COVID - 19 09/18/2024 09/18/2024 09/18/2024 10:1 3 PM CDT COVID - 19 09/20/2024 09/20/2024 09/20/2024 11:4 5 PM CDT Influenza 09/20/2024 09/20/2024 09/27/2024 12:1 6 AM CDT documented as of this encounter Care Teams Beaming Inspector Relationship Specialty Start Date End Date Ave Collier MD PCP - General Internal Medicine 03/23/20 04/18/21 Arnaud Martini MD [address] [place] [address] PCP - General Family Medicine 04/19/21 09/04/24 Breezy Barros MD [address] [facility] [place] [address] PCP - General Internal Medicine 09/05/24 Logan Vazquez MD Consulting Physician Pulmonary Disease 02/10/17 Logan Vazquez MD [address] [place] [address] Consulting Physician Pulmonary Disease 10/01/21 Ana Aguilar APRN, [employer] [address] [place] [address] Nurse Practitioner Advanced Practice Nurse 06/23/24 documented as of this encounter
--- OUTSIDE RECORDS SUMMARY | 2025-02-11 13:55 | XMS_ITS | Encounter Summary ---
Author Organization [facility] Address [address] [facility] [place] [address] Phone Care Team Providers Care Assembly Lead Person Name Role Phone Logan Vazquez MD Unavailable Ave Collier MD Primary Care Provider [phone] Arnaud Martini MD Primary Care Provider [phone] Logan Vazquez MD Unavailable Ana Aguilar APRN, [facility] Unavailable Breezy Barros MD Primary Care Provider [phone] Reason for Visit * Reason Comments Medication Refill Encounter Details Date Type Department Care Team (Late st Contact Info) Description [facility] [address] [place] [address] Quan Ross MD [address] [place] [address] Medication Refill Social History Tobacco Use Types Packs/Day Years Used Date Smoking Tobacco: Every Day Cigarettes 0.5 45 Started: 09/10/1975; Last attempted to quit: 09/09/2020 Smokeless Tobacco: Never Alcohol Use Standard Drinks/Week Comments Yes 4 (1 standard drink = 0.6 oz pur e alcohol) social Comments No Sex and Gender Information Value Date Recorded Sex Assigned at Female 07/26/2024 9:52 PM NUTRITION SERVICES WORKER Legal Sex Female 9:37 PM CDT Gender Identity Female 07/26/2024 9:52 PM NUTRITION SERVICES WORKER Sexual Orientation Straight 07/26/2024 9: 52 PM NUTRITION SERVICES WORKER Occupation Industry Job Start Date Job End [...] Description 02/13/2025 3:00 PM CDT Office Visit [facility] - Primary Care - [place] [address] [place] [address] Breezy Barros MD [address] [place] [address] 03/26/2025 2:30 PM CDT Office Visit [facility] - Pulmonology & Sleep Medicine [facility] [address] [place] [address] Logan Vazquez MD [address] [place] [address] documented as of this encounter Visit Diagnoses Not on filedocumented in this encounter Additional Health Concerns Infection Onset Date Last Indicated Resolved Time COVID - 19 04/19/2021 04/19/2021 04/21/2021 8:16 AM CDT Respiratory Rule Out - RPA 04/19/2021 04/19/2021 1 3:30 PM CDT COVID - 19 07/07/2021 07/07/2021 07/07/2021 6:29 PM NUTRITION SERVICES WORKER COVID - 19 Confirmed 07/07/2021 07/07/2021 022 12:16 AM NUTRITION SERVICES WORKER Respiratory Rule Out - RPA 10/07/2021 10/08/2021 0 10/08/2021 3:24 PM CDT COVID - 19 06/16/2024 06/16/2024 06/16/2024 10:2 3 PM NUTRITION SERVICES WORKER COVID - 19 09/18/2024 09/18/2024 09/18/2024 10:1 3 PM CDT COVID - 19 09/20/2024 09/20/2024 09/20/2024 11:4 5 PM CDT Influenza 09/20/2024 09/20/2024 09/27/2024 12:1 6 AM CDT documented as of this encounter Care Teams Assembly Lead Person Relationship Specialty Start Date End Date Ave Collier MD PCP - General Internal Medicine 03/23/20 04/18/21 Arnaud Martini MD [address] [place] [address] [place] [address] PCP - General Family Medicine 04/19/21 09/04/24 Breezy Barros MD [address] [place] [address] [place] [address] PCP - General Internal Medicine 09/05/24 Logan Vazquez MD Consulting Physician Pulmonary Disease 02/10/17 Logan Vazquez MD [address] [place] [address] Consulting Physician Pulmonary Disease 10/01/21 Ana Aguilar APRN, [employer] [address] [place] [address] Nurse Practitioner Advanced Practice Nurse 06/23/24 documented as of this encounter
[2025-02-11 14:12] VITALS: BP 112/68; PULSE 76; RESP 18; TEMP 36.3; O2SAT 98
--- NOTE | 2025-02-11 14:53 | ED.GENADULT ---
HPI - General Adult General Chief complaint: Back Pain/Injury Stated complaint: Back Pain Source: patient Mode of arrival: ambulatory Limitations: no limitations History of Present Illness HPI narrative: Patient presents for evaluation of back pain since yesterday. She indicates she feels tender between her shoulder blades. In the past when she has had this sensation it is related to respiratory infection. She was helping her daughter move for a rummage sale the day prior. She is unsure whether she injured herself while helping her daughter. She states pain is constant, 8/10 in severity and without descriptive quality. She reports a cough and mild SOB. She has a history of COPD and lung cancer, s/p lobectomy. It sounds like she has several pulmonary nodules which are being monitored with serial CT imaging. She no longer smokes. She experienced chills last night, without fever, sore throat, nausea or vomiting. She is also concerned about flaking skin to her scalp. She has a history of psoriasis. Related Data Home Medications ?Medication ?Instructions ?Recorded ?Confirmed ?Last Taken ?Type famotidine 20 mg tablet 40 mg PO DAILY 05/21/20 10/19/24 Unknown History aspirin 81 mg capsule 81 mg PO DAILY 02/07/24 05/31/24 Unknown History cetirizine 10 mg tablet 10 mg PO DAILY 02/07/24 05/31/24 Unknown History ipratropium 0.5 mg-albuterol 3 mg See Rx Instructions .Route 02/07/24 10/19/24 Unknown History (2.5 mg base)/3 mL nebulization .COMPLEX PRN sob soln Allergies Allergy/AdvReac Type Severity Reaction Status Date / Time Penicillins Allergy Unknown Rash Verified 02/11/25 14:03 codeine AdvReac Severe Hallucinati Verified 02/11/25 14:03 ng Review of Systems Review of Systems: CONSTITUTIONAL: Denies fever, chills, or sweats. EYES: Denies visual changes, redness, or discharge. ENT: Denies rhinorrhea, congestion, sore throat, or otalgia. CARDIOVASCULAR: Denies chest pain, palpitations, or edema. RESPIRATORY: Reports cough and mild shortness of breath. GASTROINTESTINAL: Denies abdominal pain, nausea, vomiting, or diarrhea. GENITOURINARY: Denies dysuria or hematuria. SKIN: Reports flaking skin to scalp MUSCULOSKELETAL: Reports back pain. Denies oint pain, or myalgia. NEUROLOGIC: Denies headache, numbness, dizziness, or weakness. PSYCHIATRIC: Denies anxiety or depression. [facility] Past Medical History Medical History Sinusitis Trochanteric bursitis of right hip Hip pain COVID-19 Chronic congestion of paranasal sinus Septicemia URI (upper respiratory infection) Cancer Arthritis Asthma Allergies Hyperlipidemia Hypertension Tobacco use COPD (chronic obstructive pulmonary disease) Surgical History Surgical History History of tonsillectomy S/P lobectomy of lung Family History Family History Mother Bladder cancer Diabetes mellitus Father Gastric cancer Hypertension Heart problem Sibling Diabetes mellitus Other Alcohol abuse Social History Social History Smoking packs per day: 0.5 Smoking cigarettes per day: 10.0 Smoking status: Former smoker Tobacco type: cigarettes Smoking end date: 07/12/21 Substance use: never Living arrangements: with family Spiritual care concerns: No Exam Narrative: GENERAL: Well-appearing, well-nourished, and in no acute distress. HEAD: Normocephalic, atraumatic. EYES: PERRLA and EOMI. ENT: Nares clear, no rhinorrhea or epistaxis. Mucous membranes moist. Oropharynx without tonsillar hypertrophy exudate or other lesions. Bilateral TMs pearly xie nonbulging NECK: Supple. No adenopathy or masses. No carotid bruits or JVD CHEST: Cough present on exam. Clear to auscultation. No respiratory distress. No wheezes rales or rhonchi HEART: Regular rate and rhythm. No murmur heard. Normal peripheral pulses. ABDOMEN: Soft, nontender, nondistended, normal active bowel sounds. EXTREMITIES: Normal range of motion. No edema. SKIN: Warm, dry, no rash. There is flaking skin noted to the scalp. There is a 3 mm area of scabbed sanguinous drainage noted to the frontal aspect of her scalp NEURO: No focal deficits. Alert and oriented x3. PSYCH: Normal mood and affect. Course Course Emergency Course: This is a 69-year-old female who presented for evaluation of back pain. COVID and influenza were both negative. Chest x-ray normal. This could be secondary to COPD versus a musculoskeletal origin. Treat with prednisone. Follow up with primary provider. Go to the ER for worsening symptoms. Pt in agreement with plan of care. Level of Care: Express Care Visit Vital Signs Vital signs: Vital Signs Temperature 36.3 C L 02/11/25 14:12 Pulse Rate 76 02/11/25 14:12 Respiratory Rate 18 02/11/25 14:12 Blood Pressure 112/68 02/11/25 14:12 Pulse Oximetry 98 02/11/25 14:12 Oxygen Delivery Room Air 02/11/25 14:12 Temperature 36.3 C L 02/11/25 14:12 Pulse Rate 76 02/11/25 14:12 Respiratory Rate 18 02/11/25 14:12 Blood Pressure 112/68 02/11/25 14:12 Pulse Oximetry 98 02/11/25 14:12 Oxygen Delivery Room Air 02/11/25 14:12 Medical Decision Making Vital Signs Vital Signs: Vital Signs Temperature 36.3 C L 02/11/25 14:12 Pulse Rate 76 02/11/25 14:12 Respiratory Rate 18 02/11/25 14:12 Blood Pressure 112/68 02/11/25 14:12 Pulse Oximetry 98 02/11/25 14:12 Oxygen Delivery Room Air 02/11/25 14:12 Temperature 36.3 C L 02/11/25 14:12 Pulse Rate 76 02/11/25 14:12 Respiratory Rate 18 02/11/25 14:12 Blood Pressure 112/68 02/11/25 14:12 Pulse Oximetry 98 02/11/25 14:12 Oxygen Delivery Room Air 02/11/25 14:12 Lab Data Labs: Lab Results 02/11/25 Range/Units 15:26 POC Influenza A Ag Negative (Negative) POC Influenza B Ag Negative (Negative) POC SARS CoV-2 Ag Negative (Negative) Imaging Data Radiologist's impression: EXAMINATION: XR chest 2V Exam Date/Time: 02/11/2025 14:49 CDT HISTORY: cough, HX lung cancer,nodules,lobectomy Comparison: 01/23/2022. RESULT: Lines, tubes, and devices: Surgical clips over the right upper thorax and mediastinum. Lungs and pleura: Clear. Cardiomediastinal silhouette: Stable. Other: No acute osseous or upper abdominal finding. IMPRESSION: No acute cardiopulmonary process. Discharge Plan Discharge Clinical Impression: Back pain, COPD (chronic obstructive pulmonary disease) Patient Disposition: Home Condition: Stable Instructions: Antibiotic Form, COPD (Chronic Obstructive Pulmonary Disease) (DC), Back Pain (ED) Patient Language: Omani Prescriptions: New prednisone 50 mg tablet 50 mg PO DAILY Qty: 5 0RF No Action famotidine 20 mg tablet 40 mg PO DAILY cetirizine 10 mg Tablet 10 mg PO DAILY aspirin 81 mg Capsule 81 mg PO DAILY ipratropium-albuterol 0.5 mg-3 mg(2.5 mg base)/3 mL solution for nebulization See Rx Instructions .ROUTE .COMPLEX PRN (Reason: sob) Rx Instructions: as prescribed fluticasone propionate [Flonase Allergy Relief] 50 mcg/actuation spray,suspension 1 spray intranasal Q12H Qty: 16 3RF Rx Instructions: administer into each nostril fluticasone propion-salmeterol [Wixela Inhub] 500-50 mcg/dose blister with device 1 inh inhalation Q12H Qty: 60 3RF amlodipine 10 mg tablet 10 mg PO DAILY Qty: 90 1RF albuterol sulfate 90 mcg/actuation HFA aerosol inhaler 2 puff INHALATION Q4H PRN (Reason: Shortness Of Breath) Qty: 8.5 3RF citalopram 10 mg tablet 10 mg PO DAILY Qty: 90 1RF lovastatin 40 mg tablet 40 mg PO DIRECTED Qty: 90 1RF metoprolol tartrate 25 mg tablet 12.5 mg PO BID Qty: 180 1RF acyclovir 400 mg tablet 400 mg PO BID Qty: 180 1RF bupropion HCl [Wellbutrin XL] 150 mg tablet extended release 24 hr 150 mg PO QAM Qty: 90 1RF montelukast 10 mg tablet 10 mg PO DAILY Qty: 90 1RF Follow-up/Referrals: Papo,Breezy Baird MD [Primary Care Provider] - Time of Disposition: 15:55
[2025-02-11 15:28] LABS: EDCOVIDSCREEN Negative (Negative); EDINFLUASCREEN Negative (Negative); EDINFLUBSCREEN Negative (Negative)
== END 2025-02-11 16:01 | disposition home or self-care (01) ==
PROVIDERS: Emergency Provider Nurse Practitioner; PCP Internal Medicine
DX: M54.6 Pain in thoracic spine (principal); J44.9 Chronic obstructive pulmonary disease, unspecified; Z20.822 Contact with and (suspected) exposure to COVID-19; L40.9 Psoriasis, unspecified; I10 Essential (primary) hypertension; E78.5 Hyperlipidemia, unspecified; Z85.118 Personal history of other malignant neoplasm of bronchus and lung; Z90.2 Acquired absence of lung [part of]; Z86.16 Personal history of COVID-19; Z87.891 Personal history of nicotine dependence; Z79.82 Long term (current) use of aspirin
CPT/HCPCS: 71046; 87426; 87804; 99213; G0463

== ENCOUNTER 2025-03-18 14:08 | Emergency (ER) | payer MEDICARE, MEDICAID, SELFPAY ==
--- OUTSIDE RECORDS SUMMARY | 2023-10-01 05:45 | XMS_ITS ---
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 * Medical History: Objective: * Vitals: Assessment: Plan: * Treatment: * Billing Information: * Visit Code: * Procedure Codes: * Electronic signature of Lala Covington MD on 03/18/2025 at 03:10 PM EDT Sign off status: Pending * Provider: Jeanie Covington MD Date: 0 10/01/2023 Generated for Zakia cesar/Darline/Corin on: 0 03/18/2025 03:10 PM EDT
--- OUTSIDE RECORDS SUMMARY | 2024-07-21 05:15 | XMS_ITS ---
Author Organization [facility] Address [address] [place] [address] Care Team Providers Care Supervisor Force Adjustment Name Role Phone Vikash GALVAN, JR Hopkins Primary Care Provider Michel Steel Unavailable [phone] REASON FOR VISIT 6 MO FU LL CR *WEB* Encounters Encounter Location Date Provider Diagnosis Brian Koehler MD PA [address] [place] [address] 07/21/2024 Michel Covington Plan Of Treatment No Information Progress Notes * VASILE YOLANDA CastDOB: (69 yo F)Acc No.[id number]:07/21/2024 Progress Notes Patient: YOLANDA ROSE Provider: Jeanie Covington MD :1955 A ge:68 Y S ex:Female Date:07/21/2024 Address:[address] Pcp:JR Sandeep Suh MD Subjective: * Chief Complaints: * 1 . 6 MO FU LL CR *WEB*. * Medical History: Objective: * Vitals: Assessment: Plan: * Treatment: * Billing Information: * Visit Code: * Procedure Codes: * Electronic signature of Lala Covington MD on 03/18/2025 at 03:11 PM EDT Sign off status: Pending * Provider: Jeanie Covington MD Date: 0 07/21/2024 Generated for Printi ng/Faxing/eTransmitting on: 0 03/18/2025 03:11 PM EDT
--- OUTSIDE RECORDS SUMMARY | 2025-03-18 14:10 | XMS_ITS | Patient Health Record ---
Author Organization [facility] Address [address] [place] [address] Care Team Providers Care Weather Strip Mechanic Name Role Phone Vikash GALVAN, JR BlumSandeep Primary Care Provider Ale ramosGabriela Blountramonita Unavailable [phone] Allergies Allergen (clinical drug ingredient) Drug/Non Drug [...] Social drinker. 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 . She has 3 children, all in their 40s. She smoked 1 pack of cigarettes for 50 years. She quit smoking in 02/2022. Social drinker. 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 . She has 3 children, all in their 40s. She smoked 1 pack of cigarettes for 50 years. She quit smoking in 02/2022. Social drinker. 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 . She has 3 children, all in their 40s. She smoked 1 pack of cigarettes for 50 years. She quit smoking in 02/2022. Social drinker. 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 . She has 3 children, all in their 40s. She smoked 1 pack of cigarettes for 50 years. She quit smoking in 02/2022. Social drinker. 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 . She has 3 children, all in their 40s. She smoked 1 pack of cigarettes for 50 years. She quit smoking in 02/2022. Social drinker. 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 . She has 3 children, all in their 40s. She smoked 1 pack of cigarettes for 50 years. She quit smoking in 02/2022. Social drinker. 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 . She has 3 children, all in their 40s. She smoked 1 pack of cigarettes for 50 years. She quit smoking in 02/2022. Social drinker. 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 . She has 3 children, all in their 40s. She smoked 1 pack of cigarettes for 50 years. She quit smoking in 02/2022. Social drinker. 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 . She has 3 children, all in their 40s. She smoked 1 pack of cigarettes for 50 years. She quit smoking in 02/2022. Social drinker. 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 Problems Problem Type SNOMED Code ICD Code Onset Dates Problem Status W/U Status Risk Notes Problem Arthritis (2197969) ARTHRITIS (M06.9) Active confirmed Problem LUNG CA (C34.81) Active confirmed Problem Obstructive sleep apnea (35475919) OBSTRUCTIVE SLEEP APNEA (G47.33) Active confirmed Problem Renal failure (60725115) RENAL FAILURE (N19) Active confirmed Problem Hyperlipidaemia (19420772) HYPERLIPEMIA (E78.5) Active confirmed Problem Asthma (738719847) ASTHMA (J45.909) Active confirmed Problem COPD - Chronic obstructive pulmonary disease (05445568) Chronic obstructive pulmonary disease, unspecified COPD type (J44.9) Active confirmed Problem Essential hypertension (65447212) HTN (hypertension), benign (I10) Active confirmed Problem Chronic obstructive pulmonary disease (89804863) Advanced COPD (J44.9) Active confirmed Plan Of Treatment No Information Insurance Providers Payer Name Payer Address Payer Phone Subscriber Number Group Number Insured Name Patient Relationship to Insured Coverage Start Date Coverage End Date [employer] [address] [address] [place] [address] [phone] [id number] LUCINDAVIKASH YOLANDA Self - patient is the insured 3 MEDICAID [id number] [address] [place] [address] [id number] VASILE YOLANDA Self - patient is the insured Medical [...]
--- OUTSIDE RECORDS SUMMARY | 2025-03-18 14:10 | XMS_ITS | Encounter Summary ---
Author Organization [facility] Address [address] [place] [address] Phone Care Team Providers Care Boilermaker'S Assistant Name Role Phone Do Cristina MD Primary Care Provider [phone] [address] Collier MD Primary Care Provider [phone] Arnaud Martini MD Primary Care Provider [phone] Encounter Details Date Type Department Care Team (Late st Contact Info) Description 08/17/2017 Orders Only [facility] ProviderKassandra MD [address] [place] [address] Social History Tobacco Use Types Packs/Day Years Used Date Smoking Tobacco: Some Days Cigarettes Smokeless Tobacco: Never Alcohol Use Standard Drinks/Week Comments Yes 0 (1 standard drink = 0.6 oz pur e alcohol) Comments Unknown Sex and Gender Information Value Date Recorded Sex Assigned at Not on file Legal Sex Female 2:19 PM PET STYLIST Gender Identity Female 07/21/2021 12:54 PM PET STYLIST Sexual Orientation Not on file documented as of this encounter Plan of Treatment Not on file documented as of this encounter Procedures Procedure Name Priority Date/Time Associated Diagnosis Comments DISCHARGE LABORATORY CUMULATIVE REPORT 08/17/2017 12:00 AM PET STYLIST documented in this encounter Results * DISCHARGE LABORATORY CUMULATIVE REPORT (08/17/2017 12:00 AM PET STYLIST) Narrative 08/17/2017 12:00 AM PET STYLIST Ordered by an unspecified provider. Historical Provider MD LAB BLOOD ORDERABLES Aide l Result documented in this encounter Visit Diagnoses Not on filedocumented in this encounter Care Teams Boilermaker'S Assistant Relationship Specialty Start Date End Date Do Cristina MD [address] [facility] [facility] [address] BRET Pack [facility] [address] [place] [address] PCP - General 08/11/17 07/18/20 Ave Collier MD [address] [facility] [address] BRET Pack [address] [address] PCP - General Internal Medicine 07/19/20 08/27/21 Arnaud Martini MD [address] [facility] [address] BRET Pack [address] [address] PCP - General Family Practice 08/28/21 documented as of this encounter
--- OUTSIDE RECORDS SUMMARY | 2025-03-18 14:10 | XMS_ITS | Clinical Summary ---
Author Organization [facility] Address [address] [place] [address] Care Team Providers Care Twisting Press Operator Name Role Phone Arnaud Martini MD Primary Care Provider [phone] Allergies Active Allergy Reactions Criticality Noted Date [...] (10/01/2021): Added automatically from request for surgery [id number] Gastro-esophageal reflux disease without esophag itis 04/28/2021 History of duodenal ulcer 04/28/2021 History of Helicobacter pylori infection 021 Former smoker 04/28/2021 BMI 28.0-28.9,adult 04/28/2021 Tubular adenoma of colon 04/28/2021 Laryngeal spasm 08/05/2020 Assessment & Plan (08/05/2020 9:42 PM AIR INTELLIGENCE SPECIALIST): Nasal saline spray (Simply saline, Little Remedies, [place], [place]) 2 second sprays or 2 squeezes into each nostril while looking down over the sink, do not need to sniff in 2-3 times daily Pepcid (famotidine) 40 mg at bedtime Humidifier in bedroom Allergic rhinitis 08/05/2020 Assessment & Plan (08/05/2020 9:41 PM AIR INTELLIGENCE SPECIALIST): Nasal saline spray (Simply saline, Little Remedies, [place], [place]) 2 second sprays or 2 squeezes into each nostril while looking down over the sink, do not need to sniff in 2-3 times daily Flonase (fluticasone) 2 sprays into each nostril while looking down over the sink, do not sniff in or blow nose after use for at least 30 minutes daily Humidifier in bedroom Epistaxis 08/05/2020 Assessment & Plan (08/05/2020 9:41 PM AIR INTELLIGENCE SPECIALIST): Nasal saline spray (Simply saline, Little Remedies, [place], [place]) 2 second sprays or 2 squeezes into [...] 07/30/2020 Assessment & Plan (08/28/2021 12:15 PM AIR INTELLIGENCE SPECIALIST): Left adrenal adenoma 1.9 cm detected on [...] year. Assessment & Plan (07/30/2020 9:52 AM AIR INTELLIGENCE SPECIALIST): Left adrenal adenoma 1.9 cm detected on [...] like Aldosterone/ renin and will rule out Montague's with 1 mg dexamethasone suppression test Obtain [...] get procedural sedation. Advised to discuss with linting machine operator and primary care physician Smoker 01/12/2018 Assessment & Plan (01/12/2018 5:47 AM CDT): Patient states that quit smoking 5 days ago. Will start on Nicoderm patch Encouraged not to return back to the smoking Essential hypertension 01/12/2018 Assessment & Plan (08/28/2021 12:16 PM AIR INTELLIGENCE SPECIALIST): Controlled with medication Amlodipine and Metoprolol - low salt diet - continue medication per PCP Assessment & Plan (07/30/2020 9:54 AM AIR INTELLIGENCE SPECIALIST): Controlled with medication Amlodipine and Metoprolol - [...] cancer (HCC) COPD (chronic obstructive pulmonary disease) Duodenal ulcer Hypercholesteremia Hypertension Family History Medical [...] on file Legal Sex Female 2:19 PM AIR INTELLIGENCE SPECIALIST Gender Identity Female 07/21/2021 12:54 PM AIR INTELLIGENCE SPECIALIST Sexual Orientation Not on file Obstetrics History Last Filed Vital Signs Vital Sign Reading Time Taken Comments Blood Pressure 120/72 08/28/2021 12:01 PM AIR INTELLIGENCE SPECIALIST Pulse 88 04/28/2021 10:23 AM CDT Temperature 36.1 C (96.9 F) 04/28/2021 10:23 AM CDT Respiratory Rate 18 01/13/2018 7:51 AM CDT Oxygen Saturation 99% 04/28/2021 10:23 AM CDT Inhaled Oxygen Concentration - - Weight 62.4 kg (137 lb 9.6 oz) 08/28/2021 12:01 PM AIR INTELLIGENCE SPECIALIST Height 149.9 cm (4' 11) 08/28/2021 12:01 PM AIR INTELLIGENCE SPECIALIST Body Mass Index 27.79 08/28/2021 12:01 PM AIR INTELLIGENCE SPECIALIST Plan of Treatment Not on file Insurance IDPA [employer] MD[employer] HMO REF [facility] IDPA MEDICARE IDPA [facility] MDCR HMO REF Advance Directives For more information, please contact: [phone] * Full Code (Latest Code Status on File) Date Activated Date Inactivated Comments 01/11/2018 9:46 AM 01/13/2018 2:07 PM * Full Code Date Activated Date Inactivated Comments 08/11/2017 10:49 AM 08/11/2017 2:56 PM Care Teams Twisting Press Operator Relationship Specialty Start Date End Date Arnaud Martini MD PCP - General Family Practice 08/28/21
--- OUTSIDE RECORDS SUMMARY | 2025-03-18 14:10 | XMS_ITS | Clinical Summary ---
Author Organization [facility] Address [address] [place] [address] Phone Care Team Providers Care Oleomargarine Maker Name Role Phone Logan Vazquez MD Unavailable Logan Vazquez MD Unavailable Ana Aguilar APRN, [facility] Unavailable Breezy Barros MD Primary Care Provider [phone] Allergies Active Allergy Reactions Criticality Noted Date [...] 10 mg by mouth every morning. Active Wixela Inhub 250-50 MCG/DOSE AEROSOL POWDER, [...] by mouth every day as directed Active methylPREDNISol one (MEDROL DOSPACK) 4 MG Tablet Therapy Pack See product package insert for dosing schedule 21 Tablet 5 Active aspirin EC 81 MG Tablet Delayed Response 81 mg daily. 7 Active cholecalciferol (Vitamin D-[address]) 25 mcg Tablet Take 1,000 Units by mouth. 2 Active triamcinolone (KENALOG) 0.1 % Cream Apply bid to rash on chest for 7 days then prn for flare up. 30 g 5 Active Active Problems Problem Noted Date [...] Encounters Date Type Department Care Team Description 03/14/2025 Results Follow-Up [facility] - Primary Care - [place] [address] [place] [address] Breezy Barros MD CBC WITH AUTO DIFFERENTIAL, CMP (COMPREHENSIVE METABOLIC PANEL), LIPID PANEL 03/14/2025 Travel 02/20/2025 8:31 PM CDT - 02/20/2025 10:30 PM CDT Emergency [facility] Emergency [address] [place] [address] Raul Kent MD Chest wall pain Discharge Disposition: Discharged to home or Selfcare 02/20/2025 Travel 02/16/2025 Telephone [facility] - Pulmonology & Sleep Medicine - [place] [address] [place] [address] Logan Vazquez MD 02/16/2025 Results Follow-Up [facility] - Pulmonology & Sleep Medicine - [place] [address] [place] [phone] CHEST W/O CONTRAST 02/13/2025 3:00 PM CDT Office Visit [facility] - Primary Care - [place] [address] [place] [id number] Breezy Barros MD Essential (primary) hypertension (Primary Dx); Abnormal blood chemistry test; Other hyperlipidemia; Centrilobular emphysema (HCC); GERD without esophagitis; Rash Discharge Disposition: Discharged to home or Selfcare 02/13/2025 Travel 12/29/2024 6:19 PM CDT - 12/29/2024 11:59 PM CDT Hospital Encounter [facility] [address] [place] [address] Logan Vazquez MD Discharge Disposition: Discharged to home or Selfcare 12/29/2024 Travel 12/19/2024 2:00 PM CDT Office Visit [facility] Pulmonology & Sleep Medicine [facility] [address] [place] [address] Logan Vazquez MD Centrilobular emphysema (HCC) (Primary [...] = 0.6 oz pur e alcohol) social [facility] Utilities Answer Date Recorded In the past 12 months has e Mobile Pulse, gas, oil, or water Pharmacopeia threatened to shut off services in your [...] 09/04/2024 How often do you attend chur or methodist services? More than 4 times per year 09/04/2024 Do you belong to any clubs o r organizations such as bahai groups, unions, fraternal or athletic groups, or [...] Score - Questions 1-9 0 05/0 07/2024 [facility] [place] [facility] Occupat ional Health - Occupational Stress [...] any time in the past 12 m [facility], were you homeless or living in a assisted (including now)? No 09/04/2024 Sexually Active Control Partners Comments Not Currently Comments No Sex and Gender Information Value Date Recorded Sex Assigned at Female 07/26/2024 9:52 PM AIR BRAKE RIGGER Legal Sex Female 9:37 PM CDT Gender Identity Female 07/26/2024 9:52 PM AIR BRAKE RIGGER Sexual Orientation Straight 07/26/2024 9: 52 PM AIR BRAKE RIGGER Occupation Industry Job Start Date Job End Date [employer] Not on file Not on file Not on file Last Filed Vital Signs Vital Sign Reading Time Taken Comments Blood Pressure 120/76 02/20/2025 10:15 PM CDT Pulse 81 02/20/2025 10:15 PM CDT Temperature 37.2 C (98.9 F) 02/20/2025 8:41 PM CDT Respiratory Rate 17 02/20/2025 10:15 PM CDT Oxygen Saturation 97% 02/20/2025 10:15 PM CDT Inhaled Oxygen Concentration - - Weight 72.1 kg (159 lb) 02/20/2025 8:41 PM CDT Height 152.4 cm (5') 02/20/2025 8:41 PM CDT Body Mass Index 31.05 02/20/2025 8:41 PM CDT Plan of Treatment Upcoming Encounters Date Type Department Care Team (Late st Contact Info) Description 03/19/2025 11:30 AM CDT Office Visit [facility] Medical [facility] - Cardiology - [place] [address] [place] [phone] PalmSheree conrad, DO [address] [address] 03/26/2025 2:30 PM CDT Office Visit [facility] - Pulmonology & Sleep Medicine - [place] [address] [place] [phone] Logan Vazquez MD [address] [place] [phone] 03/27/2025 10:20 AM CDT Office Visit [facility] - Cancer Center Oncology Services [address] [place] [phone] Quan Ross MD [address] [place] [address] Discharge Disposition: Discharged to home or Selfcare 05/21/2025 10:00 AM AIR BRAKE RIGGER Office Visit [facility] - Primary Care - [place] [address] [place] [address] Breezy Barros MD [address] [place], [place] [phone] Health Maintenance Due Date Last Done Comments DEXA Bone Density 1955 Hepatitis C Virus (HCV) Screening 1955 Cologuard 2001 Immunochemical Fecal Occult Blood 05/15/2020 05/15/2019 Influenza Immunization (#1) 2025 10/0 08/2023, 04/11/2022, 03/29/2019, Additional history exists SARS-COV-2 Immunization ( season) 2025 02/06/2022, 06/09/2021, 11/28/2020 Mammogram 10/13/2025 10/13/2024, 08/12, [...] Procedure Name Priority Date/Time Associated Diagnosis Comments CBC WITH AUTO DIFFERENTIAL Routine 03/14/2025 9:29 AM CDT Abnormal blood chemistry test COMPLETE BLOOD COUNT (CBC) WITH DIFF Routine 03/14/2025 9:29 AM CDT Abnormal blood chemistry test LIPID PANEL Routine 03/14/2025 9:29 AM CDT Essential (primary) hypertension Other hyperlipidemia CMP (COMPREHENSIVE METABOLIC PANEL) Routine 03/14/2025 9:29 AM CDT Essential (primary) hypertension XR CHEST SINGLE VIEW PORTABLE STAT 02/20/2025 9:14 PM CDT CBC WITH AUTO DIFFERENTIAL STAT 02/20/2025 8:53 PM CDT D-DIMER STAT 02/20/2025 8:53 PM CDT MAGNESIUM (MG) STAT 02/20/2025 8:53 PM CDT N-TERMINAL- PRO B TYPE NATRIURETIC PEPTIDE STAT 02/20/2025 8:53 PM CDT TROPONIN I, HIGH SENSITIVITY (HSTRP) STAT 02/20/2025 8:53 PM CDT CMP (COMPREHENSIVE METABOLIC PANEL) STAT 02/20/2025 8:53 PM CDT COMPLETE BLOOD COUNT (CBC) WITH DIFF STAT 02/20/2025 8:53 PM CDT EKG 12 LEAD STAT 02/20/2025 8:35 PM CDT EKG SCAN 02/20/2025 12:[address] CHEST W/O CONTRAST Routine 12/29/2024 6:29 PM CDT Lung nodules IN-HOME CONSULT 12/25/2024 12:00 AM CDT STEPHANIE SCREENING BILATERAL DIGITAL W CAD W LAVERN Routine 10/13/2024 4:13 PM CDT Breast cancer screening by mammogram [facility] COLONOSCOPY Routine 03/23/2017 from Last 3 Months or Most Recently Relevant to Health Maintenance Results * (ABNORMAL) CBC WITH AUTO DIFFERENTIAL (03/14/2025 9:29 AM CDT) Only the most recent of2 resultswithin the time period is included. WBC 14.11(H) 4.00 - 12.00 10(3)/mcL 03/14/2025 10:44 AM CDT [facility] RBC 4.38 3.80 - 5.30 10(6)/mcL 03/14/2025 10:44 AM CDT [facility] HEMOGLOBIN (HGB) 13.8 12.0 - 15.8 g/dL 03/14/2025 10:44 AM CDT [facility] HEMATOCRIT (HCT) 42.0 36.0 - 47.0 % 03/14/2025 10:44 AM CDT [facility] MCV 95.9 82.0 - 96.0 fL 03/14/2025 10:44 AM CDT [facility] MCH 31.5 26.0 - 34.0 pg 03/14/2025 10:44 AM CDT [facility] MCHC 32.9 31.0 - 36.0 g/dL 03/14/2025 10:44 AM CDT [facility] PLATELET COUNT 464(H) 140 - 440 10(3)/mcL 03/14/2025 10:44 AM CDT [facility] RDW 13.2 11.8 - 15.5 % 03/14/2025 10:44 AM CDT [facility] MPV 10.0 9.7 - 12.4 fL 03/14/2025 10:44 AM CDT [facility] NEUTROPHILS 56.8 47.0 - 73.0 % 03/14/2025 10:44 AM CDT [facility] LYMPHOCYTES 27.9 18.0 - 42.0 % 03/14/2025 10:44 AM CDT [facility] MONOCYTES 9.0 4.0 - 12.0 % 03/14/2025 10:44 AM CDT [facility] EOSINOPHILS 4.6 0.0 - 5.0 % 03/14/2025 10:44 AM CDT [facility] BASOPHILS 0.9 0.0 - 1.0 % 03/14/2025 10:44 AM CDT [facility] IMMATURE GRANULOCYTE 0.8(H) 0.0 - 0.4 % 03/14/2025 10:44 AM CDT [facility] Comment:Immature Granulocyte s includes Metamyelocytes, Myelocytes, and Promyelocytes. ABSOLUTE NEUTROPHILS 8.03(H) 1.60 - 7.70 10(3)/mcL 03/14/2025 10:44 AM CDT [facility] ABSOLUTE LYMPHOCYTES 3.93(H) 1.30 - 3.20 10(3)/mcL 03/14/2025 10:44 AM CDT [facility] ABSOLUTE MONOCYTES 1.27(H) 0.20 - 1.00 10(3)/[facility] 03/14/2025 10:44 AM CDT [facility] ABSOLUTE EOSINOPHIL 0.65(H) 0.00 - 0.40 10(3)/[facility] 03/14/2025 10:44 AM CDT [facility] ABSOLUTE BASOPHILS 0.12(H) 0.00 - 0.10 10(3)/[facility] 03/14/2025 10:44 AM CDT [facility] ABSOLUTE IMMATURE GRANULOCYTE 0.11(H) 0.00 - 0.03 10 (3) [facility]. 03/14/2025 10:44 AM CDT [facility] NRBC PER 100 WBC 0 03/14/20 10:44 AM CDT [facility] Blood Venipuncture / Unknown 03/14/2025 9:29 AM CDT 03/14/2025 10:41 AM CDT us Breezy Barros MD HEMATOLOGY ORDERABLES Final Result [facility] [address] [place] [address] * (ABNORMAL) LIPID PANEL (03/14/2025 9:29 AM CDT) CHOLESTEROL 183 <200 mg/dL 03/14/2025 12:00 PM CDT [facility] TRIGLYCERIDES 175(H) <150 mg/dL 03/14/2025 12:00 PM CDT [facility] HDL CHOLESTEROL 40(L) >40 mg/dL 12:00 PM CDT [facility] LDL 108 <130 mg/dL 03/14/2025 12:00 PM CDT [facility] VLDL 35 10 - 50 mg/dL 03/14/2025 12:00 PM CDT [facility] CHOL/HDL RATIO 4.6(H) 0.0 - 4.4 03/14/2025 12:00 PM CDT [facility] NON-HDL CHOLESTEROL 143(H) <130 mg/dL 03/14/2025 12:00 PM CDT [facility] IS THE PATIENT REQUIRED TO BE FASTING? Yes 03/14/2025 12:00 PM CDT [facility] Blood Venipuncture / Unknown 03/14/2025 9:29 AM CDT 03/14/2025 10:41 AM CDT us Breezy Barros MD CHEMISTRY ORDERABLES Final Result [facility] [address] [place] [address] * (ABNORMAL) CMP (COMPREHENSIVE METABOLIC PANEL) (03/14/2025 9:29 AM CDT) Only the most recent of2 resultswithin the time period is included. SODIUM 140 136 - 145 mmol/L 03/14/2025 12:00 PM CDT [facility] POTASSIUM 4.0 3.5 - 5.1 mmol/L 03/14/2025 12:00 PM CDT [facility] CHLORIDE 105 98 - 107 mmol/L 03/14/2025 12:00 PM CDT [facility] CO2, VENOUS 23 22 - 30 mmol/L 03/14/2025 12:00 PM CDT [facility] ANION GAP 16.0 <18.0 mmol/L 03/14/2025 12:00 PM CDT [facility] GLUCOSE 118(H) 70 - 99 mg/dL 03/14/2025 12:00 PM CDT [facility] BUN 9(L) 10 - 20 mg/dL 03/14/2025 12:00 PM CDT [facility] CREATININE, BLOOD 0.78 0.60 - 1.00 mg/dL 03/14/2025 12:00 PM CDT [facility] BUN/CREATININE RATIO 12 12 - 20 ratio 03/14/2025 12:00 PM [facility] TOTAL PROTEIN 7.4 6.0 - 8.0 g/dL 03/14/2025 12:00 PM [facility] ALBUMIN 4.3 3.5 - 5.0 g/dL 03/14/2025 12:00 PM [facility] A/G RATIO 1.4 1.0 - 2.2 03/14/2025 12:00 PM [facility] CALCIUM 9.2 8.7 - 10.5 mg/dL 03/14/2025 12:00 PM [facility] T BILI 0.2 0.2 - 1.2 mg/dL 03/14/2025 12:00 PM [facility] SGOT (AST) 23 <43 U/L 03/14/2025 12:00 PM [facility] SGPT (ALT) 28 <56 U/L 03/14/2025 12:00 PM [facility] ALKALINE PHOSPHATASE 110 40 - 150 U/L 03/14/2025 12:00 PM [facility] IS THE PATIENT REQUIRED TO BE FASTING? Yes 03/14/2025 12:00 PM [facility] HAS THE PATIENT BEEN FASTING? Yes 03/14/2025 12:00 PM [facility] GFR, ESTIMATED >60 >=60 03/14/2025 12:00 PM [facility] Comment: Creatinine Clearance is the preferred criteria for selecting drug dose adjustments in renally impaired patients. The GFR is provided as additional pertinent clinical information. GFR is reported in mL/min/1.73 sq m. Calculation based on the 2020 Chronic Kidney Disease Epidemiology Collaboration (CKD-EPI) equation refit without adjustment for race. GFR, EST. >60 >=60 025 12:00 PM [facility] Comment: Creatinine Clearance is the preferred criteria for selecting drug dose adjustments in renally impaired patients. The GFR is provided as additional pertinent clinical information. GFR is reported in mL/min/1.73 sq m. Calculation based on the 2009 Chronic Kidney Disease Epidemiology Collaboration (CKD-EPI). GFR, EST. NONAFRICAN >60 >=60 03/14/2025 12:00 PM CDT [facility] Comment: Creatinine Clearance is the preferred criteria for selecting drug dose adjustments in renally impaired patients. The GFR is provided as additional pertinent clinical information. GFR is reported in mL/min/1.73 sq m. Calculation based on the 2009 Chronic Kidney Disease Epidemiology Collaboration (CKD-EPI). Blood Venipuncture / Unknown 03/14/2025 9:29 AM CDT 03/14/2025 10:41 AM CDT us Breezy Barros MD CHEMISTRY ORDERABLES Final Result [facility] [address] [place] [address] * XR CHEST SINGLE VIEW PORTABLE (02/20/2025 9:14 PM CDT) Anatomical Region Laterality Modality Chest N/A Computed Radiogr aphy 02/20/2025 9:40 PM CDT Impressions 02/20/2025 9:42 PM CDT IMPRESSION: No acute cardiopulmonary abnormality. Narrative 02/20/2025 9:42 PM CDT EXAM DESCRIPTION: XR CHEST SINGLE VIEW PORTABLE REASON FOR STUDY: chest pain TECHNIQUE: Single radiographic view(s) of the chest. COMPARISON: 09/20/2024 FINDINGS: LUNGS: Allowing for overlying soft tissues, the lungs appear grossly clear. No consolidation or effusion is seen. HEART/MEDIASTINUM: Cardiac silhouette normal in size. Mediastinal and hilar contours appear normal. LINES/TUBES: None. BONES: No acute osseous abnormality. THIS IS AN ELECTRONICALLY VERIFIED FINAL REPORT 02/20/2025 9:40 PM - Electronically signed by Hipolito Chávez M.D. KH: ERICK Report ID: [id number] Reading Location: [id number] Procedure Note Hipolito Chávez MD - 02/20/2025 EXAM DESCRIPTION: XR CHEST SINGLE VIEW PORTABLE REASON FOR STUDY: chest pain TECHNIQUE: Single radiographic view(s) of the chest. COMPARISON: 09/20/2024 FINDINGS: LUNGS: Allowing for overlying soft tissues, the lungs appear grossly clear. No consolidation or effusion is seen. HEART/MEDIASTINUM: Cardiac silhouette normal in size. Mediastinal and hilar contours appear normal. LINES/TUBES: None. BONES: No acute osseous abnormality. THIS IS AN ELECTRONICALLY VERIFIED FINAL REPORT 02/20/2025 9:40 PM - Electronically signed by Hipolito Chávez M.D. KH: ERICK Report ID: [id number] Reading Location: [id number] IMPRESSION: No acute cardiopulmonary abnormality. Raul Kent MD IMG DIAGNOSTIC ORDERABLES Final Result * NT-proBNP (02/20/2025 8:53 PM CDT) NT PROBNP 51.9 <450.0 pg/mL 02/20/2025 9:56 PM CDT [facility] Comment: AGE pg/mL INTERPRETATION All <300 Negative: HF (Heart Failure) unlikely 18 to <50 >=300.0 to <450.0 Indeterminate. Consider other causes of NT-proBNP elevation 50 to 75 >=300.0 to <900.0 Indeterminate. Consider other causes of NT-proBNP elevation >75 >=300.0 to <1800.0 Indeterminate. Consider other causes of NT-proBNP elevation 18 to <50 >=450.0 Positive: HF likely 50 to 75 >=900.0 Positive: HF likely >75 >=1800.0 Positive: HF likely Total protein levels at or above 12.6 mg/dl may falsely decrease NT-proBNP values. Blood Venipuncture / Unknown 02/20/2025 8:53 PM CDT 02/20/2025 8:58 PM CDT Raul Kent MD CHEMISTRY ORDERABLES Aide l Result Performing Organization Address City/[facility]/ZIP Co de Phone Number [facility] [address] [place] [address] * TROPONIN I, HIGH SENSITIVITY (HSTRP) (02/20/2025 8:53 PM CDT) [facility] TROPONIN I, HIGH SENSITIVITY- DÍAZ <3 <=14 ng/L 02/20/2025 9:23 PM CDT [facility] Comment: High-sensitivity troponin I results are reported in ng/L making the result appear to be 1,000 times higher than the contemporary troponin I value which is reported in ng/ml. Results from [place]. Blood Venipuncture / Unknown 02/20/2025 8:53 PM CDT 02/20/2025 8:58 PM CDT Raul Kent MD CHEMISTRY ORDERABLES Aide l Result Performing Organization Address City/[facility]/ZIP Co de Phone Number [facility] [address] [place] [address] * MAGNESIUM (MG) (02/20/2025 8:53 PM CDT) [facility] MAGNESIUM 1.9 1.6 - 2.6 mg/dL 02/20/2025 9:30 PM CDT [facility] Blood Venipuncture / Unknown 02/20/2025 8:53 PM CDT 02/20/2025 8:58 PM CDT Raul Kent MD CHEMISTRY ORDERABLES Aide l Result [facility] [address] [place] [address] * D-Dimer (02/20/2025 8:53 PM CDT) [facility] D DIMER <=0.27 <0.50 mcg/mL FEU 02/20/2025 9:52 PM CDT [facility] Blood Venipuncture / Unknown 02/20/2025 8:53 PM CDT 02/20/2025 9:41 PM CDT Narrative [facility] - 02/20/2025 9:52 PM CDT The FDA has approved this method to exclude the diagnosis of DVT and/or PE at the cutoff value of <0.50 mcg/mL FEU. us Raul Kent MD HEMATOLOGY ORDERABLES Fin al Result Performing Organization Address City/[facility]/ZIP Co de Phone Number [facility] [address] [place] [address] * EKG 12 LEAD (02/20/2025 8:35 PM CDT) Ventricular Rate 84 BPM EXTERNAL EKG Atrial Rate 84 BPM EXTERNAL EKG P-R Interval 156 ms EXTERNAL EKG QRS Duration 82 ms EXTERNAL EKG Q-T Duration 382 ms EXTERNAL EKG QTC CALCULATION 451 ms EXTERNAL EKG P [place] 55 degrees EXTERNAL EKG R [place] 45 degrees EXTERNAL EKG T [place] 64 degrees EXTERNAL EKG 02/20/2025 8:35 PM CDT Impressions EXTERNAL EKG - 02/22/2025 11:44 AM CDT Normal sinus rhythm Normal ECG When compared with ECG of 18-SEP-2024 21:12, No significant change was found Confirmed by RACHELLE FORTE ([id number]) on 02/22/2025 11:44:12 AM Narrative Procedure Note Rachelle Forte MD - 02/22/2025 IMPRESSION: Normal sinus rhythm Normal ECG When compared with ECG of 18-SEP-2024 21:12, No significant change was found Confirmed by RACHELLE FORTE ([id number]) on 02/22/2025 11:44:12 AM Raul Kent MD IMG ECG ORDERABLES Final Result Performing Organization Address City/[facility]/ZIP Co de Phone Number EXTERNAL EKG * EKG SCAN (02/20/2025 12:00 AM CDT) 02/20/2025 us Provider Scan IMG ECG ORDERABLES Final Result RESULTING AGENCY * CT CHEST W/O CONTRAST (12/29/2024 6:29 [...] W/O CONTRAST REASON FOR STUDY: Fu lung [id number] year. Hx RUL lung ca since 01/2015, [...] Nancy Hernadez M.D. LC: DIEGO Report ID: [id number] Reading Location: [place] [address] Procedure Note Katalina Hernadez MD - 01/15/2025 EXAM DESCRIPTION: CT CHEST W/O CONTRAST REASON FOR STUDY: Fu lung [id number] year. Hx RUL lung ca since 01/2015, [...] Nancy Hernadez M.D. LC: DIEGO Report ID: [id number] Reading Location: [place] [address] IMPRESSION: 1. Stable postoperative changes of the [...] is no longer identified. Logan Vazquez MD [facility] CT ORDERABLES Final Result * IN-HOME CONSULT (12/25/2024 12:00 AM CDT) 12/25/2024 us Provider Scan GENERIC SCAN ORDERS CONSULT Aide jose Result SCAN * STEPHANIE SCREENING BILATERAL DIGITAL [...] copy. Current study was also evaluated with [employer] version 7.2. 2D digital mammographic views, as well as 3D digital tomosynthesis were performed in the CC and MLO projections. CLINICAL: Routine screening. Patient has no complaints. She reports a 19 pound weight increase. Personal history of right lung cancer. Sister with postmenopausal breast cancer. COMPARISONS: Comparison is made to exams dated: 08/27/2021, 08/13/2020, and 07/20/2020 [facility]. BREAST TISSUE:There are scattered areas of fibroglandular [...] exam. Electronically signed by: Dee andrew/viktoria:10/16/2024 15:21:16 Patient Service Technician Pst(s): RT Pepito(R)(M), [facility] letter sent: Normal Exam Reading [...] to exams dated: 08/27/2021, 08[facility]13/2020, [facility] BREAST TISSUE:There are scattered areas of fibroglandular [...] exam. Electronically signed by: Dee andrew/viktoria:10/16/2024 15:21:16 Patient Service Technician Pst(s): RT Pepito(R)(M), [facility] letter sent: Normal Exam Reading location: [facility] Mammogram BI-RADS: Category 1: Negative us Breezy Barros MD IMG MAMMO ORDERABLES Final Result * HM COLONOSCOPY (03/23/2017) Ajay Cortez MD PROCEDURE/MINOR SURGICAL OR DERABLES Final Result from Last 3 Months or Most Recently Relevant to Health Maintenance Insurance MEDICAID [place] MEDICARE C [facility] GENERIC Advance Directives * Full Code [...] measures to stabilize the patient. Care Teams Oleomargarine Maker Relationship Specialty Start Date End Date Breezy Barros MD [address] [place] [address] PCP - General Internal Medicine 09/05/24 Logan Vazquez MD Consulting Physician Pulmonary Disease 02/10/17 Logan Vazquez MD [address] [place] [address] Consulting Physician Pulmonary Disease 10/01/21 Ana Aguilar APRN, [employer] [address] [place] [address] Nurse Practitioner Advanced Practice Nurse 06/23/24
--- OUTSIDE RECORDS SUMMARY | 2025-03-18 14:10 | XMS_ITS | Clinical Summary ---
Author Organization [facility] [employer] Address [address] [place] [address] Care Team Providers Care Pension Adviser Name Role Phone Do Cristina MD Primary Care Provider [phone] Source Comments [facility] [employer],non-owned Affiliates and Associated Physician Practices is amultiple site organization consisting of ambulatory clinics and hospital sitesin [place], [place], [place] and [place]. This disclosure is being madepursuant to the Care Everywhere program and may not contain all information available regarding this patient. Last updated 18.[facility] [employer] Allergies Active Allergy Reactions Criticality Noted Date Comments Codeine Itching Low 08/13/2016 Penicillins Rash Medium 08/13/2016 Medications * Be aware that medications may not be up to date on this document. Alwaysverify current medications with the patient. guaiFENesin ER 12hr (EQ MUCUS ER) 600 MG tablet 07/16/2017 Activ e amLODIPine (NORVASC) 10 MG tablet 07/11/2017 Active fluticasone propionate (FLONASE) 50 MCG/ACT nasal spray 06/06/2017 Active tiotropium (SPIRIVA HANDIHALER) 18 MCG inhalation capsule 05/03/2017 Active albuterol-ipratrop ium (DUO-NEB) 0.5-2.5 (3) MG/3ML nebulizer solution 06/17/2017 Active raNITIdine (ZANTAC) 150 MG tablet 07/22/2017 Active pravastatin (PRAVACHOL) 20 MG tablet 07/22/2017 Active levoFLOXacin (LEVAQUIN) 750 MG tablet 06/17/2017 Active metoprolol tartrate (LOPRESSOR) 25 MG tablet 07/22/2017 Active citalopram (CELEXA) 10 MG tablet 07/22/2017 Active nystatin (MYCOSTATIN) 394427 UNIT/ML suspension 07/16/2017 Active montelukast (SINGULAIR) 10 MG tablet 06/11/2017 Active albuterol HFA (PROAIR HFA) 108 (90 BASE) MCG/ACT inhaler 06/06/2017 Active mometasone-formote rol (DULERA) 100-5 MCG/ACT inhaler 06/06/2017 Act roland Active Problems Problem Noted Date Diagnosed Date [...] at Not on file 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
--- OUTSIDE RECORDS SUMMARY | 2025-03-18 14:11 | XMS_ITS | Patient Health Record ---
Author Organization [facility] Address [address] [place] [address] Care Team Providers Care Grinder Set Up Operator Centerless Name Role Phone zzzPCP, OUTSIDE Primary Care [...] ml as needed 4 times a day [facility] 03/19/2014 Active Azithromycin 250 mg 2 Tablet by Oral route on day 1 then take 1 daily for 4 days [facility] 03/27/2014 Not-Taking Advair Diskus 250-50 MCG/DOSE 1 puff Twice a day [facility] 04/15/2012 Active ProAir HFA 90 mcg/actuation 2 puffs as needed 4 times a day [facility] 02/10/2013 Active predniSONE 20 mg 2 tablet by Oral route 1 time per day for 5 day(s) [facility] 08/12/2012 Not-Taking Zithromax Z-Rod 250 mg take 2 tablets by Oral route 1 time per day then 1 tablet (250 mg) by oral route once daily for 4 days for 1 day Quantity Amount, Route, and Frequency [facility] 08/24/2011 Not-Taking Mobic 7.5 mg take 1 Tablet by Oral route 2 times per day [facility] 2013 Not-Taking Famotidine 20 MG 1 tablet at bedtime Orally Once a day Active Metoprolol Tartrate 25 mg 0.5 tablet by Oral route 2 times per day (do not crush or chew) [facility] 06/09/2013 Active Allergy 10 MG 1 tablet Orally Once a day Active Doxycycline Hyclate 100 mg 1 tablet by Oral route 2 times per day for 10 days [facility] 10/10/2012 Not-Taking predniSONE 10 mg 1 Tablet 2 times per day for 7 days Take at 8 am and noon. Do not take after 3 pm [facility] 03/27/2014 Not-Taking Kenyatta Allergy 180 mg take 1 tablet (18 0 mg) by oral route once daily [facility] 05/04/2013 Not-Taking Aspir-81 81 MG 1 tablet Orally Once a day Active amitriptyline 25 mg 1-2 tablet by Oral route 1 time per day [facility] 08/31/2013 Not-Taking Lipitor 80 mg 1 tablet by Oral route 1 time per day [facility] 12/15/2013 Not-Taking Keflex 500 mg take 2 capsule by Oral route every 12 hours for 10 days [facility] 08/10/2013 Not-Taking Oodrlfah-Lrwjhiptw-JU 3.5-10,000-1 mg-unit/mL-% 2 drop by Otic route 4 times per day for 7 day(s) [facility] 08/10/2013 Not-Taking Immunizations Vaccine Route Administration Date Status Comme nts Influenza (split), preservat roland free, 6-35 months Unknown 03/28/2009 Pending Deltoid, left; influenza IIV3 (history) Unknown 05/04/2013 Pending Deltoid, left; PRIVATE PPSV23 (PNEUMOVAX) Unknown 03/28/2009 Pending Deltoid, left; Problems Problem Type SNOMED Code ICD Code Onset Dates Problem Status W/U Status Risk Notes Problem Verruca vulgaris (05487244) Viral warts, unspecified (078.10) Active confirmed VIRAL WARTS UNSPECIFIED Problem Episodic mood disorder (disorder) (15462691341743 ) Unspecified episodic mood disorder (296.90) Active confirmed UNSPECIFIED EPISODIC MOOD DISORDER Problem 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, 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 CIRCADIAN RHYTHM SLEEP DISORDER SHIFT WORK TYPE Problem Allergic rhinitis (34845855) Allergic rhinitis, cause unspecified (477.9) Active confirmed RHINITIS Problem Acute non-suppurative otitis media - serous (377673068) Acute serous otitis media (381.01) Active confirmed ACUTE SEROUS OTITIS MEDIA Problem Pain of ear (finding) (910539833) Unspecified otalgia (388.70) Active confirmed OTALGIA UNSPECIFIED Problem Acute sinusitis (disorder) (46918743) Other acute sinusitis (461.8) Active confirmed OTHER ACUTE SINUSITIS Problem Acute sinusitis (40051173) Acute sinusitis, unspecified (461.9) Active confirmed Sinusitis Acute Problem Acute upper respiratory infection (64332237) Acute upper respiratory infections of unspecified site (465.9) Active confirmed UPPER RESPIRATORY INFECTION Problem Acute exacerbation of chronic obstructive airways disease (966177008) Obstructive chronic bronchitis, with (acute) exacerbation (491.21) Active confirmed CHRONIC BRONCHITIS - WITH ACUTE EXACERBATION Problem Esophageal reflux (990213008) Esophageal reflux (530.81) Active confirmed GERD Problem Acquired trigger finger (4398037) Trigger finger (acquired) (727.03) Active confirmed TRIGGER FINGER (ACQUIRED) Problem Rheumatoid arthritis (66837557) Rheumatoid arthritis (714.0) Active confirmed ARTHRITIS, RHEUMATOID Problem Hand joint pain (053353192) Pain in joint, hand (719.44) Active confirmed PAIN IN JOINT INVOLVING HAND Problem Muscle pain (98406459) Unspecified myalgia and myositis (729.1) Active confirmed MYALGIA AND MYOSITIS UNSPECIFIED Problem Acquired deformity of toe (43413177) Other hammer toe (acquired) (735.4) Active confirmed HAMMER TOE (ACQUIRED) Problem Insomnia (553826955) Insomnia, unspecified (780.52) Active confirmed INSOMNIA UNSPECIFIED Problem Malaise and fatigue (890097478) Other malaise and fatigue (780.79) Active confirmed OTHER MALAISE AND FATIGUE Problem Eruption of skin (938482737) Rash and other nonspecific skin eruption (782.1) Active confirmed RASH Problem Headache (43282586) Headache (784.0) Active confirmed HEADACHE Problem Postnasal drip (46278230) Postnasal drip (784.91) Active confirmed POSTNASAL DRIP Problem Cough (02260707) Cough (786.2) Active confirmed Cough Problem History of non-drug allergy (720429502) Personal history of other allergy, other than to medicinal agents (V15.09) Active confirmed PERSONAL HISTORY OF OTHER ALLERGY OTHER THAN TO MEDICINAL AGENTS Problem Needs influenza immunization (378745844) Need for prophylactic vaccination and inoculation, Influenza (V04.81) Active confirmed FLU SHOT Problem Exacerbation of asthma (570196153) Asthma exacerbation (J45.901) Active confirmed Plan Of Treatment No Information Medical (General) History Surgical History Surgery Date(Month/Year) chemotherapy of the lung 02/2015 right upper lobe of lung removed 015 Hospitalization History Reason Date(Month/Year) lung surgery 02/04/2015
--- OUTSIDE RECORDS SUMMARY | 2025-03-18 14:11 | XMS_ITS | Encounter Summary ---
Author Organization [facility] Address [address] [place] [address] Phone Care Team Providers Care Radiation Officer Name Role Phone Logan Vazquez MD Unavailable Logan Vazquez MD Unavailable Ana Aguilar APRN, [facility] Unavailable Breezy Barros MD Primary Care Provider Reason for Referral * Radiology Services (Routine) - Authorized Specialty Diagnoses / Procedures Referred By Contac t Referred To Contact Radiology Diagnoses Lung nodules Procedures CT CHEST W/O CONTRAST Logan Vazquez MD [address] [place] [address] Phone: tel: fax: Referral ID Status Reason Start Date Expiration Date V isits Requested Visits Authorized [id number] Authorized 02/16/2025 1 1 Encounter Details Date Type Department Care Team (Late st Contact Info) Description 02/16/2025 Results Follow-Up [facility] - Pulmonology & Sleep Medicine [facility] [address] [place] [address] Logan Vazquez MD [address] [place] [address] CT CHEST W/O CONTRAST Social History Tobacco Use Types Packs/Day Years Used Date Smoking Tobacco: Former Cigarettes 0.5 45 0 09/10/1975 - 09/09/2020 Passive Smoke Exposure: Past Smokeless Tobacco: Never Alcohol Use Standard Drinks/Week Comments Not Currently 4 (1 standard drink = 0.6 oz pur e alcohol) social [facility] Utilities Answer Date Recorded In the [...] you attend [facility] or caodaism services? More than 4 times per year 09/04/2024 Do you belong to any clubs o r organizations such as scientologist groups, unions, fraternal or athletic groups, or [...] Score - Questions 1-9 0 05/0 07/2024 [facility] - Occupational Stress [...] any time in the past 12 m [facility], were you homeless or living in a jail (including now)? No 09/04/2024 Sexually Active Control Partners Comments Not Currently Comments No Sex and Gender Information Value Date Recorded Sex Assigned at Female 07/26/2024 9:52 PM RECONCILIATION ACCOUNTANT Legal Sex Female 9:37 PM CDT Gender Identity Female 07/26/2024 9:52 PM RECONCILIATION ACCOUNTANT Sexual Orientation Straight 07/26/2024 9: 52 PM RECONCILIATION ACCOUNTANT Occupation Industry Job Start Date Job End Date [employer] Not on file Not on file Not on file documented as of this encounter Plan of Treatment Upcoming Encounters Date Type Department Care Team (Late st Contact Info) Description 03/19/2025 11:30 AM CDT Office Visit [facility] Medical [facility] - Cardiology - [place] [address] [place] [address] Sheree Palm, DO [address] [address] 03/26/2025 2:30 PM CDT Office Visit [facility] - Pulmonology & Sleep Medicine - [place] [address] [place] [address] Logan Vazquez MD [address] [place] [address] 03/27/2025 10:20 AM CDT [facility] Oncology Services [address] [place] [address] Quan Ross MD [address] [place] [address] Discharge Disposition: Discharged to home or Selfcare 05/21/2025 10:00 AM RECONCILIATION ACCOUNTANT Office Visit [facility] - Primary Care - [place] [address] [place] [address] Breezy Barros MD [address] [place] [address] Scheduled Orders Name Type Priority Associated Diagnoses Orde r Schedule CT CHEST W/O CONTRAST Imaging Routine Lung nodules Expected: 02/18/2026, Expires: 08/19/2026 documented as of this encounter Visit Diagnoses Diagnosis Lung nodules- Primary Other nonspecific abnormal finding of lung field documented in this encounter Additional Health Concerns Assessment Noted Time PHQ-9 Depression Total Score: 0 11/10/19 25 3:11 PM CDT documented as of this encounter Care Teams Radiation Officer Relationship Specialty Start Date End Date Breezy Barros MD [address] [place] [address] PCP - General Internal Medicine 09/05/24 Logan Vazquez MD Consulting Physician Pulmonary Disease 02/10/17 Logan Vazquez MD [address] [place] [address] Consulting Physician Pulmonary Disease 10/01/21 Ana Aguilar APRN, DISPUTE COORDINATOR [address] [place] [address] Nurse Practitioner Advanced Practice Nurse 06/23/24 documented as of this encounter
--- OUTSIDE RECORDS SUMMARY | 2025-03-18 14:11 | XMS_ITS | Encounter Summary ---
Author Organization [facility] Address [address] [place] [address] Phone Care Team Providers Care Animated Cartoons Painter Name Role Phone Logan Vazquez MD Unavailable Ave Collier MD Primary Care Provider [phone] Arnaud Martini MD Primary Care Provider [phone] Logan Vazquez MD Unavailable Ana Aguilar APRN, VEHICLE SALES PROFESSIONAL Unavailable Breezy Barros MD Primary Care Provider [phone] Encounter Details Date Type Department Care Team (Late st Contact Info) Description 07/29/2020 Transcribe Orders [facility] Central Scheduling [address] [place] [address] Tomeka Blunt, LACE STRIPPER, VEHICLE SALES PROFESSIONAL [address] [place] [address] Social History Tobacco Use Types Packs/Day Years Used Date Smoking Tobacco: Every Day Cigarettes 0.5 45 Smokeless Tobacco: Never Comments:3-4 cigs a day Alcohol Use Standard Drinks/Week Comments Yes 4 (1 standard drink = 0.6 oz pur e alcohol) social Comments No Sex and Gender Information Value Date Recorded Sex Assigned at Female 07/26/2024 9:52 PM SALT GRINDER Legal Sex Female 9:37 PM CDT Gender Identity Female 07/26/2024 9:52 PM SALT GRINDER Sexual Orientation Straight 07/26/2024 9: 52 PM SALT GRINDER Occupation Industry Job Start Date Job End Date [employer] Not on file Not on file Not on file COVID-19 Exposure Response Date Recorded In the last month, have you been in contact with someone who was confirmed or suspected to have Coronavirus / COVID-19? No / Unsure 07/22/2020 9:27 AM SALT GRINDER documented as of this encounter Plan of Treatment Upcoming Encounters Date Type Department Care Team (Late st Contact Info) Description 03/19/2025 11:30 AM CDT Office Visit [facility] Cardiology [facility] [address] [place] [address] Sheree Palm, DO [address] [address] 03/26/2025 2:30 PM CDT Office Visit [facility] - Pulmonology & Sleep Medicine [facility] [address] [place] [address] Logan Vazquez MD [address] [place] [address] 03/27/2025 10:20 AM CDT [facility] [address] [place] [address] Quan Ross MD [address] [place] [address] Discharge Disposition: Discharged to home or Selfcare 05/21/2025 10:00 AM SALT GRINDER Office Visit [facility] - Primary Care - [place] [address] [place] [address] Breezy Barros MD [address] [place] [address] documented as of this encounter Visit Diagnoses Not on filedocumented in this encounter Additional Health Concerns Infection Onset Date Last Indicated Resolved Time COVID - 19 04/19/2021 04/19/2021 04/21/2021 8:16 AM CDT Respiratory Rule Out - RPA 04/19/2021 04/19/2021 1 3:30 PM CDT COVID - 19 07/07/2021 07/07/2021 07/07/2021 6:29 PM SALT GRINDER COVID - 19 Confirmed 07/07/2021 07/07/2021 022 12:16 AM SALT GRINDER Respiratory Rule Out - RPA 10/07/2021 10/08/2021 0 10/08/2021 3:24 PM CDT COVID - 19 06/16/2024 06/16/2024 06/16/2024 10:2 3 PM SALT GRINDER COVID - 19 09/18/2024 09/18/2024 09/18/2024 10:1 3 PM CDT COVID - 19 09/20/2024 09/20/2024 09/20/2024 11:4 5 PM CDT Influenza 09/20/2024 09/20/2024 09/27/2024 12:1 6 AM CDT documented as of this encounter Care Teams Animated Cartoons Painter Relationship Specialty Start Date End Date Ave Collier MD PCP - General Internal Medicine 03/23/20 04/18/21 Arnaud Martini MD PCP - General Family Medicine 04/19/21 09/04/24 Breezy Barros MD [address] [place] [address] PCP - General Internal Medicine 09/05/24 Logan Vazquez MD Consulting Physician Pulmonary Disease 02/10/17 Logan Vazquez MD [address] [place] [address] Consulting Physician Pulmonary Disease 10/01/21 Ana Aguilar APRN, VEHICLE SALES PROFESSIONAL [address] [place] [address] Nurse Practitioner Advanced Practice Nurse 06/23/24 documented as of this encounter
--- OUTSIDE RECORDS SUMMARY | 2025-03-18 14:11 | XMS_ITS | Encounter Summary ---
Author Organization [facility] Address [address] [place] [address] Phone Care Team Providers Care Solid Waste Truck Driver Name Role Phone Logan Vazquez MD Unavailable Ave Collier MD Primary Care Provider Arnaud Martini MD Primary Care Provider [phone] Logan Vazquez MD Unavailable Ana Aguilar APRN, [facility] Unavailable Breezy Barros MD Primary Care Provider [phone] Reason for Visit * Reason Comments Medication Refill Encounter Details Date Type Department Care Team (Late st Contact Info) Description 12/13/2020 Refill [facility] [address] [place] [address] Logan Vazquez MD [address] [place] [address] Medication Refill Social History Tobacco Use Types Packs/Day Years Used Date Smoking Tobacco: Former Cigarettes 1 45 0 09/10/1975 - 09/09/2020 Smokeless Tobacco: Never Alcohol Use Standard Drinks/Week Comments Yes 4 (1 standard drink = 0.6 oz pur e alcohol) social Comments No Sex and Gender Information Value Date Recorded Sex Assigned at Female 07/26/2024 9:52 PM BRIM WELT SEWING MACHINE OPERATOR Legal Sex Female 9:37 PM CDT Gender Identity Female 07/26/2024 9:52 PM BRIM WELT SEWING MACHINE OPERATOR Sexual Orientation Straight 07/26/2024 9: 52 PM BRIM WELT SEWING MACHINE OPERATOR Occupation Industry Job Start Date [...] Description 03/19/2025 11:30 AM CDT Office Visit [facility] Medical [facility] - Cardiology [facility] [address] [place] [address] Sheree Palm, DO [address] [address] 03/26/2025 2:30 PM CDT Office Visit [facility] - Pulmonology & Sleep Medicine [facility] [address] [place] [address] Logan Vazquez MD [address] [place] [address] 03/27/2025 10:20 AM CDT Office Visit [facility] - Cancer Center Oncology Services [address] [place] [address] Quan Ross MD [address] [place] [address] Discharge Disposition: Discharged to home or Selfcare 05/21/2025 10:00 AM BRIM WELT SEWING MACHINE OPERATOR Office Visit [facility] - Primary Care - [place] [address] [place] [address] Breezy Barros MD [address] [place] [address] documented as of this encounter Visit Diagnoses Not on filedocumented in this encounter Additional Health Concerns Infection Onset Date Last Indicated Resolved Time COVID - 19 04/19/2021 04/19/2021 04/21/2021 8:16 AM CDT Respiratory Rule Out - RPA 04/19/2021 04/19/2021 1 3:30 PM CDT COVID - 19 07/07/2021 07/07/2021 07/07/2021 6:29 PM BRIM WELT SEWING MACHINE OPERATOR COVID - 19 Confirmed 07/07/2021 07/07/202107/27/ 022 12:16 AM BRIM WELT SEWING MACHINE OPERATOR Respiratory Rule Out - RPA 10/07/2021 10/08/2021 0 10/08/2021 3:24 PM CDT COVID - 19 06/16/2024 06/16/2024 06/16/2024 10:2 3 PM BRIM WELT SEWING MACHINE OPERATOR COVID - 19 09/18/2024 09/18/2024 09/18/2024 10:1 3 PM CDT COVID - 19 09/20/2024 09/20/2024 09/20/2024 11:4 5 PM CDT Influenza 09/20/2024 09/20/2024 09/27/2024 12:1 6 AM CDT documented as of this encounter Care Teams Solid Waste Truck Driver Relationship Specialty Start Date End Date Ave Collier MD PCP - General Internal Medicine 03/23/20 04/18/21 Arnaud Martini MD PCP - General Family Medicine 04/19/21 09/04/24 Breezy Barros MD [address] [place] [address] PCP - General Internal Medicine 09/05/24 Logan Vazquez MD Consulting Physician Pulmonary Disease 02/10/17 Logan Vazquez MD [address] [place] [address] Consulting Physician Pulmonary Disease 10/01/21 Ana Aguilar APRN, TOWER CRANE OPERATOR [address] [place] [address] Nurse Practitioner Advanced Practice Nurse 06/23/24 documented as of this encounter
--- OUTSIDE RECORDS SUMMARY | 2025-03-18 14:11 | XMS_ITS | Encounter Summary ---
Author Organization [facility] Address [address] [place] [address] Phone Care Team Providers Care Biscuit Factory Worker Name Role Phone Logan Vazquez MD Unavailable Ave Collier MD Primary Care Provider Arnaud Martini MD Primary Care Provider [phone] Logan Vazquez MD Unavailable Ana Aguilar APRN, DUST BOX WORKER Unavailable Breezy Barros MD Primary Care Provider [phone] Reason for Visit * Reason Comments Medication Refill Encounter Details Date Type Department Care Team (Late st Contact Info) Description 01/25/[facility] - [place] #2 [place] [phone] Susan Green APRN, DUST BOX WORKER [address] [address] Medication Refill Social History Tobacco Use Types Packs/Day Years Used Date Smoking Tobacco: Every Day Cigarettes 0.5 45 Started: 09/10/1975; Last attempted to quit: 09/09/2020 Smokeless Tobacco: Never Alcohol Use Standard Drinks/Week Comments Yes 4 (1 standard drink = 0.6 oz pur e alcohol) social Comments No Sex and Gender Information Value Date Recorded Sex Assigned at Female 07/26/2024 9:52 PM AWS ARCHITECT Legal Sex Female 9:37 PM CDT Gender Identity Female 07/26/2024 9:52 PM AWS ARCHITECT Sexual Orientation Straight 07/26/2024 9: 52 PM AWS ARCHITECT Occupation Industry Job Start Date Job [...] Description 03/19/2025 11:30 AM CDT Office Visit [facility] - Cardiology [facility] #2 [place] [address] Sheree Palm, DO [address] [address] 03/26/2025 2:30 PM CDT Office Visit [facility] - Pulmonology & Sleep Medicine [facility] #2 [place] [address] Logan Vazquez MD #2 [place] [address] 03/27/2025 10:20 AM CDT [facility] [address] [place] [address] Quan Ross MD 0 [place] [address] Discharge Disposition: Discharged to home or Selfcare 05/21/2025 10:00 AM AWS ARCHITECT Office Visit [facility] - Primary Care - [place] [address] [place] [address] Breezy Barros MD [address] [place] [address] documented as of this encounter Visit Diagnoses Not on filedocumented in this encounter Additional Health Concerns Infection Onset Date Last Indicated Resolved Time COVID - 19 04/19/2021 04/19/2021 04/21/2021 8:16 AM CDT Respiratory Rule Out - RPA 04/19/2021 04/19/2021 1 3:30 PM CDT COVID - 19 07/07/2021 07/07/2021 07/07/2021 6:29 PM AWS ARCHITECT COVID - 19 Confirmed 07/07/2021 07/07/2021 022 12:16 AM AWS ARCHITECT Respiratory Rule Out - RPA 10/07/2021 10/08/2021 0 10/08/2021 3:24 PM CDT COVID - 19 06/16/2024 06/16/2024 06/16/2024 10:2 3 PM AWS ARCHITECT COVID - 19 09/18/2024 09/18/2024 09/18/2024 10:1 3 PM CDT COVID - 19 09/20/2024 09/20/2024 09/20/2024 11:4 5 PM CDT Influenza 09/20/2024 09/20/2024 09/27/2024 12:1 6 AM CDT documented as of this encounter Care Teams Biscuit Factory Worker Relationship Specialty Start Date End Date Ave Collier MD PCP - General Internal Medicine 03/23/20 04/18/21 Arnaud Martini MD PCP - General Family Medicine 04/19/21 09/04/24 Breezy Barros MD #2 [place] [address] PCP - General Internal Medicine 09/05/24 Logan Vazquez MD Consulting Physician Pulmonary Disease 02/10/17 Logan Vazquez MD #2 [place] [address] Consulting Physician Pulmonary Disease 10/01/21 Ana Aguilar APRN, DUST BOX WORKER #2 [place] [address] Nurse Practitioner Advanced Practice Nurse 06/23/24 documented as of this encounter
--- OUTSIDE RECORDS SUMMARY | 2025-03-18 14:11 | XMS_ITS | Encounter Summary ---
Author Organization [facility] Address [address] [place] [address] Phone Care Team Providers Care Tobacco Prevention Health Educator Name Role Phone Logan Vazquez MD Unavailable Ave Collier MD Primary Care Provider [phone] Arnaud Martini MD Primary Care Provider [phone] Logan Vazquez MD Unavailable Ana Aguilar APRN, [facility] Unavailable Breezy Barros MD Primary Care Provider [phone] Reason for Visit * Reason Comments Medication Refill Encounter Details Date Type Department Care Team (Late st Contact Info) Description 08/18/2020 Refill [facility] #1 [place] [address] Logan Vazquez MD #2 [place] [address] Medication Refill Social History Tobacco Use Types Packs/Day Years Used Date Smoking Tobacco: Every Day Cigarettes 0.5 45 Smokeless Tobacco: Never Comments:3-4 cigs a day Alcohol Use Standard Drinks/Week Comments Yes 4 (1 standard drink = 0.6 oz pur e alcohol) social Comments No Sex and Gender Information Value Date Recorded Sex Assigned at Female 07/26/2024 9:52 PM SOLAR ENERGY CONSULTANT AND DESIGNER Legal Sex Female 9:37 PM CDT Gender Identity Female 07/26/2024 9:52 PM SOLAR ENERGY CONSULTANT AND DESIGNER Sexual Orientation Straight 07/26/2024 9: 52 PM SOLAR ENERGY CONSULTANT AND DESIGNER Occupation Industry Job Start Date Job End Date [employer] Not on file Not on file Not on file COVID-19 Exposure Response Date Recorded In the last month, have you been in contact with someone who was confirmed or suspected to have Coronavirus / COVID-19? No / Unsure 08/13/2020 12:49 PM SOLAR ENERGY CONSULTANT AND DESIGNER documented as of this encounter Plan of Treatment Upcoming Encounters Date Type Department Care Team (Late st Contact Info) Description 03/19/2025 11:30 AM CDT Office Visit [facility] Cardiology - [place] #2 [place] [address] Sheree Palm, DO [address] [address] 03/26/2025 2:30 PM CDT [facility] #2 [place] [address] Logan Vazquez MD #2 [place] [address] 03/27/2025 10:20 AM CDT Office Visit [facility] - Cancer Center Oncology Services 0 [place] [address] Quan Ross MD 0 [place] [address] Discharge Disposition: Discharged to home or Selfcare 05/21/2025 10:00 AM SOLAR ENERGY CONSULTANT AND DESIGNER [facility] - [place] [address] [place] [address] Breezy Barros MD [address] [place] [address] documented as of this encounter Visit Diagnoses Not on filedocumented in this encounter Additional Health Concerns Infection Onset Date Last Indicated Resolved Time COVID - 19 04/19/2021 04/19/2021 04/21/2021 8:16 AM CDT Respiratory Rule Out - RPA 04/19/2021 04/19/2021 1 3:30 PM CDT COVID - 19 07/07/2021 07/07/2021 07/07/2021 6:29 PM SOLAR ENERGY CONSULTANT AND DESIGNER COVID - 19 Confirmed 07/07/2021 07/07/2021 022 12:16 AM SOLAR ENERGY CONSULTANT AND DESIGNER Respiratory Rule Out - RPA 10/07/2021 10/08/2021 0 10/08/2021 3:24 PM CDT COVID - 19 06/16/2024 06/16/2024 06/16/2024 10:2 3 PM SOLAR ENERGY CONSULTANT AND DESIGNER COVID - 19 09/18/2024 09/18/2024 09/18/2024 10:1 3 PM CDT COVID - 19 09/20/2024 09/20/2024 09/20/2024 11:4 5 PM CDT Influenza 09/20/2024 09/20/2024 09/27/2024 12:1 6 AM CDT documented as of this encounter Care Teams Tobacco Prevention Health Educator Relationship Specialty Start Date End Date Ave Collier MD PCP - General Internal Medicine 03/23/20 04/18/21 Arnaud Martini MD PCP - General Family Medicine 04/19/21 09/04/24 Breezy Barros MD #2 [place] [address] PCP - General Internal Medicine 09/05/24 Logan Vazquez MD Consulting Physician Pulmonary Disease 02/10/17 Logan Vazquez MD #2 [place] [address] Consulting Physician Pulmonary Disease 10/01/21 Ana Aguilar APRN, GEOSCIENTIST #[address] [place] [address] Nurse Practitioner Advanced Practice Nurse 06/23/24 documented as of this encounter
--- OUTSIDE RECORDS SUMMARY | 2025-03-18 14:11 | XMS_ITS | Encounter Summary ---
Author Organization [facility] Address [address] [place] [address] Phone Care Team Providers Care Casual Shoe Inspector Name Role Phone Logan Vazquez MD Unavailable Ave Collier MD Primary Care Provider [phone] Arnaud Martini MD Primary Care Provider [phone] Logan Vazquez MD Unavailable Ana Aguilar APRN, [facility] Unavailable Breezy Barros MD Primary Care Provider [phone] Encounter Details Date Type Department Care Team (Late st Contact Info) Description 07/29/2020 [facility] 1 [place] [address] Mikal Espinosa MD [address] [place] [address] Social History Tobacco Use Types Packs/Day Years Used Date Smoking Tobacco: Every Day Cigarettes 0.5 45 Smokeless Tobacco: Never Comments:3-4 cigs a day Alcohol Use Standard Drinks/Week Comments Yes 4 (1 standard drink = 0.6 oz pur e alcohol) social Comments No Sex and Gender Information Value Date Recorded Sex Assigned at Female 07/26/2024 9:52 PM MANAGER BOOKS Legal Sex Female 9:37 PM CDT Gender Identity Female 07/26/2024 9:52 PM MANAGER BOOKS Sexual Orientation Straight 07/26/2024 9: 52 PM MANAGER BOOKS Occupation Industry Job Start Date Job End Date [employer] Not on file Not on file Not on file COVID-19 Exposure Response Date Recorded In the last month, have you been in contact with someone who was confirmed or suspected to have Coronavirus / COVID-19? No / Unsure 07/22/2020 9:27 AM MANAGER BOOKS documented as of this encounter Plan of Treatment Upcoming Encounters Date Type Department Care Team (Late st Contact Info) Description 03/19/2025 11:30 AM CDT Office Visit [facility] - Cardiology [facility] #2 [place] [address] Sheree Palm, DO [address] [address] 03/26/2025 2:30 PM CDT Office Visit [facility] - Pulmonology & Sleep Medicine [facility] #2 [place] [address] Logan Vazquez MD #2 [place] [address] 03/27/2025 10:20 AM CDT [facility] [address] [place] [address] Quan Ross MD [address] [place] [address] Discharge Disposition: Discharged to home or Selfcare 05/21/2025 10:00 AM MANAGER BOOKS Office Visit [facility] - Primary Care - [place] [address] [place] [address] Breezy Barros MD [address] [place] [address] documented as of this encounter Visit Diagnoses Not on filedocumented in this encounter Additional Health Concerns Infection Onset Date Last Indicated Resolved Time COVID - 19 04/19/2021 04/19/2021 04/21/2021 8:16 AM CDT Respiratory Rule Out - RPA 04/19/2021 04/19/2021 1 3:30 PM CDT COVID - 19 07/07/2021 07/07/2021 07/07/2021 6:29 PM MANAGER BOOKS COVID - 19 Confirmed 07/07/2021 07/07/2021 022 12:16 AM MANAGER BOOKS Respiratory Rule Out - RPA 10/07/2021 10/08/2021 0 10/08/2021 3:24 PM CDT COVID - 19 06/16/2024 06/16/2024 06/16/2024 10:2 3 PM MANAGER BOOKS COVID - 19 09/18/2024 09/18/2024 09/18/2024 10:1 3 PM CDT COVID - 19 09/20/2024 09/20/2024 09/20/2024 11:4 5 PM CDT Influenza 09/20/2024 09/20/2024 09/27/2024 12:1 6 AM CDT documented as of this encounter Care Teams Casual Shoe Inspector Relationship Specialty Start Date End Date Ave Collier MD PCP - General Internal Medicine 03/23/20 04/18/21 Arnaud Martini MD PCP - General Family Medicine 04/19/21 09/04/24 Breezy Barros MD #2 [place] [address] PCP - General Internal Medicine 09/05/24 Logan Vazquez MD Consulting Physician Pulmonary Disease 02/10/17 Logan Vazquez MD #2 [place] [address] Consulting Physician Pulmonary Disease 10/01/21 Ana Aguilar APRN, TRUCK DRIVING INSTRUCTOR #2 [place] [address] Nurse Practitioner Advanced Practice Nurse 06/23/24 documented as of this encounter
--- OUTSIDE RECORDS SUMMARY | 2025-03-18 14:11 | XMS_ITS | Encounter Summary ---
Author Organization [facility] Address [address] [facility] [place] [address] Phone Care Team Providers Care Gas Dispenser Name Role Phone Logan Vazquez MD Unavailable Ave Collier MD Primary Care Provider [phone] Arnaud Martini MD Primary Care Provider [phone] Lgoan Vazquez MD Unavailable Ana Aguilar APRN, [facility] Unavailable Breezy Barros MD Primary Care Provider [phone] Reason for Visit * Reason Comments Medication Refill Encounter Details Date Type Department Care Team (Late st Contact Info) Description [facility]20[facility] [address] [place] [address] Quan Ross MD [address] [place], [place] [address] Medication Refill Social History Tobacco Use Types Packs/Day Years Used Date Smoking Tobacco: Every Day Cigarettes 0.5 45 Started: 09/10/1975; Last attempted to quit: 09/09/2020 Smokeless Tobacco: Never Alcohol Use Standard Drinks/Week Comments Yes 4 (1 standard drink = 0.6 oz pur e alcohol) social Comments No Sex and Gender Information Value Date Recorded Sex Assigned at Female 07/26/2024 9:52 PM FLOOR HAND Legal Sex Female 9:37 PM CDT Gender Identity Female 07/26/2024 9:52 PM FLOOR HAND Sexual Orientation Straight 07/26/2024 9: 52 PM FLOOR HAND Occupation Industry Job Start Date Job End [...] Description 03/19/2025 11:30 AM CDT Office Visit [facility] Medical [facility] - Cardiology - [place] #2 [place] [address] Sheree Palm, DO [address] [address] 03/26/2025 2:30 PM CDT Office Visit [facility] - [facility]monology & Sleep Medicine [facility] #2 [place] [address] Logan Vazquez MD #2 [place] [address] 03/27/2025 10:20 AM CDT [facility] [address] [place] [address] Quan Ross MD [address] [place] [address] Discharge Disposition: Discharged to home or Selfcare 05/21/2025 10:00 AM FLOOR HAND Office Visit [facility] - Primary Care - [place] [address] [place] [address] Breezy Barros MD [address] [place] [address] documented as of this encounter Visit Diagnoses Not on filedocumented in this encounter Additional Health Concerns Infection Onset Date Last Indicated Resolved Time COVID - 19 04/19/2021 04/19/2021 04/21/2021 8:16 AM CDT Respiratory Rule Out - RPA 04/19/2021 04/19/2021 1 3:30 PM CDT COVID - 19 07/07/2021 07/07/2021 07/07/2021 6:29 PM FLOOR HAND COVID - 19 Confirmed 07/07/2021 07/07/2021 022 12:16 AM FLOOR HAND Respiratory Rule Out - RPA 10/07/2021 10/08/2021 0 10/08/2021 3:24 PM CDT COVID - 19 06/16/2024 06/16/2024 06/16/2024 10:2 3 PM FLOOR HAND COVID - 19 09/18/2024 09/18/2024 09/18/2024 10:1 3 PM CDT COVID - 19 09/20/2024 09/20/2024 09/20/2024 11:4 5 PM CDT Influenza 09/20/2024 09/20/2024 09/27/2024 12:1 6 AM CDT documented as of this encounter Care Teams Gas Dispenser Relationship Specialty Start Date End Date Ave Collier MD PCP - General Internal Medicine 03/23/20 04/18/21 Arnaud Martini MD PCP - General Family Medicine 04/19/21 09/04/24 Breezy Barros MD #2 [place] [address] PCP - General Internal Medicine 09/05/24 Logan Vazquez MD Consulting Physician Pulmonary Disease 02/10/17 Logan Vazquez MD #2 [place] [address] Consulting Physician Pulmonary Disease 10/01/21 Ana Aguilar APRN, PRIVATE WATCHMAN [address] [place] [address] Nurse Practitioner Advanced Practice Nurse 06/23/24 documented as of this encounter
--- OUTSIDE RECORDS SUMMARY | 2025-03-18 14:11 | XMS_ITS | Patient Health Record ---
Author Organization [facility] Address [address] [facility] [address] [place] [address] Care Team Providers Care Library Science Instructor Name Role Phone -Do Not use, PCP [...] pulmonary disease with acute lower respiratory infection ([id number]) COPD (chronic obstructive pulmonary disease) with acute bronchitis (J44.0) Active confirmed Plan Of Treatment No Information Insurance Providers Payer Name Payer Address Payer Phone Subscriber Number Group Number Insured Name Patient Relationship to Insured Coverage Start Date Coverage End Date Medicare of [facility] [address] [place] [phone] [id number] Maeve Smith Self - patient is the insured 2 [employer] [address] [place] [address] [id number] Maeve Smith Self - patient is the [...]
--- OUTSIDE RECORDS SUMMARY | 2025-03-18 14:11 | XMS_ITS | Encounter Summary ---
Author Organization [facility] Address [address] [place] [address] Phone Care Team Providers Care Tours Hostess Name Role Phone Logan Vazquez MD Unavailable Ave Collier MD Primary Care Provider Arnaud Martini MD Primary Care Provider [phone] Logan Vazquez MD Unavailable Ana Aguilar APRN, [facility] Unavailable Breezy Barros MD Primary Care Provider [phone] Reason for Visit * Reason Comments Medication Refill Encounter Details Date Type Department Care Team (Late st Contact Info) Description 11/05/2020 Refill [facility] PUL[facility] #1 [place] [address] Logan Vazquez MD #2 [place] [address] Medication Refill Social History Tobacco Use Types Packs/Day Years Used Date Smoking Tobacco: Former Cigarettes 1 45 0 09/10/1975 - 09/09/2020 Smokeless Tobacco: Never Alcohol Use Standard Drinks/Week Comments Yes 4 (1 standard drink = 0.6 oz pur e alcohol) social Comments No Sex and Gender Information Value Date Recorded Sex Assigned at Female 07/26/2024 9:52 PM RESEARCH RECRUITER Legal Sex Female 9:37 PM CDT Gender Identity Female 07/26/2024 9:52 PM RESEARCH RECRUITER Sexual Orientation Straight 07/26/2024 9: 52 PM RESEARCH RECRUITER Occupation Industry Job Start Date Job End [...] Description 03/19/2025 11:30 AM CDT Office Visit [facility] [place] Medical [facility] - Cardiology - [place] #2 [place] [address] Sheree Palm, DO [address] [address] 03/26/2025 2:30 PM CDT Office Visit [facility] Medical [facility] - Pulmonology & Sleep Medicine [facility] #2 [place] [address] Logan Vazquez MD #2 [place] [address] 03/27/2025 10:20 AM CDT Office Visit [facility] - Cancer Center Oncology Services [address] [place] [address] Quan Ross MD 0 [place] [address] Discharge Disposition: Discharged to home or Selfcare 05/21/2025 10:00 AM RESEARCH RECRUITER Office Visit [facility] - Primary Care - [place] [address] [place] [address] Breezy Barros MD [address] [place] [place] [address] documented as of this encounter Visit Diagnoses Not on filedocumented in this encounter Additional Health Concerns Infection Onset Date Last Indicated Resolved Time COVID - 19 04/19/2021 04/19/2021 04/21/2021 8:16 AM CDT Respiratory Rule Out - RPA 04/19/2021 04/19/2021 1 3:30 PM CDT COVID - 19 07/07/2021 07/07/2021 07/07/2021 6:29 PM RESEARCH RECRUITER COVID - 19 Confirmed 07/07/2021 07/07/2021 022 12:16 AM RESEARCH RECRUITER Respiratory Rule Out - RPA 10/07/2021 10/08/2021 0 10/08/2021 3:24 PM CDT COVID - 19 06/16/2024 06/16/2024 06/16/2024 10:2 3 PM RESEARCH RECRUITER COVID - 19 09/18/2024 09/18/2024 09/18/2024 10:1 3 PM CDT COVID - 19 09/20/2024 09/20/2024 09/20/2024 11:4 5 PM CDT Influenza 09/20/2024 09/20/2024 09/27/2024 12:1 6 AM CDT documented as of this encounter Care Teams Tours Hostess Relationship Specialty Start Date End Date Ave Collier MD PCP - General Internal Medicine 03/23/20 04/18/21 Arnaud Martini MD PCP - General Family Medicine 04/19/21 09/04/24 Breezy Barros MD #2 [place] [address] PCP - General Internal Medicine 09/05/24 Logan Vazquez MD Consulting Physician Pulmonary Disease 02/10/17 Logan Vazquez MD #2 [place] [address] Consulting Physician Pulmonary Disease 10/01/21 Ana Aguilar APRN, MOUNTER #[address] [place] [address] Nurse Practitioner Advanced Practice Nurse 06/23/24 documented as of this encounter
--- OUTSIDE RECORDS SUMMARY | 2025-03-18 14:11 | XMS_ITS | Encounter Summary ---
Author Organization [facility] Address [address] [facility] [place] [address] Phone Care Team Providers Care Integration Solution Architect Name Role Phone Logan Vazquez MD Unavailable Arnaud Martini MD Primary Care Provider [phone] Logan Vazquez MD Unavailable Ana Aguilar APRN, [employer] Unavailable Breezy Barros MD Primary Care Provider [phone] Reason for Visit * Reason Comments Medication Refill Encounter Details Date Type Department Care Team (Late st Contact Info) Description 02/03/2022 [facility] #2 [place] [address] Logan Vazquez MD #2 [place] [address] Medication Refill Social History Tobacco [...] Sex Assigned at Female 07/26/2024 9:52 PM RUBY ON RAILS ENGINEER Legal Sex Female 9:37 PM CDT Gender Identity Female 07/26/2024 9:52 PM RUBY ON RAILS ENGINEER Sexual Orientation Straight 07/26/2024 9: 52 PM RUBY ON RAILS ENGINEER Occupation Industry Job Start Date Job End [...] Logan Vazquez MD [facility] Showing recent visits within past 365 days and meeting all other requirements Future Appointments Date Type Provider Dept 04/01/22 Appointment Logan Vazquez MD [facility] Showing future appointments within next 90 days and meeting all other requirements Passed - Active short-acting beta agonist prescription documented in this encounter Plan of Treatment Upcoming Encounters Date Type Department Care Team (Kellee Contact Info) Description 03/19/2025 11:30 AM CDT Office Visit [facility] - Cardiology - [place] [address] [place] [address] Arpita Sheree, DO [address] [address] 03/26/2025 2:30 PM CDT Office Visit [facility] - Pulmonology & Sleep Medicine - [place] [address] [place] [address] Logan Vazquez MD #2 [place] [address] 03/27/2025 10:20 AM CDT Office Visit [facility] Center Oncology Services [address] [place] [address] Quan Ross MD [address] [place] [address] Discharge Disposition: Discharged to home or Selfcare 05/21/2025 10:00 AM RUBY ON RAILS ENGINEER Office Visit [facility] - Primary Care - [place] [address] [place] [address] Breezy Barros MD [address] [place] [address] documented as of this encounter Visit Diagnoses Diagnosis Centrilobular emphysema (HCC) Other emphysema documented in this encounter Additional Health Concerns Infection Onset Date Last Indicated Resolved Time COVID - 19 06/16/2024 06/16/2024 06/16/2024 10:2 3 PM RUBY ON RAILS ENGINEER COVID - 19 09/18/2024 09/18/2024 09/18/2024 10:1 3 PM CDT COVID - 19 09/20/2024 09/20/2024 09/20/2024 11:4 5 PM CDT Influenza 09/20/2024 09/20/2024 09/27/2024 12:1 6 AM CDT documented as of this encounter Care Teams Integration Solution Architect Relationship Specialty Start Date End Date Arnaud Martini MD PCP - General Family Medicine 04/19/21 09/04/24 Breezy Barros MD #2 [place] [address] PCP - General Internal Medicine 09/05/24 Logan Vazquez MD Consulting Physician Pulmonary Disease 02/10/17 Logan Vazquez MD #2 [place] [address] Consulting Physician Pulmonary Disease 10/01/21 Ana Aguilar APRN, WEATHER FORCASTER [address] [place] [address] Nurse Practitioner Advanced Practice Nurse 06/23/24 documented as of this encounter
[2025-03-18 14:12] VITALS: BP 110/77; PULSE 83; RESP 20; TEMP 36.5; O2SAT 98
[2025-03-18 14:33] LABS: EDCOVIDSCREEN Negative (Negative)
--- NOTE | 2025-03-18 14:45 | ED.URI ---
HPI - URI/Sore Throat General Chief Complaint: Upper Respiratory Infection Stated Complaint: upper respiratory Time Seen by Provider: 03/18/25 14:30 Source: patient and RN notes reviewed Mode of arrival: ambulatory Limitations: no limitations History of Present Illness HPI Narrative: 61-year-old female presents Express Care complaining worsening cough over the last month. Patient has a history of COPD. Patient reports her cough is dry nonproductive she also reports chest congestion, worsening dyspnea, nasal drainage. Patient has any fevers, body aches, chills, nausea, vomiting, diarrhea, earache, chest pain or any other symptoms. Patient has not used her inhaler today. Related Data Home Medications ?Medication ?Instructions ?Recorded ?Confirmed ?Last Taken ?Type famotidine 20 mg tablet 40 mg PO DAILY 05/21/20 10/19/24 Unknown History aspirin 81 mg capsule 81 mg PO DAILY 02/07/24 05/31/24 Unknown History cetirizine 10 mg tablet 10 mg PO DAILY 02/07/24 05/31/24 Unknown History ipratropium 0.5 mg-albuterol 3 mg See Rx Instructions .Route 02/07/24 10/19/24 Unknown History (2.5 mg base)/3 mL nebulization .COMPLEX PRN sob soln Allergies Allergy/AdvReac Type Severity Reaction Status Date / Time Penicillins Allergy Unknown Rash Verified 02/11/25 14:03 codeine AdvReac Severe Hallucinati Verified 02/11/25 14:03 ng Review of Systems Review of Systems: CONSTITUTIONAL: Denies fever, chills, or sweats. EYES: Denies visual changes, redness, or discharge. ENT: Denies rhinorrhea, sore throat, or otalgia. Positive for congestion. CARDIOVASCULAR: Denies chest pain, palpitations, dizziness, lightheadedness, or edema. RESPIRATORY: Positive for cough, dyspnea. Negative for wheezing. GASTROINTESTINAL: Denies abdominal pain, nausea, vomiting, or diarrhea. GENITOURINARY: Denies dysuria or hematuria. SKIN: Denies rash or itching. MUSCULOSKELETAL: Denies back pain, joint pain, or myalgia. NEUROLOGIC: Denies headache, numbness, or weakness. PSYCHIATRIC: Denies anxiety or depression. All other systems reviewed are negative, except as documented in HPI. [facility] Past Medical History Medical History Sinusitis Trochanteric bursitis of right hip Hip pain COVID-19 Chronic congestion of paranasal sinus Septicemia URI (upper respiratory infection) Cancer Arthritis Asthma Allergies Hyperlipidemia Hypertension Tobacco use COPD (chronic obstructive pulmonary disease) Surgical History Surgical History History of tonsillectomy S/P lobectomy of lung Family History Family History Mother Bladder cancer Diabetes mellitus Father Gastric cancer Hypertension Heart problem Sibling Diabetes mellitus Other Alcohol abuse Social History Social History Smoking packs per day: 0.5 Smoking cigarettes per day: 10.0 Smoking status: Former smoker Tobacco type: cigarettes Smoking end date: 07/12/21 Substance use: never Living arrangements: with family Spiritual care concerns: No Comments At the time of my signature, I reviewed and agree with the nursing past medical, surgical, social, and family history. There is no relevant family history pertinent to the patient complaint. Exam Narrative: GENERAL: This is a well-nourished, well-developed adult, in no apparent distress. They are non ill-appearing, nontoxic appearing. HEAD: normocephalic, atraumatic. EYES: Sclera clear/white. Conjunctiva normal. Vision is grossly intact. Extraocular movements intact EARS: External ears normal, auditory canals clear and without drainage, TMs normal without perforation. Hearing grossly intact. NOSE: External nose normal with no obvious nasal discharge, nasal turbinates without redness, no rhinorrhea. THROAT: Mucous membranes moist, posterior pharynx, without erythema or swelling. Uvula midline. Postnasal drip present. NECK: Neck supple, non-tender without lymphadenopathy, masses or thyromegaly. CARDIOVASCULAR: Regular rate and rhythm without murmurs, gallops, or rubs. RESPIRATORY: In expiratory wheezes heard throughout. Breath sounds equal bilaterally. No rales, or rhonchi. SKIN: warm, Dry, intact with no suspicious lesions or rash, good texture and turgor. NEURO: awake, alert, and oriented to person, place and time. There were no obvious focal neurologic abnormalities. EXTREMITIES: No joint tenderness, effusion, or edema noted. Course Course Emergency Course: Portions of this record may have been created with voice recognition software Level of Care: Express Care Visit Vital Signs Vital signs: Vital Signs Temperature 97.7 F 03/18/25 14:12 Pulse Rate 83 03/18/25 14:12 Respiratory Rate 20 03/18/25 14:12 Blood Pressure 110/77 03/18/25 14:12 Pulse Oximetry 98 03/18/25 14:12 Oxygen Delivery Room Air 03/18/25 14:12 Temperature 97.7 F 03/18/25 14:12 Pulse Rate 83 03/18/25 14:12 Respiratory Rate 20 03/18/25 14:12 Blood Pressure 110/77 03/18/25 14:12 Pulse Oximetry 98 03/18/25 14:12 Oxygen Delivery Room Air 03/18/25 14:12 Reviewed MDM - URI/Sore Throat MDM Narrative Medical decision making narrative: COVID test obtained per patient's request, it is negative. Patient likely has bacterial sinusitis patient cardinal signs of a COPD exacerbation. Patient does have wheezing heard at the end of her expiratory phase however she is not use her inhaler today. No crackles or rales heard exam. Will avoid any prednisone says she was just on it a month ago. Prescribe a course of doxycycline cover any sinus infection or COPD exacerbation. Discussed physical exam findings. Advised supportive measures and signs/symptoms to go to the ER. Pt is appropriate for outpt treatment and f/u. Differential Diagnosis Differential diagnosis: Likely upper respiratory infection, sinusitis, viral infection and other (COPD exacerbation, pneumonia) Lab Data Attestation: I reviewed the patient's lab results. Labs: Lab Results 03/18/25 Range/Units 14:16 POC SARS CoV-2 Ag Negative (Negative) Critical Care Time Critical Care Time Critical Care Time: No Discharge Plan Discharge Clinical Impression: Sinusitis Qualifiers: Sinusitis location: unspecified location Chronicity: acute Recurrence: non-recurrent Qualified Code(s): J01.90 - Acute sinusitis, unspecified Patient Disposition: Home Condition: Stable Instructions: Antibiotic Form, Sinusitis (ED) Additional Instructions: Your rapid COVID is negative. Take the antibiotics as directed and complete the course even if you start to feel better. Wear sunscreen appear to be outside while taking doxycycline. You may use a Neti pot saline rinse 3 times a day with lukewarm distilled water Continue to take Tylenol or Motrin for pain. Use a humidifier or vaporizer at night. Drink plenty of water. 8-10 glasses per day. Use flonase 2 times per day for 5 days then as needed Take mucinex 2 times per day and be sure to take with 8oz of water. Follow up with Primary provider in 3-5 days Please go to the ER if he develops any difficulty breathing, worsening symptoms, or any other concerns Patient Language: Swedish Prescriptions: New doxycycline monohydrate 100 mg capsule 100 mg PO BID 7 Days Qty: 14 0RF No Action famotidine 20 mg tablet 40 mg PO DAILY cetirizine 10 mg Tablet 10 mg PO DAILY aspirin 81 mg Capsule 81 mg PO DAILY ipratropium-albuterol 0.5 mg-3 mg(2.5 mg base)/3 mL solution for nebulization See Rx Instructions .ROUTE .COMPLEX PRN (Reason: sob) Rx Instructions: as prescribed fluticasone propion-salmeterol [Wixela Inhub] 500-50 mcg/dose blister with device 1 inh inhalation Q12H Qty: 60 3RF albuterol sulfate 90 mcg/actuation HFA aerosol inhaler 2 puff INHALATION Q4H PRN (Reason: Shortness Of Breath) Qty: 8.5 3RF metoprolol tartrate 25 mg tablet 12.5 mg PO BID Qty: 180 1RF bupropion HCl [Wellbutrin XL] 150 mg tablet extended release 24 hr 150 mg PO QAM Qty: 90 1RF montelukast 10 mg tablet 10 mg PO DAILY Qty: 90 1RF fluticasone propionate [Flonase Allergy Relief] 50 mcg/actuation spray,suspension 1 spray intranasal Q12H Qty: 16 3RF Rx Instructions: administer into each nostril citalopram 10 mg tablet 10 mg PO DAILY Qty: 90 1RF lovastatin 40 mg tablet 40 mg PO DIRECTED Qty: 90 1RF amlodipine 10 mg tablet 10 mg PO DAILY Qty: 90 1RF acyclovir 400 mg tablet 400 mg PO BID Qty: 180 1RF Follow-up/Referrals: Papo,Breezy Baird MD [Primary Care Provider, Unknown] Time of Disposition: 14:39
== END 2025-03-18 14:48 | disposition home or self-care (01) ==
PROVIDERS: PCP Internal Medicine
DX: J01.90 Acute sinusitis, unspecified (principal); Z20.822 Contact with and (suspected) exposure to COVID-19; Z87.891 Personal history of nicotine dependence; J44.9 Chronic obstructive pulmonary disease, unspecified; I10 Essential (primary) hypertension; E78.5 Hyperlipidemia, unspecified; M19.90 Unspecified osteoarthritis, unspecified site; Z85.9 Personal history of malignant neoplasm, unspecified; Z86.16 Personal history of COVID-19
CPT/HCPCS: 87426; 99213; G0463